=== PATIENT | female | born 1985 | race Caucasian/White ===

== ENCOUNTER 2017-01-01 03:38 | Emergency (ER) | payer BC ==
--- NOTE | 2017-01-01 04:08 | EDM.PDOC ---
ED HPI GENERAL MEDICAL PROBLEM - General Chief Complaint: Genitourinary Problem Stated Complaint: LEFT BACK AND STOMACH PAIN Time Seen by Provider: 01/01/17 04:08 - History of Present Illness INITIAL COMMENTS - FREE TEXT/NARRATIVE: 31-year-old female presents to emergency room with abdominal pain. This abdominal pain has been going on for 8 or 9 days. She doesn't have any nausea or vomiting associated with it she has some left flank discomfort at times. She has E urinary frequency but this is not new however she doesn't feel that she empties all the way and she has some discomfort when she voids. No diarrhea no constipation she's not aware of any fevers or chills. Complicating medical history includes type 2 diabetes. Left Flank Pain Score (Numeric/FACES): 9 - Related Data Allergies Allergy/AdvReac Type Severity Reaction Status Date / Time No Known Allergies Allergy Verified 02/13/16 14:40 Home Meds: Home Meds Ciprofloxacin [Ciprofloxacin HCl] 500 mg PO BID #14 tablet 01/01/17 [Rx] Hydrocodone/Acetaminophen [[place] 5-325] 1 tab PO Q4H PRN #10 tablet 01/01/17 [Rx ] Lisinopril 5 mg PO DAILY 01/01/17 [History] sitaGLIPtin Phos/Metformin HCl [Janumet Xr 50-1,000 mg Tablet] 1 tab PO DAILY [History] Past Medical History - Past Health History Medical/Surgical History: Denies Medical/Surgical History Endocrine/Metabolic History: Reports: Diabetes, Type II Social & Family History - Family History Family Medical History: Noncontributory - Tobacco Use Smoking Status *Q: Never Smoker - Recreational Drug Use Recreational Drug Use: No ED ROS GENERAL - Review of Systems Review Of Systems: See Below Constitutional: Reports: No Symptoms HEENT: Reports: No Symptoms Respiratory: Reports: No Symptoms Cardiovascular: Reports: No Symptoms GI/Abdominal: Reports: Abdominal Pain. Denies: Constipation, Diarrhea, Nausea, Vomiting : Reports: Dysuria, Flank Pain, Frequency, Irregular Menses. Denies: Hematuria Musculoskeletal: Reports: No Symptoms Skin: Reports: No Symptoms Neurological: Reports: No Symptoms ED EXAM, GI/ABD - Physical Exam Exam: See Below Exam Limited By: No Limitations General Appearance: Alert, Mild Distress (Somewhat anxious and has some discomfort) Head: Atraumatic, Normocephalic Neck: Normal Inspection, Supple, Non-Tender, Full Range of Motion. No: Lymphadenopathy (L), Lymphadenopathy (R) Respiratory/Chest: No Respiratory Distress, Lungs Clear, Normal Breath Sounds Cardiovascular: Regular Rate, Rhythm, No Edema, No Murmur GI/Abdominal: Normal Bowel Sounds, Soft, Other (She has significant lower abdominal pain most of the suprapubic but to a lesser degree in the right lower quadrant and left lower quadrant no rigidity no rebound or guarding) Back Exam: Normal Inspection, CVA Tenderness (L) (Mild). No: CVA Tenderness (R) Extremities: Normal Inspection, No Pedal Edema Neurological: Alert, Oriented Course - Vital Signs Last Recorded V/S: Last Vital Signs Temp 36.9 C 01/01/17 03:48 Pulse 114 H 01/01/17 03:48 Resp 20 01/01/17 03:48 BP 134/107 H 01/01/17 03:48 Pulse Ox 99 01/01/17 03:48 - Orders/Labs/Meds Orders: Active Orders 24 hr Category Date Time Status CULTURE URINE [RM] Stat Lab 01/01/17 05:51 Ordered Labs: Laboratory Tests 01/01/17 01/01/17 01/01/17 Range/Units 04:15 04:50 04:50 WBC 14.82 H (3.98-10.04) K/mm3 RBC 4.46 (3.98-5.22) M/mm3 Hgb 11.9 (11.2-15.7) gm/L Hct 36.6 (34.1-44.9) % MCV 82.1 (79.4-94.8) fl MCH 26.7 (25.6-32.2) pg MCHC 32.5 (32.2-35.5) g/dl RDW Std Deviation 39.8 (36.4-46.3) fL Plt Count 412 H (182-369) K/mm3 MPV 9.7 (9.4-12.3) fl Neutrophils % (Manual) 68 H (40-60) % Band Neutrophils % 0 (0-10) % Lymphocytes % (Manual) 30 (20-40) % Atypical Lymphs % 0 % Monocytes % (Manual) 0 L (2-10) % Eosinophils % (Manual) 2 (0.7-5.8) % Basophils % (Manual) 0 L (0.1-1.2) Platelet Estimate Adequate RBC Morph Comment Normal Sodium 141 (136-145) mEq/L Potassium 3.9 (3.5-5.1) mEq/L Chloride 104 (98-107) mEq/L Carbon Dioxide 27 (21-32) mEq/L Anion Gap 13.9 (5-15) BUN 7 (7-18) mg/dL Creatinine 0.7 (0.55-1.02) mg/dL Est Cr Clr Drug Dosing 92.94 mL/min Estimated GFR (MDRD) > 60 (>60) mL/min BUN/Creatinine Ratio 10.0 L (14-18) Glucose 145 H (74-106) mg/dL Calcium 9.2 (8.5-10.1) mg/dL Total Bilirubin 0.5 (0.2-1.0) mg/dL AST 50 H (15-37) U/L ALT 85 H (14-59) U/L Alkaline Phosphatase 88 (46-116) U/L Total Protein 8.1 (6.4-8.2) g/dl Albumin 3.5 (3.4-5.0) g/dl Globulin 4.6 gm/dL Albumin/Globulin Ratio 0.8 L (1-2) Urine Color Light yellow (Yellow) Urine Appearance Slt cloudy H (Clear) Urine pH 6.5 (5.0-8.0) Ur Specific Jackson 1.015 (1.005-1.030) Urine Protein Trace H (Negative) Urine Glucose (UA) Negative (Negative) Urine Ketones Negative (Negative) Urine Occult Blood 1+ H (Negative) Urine Nitrite Negative (Negative) Urine Bilirubin Negative (Negative) Urine Urobilinogen 1.0 (0.2-1.0) Ur Leukocyte Esterase 1+ H (Negative) Urine RBC 0-5 (0-5) /hpf Urine WBC 5-10 H (0-5) /hpf Ur Epithelial Cells 0-5 (0-5) /hpf Urine Bacteria Few (FEW) /hpf Urine Mucus Few (FEW) /hpf Urine HCG, Qual (NEGATIVE) 01/01/17 Range/Units 04:50 WBC (3.98-10.04) K/mm3 RBC (3.98-5.22) M/mm3 Hgb (11.2-15.7) gm/L Hct (34.1-44.9) % MCV (79.4-94.8) fl MCH (25.6-32.2) pg MCHC (32.2-35.5) g/dl RDW Std Deviation (36.4-46.3) fL Plt Count (182-369) K/mm3 MPV (9.4-12.3) fl Neutrophils % (Manual) (40-60) % Band Neutrophils % (0-10) % Lymphocytes % (Manual) (20-40) % Atypical Lymphs % % Monocytes % (Manual) (2-10) % Eosinophils % (Manual) (0.7-5.8) % Basophils % (Manual) (0.1-1.2) Platelet Estimate RBC Morph Comment Sodium (136-145) mEq/L Potassium (3.5-5.1) mEq/L Chloride (98-107) mEq/L Carbon Dioxide (21-32) mEq/L Anion Gap (5-15) BUN (7-18) mg/dL Creatinine (0.55-1.02) mg/dL Est Cr Clr Drug Dosing mL/min Estimated GFR (MDRD) (>60) mL/min BUN/Creatinine Ratio (14-18) Glucose (74-106) mg/dL Calcium (8.5-10.1) mg/dL Total Bilirubin (0.2-1.0) mg/dL AST (15-37) U/L ALT (14-59) U/L Alkaline Phosphatase (46-116) U/L Total Protein (6.4-8.2) g/dl Albumin (3.4-5.0) g/dl Globulin gm/dL Albumin/Globulin Ratio (1-2) Urine Color (Yellow) Urine Appearance (Clear) Urine pH (5.0-8.0) Ur Specific Jackson (1.005-1.030) Urine Protein (Negative) Urine Glucose (UA) (Negative) Urine Ketones (Negative) Urine Occult Blood (Negative) Urine Nitrite (Negative) Urine Bilirubin (Negative) Urine Urobilinogen (0.2-1.0) Ur Leukocyte Esterase (Negative) Urine RBC (0-5) /hpf Urine WBC (0-5) /hpf Ur Epithelial Cells (0-5) /hpf Urine Bacteria (FEW) /hpf Urine Mucus (FEW) /hpf Urine HCG, Qual Negative (NEGATIVE) Meds: Medications Discontinued Medications Generic Name Dose Route Start Last Admin Trade Name Freq PRN Reason Stop Dose Admin Hydrocodone Bitart/Acetaminophen 1 tab 01/01/17 06:04 01/01/17 06:21 [place] 325-5 Mg PO 01/01/17 06:05 1 tab ONETIME ONE Administration Ceftriaxone Sodium 1,000 mg 01/01/17 05:43 01/01/17 07:21 Rocephin IVPUSH 01/01/17 05:44 Not Given ONETIME ONE Fentanyl 50 mcg 01/01/17 04:22 01/01/17 04:48 Sublimaze IVPUSH 01/01/17 04:23 50 mcg ONETIME ONE Administration Lactated Ringer's 1,000 mls @ 150 mls/hr 01/01/17 04:30 01/01/17 04:47 Ringers, Lactated IV 150 mls/hr ASDIRECTED JAMES Administration Ceftriaxone Sodium 1 gm/ 100 mls @ 200 mls/hr 01/01/17 06:04 01/01/17 06:21 Sodium Chloride IV 01/01/17 06:33 200 mls/hr ONETIME ONE Administration - Re-Assessments/Exams Free Text/Narrative Re-Assessment/Exam: 01/01/17 05:38 Urinalysis is suggestive of an infectious process urine culture ordered. HCG negative at this point were still waiting on her CBC. With the duration of this illness and the flank tenderness one has to worry about an early pyelonephritis patient will receive a gram of Rocephin after her LR is shut off and her IVs irrigated with saline. 01/01/17 06:37 Recent CBC is back she has a mild elevation no left shift. Anticipate discharge after the Rocephin is in. Departure - Departure Time of Disposition: 07:28 Disposition: Home, Self-Care 01 Clinical Impression: Pyelonephritis - Discharge Information Prescriptions: Ciprofloxacin [Ciprofloxacin HCl] 500 mg PO BID #14 tablet Hydrocodone/Acetaminophen [[place] 5-325] 1 tab PO Q4H PRN #10 tablet PRN Reason: Pain Referrals: PCP,Unknown [Primary Care Provider] - Forms: ED Department Discharge Additional Instructions: Return to the emergency room with any questions problems or worsening symptoms. Follow up at the Hospital clinic on Tuesday or Tuesday for recheck. [phone] You've been started on Cipro, this is an antibiotic take it twice daily. Start tonight. You have also been started on [place] this is for pain take 1 every 4 hours as needed. Allow 12 hours after taking this medication before driving and returning to work - My Orders Last 24 Hours: My Active Orders 01/01/17 05:51 CULTURE URINE [RM] Stat - Assessment/Plan Last 24 Hours: My Active Orders 01/01/17 05:51 CULTURE URINE [RM] Stat
[2017-01-01] MEDS ORDERED: fentaNYL 100 MCG/2 ML SDV IVPUSH ONE (04:22)
[2017-01-01] MEDS ORDERED: Lactated Ringers 1,000 ML IV SCH (04:30)
[2017-01-01] MEDS ORDERED: cefTRIAXone 1,000 MG VIAL IVPUSH ONE (05:43)
[2017-01-01] MEDS ORDERED: cefTRIAXone 1 GM in Sodium Chloride 0.9% 100 ML IV ONE (06:04)
[2017-01-01] MEDS ORDERED: Acetaminophen/HYDROcodone 325-5 MG Tab PO ONE (06:04)
[2017-01-01 07:54] VITALS: BP 121/77
== END 2017-01-01 07:56 | disposition home or self-care (01) ==
LOC: JD.ED 03:38
DX: N12 Tubulo-interstitial nephritis, not specified as acute or chronic (principal); E11.9 Type 2 diabetes mellitus without complications; Z79.899 Other long term (current) drug therapy; Z79.84 Long term (current) use of oral hypoglycemic drugs
CPT/HCPCS: 36415; 80053; 81001; 81025; 85025; 87086; 96361; 96365; 96375; 99284; A9270; J0696; J3010; J7030; J7120

== ENCOUNTER 2017-01-02 17:13 | Inpatient (IN) | payer BC ==
[2017-01-02] MEDS ORDERED: Sodium Chloride 0.9% 1,000 ML IV ONE (17:46)
--- NOTE | 2017-01-02 17:46 | EDM.PDOC ---
[id number] Chief Complaint: Abdominal Pain Stated Complaint: RE CK ABDOMINAL PAIN Time Seen by Provider: 01/02/17 17:38 - Related Data Allergies Allergy/AdvReac Type Severity Reaction Status Date / Time No Known Allergies Allergy Verified 01/02/17 17:29 Home Meds: Home Meds Ciprofloxacin [Ciprofloxacin HCl] 500 mg PO BID #14 tablet 01/01/17 [Rx] Hydrocodone/Acetaminophen [[place] 5-325] 1 tab PO Q4H PRN #10 tablet 01/01/17 [Rx ] Lisinopril 5 mg PO DAILY 01/01/17 [History] sitaGLIPtin Phos/Metformin HCl [Janumet Xr 50-1,000 mg Tablet] 1 tab PO DAILY [History] ED EXAM, GI/ABD - Physical Exam (Female) Exam: Normal External Exam, Adnexal Tenderness, Cervical Discharge, Other (Dark yellow discharge from the cervical os cultures obtained strings from the IUD visualized and with further examination it looks like the IUD is trying to expel itself the end of the IUD is visible this was secured with ring forceps and removed) Course - Vital Signs Last Recorded V/S: Last Vital Signs Temp 36.7 C 01/03/17 03:15 Pulse 112 H 01/02/17 17:24 Resp 20 01/02/17 17:24 BP 112/84 01/02/17 17:24 Pulse Ox 97 01/02/17 17:24 - Orders/Labs/Meds Orders: Active Orders 24 hr Category Date Time Status Abdomen Pelvis w Cont [CT] Stat Exams 01/02/17 17:51 Taken Transvaginal Non OB [US] Stat Exams 01/02/17 21:39 Taken CULTURE BLOOD [BC] Stat Lab 01/02/17 18:15 Received CULTURE BLOOD [BC] Stat Lab 01/02/17 18:26 Received Sodium Chloride 0.9% [Saline Flush] Med 01/02/17 19:11 Active 10 ml FLUSH ONETIME PRN Blood Culture x2 Reflex Set [OM.PC] Stat Oth 01/02/17 17:51 Ordered Medication Orders Hydromorphone HCl (Dilaudid) 0.5 mg IVPUSH Q2H PRN PRN Reason: Pain Last Admin: 01/03/17 00:35 Dose: 0.5 mg Cefoxitin Sodium 2 gm/ Premix 50 mls @ 100 mls/hr IV Q12H [facility] Last Admin: 01/03/17 00:50 Dose: 100 mls/hr Doxycycline Hyclate 100 mg/ (Sodium Chloride) 100 mls @ 100 mls/hr IV Q12H [facility] Last Admin: 01/03/17 03:13 Dose: 100 mls/hr Levofloxacin/Dextrose 750 mg/ (Premix) 150 mls @ 100 mls/hr IV Q24H [facility] Lactated Ringer's (Ringers, Lactated) 1,000 mls @ 75 mls/hr IV ASDIRECTED [facility] Ibuprofen (Motrin) 600 mg PO Q6H PRN PRN Reason: Fever Last Admin: 01/03/17 00:34 Dose: 600 mg Insulin Aspart (Novolog) 0 unit SUBCUT QIDACANDBED [facility] PRN Reason: Protocol Ondansetron HCl (Zofran) 4 mg IVPUSH Q4H PRN PRN Reason: Nausea/Vomiting Sodium Chloride (Saline Flush) 10 ml FLUSH ONETIME PRN PRN Reason: IV FLUSH Last Admin: 01/02/17 20:09 Dose: 10 ml Labs: Laboratory Tests 01/02/17 01/02/17 01/02/17 Range/Units 18:15 18:15 18:15 WBC 15.27 H (3.98-10.04) K/mm3 RBC 4.66 (3.98-5.22) M/mm3 Hgb 12.3 (11.2-15.7) gm/L Hct 37.9 (34.1-44.9) % MCV 81.3 (79.4-94.8) fl MCH 26.4 (25.6-32.2) pg MCHC 32.5 (32.2-35.5) g/dl RDW Std Deviation 39.1 (36.4-46.3) fL Plt Count 429 H (182-369) K/mm3 MPV 9.4 (9.4-12.3) fl Neutrophils % (Manual) 83 H (40-60) % Band Neutrophils % 0 (0-10) % Lymphocytes % (Manual) 14 L (20-40) % Atypical Lymphs % 0 % Monocytes % (Manual) 2 (2-10) % Eosinophils % (Manual) 0 L (0.7-5.8) % Basophils % (Manual) 1 (0.1-1.2) Platelet Estimate Adequate Plt Morphology Comment Normal Anisocytosis 1+ slight RBC Morph Comment Not Reportable Sodium 137 (136-145) mEq/L Potassium 3.8 (3.5-5.1) mEq/L Chloride 100 (98-107) mEq/L Carbon Dioxide 26 (21-32) mEq/L Anion Gap 14.8 (5-15) BUN 6 L (7-18) mg/dL Creatinine 0.7 (0.55-1.02) mg/dL Est Cr Clr Drug Dosing TNP Estimated GFR (MDRD) > 60 (>60) mL/min BUN/Creatinine Ratio 8.6 L (14-18) Glucose 136 H (74-106) mg/dL Calcium 8.9 (8.5-10.1) mg/dL Total Bilirubin 0.9 (0.2-1.0) mg/dL AST 39 H (15-37) U/L ALT 83 H (14-59) U/L Alkaline Phosphatase 97 (46-116) U/L C-Reactive Protein 20.2 H* (<1.0) mg/dL Total Protein 8.1 (6.4-8.2) g/dl Albumin 3.3 L (3.4-5.0) g/dl Globulin 4.8 gm/dL Albumin/Globulin Ratio 0.7 L (1-2) Lipase 76 (73-393) U/L HCG, Qual Negative (NEGATIVE) Urine Color (Yellow) Urine Appearance (Clear) Urine pH (5.0-8.0) Ur Specific [place] (1.005-1.030) Urine Protein (Negative) Urine Glucose (UA) (Negative) Urine Ketones (Negative) Urine Occult Blood (Negative) Urine Nitrite (Negative) Urine Bilirubin (Negative) Urine Urobilinogen (0.2-1.0) Ur Leukocyte Esterase (Negative) Urine RBC (0-5) /hpf Urine WBC (0-5) /hpf Ur Epithelial Cells (0-5) /hpf Urine Bacteria (FEW) /hpf Urine Mucus (FEW) /hpf C trachomatis DNA (PCR) N gonorrhoeae DNA (PCR) 01/02/17 01/02/17 Range/Units 18:15 22:25 WBC (3.98-10.04) K/mm3 RBC (3.98-5.22) M/mm3 Hgb (11.2-15.7) gm/L Hct (34.1-44.9) % MCV (79.4-94.8) fl MCH (25.6-32.2) pg MCHC (32.2-35.5) g/dl RDW Std Deviation (36.4-46.3) fL Plt Count (182-369) K/mm3 MPV (9.4-12.3) fl Neutrophils % (Manual) (40-60) % Band Neutrophils % (0-10) % Lymphocytes % (Manual) (20-40) % Atypical Lymphs % % Monocytes % (Manual) (2-10) % Eosinophils % (Manual) (0.7-5.8) % Basophils % (Manual) (0.1-1.2) Platelet Estimate Plt Morphology Comment Anisocytosis RBC Morph Comment Sodium (136-145) mEq/L Potassium (3.5-5.1) mEq/L Chloride (98-107) mEq/L Carbon Dioxide (21-32) mEq/L Anion Gap (5-15) BUN (7-18) mg/dL Creatinine (0.55-1.02) mg/dL Est Cr Clr Drug Dosing Estimated GFR (MDRD) (>60) mL/min BUN/Creatinine Ratio (14-18) Glucose (74-106) mg/dL Calcium (8.5-10.1) mg/dL Total Bilirubin (0.2-1.0) mg/dL AST (15-37) U/L ALT (14-59) U/L Alkaline Phosphatase (46-116) U/L C-Reactive Protein (<1.0) mg/dL Total Protein (6.4-8.2) g/dl Albumin (3.4-5.0) g/dl Globulin gm/dL Albumin/Globulin Ratio (1-2) Lipase (73-393) U/L HCG, Qual (NEGATIVE) Urine Color Yellow (Yellow) Urine Appearance Slt cloudy H (Clear) Urine pH 6.0 (5.0-8.0) Ur Specific [place] 1.020 (1.005-1.030) Urine Protein 2+ H (Negative) Urine Glucose (UA) Negative (Negative) Urine Ketones 2+ H (Negative) Urine Occult Blood Trace-lysed H (Negative) Urine Nitrite Negative (Negative) Urine Bilirubin 1+ H (Negative) Urine Urobilinogen 0.2 (0.2-1.0) Ur Leukocyte Esterase 1+ H (Negative) Urine RBC 0-5 (0-5) /hpf Urine WBC 40-50 H (0-5) /hpf Ur Epithelial Cells 30-40 H (0-5) /hpf Urine Bacteria Few (FEW) /hpf Urine Mucus Not seen (FEW) /hpf C trachomatis DNA (PCR) Not detected N gonorrhoeae DNA (PCR) Not detected Meds: Medications Generic Name Dose Route Start Last Admin Trade Name Freq PRN Reason Stop Dose Admin Hydromorphone HCl 0.5 mg 01/02/17 23:45 01/03/17 00:35 Dilaudid IVPUSH 0.5 mg Q2H PRN Administration Pain Cefoxitin Sodium 2 gm/ Premix 50 mls @ 100 mls/hr 01/03/17 01:00 01/03/17 00: 50 IV 100 mls/hr Q12H [facility] Administration Doxycycline Hyclate 100 mg/ 100 mls @ 100 mls/hr 01/03/17 03:00 01/03/17 03: 13 Sodium Chloride IV 100 mls/hr Q12H [facility] Administration Levofloxacin/Dextrose 750 mg/ 150 mls @ 100 mls/hr 01/03/17 18:00 Premix IV Q24H [facility] Lactated Ringer's 1,000 mls @ 75 mls/hr 01/03/17 14:00 Ringers, Lactated IV ASDIRECTED [facility] Ibuprofen 600 mg 01/03/17 00:14 01/03/17 00:34 Motrin PO 600 mg Q6H PRN Administration Fever Insulin Aspart 0 unit 01/03/17 11:00 Novolog SUBCUT QIDACANDBED [facility] Protocol Ondansetron HCl 4 mg 01/02/17 23:51 Zofran IVPUSH Q4H PRN Nausea/Vomiting Sodium Chloride 10 ml 01/02/17 19:11 01/02/17 20:09 Saline Flush FLUSH 10 ml ONETIME PRN Administration IV FLUSH Discontinued Medications Generic Name Dose Route Start Last Admin Trade Name Freq PRN Reason Stop Dose Admin Diatrizoate Meglum/Diatrizoate Sod 90 ml 01/02/17 19:11 01/02/17 20:09 Gastrografin 37% PO 01/02/17 19:12 90 ml ONETIME ONE Administration Diphenhydramine HCl 25 mg 01/02/17 17:50 01/02/17 18:18 Benadryl IVPUSH 01/02/17 17:51 25 mg ONETIME ONE Administration Hydromorphone HCl 1 mg 01/02/17 17:47 01/02/17 18:18 Dilaudid IVPUSH 01/02/17 17:48 1 mg ONETIME ONE Administration Hydromorphone HCl 0.5 mg 01/02/17 18:41 01/02/17 18:55 Dilaudid IVPUSH 01/02/17 18:42 0.5 mg ONETIME ONE Administration Hydromorphone HCl 0.5 mg 01/02/17 20:27 01/02/17 20:36 Dilaudid IVPUSH 01/02/17 20:28 0.5 mg ONETIME ONE Administration Hydromorphone HCl 0.5 mg 01/02/17 21:41 01/02/17 21:48 Dilaudid IVPUSH 01/02/17 21:42 0.5 mg ONETIME ONE Administration Sodium Chloride 1,000 mls @ 999 mls/hr 01/02/17 17:46 01/02/17 18:21 Normal Saline IV 01/02/17 18:46 999 mls/hr ONETIME ONE Administration Levofloxacin/Dextrose 750 mg/ 150 mls @ 100 mls/hr 01/02/17 18:07 01/02/17 18 :23 Premix IV 01/02/17 19:36 100 mls/hr ONETIME ONE Administration Lactated Ringer's 1,000 mls @ 150 mls/hr 01/02/17 21:30 01/02/17 23:35 Ringers, Lactated IV 150 mls/hr ASDIRECTED [facility] Administration Dextrose/Sodium Chloride 1,000 mls @ 125 mls/hr 01/02/17 23:45 01/03/17 06:12 Dextrose 5%-1/2 Ns IV 125 mls/hr ASDIRECTED [facility] Administration Insulin Aspart 0 unit 01/03/17 00:15 01/03/17 06:20 Novolog SUBCUT Not Given Q6H [facility] Protocol Iopamidol 125 ml 01/02/17 19:11 01/02/17 20:09 Isovue-300 (61%) IVPUSH 01/02/17 19:12 125 ml ONETIME ONE Administration Metoclopramide HCl 10 mg 01/02/17 17:47 01/02/17 18:18 Reglan IVPUSH 01/02/17 17:48 10 mg ONETIME ONE Administration Ondansetron HCl 4 mg 01/02/17 21:41 01/02/17 21:46 Zofran IVPUSH 01/02/17 21:42 4 mg ONETIME ONE Administration - Re-Assessments/Exams Free Text/Narrative Re-Assessment/Exam: 01/02/17 21:44 Assume care changes shift I did have to give her some more pain medication CT results back which show a 6.3 x 4 cm multiloculated abscess collection in the left adnexa most consistent with a tubo-ovarian abscess. No free air seen case discussed with Dr. Porter ip technology transactions attorney BARGE ENGINEER who recommends starting her on Mefoxin and doxycycline IV after removing the IUD and obtaining cultures aerobic and anaerobic from the cervical loss GC and Chlamydia screen and culture the IUD. 01/02/17 22:52 Patient will be admitted inpatient. Blood cultures obtained earlier patient had cervical cultures for GC chlamydia aerobic and anaerobic. IUD was easily removed patient tolerated this without too much difficulty. Departure - Departure Time of Disposition: 22:52 Disposition: Admitted As Inpatient 67 Clinical Impression: Tubo-ovarian abscess - Discharge Information - My Orders Last 24 Hours: My Active Orders 01/02/17 17:51 Abdomen Pelvis w Cont [CT] Stat Blood Culture x2 Reflex Set [OM.PC] Stat 01/02/17 18:15 CULTURE BLOOD [BC] Stat 01/02/17 18:26 CULTURE BLOOD [BC] Stat - Assessment/Plan Last 24 Hours: My Active Orders 01/02/17 17:51 Abdomen Pelvis w Cont [CT] Stat Blood Culture x2 Reflex Set [OM.PC] Stat 01/02/17 18:15 CULTURE BLOOD [BC] Stat 01/02/17 18:26 CULTURE BLOOD [BC] Stat <Javier Perdomo - Last Filed: 01/03/17 08:27> ED HPI GENERAL MEDICAL PROBLEM - General Source of Information: Reports: Patient History Limitations: Reports: No Limitations - History of Present Illness INITIAL COMMENTS - FREE TEXT/NARRATIVE: 31-year-old female presents to the ED once again with increased left janee- abdominal pain radiating up to her left flank. Pain radiates down to the groin and suprapubic region. She hasn't had a bowel movement since yesterday. She did not know seen blood in the stool yesterday and no relief of the pain. She was seen through the ED yesterday morning early and identified to have an elevated white count at 14.82 with essentially normal differential 60% neutrophils and no bands. There were 5-10+ cells per per field and leukocyte esterase was 1+ positive. It was felt that with her diabetes she likely was developing a early pyelonephritis. She was given Rocephin 1 g intravenously and placed on Cipro 500 twice a day. She reports that she's no better and in fact much worse than she was yesterday. She had fever and chills last night. She a little bit of breakfast this morning she's vomited 3 times this afternoon. More from the intensity of the pain. Pain tends to be sharp and stabbing but is constant and worsened by coughing sneezing movement or even deep breathing. Riding in a vehicle was very painful with every bump in the road. This suggests underlying peritonitis. She's not sure what her blood sugars have been running at. She took a prescribed hydrocodone tablet at 3:00 and was hopeful to go to work but could not stand the pain. She presents very tearful and moving very slowly. No position is very comfortable. No previous abdominal surgery. She is type II diabetic controlled with oral medications. Blood sugar yesterday was 145 she has not checked it today. Urine and she just yesterday was negative. Onset: Gradual (She reports the pain started 7-8 days ago and is gradually increased in intensity. Worse in the last 24 hours.) Onset Date: 12/25/16 Duration: Hour(s): Location: Reports: Abdomen (Left hemiabdomen radium into her left back flank area. Also down to the pubic symphysis area.) Quality: Reports: Ache, Sharp, Stabbing Severity: Severe Improves with: Reports: None (Rates the pain currently as 9 out of 10.) Worsens with: Reports: Other (Coughing sneezing laughing deep breathing and getting in and out of the car was extremely painful.), Movement Context: Denies: Activity, Exercise, Lifting, Sick Contact, Trauma Associated Symptoms: Reports: Fever/Chills, Loss of Appetite, Malaise, Nausea/ Vomiting, Weakness. Denies: Confusion, Chest Pain, Cough, cough w sputum, Diaphoresis, Headaches, Rash, Seizure, Shortness of Breath, Syncope Treatments SUSTAINABILITY MANAGER: Reports: Other (see below) Other Treatments SUSTAINABILITY MANAGER: pain medication at 1500 lower left flank, left lower abdomen Pain Score (Numeric/FACES): 10 Past Medical History - Past Health History Medical/Surgical History: Denies Medical/Surgical History : 3 Para: 3 Endocrine/Metabolic History: Reports: Diabetes, Type II (Controlled with oral medications.) Social & Family History - Family History Family Medical History: Noncontributory - Tobacco Use Smoking Status *Q: Never Smoker - Recreational Drug Use Recreational Drug Use: No - Living Situation & Occupation Living situation: Reports: Occupation: Employed ED ROS GENERAL - Review of Systems Review Of Systems: See Below Constitutional: Reports: Fever, Chills, Malaise, Weakness, Fatigue, Decreased Appetite. Denies: Diaphoresis HEENT: Reports: No Symptoms Respiratory: Denies: Shortness of Breath, Wheezing, Pleuritic Chest Pain, Cough , Sputum Cardiovascular: Reports: No Symptoms Endocrine: Reports: Fatigue GI/Abdominal: Reports: Abdominal Pain (See history of present illness), Decreased Appetite, Nausea, Vomiting. Denies: Distension, Flatus, Hematemesis, Hematochezia, Melena, Other : Reports: No Symptoms Musculoskeletal: Reports: Back Pain (Left flank pain and low back pain.) Skin: Reports: No Symptoms Neurological: Reports: No Symptoms Psychiatric: Reports: No Symptoms, Other Immunologic: Reports: No Symptoms ED EXAM, GI/ABD - Physical Exam Exam: See Below Exam Limited By: No Limitations General Appearance: Alert, WD/WN, Anxious, Moderate Distress (Very tearful and anxious. No position is comfortable.) Eyes: Bilateral: Normal Appearance (No jaundice) Throat/Mouth: Normal Inspection, Normal Lips, Normal Oropharynx, Other Head: Atraumatic, Normocephalic (Tongue is mildly dry and coated) Neck: Normal Inspection, Supple, Non-Tender, Full Range of Motion. No: Lymphadenopathy (L) Respiratory/Chest: No Respiratory Distress, Lungs Clear, Normal Breath Sounds, No Accessory Muscle Use, Chest Non-Tender, Respiratory Distress (Mild tachypnea. ) Cardiovascular: Normal Peripheral Pulses, Regular Rate, Rhythm, No Murmur, Tachycardia (Resting tachycardia of 1 12/m.) GI/Abdominal: Hypoactive Bowel Sounds (Very hypoactive bowel sounds.), Guarding , Rebound (Left lower quadrant). No: Rigidity ( left lower quadrant), Hepatomegaly, Splenomegaly, Hernia, Mass, McBurney's Sign, Psoas Sign, Obturator Sign Back Exam: Normal Inspection, Decreased Range of Motion. No: Full Range of Motion, CVA Tenderness (L), CVA Tenderness (R) Extremities: Normal Inspection, Normal Range of Motion, Non-Tender, Normal Capillary Refill Neurological: Alert, Oriented, CN II-XII Intact, Normal Cognition, Normal Gait, Normal Reflexes Psychiatric: Normal Affect, Normal Mood Skin Exam: Warm, Dry, Intact, Normal Color, No Rash Course - Orders/Labs/Meds Orders: Active Orders 24 hr Category Date Time Status Abdomen Pelvis w Cont [CT] Stat Exams 01/02/17 17:51 Taken Transvaginal Non OB [US] Stat Exams 01/02/17 21:39 Taken CULTURE BLOOD [BC] Stat Lab 01/02/17 18:15 Received CULTURE BLOOD [BC] Stat Lab 01/02/17 18:26 Received Sodium Chloride 0.9% [Saline Flush] Med 01/02/17 19:11 Active 10 ml FLUSH ONETIME PRN Blood Culture x2 Reflex Set [OM.PC] Stat Oth 01/02/17 17:51 Ordered Medication Orders Hydromorphone HCl (Dilaudid) 0.5 mg IVPUSH Q2H PRN PRN Reason: Pain Last Admin: 01/03/17 00:35 Dose: 0.5 mg Cefoxitin Sodium 2 gm/ Premix 50 mls @ 100 mls/hr IV Q12H [facility] Last Admin: 01/03/17 00:50 Dose: 100 mls/hr Doxycycline Hyclate 100 mg/ (Sodium Chloride) 100 mls @ 100 mls/hr IV Q12H [facility] Last Admin: 01/03/17 03:13 Dose: 100 mls/hr Levofloxacin/Dextrose 750 mg/ (Premix) 150 mls @ 100 mls/hr IV Q24H [facility] Lactated Ringer's (Ringers, Lactated) 1,000 mls @ 75 mls/hr IV ASDIRECTED [facility] Ibuprofen (Motrin) 600 mg PO Q6H PRN PRN Reason: Fever Last Admin: 01/03/17 00:34 Dose: 600 mg Insulin Aspart (Novolog) 0 unit SUBCUT QIDACANDBED [facility] PRN Reason: Protocol Ondansetron HCl (Zofran) 4 mg IVPUSH Q4H PRN PRN Reason: Nausea/Vomiting Sodium Chloride (Saline Flush) 10 ml FLUSH ONETIME PRN PRN Reason: IV FLUSH Last Admin: 01/02/17 20:09 Dose: 10 ml Labs: Laboratory Tests 01/02/17 01/02/17 01/02/17 Range/Units 18:15 18:15 18:15 WBC 15.27 H (3.98-10.04) K/mm3 RBC 4.66 (3.98-5.22) M/mm3 Hgb 12.3 (11.2-15.7) gm/L Hct 37.9 (34.1-44.9) % MCV 81.3 (79.4-94.8) fl MCH 26.4 (25.6-32.2) pg MCHC 32.5 (32.2-35.5) g/dl RDW Std Deviation 39.1 (36.4-46.3) fL Plt Count 429 H (182-369) K/mm3 MPV 9.4 (9.4-12.3) fl Neutrophils % (Manual) 83 H (40-60) % Band Neutrophils % 0 (0-10) % Lymphocytes % (Manual) 14 L (20-40) % Atypical Lymphs % 0 % Monocytes % (Manual) 2 (2-10) % Eosinophils % (Manual) 0 L (0.7-5.8) % Basophils % (Manual) 1 (0.1-1.2) Platelet Estimate Adequate Plt Morphology Comment Normal Anisocytosis 1+ slight RBC Morph Comment Not Reportable Sodium 137 (136-145) mEq/L Potassium 3.8 (3.5-5.1) mEq/L Chloride 100 (98-107) mEq/L Carbon Dioxide 26 (21-32) mEq/L Anion Gap 14.8 (5-15) BUN 6 L (7-18) mg/dL Creatinine 0.7 (0.55-1.02) mg/dL Est Cr Clr Drug Dosing TNP Estimated GFR (MDRD) > 60 (>60) mL/min BUN/Creatinine Ratio 8.6 L (14-18) Glucose 136 H (74-106) mg/dL Calcium 8.9 (8.5-10.1) mg/dL Total Bilirubin 0.9 (0.2-1.0) mg/dL AST 39 H (15-37) U/L ALT 83 H (14-59) U/L Alkaline Phosphatase 97 (46-116) U/L C-Reactive Protein 20.2 H* (<1.0) mg/dL Total Protein 8.1 (6.4-8.2) g/dl Albumin 3.3 L (3.4-5.0) g/dl Globulin 4.8 gm/dL Albumin/Globulin Ratio 0.7 L (1-2) Lipase 76 (73-393) U/L HCG, Qual Negative (NEGATIVE) Urine Color (Yellow) Urine Appearance (Clear) Urine pH (5.0-8.0) Ur Specific [place] (1.005-1.030) Urine Protein (Negative) Urine Glucose (UA) (Negative) Urine Ketones (Negative) Urine Occult Blood (Negative) Urine Nitrite (Negative) Urine Bilirubin (Negative) Urine Urobilinogen (0.2-1.0) Ur Leukocyte Esterase (Negative) Urine RBC (0-5) /hpf Urine WBC (0-5) /hpf Ur Epithelial Cells (0-5) /hpf Urine Bacteria (FEW) /hpf Urine Mucus (FEW) /hpf C trachomatis DNA (PCR) N gonorrhoeae DNA (PCR) 01/02/17 01/02/17 Range/Units 18:15 22:25 WBC (3.98-10.04) K/mm3 RBC (3.98-5.22) M/mm3 Hgb (11.2-15.7) gm/L Hct (34.1-44.9) % MCV (79.4-94.8) fl MCH (25.6-32.2) pg MCHC (32.2-35.5) g/dl RDW Std Deviation (36.4-46.3) fL Plt Count (182-369) K/mm3 MPV (9.4-12.3) fl Neutrophils % (Manual) (40-60) % Band Neutrophils % (0-10) % Lymphocytes % (Manual) (20-40) % Atypical Lymphs % % Monocytes % (Manual) (2-10) % Eosinophils % (Manual) (0.7-5.8) % Basophils % (Manual) (0.1-1.2) Platelet Estimate Plt Morphology Comment Anisocytosis RBC Morph Comment Sodium (136-145) mEq/L Potassium (3.5-5.1) mEq/L Chloride (98-107) mEq/L Carbon Dioxide (21-32) mEq/L Anion Gap (5-15) BUN (7-18) mg/dL Creatinine (0.55-1.02) mg/dL Est Cr Clr Drug Dosing Estimated GFR (MDRD) (>60) mL/min BUN/Creatinine Ratio (14-18) Glucose (74-106) mg/dL Calcium (8.5-10.1) mg/dL Total Bilirubin (0.2-1.0) mg/dL AST (15-37) U/L ALT (14-59) U/L Alkaline Phosphatase (46-116) U/L C-Reactive Protein (<1.0) mg/dL Total Protein (6.4-8.2) g/dl Albumin (3.4-5.0) g/dl Globulin gm/dL Albumin/Globulin Ratio (1-2) Lipase (73-393) U/L HCG, Qual (NEGATIVE) Urine Color Yellow (Yellow) Urine Appearance Slt cloudy H (Clear) Urine pH 6.0 (5.0-8.0) Ur Specific [place] 1.020 (1.005-1.030) Urine Protein 2+ H (Negative) Urine Glucose (UA) Negative (Negative) Urine Ketones 2+ H (Negative) Urine Occult Blood Trace-lysed H (Negative) Urine Nitrite Negative (Negative) Urine Bilirubin 1+ H (Negative) Urine Urobilinogen 0.2 (0.2-1.0) Ur Leukocyte Esterase 1+ H (Negative) Urine RBC 0-5 (0-5) /hpf Urine WBC 40-50 H (0-5) /hpf Ur Epithelial Cells 30-40 H (0-5) /hpf Urine Bacteria Few (FEW) /hpf Urine Mucus Not seen (FEW) /hpf C trachomatis DNA (PCR) Not detected N gonorrhoeae DNA (PCR) Not detected Meds: Medications Generic Name Dose Route Start Last Admin Trade Name Duy PRN Reason Stop Dose Admin Hydromorphone HCl 0.5 mg 01/02/17 23:45 01/03/17 00:35 Dilaudid IVPUSH 0.5 mg Q2H PRN Administration Pain Cefoxitin Sodium 2 gm/ Premix 50 mls @ 100 mls/hr 01/03/17 01:00 01/03/17 00: 50 IV 100 mls/hr Q12H [facility] Administration Doxycycline Hyclate 100 mg/ 100 mls @ 100 mls/hr 01/03/17 03:00 01/03/17 03: 13 Sodium Chloride IV 100 mls/hr Q12H [facility] Administration Levofloxacin/Dextrose 750 mg/ 150 mls @ 100 mls/hr 01/03/17 18:00 Premix IV Q24H [facility] Lactated Ringer's 1,000 mls @ 75 mls/hr 01/03/17 14:00 Ringers, Lactated IV ASDIRECTED [facility] Ibuprofen 600 mg 01/03/17 00:14 01/03/17 00:34 Motrin PO 600 mg Q6H PRN Administration Fever Insulin Aspart 0 unit 01/03/17 11:00 Novolog SUBCUT QIDACANDBED [facility] Protocol Ondansetron HCl 4 mg 01/02/17 23:51 Zofran IVPUSH Q4H PRN Nausea/Vomiting Sodium Chloride 10 ml 01/02/17 19:11 01/02/17 20:09 Saline Flush FLUSH 10 ml ONETIME PRN Administration IV FLUSH Discontinued Medications Generic Name Dose Route Start Last Admin Trade Name Duy PRN Reason Stop Dose Admin Diatrizoate Meglum/Diatrizoate Sod 90 ml 01/02/17 19:11 01/02/17 20:09 Gastrografin 37% PO 01/02/17 19:12 90 ml ONETIME ONE Administration Diphenhydramine HCl 25 mg 01/02/17 17:50 01/02/17 18:18 Benadryl IVPUSH 01/02/17 17:51 25 mg ONETIME ONE Administration Hydromorphone HCl 1 mg 01/02/17 17:47 01/02/17 18:18 Dilaudid IVPUSH 01/02/17 17:48 1 mg ONETIME ONE Administration Hydromorphone HCl 0.5 mg 01/02/17 18:41 01/02/17 18:55 Dilaudid IVPUSH 01/02/17 18:42 0.5 mg ONETIME ONE Administration Hydromorphone HCl 0.5 mg 01/02/17 20:27 01/02/17 20:36 Dilaudid IVPUSH 01/02/17 20:28 0.5 mg ONETIME ONE Administration Hydromorphone HCl 0.5 mg 01/02/17 21:41 01/02/17 21:48 Dilaudid IVPUSH 01/02/17 21:42 0.5 mg ONETIME ONE Administration Sodium Chloride 1,000 mls @ 999 mls/hr 01/02/17 17:46 01/02/17 18:21 Normal Saline IV 01/02/17 18:46 999 mls/hr ONETIME ONE Administration Levofloxacin/Dextrose 750 mg/ 150 mls @ 100 mls/hr 01/02/17 18:07 01/02/17 18 :23 Premix IV 01/02/17 19:36 100 mls/hr ONETIME ONE Administration Lactated Ringer's 1,000 mls @ 150 mls/hr 01/02/17 21:30 01/02/17 23:35 Ringers, Lactated IV 150 mls/hr ASDIRECTED JAMES Administration Dextrose/Sodium Chloride 1,000 mls @ 125 mls/hr 01/02/17 23:45 01/03/17 06:12 Dextrose 5%-1/2 Ns IV 125 mls/hr ASDIRECTED JAMES Administration Insulin Aspart 0 unit 01/03/17 00:15 01/03/17 06:20 Novolog SUBCUT Not Given Q6H [facility] Protocol Iopamidol 125 ml 01/02/17 19:11 01/02/17 20:09 Isovue-300 (61%) IVPUSH 01/02/17 19:12 125 ml ONETIME ONE Administration Metoclopramide HCl 10 mg 01/02/17 17:47 01/02/17 18:18 Reglan IVPUSH 01/02/17 17:48 10 mg ONETIME ONE Administration Ondansetron HCl 4 mg 01/02/17 21:41 01/02/17 21:46 Zofran IVPUSH 01/02/17 21:42 4 mg ONETIME ONE Administration - Radiology Interpretation Free Text/Narrative:: 31-year-old female presents to the ED with increased left janee-abdominal pain leading up into her left flank and down into her left groin and pubic symphysis area. She reports this pain is been gradually worsening over the last 7-10 days. Associated development of fever chills last night. Should development of nausea and vomiting. Currently the pain is rated as a 9 out of 10. It is worse with coughing sneezing or laughing getting in and out of the vehicle and driving the vehicle with every bump in the remote hurting her tummy. This suggests peritonitis. She was seen in the ED early yesterday morning and worked up. She had a white count of 14.82 with essentially normal differential neutrophils were 60% with no bands reported. CRP was not done. Blood glucose was 145. Urine showed trace of leukocyte esterase and 5-10+ cells. She was therefore given fluids and Rocephin 1 g was given intravenously and she was discharged home on Cipro 500 mg twice a day for 7 days with suspect urinary tract infection involving the left ureter and possibly the kidney. She reports no improvement in effect much worse since this treatment was started. No history of diverticulitis. On examination she is acutely tender along the left hemiabdomen with worsening pain in the left lower quadrant over the sigmoid colon suspicious for diverticulitis. She has rebound tenderness and guarding. She is cool and clammy to touch but not febrile. Plan septic workup to be done with blood cultures times 2 repeat labs and urinalysis. She will require CT of the abdomen and pelvis with oral and IV contrast. IV will be normal saline at open initially. Will give Dilaudid 1 mg IV Benadryl 25 mg IV and Reglan 10 mg IV for nausea and vomiting. She will then start oral contrast once these are working. I will start her on Levaquin 750 mg IV as soon as the blood cultures 2 have been collected. - Re-Assessments/Exams Free Text/Narrative Re-Assessment/Exam: 01/02/17 18:40 rates her current abdominal pain is 5 out of 10. Give her Dilaudid 0.5 mg IV. She is drinking oral contrast this time. White count is 15.27. Differential is pending. Hemoglobin is 12.3 hematocrit is 37.9. Platelets 429,000. Urine today showing 2+ ketones 2+ protein and trace blood and 1+ leukocyte esterase. Micro is pending. 01/02/17 18:43 micro-reveals 40-50 white blood cells by Jaison in 30-40 epithelials per high power field suggesting pyelonephritis. 01/02/17 18:52 differential on the white count is 83% neutrophils no bands. Chemistry shows a sodium of 137 potassium 3.8. Toward 100 bicarbonate 26. And a gap is 14.8. Glucose today is 136. AST is 39 AST is 83 essentially unchanged from yesterday lipase is 76. CRP is pending. Care will be transferred to Dr. Norris as it is change of shift. He cared for her yesterday and is well versed in her history. 01/02/17 18:53 - My Orders Last 24 Hours: My Active Orders 01/02/17 17:51 Abdomen Pelvis w Cont [CT] Stat Blood Culture x2 Reflex Set [OM.PC] Stat 01/02/17 18:15 CULTURE BLOOD [BC] Stat 01/02/17 18:26 CULTURE BLOOD [BC] Stat - Assessment/Plan Last 24 Hours: My Active Orders 01/02/17 17:51 Abdomen Pelvis w Cont [CT] Stat Blood Culture x2 Reflex Set [OM.PC] Stat 01/02/17 18:15 CULTURE BLOOD [BC] Stat 01/02/17 18:26 CULTURE BLOOD [BC] Stat
[2017-01-02] MEDS ORDERED: HYDROmorphone 1 MG/ML Syringe IVPUSH ONE (17:47)
[2017-01-02] MEDS ORDERED: Metoclopramide 10 MG/2 ML SDV IVPUSH ONE (17:47)
[2017-01-02] MEDS ORDERED: diphenhydrAMINE 50 MG/ML SDV IVPUSH ONE (17:50)
[2017-01-02] MEDS ORDERED: Levofloxacin/Dextrose 5%-Water 750 MG in Premix Bag 1 BAG IV ONE (18:07)
[2017-01-02] MEDS ORDERED: HYDROmorphone 0.5 MG/0.5 ML Syringe IVPUSH ONE ×3 (18:41→21:41)
[2017-01-02] MEDS ORDERED: Diatrizoate Meglumine/Diatrizoate Sodium 37% 120 ML Bottle PO ONE (19:11)
[2017-01-02] MEDS ORDERED: Iopamidol 612 MG/ML 150 ML Bottle IVPUSH ONE (19:11)
[2017-01-02] MEDS ORDERED: Sodium Chloride 0.9% 10 ML Syringe FLUSH PRN (19:11)
[2017-01-02] MEDS ORDERED: Lactated Ringers 1,000 ML IV SCH (21:30)
[2017-01-02] MEDS ORDERED: Ondansetron 4 MG/2 ML SDV IVPUSH ONE (21:41)
[2017-01-02] MEDS ORDERED: Dextrose 5%-0.45% NaCl 1,000 ML IV SCH (23:45)
[2017-01-02] MEDS ORDERED: cefOXitin 2 GM in Sodium Chloride 0.9% 100 ML IV SCH (23:45)
[2017-01-03] MEDS ORDERED: Acetaminophen 325 MG Tab PO PRN (00:15)
[2017-01-03 00:24] LABS: C. TRACHOMATIS BY PCR NOT DETECTED; N. GONORRHOEAE BY PCR NOT DETECTED
[2017-01-03] MEDS: Ibuprofen 600 MG Tab PO PRN ×3 (00:34→23:22)
[2017-01-03] MEDS: HYDROmorphone 0.5 MG/0.5 ML Syringe IVPUSH PRN ×7 (00:35→23:00)
[2017-01-03] MEDS: Insulin Aspart 100 Units/ML 3 ML Pen SUBCUT SCH ×4 (00:42→17:17)
[2017-01-03] MEDS: cefOXitin 2 GM in Premix Bag 1 BAG IV SCH ×2 (00:50→12:19)
[2017-01-03] MEDS: Doxycycline 100 MG in Sodium Chloride 0.9% 100 ML IV SCH ×2 (03:13→15:59)
--- NOTE | 2017-01-03 06:33 | PCM.HP ---
H&P History of Present Illness - General Date of Service: 01/03/17 Admit Problem/Dx: Admission Diagnosis/Problem Admission Diagnosis/Problem Tubo-ovarian abscess Source of Information: Patient History Limitations: Reports: No Limitations - History of Present Illness Initial Comments - Free Text/Narative: 31 y/o LMP about 11/27/2016 had copper IUD removed By Dr Myrna BETANCOURT last night. Patient seen in ER yesterday and day before as well. Had two week history of Left sided abdominal and back pain. No H/O GC/CT infections and CT/ GC probe negative obtained last night. No H/O prior pelvic infections Negative Qual [facility]. Elevated and CRP. Daily repeats ordered. CT and Pelvic USG revealed pelvic mass 6.4x3.9x3.9 Patient started on Mefoxin 2 grams IV q6h, Doxycycline 100 mg IV q12 and Levofloxacin 750 mg daily IV Patient has H/O of Diabetes x1 year. Taking Janumet 50-1000 one time daily. Has been NPO will start diabetic diet today and switch IV ti LR after this bag. Onset of Symptoms: Reports: Gradual Symptom Onset Date: 12/20/16 Duration of Symptoms: Reports: Week(s): Location: Reports: Abdomen, Back, Pelvis Quality: Reports: Ache, Burning, Dull, Pressure, Sharp, Stabbing, Throbbing lower left flank, left lower abdomen Pain Score (Numeric/FACES): 10 - Related Data Allergies/Adverse Reactions: Allergies Allergy/AdvReac Type Severity Reaction Status Date / Time No Known Allergies Allergy Verified 01/02/17 17:29 Home Medications: Home Meds Ciprofloxacin [Ciprofloxacin HCl] 500 mg PO BID #14 tablet 01/01/17 [Rx] Hydrocodone/Acetaminophen [Amonate 5-325] 1 tab PO Q4H PRN #10 tablet 01/01/17 [Rx ] Lisinopril 5 mg PO DAILY 01/01/17 [History] sitaGLIPtin Phos/Metformin HCl [Janumet Xr 50-1,000 mg Tablet] 1 tab PO DAILY [History] Past Medical History - Past Health History Medical/Surgical History: Denies Medical/Surgical History Endocrine/Metabolic History: Reports: Diabetes, Type II (Controlled with oral medications.) Social & Family History - Family History Family Medical History: Noncontributory - Tobacco Use Smoking Status *Q: Never Smoker - Recreational Drug Use Recreational Drug Use: No - Living Situation & Occupation Living situation: Reports: Occupation: Employed H&P Review of Systems - Review of Systems: Review Of Systems: See Below General: Reports: Fever, Chills HEENT: Reports: No Symptoms Pulmonary: Reports: No Symptoms Cardiovascular: Reports: No Symptoms Gastrointestinal: Reports: Abdominal Pain Genitourinary: Reports: No Symptoms Musculoskeletal: Reports: No Symptoms Skin: Reports: No Symptoms Psychiatric: Reports: No Symptoms Neurological: Reports: No Symptoms Hematologic/Lymphatic: Reports: No Symptoms Immunologic: Reports: No Symptoms Exam - Exam Exam: See Below - Vital Signs Vital Signs: Last Vital Signs Temp 98.1 F 01/03/17 03:15 Pulse 112 H 01/02/17 17:24 Resp 20 01/02/17 17:24 BP 112/84 01/02/17 17:24 Pulse Ox 97 01/02/17 17:24 Weight: 200 lb - Exam General: Alert, Oriented, 4 HEENT: Conjunctiva Clear, Mucosa Moist & [place], PERRLA Neck: Supple, Trachea Midline, 2 Lungs: Clear to Auscultation, Normal Respiratory Effort Cardiovascular: Regular Rate, Regular Rhythm Abdomen: Normal Bowel Sounds, Soft (Female) Exam: Normal External Exam, Adnexal Mass, Adnexal Tenderness Extremities: 3, Normal Inspection, 10 Skin: Warm, Dry, Intact Neurological: Cranial Nerves Intact, Reflexes Equal Bilateral Neuro Extensive - Mental Status: Alert, Oriented x3, Normal Mood/Affect, Normal Cognition Neuro Extensive - Motor, Sensory, Reflexes: Normal Reflexes Psychiatric: Alert, Normal Affect, Normal Mood - Patient Data Lab Results Last 24 hrs: Laboratory Results - last 24 hr 01/03/17 01/03/17 Range/Units 00:40 06:19 POC Glucose 115 H 98 (70-105) mg/dL Result Diagrams: 01/02/17 18:15 01/02/17 18:15 *Q Meaningful Use (ADM) - VTE *Q VTE Criteria *Q: - Stroke *Q Stroke Criteria *Q: - AMI *Q AMI Criteria *Q: - Problem List (1) Diabetes SNOMED Code(s): 82769691 ICD Code: E11.9 - TYPE 2 DIABETES MELLITUS WITHOUT COMPLICATIONS Status: Acute Current Visit: Yes Qualifiers: Diabetes mellitus type: type 2 Diabetes mellitus complication status: without complication Diabetes mellitus adjunct faculty for medical terminology insulin use: without senior living use Qualified Code(s): E11.9 - Type 2 diabetes mellitus without complications (2) Tubo-ovarian abscess SNOMED Code(s): 98557982 ICD Code: N70.93 - SALPINGITIS AND OOPHORITIS, UNSPECIFIED Status: Acute Current Visit: Yes Problem List Initiated/Reviewed/Updated: No Orders Last 24hrs: Active Orders 24 hr Category Date Time Status Patient Status [ADT] Stat ADT 01/02/17 22:46 Active Blood Glucose Check, Bedside [RC] Q6H Care 01/03/17 00:00 Active Up With Assistance [] QSHIFT Care 01/02/17 23:56 Active Nothing Per Oral Diet [DIET] Diet 01/02/17 Breakfast Active CULTURE ANAEROBIC + SMEAR [RM] Stat Lab 01/02/17 22:25 Received CULTURE GENITAL [RM] Stat Lab 01/02/17 22:25 Received Dextrose 5%-0.45% NaCl [Dextrose 5%-1/2 NS] 1,000 ml Med 01/02/17 23:45 Active IV ASDIRECTED Doxycycline [Vibramycin] 100 mg Med 01/03/17 03:00 Active Sodium Chloride 0.9% [Normal Saline] 100 ml IV Q12H HYDROmorphone [Dilaudid] Med 01/02/17 23:45 Active 0.5 mg IVPUSH Q2H PRN Ibuprofen [Motrin] Med 01/03/17 00:14 Active 600 mg PO Q6H PRN Insulin Aspart [NovoLOG] Med 01/03/17 00:15 Active See Protocol SUBCUT Q6H Ondansetron [Zofran] Med 01/02/17 23:51 Active 4 mg IVPUSH Q4H PRN cefOXitin [Mefoxin in Dextrose,Iso-Osm 2 GM/50 ML] 2 gm Med 01/03/17 01:00 Active Premix Bag 1 bag IV Q12H Resuscitation Status Routine Resus Stat 01/02/17 23:53 Ordered Medication Orders Hydromorphone HCl (Dilaudid) 0.5 mg IVPUSH Q2H PRN PRN Reason: Pain Last Admin: 01/03/17 00:35 Dose: 0.5 mg Lactated Ringer's (Ringers, Lactated) 1,000 mls @ 150 mls/hr IV ASDIRECTED [facility] Last Admin: 01/02/17 23:35 Dose: 150 mls/hr Dextrose/Sodium Chloride (Dextrose 5%-1/2 Ns) 1,000 mls @ 125 mls/hr IV ASDIRECTED [facility] Last Admin: 01/03/17 06:12 Dose: 125 mls/hr Cefoxitin Sodium 2 gm/ Premix 50 mls @ 100 mls/hr IV Q12H [facility] Last Admin: 01/03/17 00:50 Dose: 100 mls/hr Doxycycline Hyclate 100 mg/ (Sodium Chloride) 100 mls @ 100 mls/hr IV Q12H [facility] Last Admin: 01/03/17 03:13 Dose: 100 mls/hr Ibuprofen (Motrin) 600 mg PO Q6H PRN PRN Reason: Fever Last Admin: 01/03/17 00:34 Dose: 600 mg Insulin Aspart (Novolog) 0 unit SUBCUT Q6H JAMES PRN Reason: Protocol Last Admin: 01/03/17 06:20 Dose: Not Given Admin: 01/03/17 00:42 Dose: Not Given Ondansetron HCl (Zofran) 4 mg IVPUSH Q4H PRN PRN Reason: Nausea/Vomiting Sodium Chloride (Saline Flush) 10 ml FLUSH ONETIME PRN PRN Reason: IV FLUSH Last Admin: 01/02/17 20:09 Dose: 10 ml Assessment/Plan Comment:: Antibiotics IV and daily evaluation. Discussed possible surgery if needed IUD removed.
[2017-01-03] MEDS ORDERED: Doxycycline 100 MG in Sodium Chloride 0.9% 100 ML IV SCH (09:00)
[2017-01-03] MEDS: Saccharomyces Boulardii (Probiotic) 250 MG Cap PO SCH ×2 (09:30→20:23)
[2017-01-03] MEDS: Ondansetron 4 MG/2 ML SDV IVPUSH PRN ×2 (10:59→20:33)
--- NOTE | 2017-01-03 14:38 | CT ---
CT abdomen and pelvis Technique: Multiple axial sections were obtained from above the dome of the diaphragm inferiorly through the pubic symphysis. Intravenous and oral contrast was utilized. Delayed images were not obtained. Comparison: No previous study. Findings: Minimal atelectasis is noted within both lung bases. Liver shows mild fatty infiltration. No focal abnormality is seen within the liver. Multiple partially calcified gallstones are seen within the gallbladder. Spleen appears within normal limits. Adrenal glands show no nodule. Kidneys show symmetric contrast enhancement without hydronephrosis or mass. Pancreas is within normal limits. Aorta shows no aneurysmal dilatation. No retroperitoneal adenopathy or mesenteric abnormalities are seen. Appendix is seen which is normal. Multiloculated cystic area is seen within the left side of the pelvis with surrounding inflammatory change. This measures about 6.3 x 4.0 cm in size. IUD present within the uterus. IUD is positioned somewhat low within the uterus. Bone window settings were reviewed which appear within normal limits for the patient's age. Impression: 1. 6.3 cm multiloculated low density abnormality within the left side of the pelvis with surrounding inflammatory change highly suspicious for tubo-ovarian abscess. 2. Low position of IUD within the uterus. 3. Other incidental findings as described above. Diagnostic code #5 Agree with preliminary report issued by [facility] ([facility] preliminary report dictated on 01/02/17, 9:56 PM Central Time)
--- NOTE | 2017-01-03 14:38 | US ---
Pelvic ultrasound: Multiple real-time images were obtained transvaginally. Comparison: Previous abdominal and pelvic CT exam performed earlier on the same day. Uterus is anteverted. Incidental nabothian cysts are present. Interesting to note that IUD is present on prior CT study but was not well appreciated by this ultrasound. Please correlate if IUD has been removed. Endometrial thickness is 12.3 mm. Hypoechoic mass-like lesion seen within and around the left ovary which by ultrasound measures 3.6 x 4.0 x 3.5 cm. This is felt compatible with tubo-ovarian abscess as suggested on CT exam. No free fluid is seen. Right ovary is unremarkable. Measurements: Uterus: Length 9.6 cm, AP height of 4.3 cm, transverse width 4.6 cm Right ovary: 3.5 x 2.2 x 2.7 cm Left ovary including tubo-ovarian abscess: 6.4 x 3.9 x 3.9 cm Impression: 1. Hypoechoic mass-like area within and around the left ovary compatible with tubo-ovarian abscess as suggested on CT exam. 2. Prior CT study showed an IUD which is not identified with certainty on current exam and please correlate if this has been removed. 3. Other incidental findings as noted above. Diagnostic code #5 Agree with preliminary report issued by [facility] ([facility] preliminary report dictated on 01/03/17, 12:35 AM Central Time)
[2017-01-03] MEDS: Lactated Ringers 1,000 ML IV SCH (15:59)
[2017-01-03] MEDS: Levofloxacin/Dextrose 5%-Water 750 MG in Premix Bag 1 BAG IV SCH (18:20)
[2017-01-03] MEDS ORDERED: Morphine 10 MG/ML Syringe IM ONE (23:13)
[2017-01-03] MEDS ORDERED: Promethazine 25 MG/ML SDV IM ONE (23:21)
[2017-01-04] MEDS: Insulin Aspart 100 Units/ML 3 ML Pen SUBCUT SCH ×5 (00:43→22:25)
[2017-01-04] MEDS: Doxycycline 100 MG in Sodium Chloride 0.9% 100 ML IV SCH ×2 (02:14→15:36)
[2017-01-04] MEDS: HYDROmorphone 0.5 MG/0.5 ML Syringe IVPUSH PRN ×2 (02:14→10:28)
[2017-01-04] MEDS: cefOXitin 2 GM in Premix Bag 1 BAG IV SCH ×2 (02:27→13:10)
[2017-01-04] MEDS ORDERED: Acetaminophen/oxyCODONE 325-5 MG Tab PO PRN ×2 (02:38→12:51)
[2017-01-04] MEDS: Saccharomyces Boulardii (Probiotic) 250 MG Cap PO SCH ×2 (08:14→21:13)
[2017-01-04] MEDS: Lisinopril 5 MG Tab PO SCH (08:14)
[2017-01-04] MEDS: Lactated Ringers 1,000 ML IV SCH (08:15)
[2017-01-04] MEDS: Ondansetron 4 MG/2 ML SDV IVPUSH PRN (08:15)
[2017-01-04] MEDS ORDERED: Sodium Chloride 0.9% 10 ML Syringe FLUSH ONE (08:45)
[2017-01-04] MEDS ORDERED: Iopamidol 612 MG/ML 150 ML Bottle IVPUSH ONE (08:45)
[2017-01-04] MEDS ORDERED: Diatrizoate Meglumine/Diatrizoate Sodium 37% 120 ML Bottle PO ONE (08:45)
--- NOTE | 2017-01-04 10:51 | CT ---
CT abdomen and pelvis Technique: Multiple axial sections were obtained from above the dome of the diaphragm inferiorly through the pubic symphysis. Intravenous and oral contrast was utilized. Delayed images were also obtained through the bladder. Comparison: Previous CT exam of 01/02/17 is available. Findings: Multiloculated abscess again felt to be present within the left side of the pelvis adjacent to the uterus. This remains stable in size. Surrounding inflammatory change is seen which appears fairly stable. Visualized lung bases shows mild atelectasis within both bases. Liver and spleen shows no focal abnormality. Kidneys show symmetric contrast enhancement without hydronephrosis or mass. Adrenal glands show no nodule. Pancreas is within normal limits. Multiple calcified gallstones are seen within the gallbladder. No retroperitoneal adenopathy is seen. No mesenteric abnormality is noted. Previous study showed an IUD which is no longer present. Delayed images shows contrast within the ureters and bladder. Bone window settings were reviewed which appears within normal limits for the patient's age. Impression: 1. Multiloculated abscess again seen within the left side of the pelvis. Surrounding inflammatory change is seen. This finding is without definite change from prior exam. 2. Previous study showed an IUD which appears to have been removed. 3. Mild bibasilar atelectasis is seen. Diagnostic code #5
--- NOTE | 2017-01-04 11:42 | US ---
Pelvic ultrasound: Multiple real-time images were obtained transvaginally. Comparison: Previous CT exams performed earlier in the same day as well as 01/02/17 and prior ultrasound of 01/02/17. IUD has been removed seen on original CT study. Large inhomogeneous area seen which is felt compatible with abscess noted on CT exam which measures about 7.6 x 3.2 x 4.2 cm. I believe comparison by measurements are more accurate by CT exam and ultrasound and differences between current and previous ultrasound is due to differences in measurement technique. Uterus is anteverted. Incidental nabothian cysts are present. No free fluid is seen. Right ovary appears within normal limits. Impression: 1. Findings compatible with tubo-ovarian abscess on the left side. Differences in measurement as described above felt to be technique related. 2. Other portions of the pelvic ultrasound are within normal limits. Diagnostic code #3
[2017-01-04] MEDS: Ibuprofen 600 MG Tab PO PRN (12:27)
--- NOTE | 2017-01-04 13:09 | PCM.PN ---
- General Info Date of Service: 01/04/17 Subjective Update: patient states she is not feeling any better than when admitted. Functional Status: Reports: tolerating diet Pain Score: 7 - Review of Systems General: Reports: No Symptoms HEENT: Reports: no symptoms Pulmonary: Reports: no symptoms Cardiovascular: Reports: No Symptoms Gastrointestinal: Reports: Abdominal pain (abdomen tender lower abdomen rebound and referred pain with palpation) Genitourinary: Reports: no symptoms Musculoskeletal: Reports: no symptoms Skin: Reports: no symptoms Neurological: Reports: No Symptoms Psychiatric: Reports: no symptoms - Patient Data Vitals - most recent: Last Vital Signs Temp 101 F H 01/04/17 12:27 Pulse 107 H 01/04/17 08:12 Resp 16 01/04/17 08:12 BP 125/76 01/04/17 08:14 Pulse Ox 93 L 01/04/17 08:12 Weight - most recent: 221 lb 12.8 oz I&O - last 24 hours: Intake & Output 01/03/17 01/04/17 01/04/17 22:59 06:59 14:59 Intake Total 1110 1500 0 Balance 1110 1500 0 Lab Results last 24 hrs: Laboratory Results - last 24 hr 01/03/17 01/03/17 01/04/17 Range/Units 17:11 23:51 06:43 WBC (3.98-10.04) K/mm3 RBC (3.98-5.22) M/mm3 Hgb (11.2-15.7) gm/L Hct (34.1-44.9) % MCV (79.4-94.8) fl MCH (25.6-32.2) pg MCHC (32.2-35.5) g/dl RDW Std Deviation (36.4-46.3) fL Plt Count (182-369) K/mm3 MPV (9.4-12.3) fl Neut % (Auto) (34.0-71.1) % Lymph % (Auto) (19.3-51.7) % [place] % (Auto) (4.7-12.5) % Eos % (Auto) (0.7-5.8) Baso % (Auto) (0.1-1.2) % Neut # (Auto) (1.56-6.13) K/mm3 Lymph # (Auto) (1.18-3.74) K/mm3 [place] # (Auto) (0.24-0.36) K/mm3 Eos # (Auto) (0.04-0.36) K/mm3 Baso # (Auto) (0.01-0.08) K/mm3 Manual Slide Review Sodium (136-145) mEq/L Potassium (3.5-5.1) mEq/L Chloride (98-107) mEq/L Carbon Dioxide (21-32) mEq/L Anion Gap (5-15) BUN (7-18) mg/dL Creatinine (0.55-1.02) mg/dL Est Cr Clr Drug Dosing mL/min Estimated GFR (MDRD) (>60) mL/min BUN/Creatinine Ratio (14-18) Glucose (74-106) mg/dL POC Glucose 121 H 142 H 103 (70-105) mg/dL Calcium (8.5-10.1) mg/dL Total Bilirubin (0.2-1.0) mg/dL AST (15-37) U/L ALT (14-59) U/L Alkaline Phosphatase (46-116) U/L C-Reactive Protein (<1.0) mg/dL Total Protein (6.4-8.2) g/dl Albumin (3.4-5.0) g/dl Globulin gm/dL Albumin/Globulin Ratio (1-2) 01/04/17 01/04/17 01/04/17 Range/Units 07:10 07:10 11:00 WBC 16.80 H (3.98-10.04) K/mm3 RBC 4.01 (3.98-5.22) M/mm3 Hgb 10.5 L (11.2-15.7) gm/L Hct 33.1 L (34.1-44.9) % MCV 82.5 (79.4-94.8) fl MCH 26.2 (25.6-32.2) pg MCHC 31.7 L (32.2-35.5) g/dl RDW Std Deviation 39.5 (36.4-46.3) fL Plt Count 383 H (182-369) K/mm3 MPV 9.3 L (9.4-12.3) fl Neut % (Auto) 75.6 H (34.0-71.1) % Lymph % (Auto) 12.7 L (19.3-51.7) % [place] % (Auto) 10.7 (4.7-12.5) % Eos % (Auto) 0.6 L (0.7-5.8) Baso % (Auto) 0.1 (0.1-1.2) % Neut # (Auto) 12.70 H (1.56-6.13) K/mm3 Lymph # (Auto) 2.14 (1.18-3.74) K/mm3 [place] # (Auto) 1.79 H (0.24-0.36) K/mm3 Eos # (Auto) 0.10 (0.04-0.36) K/mm3 Baso # (Auto) 0.02 (0.01-0.08) K/mm3 Manual Slide Review Normal smear Sodium 140 (136-145) mEq/L Potassium 3.7 (3.5-5.1) mEq/L Chloride 103 (98-107) mEq/L Carbon Dioxide 27 (21-32) mEq/L Anion Gap 13.7 (5-15) BUN 5 L (7-18) mg/dL Creatinine 0.7 (0.55-1.02) mg/dL Est Cr Clr Drug Dosing 92.94 mL/min Estimated GFR (MDRD) > 60 (>60) mL/min BUN/Creatinine Ratio 7.1 L (14-18) Glucose 126 H (74-106) mg/dL POC Glucose 120 H (70-105) mg/dL Calcium 8.4 L (8.5-10.1) mg/dL Total Bilirubin 0.8 (0.2-1.0) mg/dL AST 28 (15-37) U/L ALT 52 (14-59) U/L Alkaline Phosphatase 98 (46-116) U/L C-Reactive Protein 29.8 H* (<1.0) mg/dL Total Protein 6.4 (6.4-8.2) g/dl Albumin 2.3 L (3.4-5.0) g/dl Globulin 4.1 gm/dL Albumin/Globulin Ratio 0.6 L (1-2) Med Orders - Current: Current Medications Hydromorphone HCl (Dilaudid) 0.5 mg IVPUSH Q2H PRN PRN Reason: Pain Last Admin: 06/20/17 10:28 Dose: 0.5 mg Cefoxitin Sodium 2 gm/ Premix 50 mls @ 100 mls/hr IV Q12H [facility] Last Admin: 01/04/17 02:27 Dose: 100 mls/hr Doxycycline Hyclate 100 mg/ (Sodium Chloride) 100 mls @ 100 mls/hr IV Q12H [facility] Last Admin: 01/04/17 02:14 Dose: 100 mls/hr Levofloxacin/Dextrose 750 mg/ (Premix) 150 mls @ 100 mls/hr IV Q24H [facility] Last Admin: 01/03/17 18:20 Dose: 100 mls/hr Lactated Ringer's (Ringers, Lactated) 1,000 mls @ 75 mls/hr IV ASDIRECTED [facility] Last Admin: 01/04/17 08:15 Dose: 75 mls/hr Ibuprofen (Motrin) 600 mg PO Q6H PRN PRN Reason: Fever Last Admin: 01/04/17 12:27 Dose: 600 mg Insulin Aspart (Novolog) 0 unit SUBCUT QIDACANDBED [facility] PRN Reason: Protocol Last Admin: 01/04/17 11:10 Dose: Not Given Lisinopril (Prinivil) 5 mg PO DAILY [facility] Last Admin: 01/04/17 08:14 Dose: 5 mg Ondansetron HCl (Zofran) 4 mg IVPUSH Q4H PRN PRN Reason: Nausea/Vomiting Last Admin: 01/04/17 08:15 Dose: 4 mg Oxycodone/Acetaminophen (Percocet 325-5 Mg) 2 tab PO Q4H PRN PRN Reason: Pain (moderate 4-6) Saccharomyces Boulardii (Florastor) 250 mg PO BID [facility] Last Admin: 01/04/17 08:14 Dose: 250 mg Sodium Chloride (Saline Flush) 10 ml FLUSH ONETIME PRN PRN Reason: IV FLUSH Last Admin: 01/02/17 20:09 Dose: 10 ml Zolpidem Tartrate (Ambien) 5 mg PO BEDTIME PRN PRN Reason: Insomnia Discontinued Medications Diatrizoate Meglum/Diatrizoate Sod (Gastrografin 37%) 90 ml PO ONETIME ONE Stop: 01/02/17 19:12 Last Admin: 01/02/17 20:09 Dose: 90 ml Diatrizoate Meglum/Diatrizoate Sod (Gastrografin 37%) 90 ml PO ONETIME ONE Stop: 01/04/17 08:46 Last Admin: 01/04/17 09:41 Dose: 90 ml Diphenhydramine HCl (Benadryl) 25 mg IVPUSH ONETIME ONE Stop: 01/02/17 17:51 Last Admin: 01/02/17 18:18 Dose: 25 mg Hydromorphone HCl (Dilaudid) 1 mg IVPUSH ONETIME ONE Stop: 01/02/17 17:48 Last Admin: 01/02/17 18:18 Dose: 1 mg Hydromorphone HCl (Dilaudid) 0.5 mg IVPUSH ONETIME ONE Stop: 01/02/17 18:42 Last Admin: 01/02/17 18:55 Dose: 0.5 mg Hydromorphone HCl (Dilaudid) 0.5 mg IVPUSH ONETIME ONE Stop: 01/02/17 20:28 Last Admin: 01/02/17 20:36 Dose: 0.5 mg Hydromorphone HCl (Dilaudid) 0.5 mg IVPUSH ONETIME ONE Stop: 01/02/17 21:42 Last Admin: 01/02/17 21:48 Dose: 0.5 mg Sodium Chloride (Normal Saline) 1,000 mls @ 999 mls/hr IV ONETIME ONE Stop: 01/02/17 18:46 Last Admin: 01/02/17 18:21 Dose: 999 mls/hr Levofloxacin/Dextrose 750 mg/ (Premix) 150 mls @ 100 mls/hr IV ONETIME ONE Stop: 01/02/17 19:36 Last Admin: 01/02/17 18:23 Dose: 100 mls/hr Lactated Ringer's (Ringers, Lactated) 1,000 mls @ 150 mls/hr IV ASDIRECTED [facility] Last Admin: 01/02/17 23:35 Dose: 150 mls/hr Dextrose/Sodium Chloride (Dextrose 5%-1/2 Ns) 1,000 mls @ 125 mls/hr IV ASDIRECTED [facility] Last Admin: 01/03/17 06:12 Dose: 125 mls/hr Insulin Aspart (Novolog) 0 unit SUBCUT Q6H [facility] PRN Reason: Protocol Last Admin: 01/03/17 06:20 Dose: Not Given Iopamidol (Isovue-300 (61%)) 125 ml IVPUSH ONETIME ONE Stop: 01/02/17 19:12 Last Admin: 01/02/17 20:09 Dose: 125 ml Iopamidol (Isovue-300 (61%)) 125 ml IVPUSH ONETIME ONE Stop: 01/04/17 08:46 Last Admin: 01/04/17 09:41 Dose: 125 ml Metoclopramide HCl (Reglan) 10 mg IVPUSH ONETIME ONE Stop: 01/02/17 17:48 Last Admin: 01/02/17 18:18 Dose: 10 mg Morphine Sulfate (Morphine) 5 mg IM ONETIME ONE Stop: 01/03/17 23:14 Last Admin: 01/03/17 23:41 Dose: 5 mg Ondansetron HCl (Zofran) 4 mg IVPUSH ONETIME ONE Stop: 01/02/17 21:42 Last Admin: 01/02/17 21:46 Dose: 4 mg Oxycodone/Acetaminophen (Percocet 325-5 Mg) 1 tab PO Q4H PRN PRN Reason: Pain Last Admin: 01/04/17 07:02 Dose: 1 tab Oxycodone/Acetaminophen (Percocet 325-5 Mg) 2 tab PO Q4HR PRN PRN Reason: Pain (moderate 4-6) Promethazine HCl (Phenergan) 25 mg IM ONETIME ONE Stop: 01/03/17 23:22 Last Admin: 01/03/17 23:40 Dose: 25 mg Sodium Chloride (Saline Flush) 10 ml FLUSH ONETIME ONE Stop: 01/04/17 08:46 Last Admin: 01/04/17 09:41 Dose: 10 ml - Exam General: alert, oriented Neck: supple Lungs: Clear to auscultation, Normal respiratory effort Cardiovascular: Regular Rate, Regular Rhythm Abdomen: bowel sounds present, rebound, guarding, tenderness (Female) Exam: Adnexal Mass (left tuboovarina abscess still present not larger on CT and USG.) Extremities: no edema, normal pulses Skin: warm, dry, intact Psy/Mental Status: alert, normal affect, normal mood - Problem List & Annotations (1) Diabetes SNOMED Code(s): 88295148 Code(s): E11.9 - TYPE 2 DIABETES MELLITUS WITHOUT COMPLICATIONS Status: Acute Current Visit: Yes Qualifiers: Diabetes mellitus type: type 2 Diabetes mellitus complication status: without complication Diabetes mellitus assisted insulin use: without assisted use Qualified Code(s): E11.9 - Type 2 diabetes mellitus without complications (2) Tubo-ovarian abscess SNOMED Code(s): 26834060 Code(s): N70.93 - SALPINGITIS AND OOPHORITIS, UNSPECIFIED Status: Acute Current Visit: Yes - Problem List Review Problem List Initiated/Reviewed/Updated: No - My Orders Last 24 Hours: My Active Orders 01/03/17 14:00 Lactated Ringers [Ringers, Lactated] 1,000 ml IV ASDIRECTED 01/03/17 14:20 Antiembolic Devices [RC] QSHIFT [place] Hose [Antiembolic Hose] [OM.PC] Routine 01/03/17 18:00 Levofloxacin/Dextrose 5%-Water [Levaquin in D5W 750 MG/150 ML] 750 mg Premix Bag 1 bag IV Q24H 01/03/17 21:00 Zolpidem [Ambien] 5 mg PO BEDTIME PRN 01/04/17 09:00 Lisinopril [Prinivil] 5 mg PO DAILY 01/04/17 12:55 Acetaminophen/oxyCODONE [Percocet 325-5 MG] 2 tab PO Q4H PRN 01/04/17 Breakfast [employer] Diet [DIET] 01/04/17 Dinner NPO After Midnight [Nothing per Oral After Midnight Diet] [DIET] 01/05/17 05:00 C-REACTIVE PROTEIN [CHEM] Routine CBC WITH AUTO DIFF [HEME] Routine COMPREHENSIVE METABOLIC PN,CMP [CHEM] Routine HCG QUANTITATIVE,SERUM [CHEM] Routine - Assessment Assessment:: Will reevaluate again after clinic Long discussion with patient and about prognosis and possible surgery and no guarantee she will not have potential complication co-morbidity and co- mortality Repeat labs in AM. Will discuss with Dr Gambino Diabetes under treatment and meds stable at present NPO after midnight in case operation needed Morphine tonight with phenergan Toradol at 1830 Percocet 2 q4-6h. - Plan Plan:: Antibiotics IV and daily evaluation. Discussed possible surgery if needed IUD removed.
[2017-01-04] MEDS: Acetaminophen/oxyCODONE 325-5 MG Tab PO PRN (13:11)
[2017-01-04] MEDS ORDERED: Doxycycline 100 MG Vial ONE (15:27)
--- NOTE | 2017-01-04 17:15 | PCM.PN ---
- General Info Date of Service: 01/04/17 Admission Dx/Problem (Free Text): Admission Diagnosis/Problem Admission Diagnosis/Problem Tubo-ovarian abscess Subjective Update: patient states she is not feeling any better than when admitted. Functional Status: Reports: pain controlled (feels much better with Percocet 5/ 325x2 able to ambulate and took shower.) Pain Score: 6 - Review of Systems General: Reports: No Symptoms HEENT: Reports: no symptoms Pulmonary: Reports: no symptoms Cardiovascular: Reports: No Symptoms Gastrointestinal: Reports: Abdominal pain (better with Percocet than Dilaudid) Genitourinary: Reports: no symptoms Musculoskeletal: Reports: no symptoms Skin: Reports: no symptoms Neurological: Reports: No Symptoms Psychiatric: Reports: no symptoms - Patient Data Vitals - most recent: Last Vital Signs Temp 98.2 F 01/04/17 16:15 Pulse 94 01/04/17 16:15 Resp 14 01/04/17 16:15 BP 129/75 01/04/17 16:00 Pulse Ox 96 01/04/17 16:15 Weight - most recent: 221 lb 12.8 oz I&O - last 24 hours: Intake & Output 01/04/17 01/04/17 01/04/17 06:59 14:59 22:59 Intake Total 1500 0 500 Balance 1500 0 500 Lab Results last 24 hrs: Laboratory Results - last 24 hr 01/03/17 01/03/17 01/04/17 Range/Units 17:11 23:51 06:43 WBC (3.98-10.04) K/mm3 RBC (3.98-5.22) M/mm3 Hgb (11.2-15.7) gm/L Hct (34.1-44.9) % MCV (79.4-94.8) fl MCH (25.6-32.2) pg MCHC (32.2-35.5) g/dl RDW Std Deviation (36.4-46.3) fL Plt Count (182-369) K/mm3 MPV (9.4-12.3) fl Neut % (Auto) (34.0-71.1) % Lymph % (Auto) (19.3-51.7) % [place] % (Auto) (4.7-12.5) % Eos % (Auto) (0.7-5.8) Baso % (Auto) (0.1-1.2) % Neut # (Auto) (1.56-6.13) K/mm3 Lymph # (Auto) (1.18-3.74) K/mm3 [place] # (Auto) (0.24-0.36) K/mm3 Eos # (Auto) (0.04-0.36) K/mm3 Baso # (Auto) (0.01-0.08) K/mm3 Manual Slide Review Sodium (136-145) mEq/L Potassium (3.5-5.1) mEq/L Chloride (98-107) mEq/L Carbon Dioxide (21-32) mEq/L Anion Gap (5-15) BUN (7-18) mg/dL Creatinine (0.55-1.02) mg/dL Est Cr Clr Drug Dosing mL/min Estimated GFR (MDRD) (>60) mL/min BUN/Creatinine Ratio (14-18) Glucose (74-106) mg/dL POC Glucose 121 H 142 H 103 (70-105) mg/dL Calcium (8.5-10.1) mg/dL Total Bilirubin (0.2-1.0) mg/dL AST (15-37) U/L ALT (14-59) U/L Alkaline Phosphatase (46-116) U/L C-Reactive Protein (<1.0) mg/dL Total Protein (6.4-8.2) g/dl Albumin (3.4-5.0) g/dl Globulin gm/dL Albumin/Globulin Ratio (1-2) 01/04/17 01/04/17 01/04/17 Range/Units 07:10 07:10 11:00 WBC 16.80 H (3.98-10.04) K/mm3 RBC 4.01 (3.98-5.22) M/mm3 Hgb 10.5 L (11.2-15.7) gm/L Hct 33.1 L (34.1-44.9) % MCV 82.5 (79.4-94.8) fl MCH 26.2 (25.6-32.2) pg MCHC 31.7 L (32.2-35.5) g/dl RDW Std Deviation 39.5 (36.4-46.3) fL Plt Count 383 H (182-369) K/mm3 MPV 9.3 L (9.4-12.3) fl Neut % (Auto) 75.6 H (34.0-71.1) % Lymph % (Auto) 12.7 L (19.3-51.7) % [place] % (Auto) 10.7 (4.7-12.5) % Eos % (Auto) 0.6 L (0.7-5.8) Baso % (Auto) 0.1 (0.1-1.2) % Neut # (Auto) 12.70 H (1.56-6.13) K/mm3 Lymph # (Auto) 2.14 (1.18-3.74) K/mm3 [place] # (Auto) 1.79 H (0.24-0.36) K/mm3 Eos # (Auto) 0.10 (0.04-0.36) K/mm3 Baso # (Auto) 0.02 (0.01-0.08) K/mm3 Manual Slide Review Normal smear Sodium 140 (136-145) mEq/L Potassium 3.7 (3.5-5.1) mEq/L Chloride 103 (98-107) mEq/L Carbon Dioxide 27 (21-32) mEq/L Anion Gap 13.7 (5-15) BUN 5 L (7-18) mg/dL Creatinine 0.7 (0.55-1.02) mg/dL Est Cr Clr Drug Dosing 92.94 mL/min Estimated GFR (MDRD) > 60 (>60) mL/min BUN/Creatinine Ratio 7.1 L (14-18) Glucose 126 H (74-106) mg/dL POC Glucose 120 H (70-105) mg/dL Calcium 8.4 L (8.5-10.1) mg/dL Total Bilirubin 0.8 (0.2-1.0) mg/dL AST 28 (15-37) U/L ALT 52 (14-59) U/L Alkaline Phosphatase 98 (46-116) U/L C-Reactive Protein 29.8 H* (<1.0) mg/dL Total Protein 6.4 (6.4-8.2) g/dl Albumin 2.3 L (3.4-5.0) g/dl Globulin 4.1 gm/dL Albumin/Globulin Ratio 0.6 L (1-2) Med Orders - Current: Current Medications Hydromorphone HCl (Dilaudid) 0.5 mg IVPUSH Q2H PRN PRN Reason: Pain Last Admin: 01/04/17 10:28 Dose: 0.5 mg Cefoxitin Sodium 2 gm/ Premix 50 mls @ 100 mls/hr IV Q12H [facility] Last Admin: 01/04/17 13:10 Dose: 100 mls/hr Doxycycline Hyclate 100 mg/ (Sodium Chloride) 100 mls @ 100 mls/hr IV Q12H [facility] Last Admin: 01/04/17 15:36 Dose: 100 mls/hr Levofloxacin/Dextrose 750 mg/ (Premix) 150 mls @ 100 mls/hr IV Q24H [facility] Last Admin: 01/03/17 18:20 Dose: 100 mls/hr Lactated Ringer's (Ringers, Lactated) 1,000 mls @ 75 mls/hr IV ASDIRECTED [facility] Last Admin: 01/04/17 08:15 Dose: 75 mls/hr Ibuprofen (Motrin) 600 mg PO Q6H PRN PRN Reason: Fever Last Admin: 01/04/17 12:27 Dose: 600 mg Insulin Aspart (Novolog) 0 unit SUBCUT QIDACANDBED [facility] PRN Reason: Protocol Last Admin: 01/04/17 11:10 Dose: Not Given Ketorolac Tromethamine (Toradol) 60 mg IVPUSH Q6H [facility] Stop: 01/05/17 12:31 Lisinopril (Prinivil) 5 mg PO DAILY [facility] Last Admin: 01/04/17 08:14 Dose: 5 mg Morphine Sulfate (Morphine) 5 mg IM ONETIME ONE Stop: 01/04/17 21:01 Ondansetron HCl (Zofran) 4 mg IVPUSH Q4H PRN PRN Reason: Nausea/Vomiting Last Admin: 01/04/17 08:15 Dose: 4 mg Oxycodone/Acetaminophen (Percocet 325-5 Mg) 2 tab PO Q4H PRN PRN Reason: Pain (moderate 4-6) Last Admin: 01/04/17 13:11 Dose: 2 tab Promethazine HCl (Phenergan) 25 mg IM ONETIME ONE Stop: 01/04/17 21:01 Saccharomyces Boulardii (Florastor) 250 mg PO BID [facility] Last Admin: 01/04/17 08:14 Dose: 250 mg Sodium Chloride (Saline Flush) 10 ml FLUSH ONETIME PRN PRN Reason: IV FLUSH Last Admin: 01/02/17 20:09 Dose: 10 ml Zolpidem Tartrate (Ambien) 5 mg PO BEDTIME PRN PRN Reason: Insomnia Discontinued Medications Diatrizoate Meglum/Diatrizoate Sod (Gastrografin 37%) 90 ml PO ONETIME ONE Stop: 01/02/17 19:12 Last Admin: 01/02/17 20:09 Dose: 90 ml Diatrizoate Meglum/Diatrizoate Sod (Gastrografin 37%) 90 ml PO ONETIME ONE Stop: 01/04/17 08:46 Last Admin: 01/04/17 09:41 Dose: 90 ml Diphenhydramine HCl (Benadryl) 25 mg IVPUSH ONETIME ONE Stop: 01/02/17 17:51 Last Admin: 01/02/17 18:18 Dose: 25 mg Doxycycline Hyclate (Vibramycin) Confirm Administered Dose 100 mg .ROUTE .STK- MED ONE Stop: 01/04/17 15:28 Last Admin: 01/04/17 15:57 Dose: Not Given Hydromorphone HCl (Dilaudid) 1 mg IVPUSH ONETIME ONE Stop: 01/02/17 17:48 Last Admin: 01/02/17 18:18 Dose: 1 mg Hydromorphone HCl (Dilaudid) 0.5 mg IVPUSH ONETIME ONE Stop: 01/02/17 18:42 Last Admin: 01/02/17 18:55 Dose: 0.5 mg Hydromorphone HCl (Dilaudid) 0.5 mg IVPUSH ONETIME ONE Stop: 01/02/17 20:28 Last Admin: 01/02/17 20:36 Dose: 0.5 mg Hydromorphone HCl (Dilaudid) 0.5 mg IVPUSH ONETIME ONE Stop: 01/02/17 21:42 Last Admin: 01/02/17 21:48 Dose: 0.5 mg Sodium Chloride (Normal Saline) 1,000 mls @ 999 mls/hr IV ONETIME ONE Stop: 01/02/17 18:46 Last Admin: 01/02/17 18:21 Dose: 999 mls/hr Levofloxacin/Dextrose 750 mg/ (Premix) 150 mls @ 100 mls/hr IV ONETIME ONE Stop: 01/02/17 19:36 Last Admin: 01/02/17 18:23 Dose: 100 mls/hr Lactated Ringer's (Ringers, Lactated) 1,000 mls @ 150 mls/hr IV ASDIRECTED [facility] Last Admin: 01/02/17 23:35 Dose: 150 mls/hr Dextrose/Sodium Chloride (Dextrose 5%-1/2 Ns) 1,000 mls @ 125 mls/hr IV ASDIRECTED [facility] Last Admin: 01/03/17 06:12 Dose: 125 mls/hr Insulin Aspart (Novolog) 0 unit SUBCUT Q6H [facility] PRN Reason: Protocol Last Admin: 01/03/17 06:20 Dose: Not Given Iopamidol (Isovue-300 (61%)) 125 ml IVPUSH ONETIME ONE Stop: 01/02/17 19:12 Last Admin: 01/02/17 20:09 Dose: 125 ml Iopamidol (Isovue-300 (61%)) 125 ml IVPUSH ONETIME ONE Stop: 01/04/17 08:46 Last Admin: 01/04/17 09:41 Dose: 125 ml Metoclopramide HCl (Reglan) 10 mg IVPUSH ONETIME ONE Stop: 01/02/17 17:48 Last Admin: 01/02/17 18:18 Dose: 10 mg Morphine Sulfate (Morphine) 5 mg IM ONETIME ONE Stop: 01/03/17 23:14 Last Admin: 01/03/17 23:41 Dose: 5 mg Ondansetron HCl (Zofran) 4 mg IVPUSH ONETIME ONE Stop: 01/02/17 21:42 Last Admin: 01/02/17 21:46 Dose: 4 mg Oxycodone/Acetaminophen (Percocet 325-5 Mg) 1 tab PO Q4H PRN PRN Reason: Pain Last Admin: 01/04/17 07:02 Dose: 1 tab Oxycodone/Acetaminophen (Percocet 325-5 Mg) 2 tab PO Q4HR PRN PRN Reason: Pain (moderate 4-6) Promethazine HCl (Phenergan) 25 mg IM ONETIME ONE Stop: 01/03/17 23:22 Last Admin: 01/03/17 23:40 Dose: 25 mg Sodium Chloride (Saline Flush) 10 ml FLUSH ONETIME ONE Stop: 01/04/17 08:46 Last Admin: 01/04/17 09:41 Dose: 10 ml - Exam General: alert, oriented HEENT: Mucous membr. moist/pink Lungs: Clear to auscultation, Normal respiratory effort Cardiovascular: Regular Rate, Regular Rhythm Abdomen: bowel sounds present, soft, no distension, tenderness, other (some referred pain to LLQ) Back Exam: Normal Inspection, Full Range of Motion Extremities: no edema Skin: warm, dry, intact Psy/Mental Status: alert, normal affect, normal mood - Problem List & Annotations (1) Diabetes SNOMED Code(s): 06380801 Code(s): E11.9 - TYPE 2 DIABETES MELLITUS WITHOUT COMPLICATIONS Status: Acute Current Visit: Yes Qualifiers: Diabetes mellitus type: type 2 Diabetes mellitus complication status: without complication 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 Qualified Code(s): E11.9 - Type 2 diabetes mellitus without complications (2) Tubo-ovarian abscess SNOMED Code(s): 70131873 Code(s): N70.93 - SALPINGITIS AND OOPHORITIS, UNSPECIFIED Status: Acute Current Visit: Yes - Problem List Review Problem List Initiated/Reviewed/Updated: No - My Orders Last 24 Hours: My Active Orders 01/03/17 18:00 Levofloxacin/Dextrose 5%-Water [Levaquin in D5W 750 MG/150 ML] 750 mg Premix Bag 1 bag IV Q24H 01/03/17 21:00 Zolpidem [Ambien] 5 mg PO BEDTIME PRN 01/04/17 09:00 Lisinopril [Prinivil] 5 mg PO DAILY 01/04/17 12:55 Acetaminophen/oxyCODONE [Percocet 325-5 MG] 2 tab PO Q4H PRN 01/04/17 18:30 Ketorolac [Toradol] 60 mg IVPUSH Q6H 01/04/17 21:00 Morphine 5 mg IM ONETIME ONE Promethazine [Phenergan] 25 mg IM ONETIME ONE 01/04/17 Breakfast [employer] [employer] Diet [DIET] 01/04/17 Dinner NPO After Midnight [Nothing per Oral After Midnight Diet] [DIET] 01/05/17 05:00 C-REACTIVE PROTEIN [CHEM] Routine CBC WITH AUTO DIFF [HEME] Routine COMPREHENSIVE METABOLIC PN,CMP [CHEM] Routine HCG QUANTITATIVE,SERUM [CHEM] Routine 01/05/17 08:00 Abdomen Pelvis w Cont [CT] Routine Transvaginal Non OB [US] Routine See by me and Dr Gambino as well and both agree with continued antibiotics and present medications. Patient has significant improvement since exam at 1245 today. Able to ambulate and shower, spirits much better this PM - Assessment Assessment:: Will reevaluate again after clinic Long discussion with patient and about prognosis and possible surgery and no guarantee she will not have potential complication co-morbidity and co- mortality Repeat labs in AM. Will discuss with Dr Gambino Diabetes under treatment and meds stable at present NPO after midnight in case operation needed Morphine tonight with phenergan Toradol at 1830 Percocet 2 q4-6h. - Plan Plan:: Antibiotics IV and daily evaluation. Discussed possible surgery if needed IUD removed.
[2017-01-04] MEDS: Ketorolac 30 MG/ML SDV IVPUSH SCH (18:20)
[2017-01-04] MEDS: Levofloxacin/Dextrose 5%-Water 750 MG in Premix Bag 1 BAG IV SCH (18:21)
[2017-01-04] MEDS ORDERED: Promethazine 25 MG/ML SDV IM ONE (21:00)
[2017-01-04] MEDS ORDERED: Morphine 10 MG/ML Syringe IM ONE (21:00)
[2017-01-05] MEDS: Ketorolac 30 MG/ML SDV IVPUSH SCH ×5 (00:35→20:12)
[2017-01-05] MEDS: cefOXitin 2 GM in Premix Bag 1 BAG IV SCH (00:39)
[2017-01-05] MEDS: Acetaminophen/oxyCODONE 325-5 MG Tab PO PRN ×5 (00:43→21:58)
[2017-01-05] MEDS: Doxycycline 100 MG in Sodium Chloride 0.9% 100 ML IV SCH ×2 (03:33→15:21)
[2017-01-05] MEDS: Insulin Aspart 100 Units/ML 3 ML Pen SUBCUT SCH (06:47)
[2017-01-05] MEDS: Saccharomyces Boulardii (Probiotic) 250 MG Cap PO SCH ×2 (08:24→20:12)
[2017-01-05] MEDS: Lisinopril 5 MG Tab PO SCH (08:25)
--- NOTE | 2017-01-05 08:25 | PCM.PN ---
- General Info Date of Service: 01/05/17 Admission Dx/Problem (Free Text): Admission Diagnosis/Problem Admission Diagnosis/Problem Tubo-ovarian abscess Subjective Update: patient states she is not feeling any better than when admitted. Functional Status: Reports: other (c/o pain 02/24 ) - Review of Systems General: Reports: No Symptoms (afebrile) HEENT: Reports: no symptoms Pulmonary: Reports: no symptoms Cardiovascular: Reports: No Symptoms Gastrointestinal: Reports: Abdominal pain (rates 02/24) Genitourinary: Reports: no symptoms Musculoskeletal: Reports: no symptoms Skin: Reports: no symptoms Neurological: Reports: No Symptoms Psychiatric: Reports: no symptoms, mood lability, anxiety, other (flat affect) - Patient Data Vitals - most recent: Last Vital Signs Temp 98.8 F 01/05/17 07:47 Pulse 89 01/05/17 07:47 Resp 12 01/05/17 07:47 BP 133/73 01/05/17 07:47 Pulse Ox 93 L 01/05/17 07:47 Weight - most recent: 221 lb 12.8 oz I&O - last 24 hours: Intake & Output 01/04/17 01/05/17 01/05/17 22:59 06:59 14:59 Intake Total 1440 2000 Output Total 1050 Balance 1440 950 Lab Results last 24 hrs: Laboratory Results - last 24 hr 01/04/17 01/04/17 01/04/17 Range/Units 11:00 17:55 22:10 WBC (3.98-10.04) K/mm3 RBC (3.98-5.22) M/mm3 Hgb (11.2-15.7) gm/L Hct (34.1-44.9) % MCV (79.4-94.8) fl MCH (25.6-32.2) pg MCHC (32.2-35.5) g/dl RDW Std Deviation (36.4-46.3) fL Plt Count (182-369) K/mm3 MPV (9.4-12.3) fl Neut % (Auto) (34.0-71.1) % Lymph % (Auto) (19.3-51.7) % [place] % (Auto) (4.7-12.5) % Eos % (Auto) (0.7-5.8) Baso % (Auto) (0.1-1.2) % Neut # (Auto) (1.56-6.13) K/mm3 Lymph # (Auto) (1.18-3.74) K/mm3 [place] # (Auto) (0.24-0.36) K/mm3 Eos # (Auto) (0.04-0.36) K/mm3 Baso # (Auto) (0.01-0.08) K/mm3 Sodium (136-145) mEq/L Potassium (3.5-5.1) mEq/L Chloride (98-107) mEq/L Carbon Dioxide (21-32) mEq/L Anion Gap (5-15) BUN (7-18) mg/dL Creatinine (0.55-1.02) mg/dL Est Cr Clr Drug Dosing mL/min Estimated GFR (MDRD) (>60) mL/min BUN/Creatinine Ratio (14-18) Glucose (74-106) mg/dL POC Glucose 120 H 127 H 144 H (70-105) mg/dL Calcium (8.5-10.1) mg/dL Total Bilirubin (0.2-1.0) mg/dL AST (15-37) U/L ALT (14-59) U/L Alkaline Phosphatase (46-116) U/L C-Reactive Protein (<1.0) mg/dL Total Protein (6.4-8.2) g/dl Albumin (3.4-5.0) g/dl Globulin gm/dL Albumin/Globulin Ratio (1-2) HCG, Quant mIU/mL 01/05/17 01/05/17 01/05/17 Range/Units 06:20 06:20 06:20 WBC 13.79 H (3.98-10.04) K/mm3 RBC 3.62 L (3.98-5.22) M/mm3 Hgb 9.4 L (11.2-15.7) gm/L Hct 30.2 L (34.1-44.9) % MCV 83.4 (79.4-94.8) fl MCH 26.0 (25.6-32.2) pg MCHC 31.1 L (32.2-35.5) g/dl RDW Std Deviation 40.2 (36.4-46.3) fL Plt Count 411 H (182-369) K/mm3 MPV 9.7 (9.4-12.3) fl Neut % (Auto) 70.0 (34.0-71.1) % Lymph % (Auto) 19.1 L (19.3-51.7) % [place] % (Auto) 8.9 (4.7-12.5) % Eos % (Auto) 1.6 (0.7-5.8) Baso % (Auto) 0.1 (0.1-1.2) % Neut # (Auto) 9.64 H (1.56-6.13) K/mm3 Lymph # (Auto) 2.64 (1.18-3.74) K/mm3 [place] # (Auto) 1.23 H (0.24-0.36) K/mm3 Eos # (Auto) 0.22 (0.04-0.36) K/mm3 Baso # (Auto) 0.02 (0.01-0.08) K/mm3 Sodium 139 (136-145) mEq/L Potassium 3.2 L (3.5-5.1) mEq/L Chloride 104 (98-107) mEq/L Carbon Dioxide 29 (21-32) mEq/L Anion Gap 9.2 (5-15) BUN 8 (7-18) mg/dL Creatinine 0.7 (0.55-1.02) mg/dL Est Cr Clr Drug Dosing 92.94 mL/min Estimated GFR (MDRD) > 60 (>60) mL/min BUN/Creatinine Ratio 11.4 L (14-18) Glucose 149 H (74-106) mg/dL POC Glucose (70-105) mg/dL Calcium 8.4 L (8.5-10.1) mg/dL Total Bilirubin 0.4 (0.2-1.0) mg/dL AST 24 (15-37) U/L ALT 54 (14-59) U/L Alkaline Phosphatase 137 H (46-116) U/L C-Reactive Protein 27.3 H* (<1.0) mg/dL Total Protein 6.4 (6.4-8.2) g/dl Albumin 2.1 L (3.4-5.0) g/dl Globulin 4.3 gm/dL Albumin/Globulin Ratio 0.5 L (1-2) HCG, Quant < 1.0 mIU/mL 01/05/17 Range/Units 06:37 WBC (3.98-10.04) K/mm3 RBC (3.98-5.22) M/mm3 Hgb (11.2-15.7) gm/L Hct (34.1-44.9) % MCV (79.4-94.8) fl MCH (25.6-32.2) pg MCHC (32.2-35.5) g/dl RDW Std Deviation (36.4-46.3) fL Plt Count (182-369) K/mm3 MPV (9.4-12.3) fl Neut % (Auto) (34.0-71.1) % Lymph % (Auto) (19.3-51.7) % [place] % (Auto) (4.7-12.5) % Eos % (Auto) (0.7-5.8) Baso % (Auto) (0.1-1.2) % Neut # (Auto) (1.56-6.13) K/mm3 Lymph # (Auto) (1.18-3.74) K/mm3 [place] # (Auto) (0.24-0.36) K/mm3 Eos # (Auto) (0.04-0.36) K/mm3 Baso # (Auto) (0.01-0.08) K/mm3 Sodium (136-145) mEq/L Potassium (3.5-5.1) mEq/L Chloride (98-107) mEq/L Carbon Dioxide (21-32) mEq/L Anion Gap (5-15) BUN (7-18) mg/dL Creatinine (0.55-1.02) mg/dL Est Cr Clr Drug Dosing mL/min Estimated GFR (MDRD) (>60) mL/min BUN/Creatinine Ratio (14-18) Glucose (74-106) mg/dL POC Glucose 133 H (70-105) mg/dL Calcium (8.5-10.1) mg/dL Total Bilirubin (0.2-1.0) mg/dL AST (15-37) U/L ALT (14-59) U/L Alkaline Phosphatase (46-116) U/L C-Reactive Protein (<1.0) mg/dL Total Protein (6.4-8.2) g/dl Albumin (3.4-5.0) g/dl Globulin gm/dL Albumin/Globulin Ratio (1-2) HCG, Quant mIU/mL Med Orders - Current: Current Medications Hydromorphone HCl (Dilaudid) 0.5 mg IVPUSH Q2H PRN PRN Reason: Pain Last Admin: 01/04/17 10:28 Dose: 0.5 mg Cefoxitin Sodium 2 gm/ Premix 50 mls @ 100 mls/hr IV Q12H [facility] Last Admin: 01/05/17 00:39 Dose: 100 mls/hr Doxycycline Hyclate 100 mg/ (Sodium Chloride) 100 mls @ 100 mls/hr IV Q12H [facility] Last Admin: 01/05/17 03:33 Dose: 100 mls/hr Levofloxacin/Dextrose 750 mg/ (Premix) 150 mls @ 100 mls/hr IV Q24H [facility] Last Admin: 01/04/17 18:21 Dose: 100 mls/hr Lactated Ringer's (Ringers, Lactated) 1,000 mls @ 75 mls/hr IV ASDIRECTED [facility] Last Admin: 01/04/17 08:15 Dose: 75 mls/hr Ibuprofen (Motrin) 600 mg PO Q6H PRN PRN Reason: Fever Last Admin: 01/04/17 12:27 Dose: 600 mg Ketorolac Tromethamine (Toradol) 60 mg IVPUSH Q6H [facility] Stop: 01/06/17 03:01 Lisinopril (Prinivil) 5 mg PO DAILY [facility] Last Admin: 01/04/17 08:14 Dose: 5 mg Ondansetron HCl (Zofran) 4 mg IVPUSH Q4H PRN PRN Reason: Nausea/Vomiting Last Admin: 01/04/17 08:15 Dose: 4 mg Oxycodone/Acetaminophen (Percocet 325-5 Mg) 2 tab PO Q4H PRN PRN Reason: Pain (moderate 4-6) Last Admin: 01/05/17 00:43 Dose: 2 tab Saccharomyces Boulardii (Florastor) 250 mg PO BID [facility] Last Admin: 01/04/17 21:13 Dose: 250 mg Sodium Chloride (Saline Flush) 10 ml FLUSH ONETIME PRN PRN Reason: IV FLUSH Last Admin: 01/02/17 20:09 Dose: 10 ml Zolpidem Tartrate (Ambien) 5 mg PO BEDTIME PRN PRN Reason: Insomnia Discontinued Medications Diatrizoate Meglum/Diatrizoate Sod (Gastrografin 37%) 90 ml PO ONETIME ONE Stop: 01/02/17 19:12 Last Admin: 01/02/17 20:09 Dose: 90 ml Diatrizoate Meglum/Diatrizoate Sod (Gastrografin 37%) 90 ml PO ONETIME ONE Stop: 01/04/17 08:46 Last Admin: 01/04/17 09:41 Dose: 90 ml Diphenhydramine HCl (Benadryl) 25 mg IVPUSH ONETIME ONE Stop: 01/02/17 17:51 Last Admin: 01/02/17 18:18 Dose: 25 mg Doxycycline Hyclate (Vibramycin) Confirm Administered Dose 100 mg .ROUTE .STK- MED ONE Stop: 01/04/17 15:28 Last Admin: 01/04/17 15:57 Dose: Not Given Hydromorphone HCl (Dilaudid) 1 mg IVPUSH ONETIME ONE Stop: 01/02/17 17:48 Last Admin: 01/02/17 18:18 Dose: 1 mg Hydromorphone HCl (Dilaudid) 0.5 mg IVPUSH ONETIME ONE Stop: 01/02/17 18:42 Last Admin: 01/02/17 18:55 Dose: 0.5 mg Hydromorphone HCl (Dilaudid) 0.5 mg IVPUSH ONETIME ONE Stop: 01/02/17 20:28 Last Admin: 01/02/17 20:36 Dose: 0.5 mg Hydromorphone HCl (Dilaudid) 0.5 mg IVPUSH ONETIME ONE Stop: 01/02/17 21:42 Last Admin: 01/02/17 21:48 Dose: 0.5 mg Sodium Chloride (Normal Saline) 1,000 mls @ 999 mls/hr IV ONETIME ONE Stop: 01/02/17 18:46 Last Admin: 01/02/17 18:21 Dose: 999 mls/hr Levofloxacin/Dextrose 750 mg/ (Premix) 150 mls @ 100 mls/hr IV ONETIME ONE Stop: 01/02/17 19:36 Last Admin: 01/02/17 18:23 Dose: 100 mls/hr Lactated Ringer's (Ringers, Lactated) 1,000 mls @ 150 mls/hr IV ASDIRECTED [facility] Last Admin: 01/02/17 23:35 Dose: 150 mls/hr Dextrose/Sodium Chloride (Dextrose 5%-1/2 Ns) 1,000 mls @ 125 mls/hr IV ASDIRECTED [facility] Last Admin: 01/03/17 06:12 Dose: 125 mls/hr Insulin Aspart (Novolog) 0 unit SUBCUT Q6H [facility] PRN Reason: Protocol Last Admin: 01/03/17 06:20 Dose: Not Given Insulin Aspart (Novolog) 0 unit SUBCUT QIDACANDBED [facility] PRN Reason: Protocol Last Admin: 01/05/17 06:47 Dose: Not Given Iopamidol (Isovue-300 (61%)) 125 ml IVPUSH ONETIME ONE Stop: 01/02/17 19:12 Last Admin: 01/02/17 20:09 Dose: 125 ml Iopamidol (Isovue-300 (61%)) 125 ml IVPUSH ONETIME ONE Stop: 01/04/17 08:46 Last Admin: 01/04/17 09:41 Dose: 125 ml Ketorolac Tromethamine (Toradol) 60 mg IVPUSH Q6H [facility] Stop: 01/05/17 12:31 Last Admin: 01/05/17 06:32 Dose: Not Given Metoclopramide HCl (Reglan) 10 mg IVPUSH ONETIME ONE Stop: 01/02/17 17:48 Last Admin: 01/02/17 18:18 Dose: 10 mg Morphine Sulfate (Morphine) 5 mg IM ONETIME ONE Stop: 01/03/17 23:14 Last Admin: 01/03/17 23:41 Dose: 5 mg Morphine Sulfate (Morphine) 5 mg IM ONETIME ONE Stop: 01/04/17 21:01 Last Admin: 01/04/17 21:13 Dose: 5 mg Ondansetron HCl (Zofran) 4 mg IVPUSH ONETIME ONE Stop: 01/02/17 21:42 Last Admin: 01/02/17 21:46 Dose: 4 mg Oxycodone/Acetaminophen (Percocet 325-5 Mg) 1 tab PO Q4H PRN PRN Reason: Pain Last Admin: 01/04/17 07:02 Dose: 1 tab Oxycodone/Acetaminophen (Percocet 325-5 Mg) 2 tab PO Q4HR PRN PRN Reason: Pain (moderate 4-6) Promethazine HCl (Phenergan) 25 mg IM ONETIME ONE Stop: 01/03/17 23:22 Last Admin: 01/03/17 23:40 Dose: 25 mg Promethazine HCl (Phenergan) 25 mg IM ONETIME ONE Stop: 01/04/17 21:01 Last Admin: 01/04/17 21:13 Dose: 25 mg Sodium Chloride (Saline Flush) 10 ml FLUSH ONETIME ONE Stop: 01/04/17 08:46 Last Admin: 01/04/17 09:41 Dose: 10 ml - Exam General: alert, oriented HEENT: Mucous membr. moist/pink Neck: supple Lungs: Clear to auscultation, Normal respiratory effort Cardiovascular: Regular Rate, Regular Rhythm Abdomen: bowel sounds present, soft, no tenderness, no distension, rebound, tenderness Extremities: no edema Skin: warm, dry, intact Neurological: no new focal deficit Psy/Mental Status: alert, normal affect, normal mood, labile mood (flat affect) , anxious, depressed, agitated - Problem List & Annotations (1) Diabetes SNOMED Code(s): 30050230 Code(s): E11.9 - TYPE 2 DIABETES MELLITUS WITHOUT COMPLICATIONS Status: Acute Current Visit: Yes Qualifiers: Diabetes mellitus type: type 2 Diabetes mellitus complication status: without complication Diabetes mellitus fci insulin use: without exterminator helper use Qualified Code(s): E11.9 - Type 2 diabetes mellitus without complications (2) Tubo-ovarian abscess SNOMED Code(s): 93522730 Code(s): N70.93 - SALPINGITIS AND OOPHORITIS, UNSPECIFIED Status: Acute Current Visit: Yes - Problem List Review Problem List Initiated/Reviewed/Updated: No - My Orders Last 24 Hours: My Active Orders 01/04/17 09:00 Lisinopril [Prinivil] 5 mg PO DAILY 01/04/17 12:55 Acetaminophen/oxyCODONE [Percocet 325-5 MG] 2 tab PO Q4H PRN 01/05/17 08:17 Consult to Physician [CONS] Urgent 01/05/17 08:19 Notify Provider Consults [RC] ASDIRECTED 01/05/17 09:00 Ketorolac [Toradol] 60 mg IVPUSH Q6H Consulted Dr Godwin and Azalia KO Repeat labs daily and tomorrow repeat CT and US[facility] - Assessment Assessment:: Will reevaluate again after clinic Long discussion with patient and about prognosis and possible surgery and no guarantee she will not have potential complication co-morbidity and co- mortality Repeat labs in AM. Will discuss with Dr Gambino Diabetes under treatment and meds stable at present NPO after midnight in case operation needed Morphine tonight with phenergan Toradol at 1830 Percocet 2 q4-6h. - Plan Plan:: Antibiotics IV and daily evaluation. Discussed possible surgery if needed IUD removed.
[2017-01-05] MEDS ORDERED: Potassium Chloride 20 MEQ Tab.ER PO ONE (11:15)
[2017-01-05] MEDS ORDERED: Sertraline 25 MG Tab PO SCH (11:30)
--- NOTE | 2017-01-05 12:08 | US ---
Pelvic ultrasound: Multiple real-time images were obtained transvaginally. Comparison: Study compared to previous ultrasound and CT exams. Findings: Incidental nabothian cysts are present. No endometrial thickening is seen. Left ovary is enlarged containing hypoechoic areas. There is a tubular structure wrapping around the ovary which is more prominent on current study presumably due to dilated fallopian tube containing pus. Size of current finding is 4.3 x 2.8 x 5.8 cm. Right ovary is unremarkable. No free fluid is seen. Impression: 1. Left ovarian abnormality compatible with tubo-ovarian abscess. Fluid-filled tubular area wraps around the ovary felt to represent pus within a dilated fallopian tube. This fallopian tube finding is slightly more prominent than on prior exam. Other portions of the study are felt to be stable. 2. No free fluid is seen. Diagnostic code #5
--- NOTE | 2017-01-05 13:40 | PCM.CONS ---
<Azalia Austin M - Last Filed: 01/06/17 14:35> H&P History of Present Illness - General Date of Service: 01/05/17 Admit Problem/Dx: Admission Diagnosis/Problem Admission Diagnosis/Problem Tubo-ovarian abscess Patient is seen this afternoon. She has been admitted for tubo-ovarian abscess, continues to have pelvic pain. Reports that she had progressive pain to her pelvis, worse to lt side x 8 days prior to admission. She was seen in ED initially, Dx and treated for AUTI. Symptoms worsened over the following 24 hours, she presented to ED again with worsening pelvic pain. CT scan of abdomen obtained showed tubo-ovarian abscess. Dr. Porter, PRIVATE SECRETARY was consulted. IUD was removed and she was admitted and started on IV abx. Chart reviewed. Dr. Porter request consult with Hospitalist team for evaluation, possible depression, DM and further recommendations. Source of Information: Patient, Other (hospital chart reviewed) lower left flank, left lower abdomen Pain Score (Numeric/FACES): 10 - Related Data Allergies/Adverse Reactions: Allergies Allergy/AdvReac Type Severity Reaction Status Date / Time No Known Allergies Allergy Verified 01/02/17 17:29 Home Medications: Home Meds Ciprofloxacin [Ciprofloxacin HCl] 500 mg PO BID #14 tablet 01/01/17 [Rx] Hydrocodone/Acetaminophen [[place] 5-325] 1 tab PO Q4H PRN #10 tablet 01/01/17 [Rx ] Lisinopril 5 mg PO DAILY 01/01/17 [History] sitaGLIPtin Phos/Metformin HCl [Janumet Xr 50-1,000 mg Tablet] 1 tab PO DAILY [History] Past Medical History - Past Health History Medical/Surgical History: Denies Medical/Surgical History Genitourinary History: Reports: Other (See Below) Other Genitourinary History: pt is diabetic PRIVATE SECRETARY History: Reports: Other OB/BYN History: 3 vaginal births Endocrine/Metabolic History: Reports: Diabetes, Type II (Controlled with oral medications.) - Past Surgical History Female Surgical History: Reports: Other (See Below) Other Female Surgeries/Procedures: 3 vaginal births Endocrine Surgical History: Reports: None Social & Family History - Family History Family Medical History: Noncontributory - Tobacco Use Smoking Status *Q: Never Smoker Second Hand Smoke Exposure: No - Caffeine Use Caffeine Use: Reports: Coffee, Tea Other Caffeine Use: doesn't have coffee very often but does have every once in awhile. - Recreational Drug Use Recreational Drug Use: No - Living Situation & Occupation Living situation: Reports: Occupation: Employed H&P Review of Systems - Review of Systems: Review Of Systems: See Below General: Reports: Fever (no fevers since noon yesterday) HEENT: Reports: No Symptoms Pulmonary: Reports: No Symptoms Cardiovascular: Reports: No Symptoms Gastrointestinal: Reports: Abdominal Pain (pelvic pain lt side worse than rt) Genitourinary: Reports: Pain Musculoskeletal: Reports: No Symptoms Skin: Reports: No Symptoms Psychiatric: Reports: No Symptoms. Denies: Depression (denies that she is depressed and refuses to take medications for depression at this time; states she is "tired of feeling like crap". ) Neurological: Reports: No Symptoms Exam - Exam Exam: See Below - Vital Signs Vital Signs: Last Vital Signs Temp 98.8 F 01/05/17 07:47 Pulse 89 01/05/17 07:47 Resp 12 01/05/17 07:47 BP 133/73 01/05/17 07:47 Pulse Ox 93 L 01/05/17 07:47 Weight: 100.607 kg - Exam General: Alert, Oriented, Cooperative HEENT: Conjunctiva Clear, EOMI, Hearing Intact, Mucosa Moist & [place], Pupils Equal, Pupils Reactive Neck: Supple, Trachea Midline Lungs: Clear to Auscultation, Normal Respiratory Effort Cardiovascular: Regular Rate, Regular Rhythm Abdomen: Normal Bowel Sounds, Soft, Other (pain to lower abd/pelvis; umbilicus and below). No: Organomegaly, Guarding, Rigidity, Rebound (Female) Exam: Deferred Rectal (Female) Exam: Deferred Extremities: Normal Inspection Peripheral Pulses: 2+: Dorsalis Pedis (L), Dorsalis Pedis (R) Skin: Warm, Dry Neurological: Cranial Nerves Intact Neuro Extensive - Mental Status: Alert, Oriented x3, Normal Mood/Affect, Normal Cognition, Memory Intact Psychiatric: Alert, Normal Affect, Normal Mood - Patient Data Lab Results Last 24 hrs: Laboratory Results - last 24 hr 01/04/17 01/04/17 01/05/17 Range/Units 17:55 22:10 06:20 WBC 13.79 H (3.98-10.04) K/mm3 RBC 3.62 L (3.98-5.22) M/mm3 Hgb 9.4 L (11.2-15.7) gm/L Hct 30.2 L (34.1-44.9) % MCV 83.4 (79.4-94.8) fl MCH 26.0 (25.6-32.2) pg MCHC 31.1 L (32.2-35.5) g/dl RDW Std Deviation 40.2 (36.4-46.3) fL Plt Count 411 H (182-369) K/mm3 MPV 9.7 (9.4-12.3) fl Neut % (Auto) 70.0 (34.0-71.1) % Lymph % (Auto) 19.1 L (19.3-51.7) % [place] % (Auto) 8.9 (4.7-12.5) % Eos % (Auto) 1.6 (0.7-5.8) Baso % (Auto) 0.1 (0.1-1.2) % Neut # (Auto) 9.64 H (1.56-6.13) K/mm3 Lymph # (Auto) 2.64 (1.18-3.74) K/mm3 [place] # (Auto) 1.23 H (0.24-0.36) K/mm3 Eos # (Auto) 0.22 (0.04-0.36) K/mm3 Baso # (Auto) 0.02 (0.01-0.08) K/mm3 Sodium (136-145) mEq/L Potassium (3.5-5.1) mEq/L Chloride (98-107) mEq/L Carbon Dioxide (21-32) mEq/L Anion Gap (5-15) BUN (7-18) mg/dL Creatinine (0.55-1.02) mg/dL Est Cr Clr Drug Dosing mL/min Estimated GFR (MDRD) (>60) mL/min BUN/Creatinine Ratio (14-18) Glucose (74-106) mg/dL POC Glucose 127 H 144 H (70-105) mg/dL Calcium (8.5-10.1) mg/dL Total Bilirubin (0.2-1.0) mg/dL AST (15-37) U/L ALT (14-59) U/L Alkaline Phosphatase (46-116) U/L C-Reactive Protein (<1.0) mg/dL Total Protein (6.4-8.2) g/dl Albumin (3.4-5.0) g/dl Globulin gm/dL Albumin/Globulin Ratio (1-2) HCG, Quant mIU/mL 01/05/17 01/05/17 01/05/17 Range/Units 06:20 06:20 06:37 WBC (3.98-10.04) K/mm3 RBC (3.98-5.22) M/mm3 Hgb (11.2-15.7) gm/L Hct (34.1-44.9) % MCV (79.4-94.8) fl MCH (25.6-32.2) pg MCHC (32.2-35.5) g/dl RDW Std Deviation (36.4-46.3) fL Plt Count (182-369) K/mm3 MPV (9.4-12.3) fl Neut % (Auto) (34.0-71.1) % Lymph % (Auto) (19.3-51.7) % [place] % (Auto) (4.7-12.5) % Eos % (Auto) (0.7-5.8) Baso % (Auto) (0.1-1.2) % Neut # (Auto) (1.56-6.13) K/mm3 Lymph # (Auto) (1.18-3.74) K/mm3 [place] # (Auto) (0.24-0.36) K/mm3 Eos # (Auto) (0.04-0.36) K/mm3 Baso # (Auto) (0.01-0.08) K/mm3 Sodium 139 (136-145) mEq/L Potassium 3.2 L (3.5-5.1) mEq/L Chloride 104 (98-107) mEq/L Carbon Dioxide 29 (21-32) mEq/L Anion Gap 9.2 (5-15) BUN 8 (7-18) mg/dL Creatinine 0.7 (0.55-1.02) mg/dL Est Cr Clr Drug Dosing 92.94 mL/min Estimated GFR (MDRD) > 60 (>60) mL/min BUN/Creatinine Ratio 11.4 L (14-18) Glucose 149 H (74-106) mg/dL POC Glucose 133 H (70-105) mg/dL Calcium 8.4 L (8.5-10.1) mg/dL Total Bilirubin 0.4 (0.2-1.0) mg/dL AST 24 (15-37) U/L ALT 54 (14-59) U/L Alkaline Phosphatase 137 H (46-116) U/L C-Reactive Protein 27.3 H* (<1.0) mg/dL Total Protein 6.4 (6.4-8.2) g/dl Albumin 2.1 L (3.4-5.0) g/dl Globulin 4.3 gm/dL Albumin/Globulin Ratio 0.5 L (1-2) HCG, Quant < 1.0 mIU/mL Result Diagrams: 01/06/17 06:00 01/06/17 06:00 Consult PN Assessment/Plan Procedures: Procedures ASSAY OF IRON (02/23/16) ASSAY OF TRANSFERRIN (02/23/16) ASSAY THYROID STIM HORMONE (12/20/16) CHORIONIC GONADOTROPIN ASSAY (02/28/14) COMPLETE CBC AUTOMATED (02/17/16) COMPLETE CBC W/AUTO DIFF WBC (01/01/17) COMPREHEN METABOLIC PANEL (01/01/17) CULTR BACTERIA EXCEPT BLOOD (02/28/14) DRAINAGE OF PILONIDAL CYST (02/28/14) EMERGENCY DEPT VISIT (01/01/17) GLYCOSYLATED HEMOGLOBIN TEST (12/20/16) HEP B CORE ANTIBODY IGM (02/17/16) HEPATITIS A IGM ANTIBODY (02/17/16) HEPATITIS B SURFACE AG IA (02/17/16) HEPATITIS C AB TEST (02/17/16) HYDRATE IV INFUSION ADD-ON (01/01/17) LIPID PANEL (02/23/16) ROUTINE VENIPUNCTURE (01/01/17) SMEAR GRAM STAIN (02/28/14) THER/PROPH/DIAG INJ SC/IM (02/13/16) THER/PROPH/DIAG IV INF INIT (01/01/17) TX/PRO/DX INJ NEW DRUG ADDON (01/01/17) URINALYSIS AUTO W/SCOPE (01/01/17) URINE CULTURE/COLONY COUNT (01/01/17) URINE TEST (01/01/17) (1) Pelvic pain SNOMED Code(s): 07808339 Code(s): R10.2 - PELVIC AND PERINEAL PAIN Priority: High Current Visit: Yes (2) Tubo-ovarian abscess SNOMED Code(s): 04370208 Code(s): N70.93 - SALPINGITIS AND OOPHORITIS, UNSPECIFIED Priority: High Current Visit: Yes (3) Obesity SNOMED Code(s): 015286714 Code(s): E66.9 - OBESITY, UNSPECIFIED Priority: Medium Current Visit: Yes Qualifiers: Obesity type: unspecified obesity type (4) Diabetes SNOMED Code(s): 99588384 Code(s): E11.9 - TYPE 2 DIABETES MELLITUS WITHOUT COMPLICATIONS Priority: Medium Current Visit: Yes Qualifiers: Diabetes mellitus type: type 2 Diabetes mellitus complication status: without complication Diabetes mellitus senior living insulin use: without dedicated intermodal truck driver use Qualified Code(s): E11.9 - Type 2 diabetes mellitus without complications Problem List Initiated/Reviewed/Updated: Yes My Orders last 24 hours: My Active Orders 01/05/17 11:17 Consult to Diabetic Nurse Specialist [CONS] Routine 01/05/17 11:18 Consult to Fiberglass Machine Operator [CONS] Routine 01/05/17 21:00 Potassium Chloride [Klor-Con M20] 20 meq PO BEDTIME 01/06/17 05:00 C-REACTIVE PROTEIN [CHEM] DAILY COMPREHENSIVE METABOLIC PN,CMP [CHEM] DAILY MAGNESIUM [CHEM] DAILY 01/06/17 08:00 Abdomen Pelvis w Cont [CT] Routine 01/06/17 08:30 CBC WITH AUTO DIFF [HEME] DAILY 01/07/17 05:00 C-REACTIVE PROTEIN [CHEM] DAILY COMPREHENSIVE METABOLIC PN,CMP [CHEM] DAILY MAGNESIUM [CHEM] DAILY 01/07/17 08:30 CBC WITH AUTO DIFF [HEME] DAILY 01/08/17 05:00 C-REACTIVE PROTEIN [CHEM] DAILY COMPREHENSIVE METABOLIC PN,CMP [CHEM] DAILY MAGNESIUM [CHEM] DAILY 01/08/17 08:30 CBC WITH AUTO DIFF [HEME] DAILY 01/09/17 05:00 C-REACTIVE PROTEIN [CHEM] DAILY COMPREHENSIVE METABOLIC PN,CMP [CHEM] DAILY MAGNESIUM [CHEM] DAILY 01/09/17 08:30 CBC WITH AUTO DIFF [HEME] DAILY 01/10/17 05:00 C-REACTIVE PROTEIN [CHEM] DAILY COMPREHENSIVE METABOLIC PN,CMP [CHEM] DAILY MAGNESIUM [CHEM] DAILY 01/10/17 08:30 CBC WITH AUTO DIFF [HEME] DAILY Plan: I/P: Tubo-ovarian abscess -Confirmed with CT and US findings. Dr. Porter following and dosing antibiotics --considering hysterectomy if not clinically improved over the next 24-48 hours. -Pain management per Dr. Porter -Labs trended and following -Pain is improved this afternoon -She is up ambulatory this afternoon with pain improved -Discussed possibility of depression with patient and starting medication, sertraline. She is adamant that she is not depressed, just situational at this time. DM -Stable -Will obtain A1C -CDE consult Obesity -Fiberglass Machine Operator consult -Recommend exercise; she is working with personal protection specialist prior to getting ill. Other: DVT and GI prophylax CM/SW for assist with DC planning. Patient is full code status <Niesha Godwinnifer M - Last Filed: 01/07/17 13:31> H&P History of Present Illness - General Admit Problem/Dx: Admission Diagnosis/Problem Admission Diagnosis/Problem Tubo-ovarian abscess lower left flank, left lower abdomen Pain Score (Numeric/FACES): 10 Abdomen Pain Score (Numeric/FACES): 7 Exam - Vital Signs Vital Signs: Last Vital Signs Temp 37.2 C 01/07/17 13:03 Pulse 100 01/07/17 13:03 Resp 16 01/07/17 13:03 BP 143/88 H 01/07/17 13:03 Pulse Ox 94 L 01/07/17 13:03 - Patient Data Lab Results Last 24 hrs: Laboratory Results - last 24 hr 01/07/17 01/07/17 01/07/17 Range/Units 04:51 04:51 08:50 WBC 15.43 H (3.98-10.04) K/mm3 RBC 3.65 L (3.98-5.22) M/mm3 Hgb 9.5 L (11.2-15.7) gm/L Hct 29.6 L (34.1-44.9) % MCV 81.1 (79.4-94.8) fl MCH 26.0 (25.6-32.2) pg MCHC 32.1 L (32.2-35.5) g/dl RDW Std Deviation 39.6 (36.4-46.3) fL Plt Count 460 H (182-369) K/mm3 MPV 8.8 L (9.4-12.3) fl Neut % (Auto) 69.8 (34.0-71.1) % Lymph % (Auto) 20.0 (19.3-51.7) % [place] % (Auto) 8.3 (4.7-12.5) % Eos % (Auto) 1.2 (0.7-5.8) Baso % (Auto) 0.2 (0.1-1.2) % Neut # (Auto) 10.77 H (1.56-6.13) K/mm3 Lymph # (Auto) 3.09 (1.18-3.74) K/mm3 [place] # (Auto) 1.28 H (0.24-0.36) K/mm3 Eos # (Auto) 0.19 (0.04-0.36) K/mm3 Baso # (Auto) 0.03 (0.01-0.08) K/mm3 Sodium 137 (136-145) mEq/L Potassium 3.9 (3.5-5.1) mEq/L Chloride 102 (98-107) mEq/L Carbon Dioxide 29 (21-32) mEq/L Anion Gap 9.9 (5-15) BUN 5 L (7-18) mg/dL Creatinine 0.8 (0.55-1.02) mg/dL Est Cr Clr Drug Dosing 81.33 mL/min Estimated GFR (MDRD) > 60 (>60) mL/min BUN/Creatinine Ratio 6.3 L (14-18) Glucose 103 (74-106) mg/dL POC Glucose (70-105) mg/dL Calcium 8.6 (8.5-10.1) mg/dL Magnesium 1.7 L (1.8-2.4) mg/dl Total Bilirubin 0.4 (0.2-1.0) mg/dL AST 24 (15-37) U/L ALT 49 (14-59) U/L Alkaline Phosphatase 116 (46-116) U/L C-Reactive Protein 33.4 H* (<1.0) mg/dL Total Protein 6.4 (6.4-8.2) g/dl Albumin 2.1 L (3.4-5.0) g/dl Globulin 4.3 gm/dL Albumin/Globulin Ratio 0.5 L (1-2) Blood Type A POSITIVE Gel Antibody Screen Negative 01/07/17 01/07/17 Range/Units 10:18 13:10 WBC (3.98-10.04) K/mm3 RBC (3.98-5.22) M/mm3 Hgb 9.5 L (11.2-15.7) gm/L Hct 29.5 L (34.1-44.9) % MCV (79.4-94.8) fl MCH (25.6-32.2) pg MCHC (32.2-35.5) g/dl RDW Std Deviation (36.4-46.3) fL Plt Count (182-369) K/mm3 MPV (9.4-12.3) fl Neut % (Auto) (34.0-71.1) % Lymph % (Auto) (19.3-51.7) % [place] % (Auto) (4.7-12.5) % Eos % (Auto) (0.7-5.8) Baso % (Auto) (0.1-1.2) % Neut # (Auto) (1.56-6.13) K/mm3 Lymph # (Auto) (1.18-3.74) K/mm3 [place] # (Auto) (0.24-0.36) K/mm3 Eos # (Auto) (0.04-0.36) K/mm3 Baso # (Auto) (0.01-0.08) K/mm3 Sodium (136-145) mEq/L Potassium (3.5-5.1) mEq/L Chloride (98-107) mEq/L Carbon Dioxide (21-32) mEq/L Anion Gap (5-15) BUN (7-18) mg/dL Creatinine (0.55-1.02) mg/dL Est Cr Clr Drug Dosing mL/min Estimated GFR (MDRD) (>60) mL/min BUN/Creatinine Ratio (14-18) Glucose (74-106) mg/dL POC Glucose 92 (70-105) mg/dL Calcium (8.5-10.1) mg/dL Magnesium (1.8-2.4) mg/dl Total Bilirubin (0.2-1.0) mg/dL AST (15-37) U/L ALT (14-59) U/L Alkaline Phosphatase (46-116) U/L C-Reactive Protein (<1.0) mg/dL Total Protein (6.4-8.2) g/dl Albumin (3.4-5.0) g/dl Globulin gm/dL Albumin/Globulin Ratio (1-2) Blood Type Gel Antibody Screen Result Diagrams: 01/07/17 13:10 01/07/17 04:51 Consult PN Assessment/Plan Procedures: Procedures ASSAY OF IRON (02/23/16) ASSAY OF TRANSFERRIN (02/23/16) ASSAY THYROID STIM HORMONE (12/20/16) CHORIONIC GONADOTROPIN ASSAY (02/28/14) COMPLETE CBC AUTOMATED (02/17/16) COMPLETE CBC W/AUTO DIFF WBC (01/01/17) COMPREHEN METABOLIC PANEL (01/01/17) CULTR BACTERIA EXCEPT BLOOD (02/28/14) DRAINAGE OF PILONIDAL CYST (02/28/14) EMERGENCY DEPT VISIT (01/01/17) GLYCOSYLATED HEMOGLOBIN TEST (12/20/16) HEP B CORE ANTIBODY IGM (02/17/16) HEPATITIS A IGM ANTIBODY (02/17/16) HEPATITIS B SURFACE AG IA (02/17/16) HEPATITIS C AB TEST (02/17/16) HYDRATE IV INFUSION ADD-ON (01/01/17) LIPID PANEL (02/23/16) ROUTINE VENIPUNCTURE (01/01/17) SMEAR GRAM STAIN (02/28/14) THER/PROPH/DIAG INJ SC/IM (02/13/16) THER/PROPH/DIAG IV INF INIT (01/01/17) TX/PRO/DX INJ NEW DRUG ADDON (01/01/17) URINALYSIS AUTO W/SCOPE (01/01/17) URINE CULTURE/COLONY COUNT (01/01/17) URINE TEST (01/01/17) Plan: Antibiotic therapy; initiate antidepressant med
[2017-01-05] MEDS: Lactated Ringers 1,000 ML IV SCH (13:55)
[2017-01-05] MEDS: Levofloxacin/Dextrose 5%-Water 750 MG in Premix Bag 1 BAG IV SCH (17:45)
[2017-01-05] MEDS: Potassium Chloride 20 MEQ Tab.ER PO SCH (20:13)
[2017-01-05] MEDS: Zolpidem 5 MG Tab PO PRN (22:00)
[2017-01-06] MEDS: Doxycycline 100 MG in Sodium Chloride 0.9% 100 ML IV SCH ×2 (02:31→14:38)
[2017-01-06] MEDS: Ketorolac 30 MG/ML SDV IVPUSH SCH (02:32)
[2017-01-06] MEDS: Acetaminophen/oxyCODONE 325-5 MG Tab PO PRN ×5 (03:58→20:21)
[2017-01-06] MEDS: Saccharomyces Boulardii (Probiotic) 250 MG Cap PO SCH ×2 (08:22→20:20)
[2017-01-06] MEDS: metroNIDAZOLE/Normal Saline 500 MG in Premix Bag 1 BAG IV SCH ×2 (08:46→16:13)
[2017-01-06] MEDS ORDERED: Sodium Chloride 0.9% 500 ML IV ONE (10:00)
[2017-01-06] MEDS: LORazepam 0.5 MG Tab PO PRN (11:42)
[2017-01-06] MEDS ORDERED: Sodium Chloride 0.9% 10 ML Syringe FLUSH PRN (12:12)
[2017-01-06] MEDS ORDERED: Iopamidol 612 MG/ML 150 ML Bottle IVPUSH ONE (12:12)
[2017-01-06] MEDS ORDERED: Diatrizoate Meglumine/Diatrizoate Sodium 37% 120 ML Bottle PO ONE (12:12)
--- NOTE | 2017-01-06 12:13 | PCM.SN ---
- Free Text/Narrative Note: US guided IV start 04-08-17 Start: 1110 End: 1120 Called from med surg dept regarding a patient with difficult IV accessibility. Multiple attempts were made to bilateral arms with no success per med surg staff. Left forearm cleansed with chloraprep. US used to locate a vein approx 3 inches distal of antecubital region. Skin localized at insertion site. 20 ga 1.88" IV catheter guided into vein with US x1 attempt. +blood return. Flushed well. Patient tolerated procedure well. Price Johnson, HEAD WELL PULLER
--- NOTE | 2017-01-06 12:14 | PCM.PN ---
- General Info Date of Service: 01/06/17 Admission Dx/Problem (Free Text): Admission Diagnosis/Problem Admission Diagnosis/Problem Tubo-ovarian abscess Patient is seen this afternoon. She has been admitted for tubo-ovarian abscess, continues to have pelvic pain. Chart reviewed. Dr. Porter request consult with Hospitalist team for evaluation, possible depression, DM and further recommendations. Subjective Update: patient states she is not feeling any better than when admitted. Functional Status: Reports: pain controlled - Review of Systems General: Reports: No Symptoms HEENT: Reports: no symptoms Pulmonary: Reports: no symptoms Cardiovascular: Reports: No Symptoms Gastrointestinal: Reports: Abdominal pain Genitourinary: Reports: no symptoms Musculoskeletal: Reports: no symptoms Skin: Reports: no symptoms Neurological: Reports: No Symptoms Psychiatric: Reports: no symptoms - Patient Data Vitals - most recent: Last Vital Signs Temp 98.1 F 01/06/17 07:57 Pulse 87 01/06/17 07:57 Resp 12 01/06/17 07:57 BP 132/93 H 01/06/17 07:57 Pulse Ox 95 01/06/17 07:57 Weight - most recent: 229 lb 9.6 oz I&O - last 24 hours: Intake & Output 01/05/17 01/06/17 01/06/17 22:59 06:59 14:59 Intake Total 1425 1940 Output Total 400 Balance 1025 1940 Lab Results last 24 hrs: Laboratory Results - last 24 hr 01/06/17 01/06/17 01/06/17 Range/Units 06:00 06:00 06:00 WBC 14.05 H (3.98-10.04) K/mm3 RBC 3.72 L (3.98-5.22) M/mm3 Hgb 9.7 L (11.2-15.7) gm/L Hct 30.7 L (34.1-44.9) % MCV 82.5 (79.4-94.8) fl MCH 26.1 (25.6-32.2) pg MCHC 31.6 L (32.2-35.5) g/dl RDW Std Deviation 39.7 (36.4-46.3) fL Plt Count 455 H (182-369) K/mm3 MPV 9.4 (9.4-12.3) fl Neut % (Auto) 70.0 (34.0-71.1) % Lymph % (Auto) 19.0 L (19.3-51.7) % [place] % (Auto) 8.9 (4.7-12.5) % Eos % (Auto) 1.6 (0.7-5.8) Baso % (Auto) 0.1 (0.1-1.2) % Neut # (Auto) 9.82 H (1.56-6.13) K/mm3 Lymph # (Auto) 2.67 (1.18-3.74) K/mm3 [place] # (Auto) 1.25 H (0.24-0.36) K/mm3 Eos # (Auto) 0.23 (0.04-0.36) K/mm3 Baso # (Auto) 0.02 (0.01-0.08) K/mm3 Sodium 141 (136-145) mEq/L Potassium 3.9 (3.5-5.1) mEq/L Chloride 105 (98-107) mEq/L Carbon Dioxide 27 (21-32) mEq/L Anion Gap 12.9 (5-15) BUN 6 L (7-18) mg/dL Creatinine 0.6 (0.55-1.02) mg/dL Est Cr Clr Drug Dosing 108.43 mL/min Estimated GFR (MDRD) > 60 (>60) mL/min BUN/Creatinine Ratio 10.0 L (14-18) Glucose 112 H (74-106) mg/dL Hemoglobin A1c 7.60 H (4.50-6.20) % Calcium 8.6 (8.5-10.1) mg/dL Magnesium 1.8 (1.8-2.4) mg/dl Total Bilirubin 0.3 (0.2-1.0) mg/dL AST 35 (15-37) U/L ALT 58 (14-59) U/L Alkaline Phosphatase 113 (46-116) U/L C-Reactive Protein 28.6 H* (<1.0) mg/dL Total Protein 6.3 L (6.4-8.2) g/dl Albumin 2.1 L (3.4-5.0) g/dl Globulin 4.2 gm/dL Albumin/Globulin Ratio 0.5 L (1-2) Med Orders - Current: Current Medications Cephalexin (Keflex) 500 mg PO Q6HR [facility] Doxycycline Hyclate (Vibramycin) 100 mg PO BID [facility] Hydromorphone HCl (Dilaudid) 0.5 mg IVPUSH Q2H PRN PRN Reason: Pain Last Admin: 01/04/17 10:28 Dose: 0.5 mg Doxycycline Hyclate 100 mg/ (Sodium Chloride) 100 mls @ 100 mls/hr IV Q12H [facility] Stop: 01/07/17 09:00 Last Admin: 01/06/17 02:31 Dose: 100 mls/hr Levofloxacin/Dextrose 750 mg/ (Premix) 150 mls @ 100 mls/hr IV Q24H [facility] Stop: 01/07/17 09:00 Last Admin: 01/05/17 17:45 Dose: 100 mls/hr Metronidazole 500 mg/ Premix 100 mls @ 100 mls/hr IV Q8H [facility] Stop: 01/07/17 09:00 Last Admin: 01/06/17 08:46 Dose: 100 mls/hr Ibuprofen (Motrin) 600 mg PO Q6H PRN PRN Reason: Fever Last Admin: 01/04/17 12:27 Dose: 600 mg Lorazepam (Ativan) 0.5 mg PO Q4H PRN PRN Reason: Anxiety Last Admin: 01/06/17 11:42 Dose: 0.5 mg Metronidazole (Flagyl) 500 mg PO TID [facility] Ondansetron HCl (Zofran) 4 mg IVPUSH Q4H PRN PRN Reason: Nausea/Vomiting Last Admin: 01/04/17 08:15 Dose: 4 mg Oxycodone/Acetaminophen (Percocet 325-5 Mg) 2 tab PO Q4H PRN PRN Reason: Pain (moderate 4-6) Last Admin: 01/06/17 11:49 Dose: 2 tab Potassium Chloride (Klor-Con M20) 20 meq PO BEDTIME [facility] Last Admin: 01/05/17 20:13 Dose: 20 meq Saccharomyces Boulardii (Florastor) 250 mg PO BID [facility] Last Admin: 01/06/17 08:22 Dose: 250 mg Sodium Chloride (Saline Flush) 10 ml FLUSH ONETIME PRN PRN Reason: IV FLUSH Last Admin: 01/02/17 20:09 Dose: 10 ml Zolpidem Tartrate (Ambien) 5 mg PO BEDTIME PRN PRN Reason: Insomnia Last Admin: 01/05/17 22:00 Dose: 5 mg Discontinued Medications Diatrizoate Meglum/Diatrizoate Sod (Gastrografin 37%) 90 ml PO ONETIME ONE Stop: 01/02/17 19:12 Last Admin: 01/02/17 20:09 Dose: 90 ml Diatrizoate Meglum/Diatrizoate Sod (Gastrografin 37%) 90 ml PO ONETIME ONE Stop: 01/04/17 08:46 Last Admin: 01/04/17 09:41 Dose: 90 ml Diphenhydramine HCl (Benadryl) 25 mg IVPUSH ONETIME ONE Stop: 01/02/17 17:51 Last Admin: 01/02/17 18:18 Dose: 25 mg Doxycycline Hyclate (Vibramycin) Confirm Administered Dose 100 mg .ROUTE .STK- MED ONE Stop: 01/04/17 15:28 Last Admin: 01/04/17 15:57 Dose: Not Given Hydromorphone HCl (Dilaudid) 1 mg IVPUSH ONETIME ONE Stop: 01/02/17 17:48 Last Admin: 01/02/17 18:18 Dose: 1 mg Hydromorphone HCl (Dilaudid) 0.5 mg IVPUSH ONETIME ONE Stop: 01/02/17 18:42 Last Admin: 01/02/17 18:55 Dose: 0.5 mg Hydromorphone HCl (Dilaudid) 0.5 mg IVPUSH ONETIME ONE Stop: 01/02/17 20:28 Last Admin: 01/02/17 20:36 Dose: 0.5 mg Hydromorphone HCl (Dilaudid) 0.5 mg IVPUSH ONETIME ONE Stop: 01/02/17 21:42 Last Admin: 01/02/17 21:48 Dose: 0.5 mg Sodium Chloride (Normal Saline) 1,000 mls @ 999 mls/hr IV ONETIME ONE Stop: 01/02/17 18:46 Last Admin: 01/02/17 18:21 Dose: 999 mls/hr Levofloxacin/Dextrose 750 mg/ (Premix) 150 mls @ 100 mls/hr IV ONETIME ONE Stop: 01/02/17 19:36 Last Admin: 01/02/17 18:23 Dose: 100 mls/hr Lactated Ringer's (Ringers, Lactated) 1,000 mls @ 150 mls/hr IV ASDIRECTED [facility] Last Admin: 01/02/17 23:35 Dose: 150 mls/hr Dextrose/Sodium Chloride (Dextrose 5%-1/2 Ns) 1,000 mls @ 125 mls/hr IV ASDIRECTED [facility] Last Admin: 01/03/17 06:12 Dose: 125 mls/hr Cefoxitin Sodium 2 gm/ Premix 50 mls @ 100 mls/hr IV Q12H [facility] Last Admin: 01/05/17 00:39 Dose: 100 mls/hr Lactated Ringer's (Ringers, Lactated) 1,000 mls @ 75 mls/hr IV ASDIRECTED [facility] Last Admin: 01/05/17 13:55 Dose: 75 mls/hr Sodium Chloride (Normal Saline) 500 mls @ 999 mls/hr IV .BOLUS ONE Stop: 01/06/17 10:30 Insulin Aspart (Novolog) 0 unit SUBCUT Q6H [facility] PRN Reason: Protocol Last Admin: 01/03/17 06:20 Dose: Not Given Insulin Aspart (Novolog) 0 unit SUBCUT QIDACANDBED [facility] PRN Reason: Protocol Last Admin: 01/05/17 06:47 Dose: Not Given Iopamidol (Isovue-300 (61%)) 125 ml IVPUSH ONETIME ONE Stop: 01/02/17 19:12 Last Admin: 01/02/17 20:09 Dose: 125 ml Iopamidol (Isovue-300 (61%)) 125 ml IVPUSH ONETIME ONE Stop: 01/04/17 08:46 Last Admin: 01/04/17 09:41 Dose: 125 ml Ketorolac Tromethamine (Toradol) 60 mg IVPUSH Q6H [facility] Stop: 01/05/17 12:31 Last Admin: 01/05/17 06:32 Dose: Not Given Ketorolac Tromethamine (Toradol) 60 mg IVPUSH Q6H [facility] Stop: 01/06/17 03:01 Last Admin: 01/06/17 02:32 Dose: 60 mg Lisinopril (Prinivil) 5 mg PO DAILY [facility] Last Admin: 01/05/17 08:25 Dose: Not Given Metoclopramide HCl (Reglan) 10 mg IVPUSH ONETIME ONE Stop: 01/02/17 17:48 Last Admin: 01/02/17 18:18 Dose: 10 mg Metronidazole (Flagyl) 500 mg PO TID [facility] Morphine Sulfate (Morphine) 5 mg IM ONETIME ONE Stop: 01/03/17 23:14 Last Admin: 01/03/17 23:41 Dose: 5 mg Morphine Sulfate (Morphine) 5 mg IM ONETIME ONE Stop: 01/04/17 21:01 Last Admin: 01/04/17 21:13 Dose: 5 mg Ondansetron HCl (Zofran) 4 mg IVPUSH ONETIME ONE Stop: 01/02/17 21:42 Last Admin: 01/02/17 21:46 Dose: 4 mg Oxycodone/Acetaminophen (Percocet 325-5 Mg) 1 tab PO Q4H PRN PRN Reason: Pain Last Admin: 01/04/17 07:02 Dose: 1 tab Oxycodone/Acetaminophen (Percocet 325-5 Mg) 2 tab PO Q4HR PRN PRN Reason: Pain (moderate 4-6) Potassium Chloride (Klor-Con M20) 40 meq PO ONETIME ONE Stop: 01/05/17 11:16 Last Admin: 01/05/17 11:35 Dose: 40 meq Promethazine HCl (Phenergan) 25 mg IM ONETIME ONE Stop: 01/03/17 23:22 Last Admin: 01/03/17 23:40 Dose: 25 mg Promethazine HCl (Phenergan) 25 mg IM ONETIME ONE Stop: 01/04/17 21:01 Last Admin: 01/04/17 21:13 Dose: 25 mg Sertraline HCl (Zoloft) 25 mg PO DAILY [facility] Last Admin: 01/05/17 11:40 Dose: Not Given Sodium Chloride (Saline Flush) 10 ml FLUSH ONETIME ONE Stop: 01/04/17 08:46 Last Admin: 01/04/17 09:41 Dose: 10 ml - Exam General: alert, oriented HEENT: Mucous membr. moist/pink Neck: supple Lungs: Clear to auscultation, Normal respiratory effort Cardiovascular: Regular Rate, Regular Rhythm Abdomen: bowel sounds present, soft, no distension, tenderness (LLQ improving) Extremities: edema (1+) Skin: warm, dry, intact Psy/Mental Status: alert, normal affect, normal mood - Problem List & Annotations (1) Diabetes SNOMED Code(s): 63491761 Code(s): E11.9 - TYPE 2 DIABETES MELLITUS WITHOUT COMPLICATIONS Status: Acute Priority: Medium Current Visit: Yes Qualifiers: Diabetes mellitus type: type 2 Diabetes mellitus complication status: without complication Diabetes mellitus extermination inspector insulin use: without extermination inspector use Qualified Code(s): E11.9 - Type 2 diabetes mellitus without complications (2) Tubo-ovarian abscess SNOMED Code(s): 87234369 Code(s): N70.93 - SALPINGITIS AND OOPHORITIS, UNSPECIFIED Status: Acute Priority: High Current Visit: Yes - Problem List Review Problem List Initiated/Reviewed/Updated: No - My Orders Last 24 Hours: My Active Orders 01/06/17 Breakfast NPO Now [Nothing per Oral Now Diet] [DIET] 01/07/17 09:00 Cephalexin [Keflex] 500 mg PO Q6HR Doxycycline [Vibramycin] 100 mg PO BID 01/07/17 15:00 metroNIDAZOLE [Flagyl] 500 mg PO TID Discontinued IV and IV meds 0900 in AM 01/07/2017 Discontinued Mefoxin 2 grams IV q6h Continue Levaquin 750 mg daily IV Continue Doxicycline 100 mg bid IV Added Flagy 500 mg IV q8h Plan dismissal tomorrow if no worsening of condition Diabetic and chronic disease epidemiologist consults Refused Psychiatric consult - Assessment Assessment:: Will reevaluate again after clinic Long discussion with patient and about prognosis and possible surgery and no guarantee she will not have potential complication co-morbidity and co- mortality Repeat labs in AM. Will discuss with Dr Gambino Diabetes under treatment and meds stable at present NPO after midnight in case operation needed Morphine tonight with phenergan Toradol at 1830 Percocet 2 q4-6h. - Plan Plan:: Antibiotics IV and daily evaluation. Discussed possible surgery if needed IUD removed.
--- NOTE | 2017-01-06 14:26 | CT ---
CT pelvis Technique: Multiple axial sections through the pelvis were obtained. Intravenous and oral contrast was utilized. Comparison: Previous CT and ultrasounds are available. Findings: Multiloculated low density areas are seen within the left adnexa adjacent to the left ovary. Current finding measures approximately 7.7 cm x 4.8 cm in size. Most recent CT study has a measurement of 7.1 cm x 4.4 cm. Finding has therefore slightly increased in size. Bowel wall thickening is seen within the sigmoid colon likely on an inflammatory basis from the adjacent abscess. Mild surrounding inflammatory change is seen which remains stable. Impression: 1. Tubo-ovarian abscess. Findings have slightly increased in size as noted above. 2. Mild bowel wall thickening within the sigmoid colon compatible with inflammatory change from the tubo-ovarian abscess. 3. Inflammatory change is seen surrounding the tubo-ovarian abscess which appears to be stable from prior exam. Diagnostic code #3 MTDD
--- NOTE | 2017-01-06 14:45 | PCM.CONSN ---
<Azalia Austin - Last Filed: 01/06/17 14:42> - General Info Date of Service: 01/06/17 Admission Dx/Problem (Free Text): Admission Diagnosis/Problem Admission Diagnosis/Problem Tubo-ovarian abscess Feeling better overall today; pain under better control. Slept well last night. Functional Status: Reports: pain controlled, tolerating diet, ambulating, urinating. Denies: new symptoms - Review of Systems General: Reports: No Symptoms HEENT: Reports: no symptoms Pulmonary: Reports: no symptoms Cardiovascular: Reports: No Symptoms Gastrointestinal: Reports: Abdominal pain (pelvic pain), Other (BM yesterday). Denies: Diarrhea, Nausea, Vomiting Genitourinary: Reports: no symptoms Musculoskeletal: Reports: no symptoms Skin: Reports: no symptoms Neurological: Reports: No Symptoms Psychiatric: Reports: no symptoms - Patient Data Vitals - most recent: Last Vital Signs Temp 98.1 F 01/06/17 07:57 Pulse 87 01/06/17 07:57 Resp 12 01/06/17 07:57 BP 132/93 H 01/06/17 07:57 Pulse Ox 95 01/06/17 07:57 Weight - most recent: 100.607 kg I&O - last 24 hours: Intake & Output 01/05/17 01/06/17 01/06/17 22:59 06:59 14:59 Intake Total 1425 1940 Output Total 400 Balance 1025 1940 Lab Results last 24 hrs: Laboratory Results - last 24 hr 01/06/17 01/06/17 01/06/17 Range/Units 06:00 06:00 06:00 WBC 14.05 H (3.98-10.04) K/mm3 RBC 3.72 L (3.98-5.22) M/mm3 Hgb 9.7 L (11.2-15.7) gm/L Hct 30.7 L (34.1-44.9) % MCV 82.5 (79.4-94.8) fl MCH 26.1 (25.6-32.2) pg MCHC 31.6 L (32.2-35.5) g/dl RDW Std Deviation 39.7 (36.4-46.3) fL Plt Count 455 H (182-369) K/mm3 MPV 9.4 (9.4-12.3) fl Neut % (Auto) 70.0 (34.0-71.1) % Lymph % (Auto) 19.0 L (19.3-51.7) % [place] % (Auto) 8.9 (4.7-12.5) % Eos % (Auto) 1.6 (0.7-5.8) Baso % (Auto) 0.1 (0.1-1.2) % Neut # (Auto) 9.82 H (1.56-6.13) K/mm3 Lymph # (Auto) 2.67 (1.18-3.74) K/mm3 [place] # (Auto) 1.25 H (0.24-0.36) K/mm3 Eos # (Auto) 0.23 (0.04-0.36) K/mm3 Baso # (Auto) 0.02 (0.01-0.08) K/mm3 Sodium 141 (136-145) mEq/L Potassium 3.9 (3.5-5.1) mEq/L Chloride 105 (98-107) mEq/L Carbon Dioxide 27 (21-32) mEq/L Anion Gap 12.9 (5-15) BUN 6 L (7-18) mg/dL Creatinine 0.6 (0.55-1.02) mg/dL Est Cr Clr Drug Dosing 108.43 mL/min Estimated GFR (MDRD) > 60 (>60) mL/min BUN/Creatinine Ratio 10.0 L (14-18) Glucose 112 H (74-106) mg/dL Hemoglobin A1c 7.60 H (4.50-6.20) % Calcium 8.6 (8.5-10.1) mg/dL Magnesium 1.8 (1.8-2.4) mg/dl Total Bilirubin 0.3 (0.2-1.0) mg/dL AST 35 (15-37) U/L ALT 58 (14-59) U/L Alkaline Phosphatase 113 (46-116) U/L C-Reactive Protein 28.6 H* (<1.0) mg/dL Total Protein 6.3 L (6.4-8.2) g/dl Albumin 2.1 L (3.4-5.0) g/dl Globulin 4.2 gm/dL Albumin/Globulin Ratio 0.5 L (1-2) Med Orders - Current: Current Medications Cephalexin (Keflex) 500 mg PO Q6H [facility] Doxycycline Hyclate (Vibramycin) 100 mg PO BID [facility] Hydromorphone HCl (Dilaudid) 0.5 mg IVPUSH Q2H PRN PRN Reason: Pain Last Admin: 01/04/17 10:28 Dose: 0.5 mg Doxycycline Hyclate 100 mg/ (Sodium Chloride) 100 mls @ 100 mls/hr IV Q12H [facility] Stop: 01/07/17 09:00 Last Admin: 01/06/17 14:38 Dose: 100 mls/hr Levofloxacin/Dextrose 750 mg/ (Premix) 150 mls @ 100 mls/hr IV Q24H [facility] Stop: 01/07/17 09:00 Last Admin: 01/05/17 17:45 Dose: 100 mls/hr Metronidazole 500 mg/ Premix 100 mls @ 100 mls/hr IV Q8H [facility] Stop: 01/07/17 09:00 Last Admin: 01/06/17 08:46 Dose: 100 mls/hr Ibuprofen (Motrin) 600 mg PO Q6H PRN PRN Reason: Fever Last Admin: 01/04/17 12:27 Dose: 600 mg Lorazepam (Ativan) 0.5 mg PO Q4H PRN PRN Reason: Anxiety Last Admin: 01/06/17 11:42 Dose: 0.5 mg Metronidazole (Flagyl) 500 mg PO TID [facility] Ondansetron HCl (Zofran) 4 mg IVPUSH Q4H PRN PRN Reason: Nausea/Vomiting Last Admin: 01/04/17 08:15 Dose: 4 mg Oxycodone/Acetaminophen (Percocet 325-5 Mg) 2 tab PO Q4H PRN PRN Reason: Pain (moderate 4-6) Last Admin: 01/06/17 11:49 Dose: 2 tab Potassium Chloride (Klor-Con M20) 20 meq PO BEDTIME [facility] Last Admin: 01/05/17 20:13 Dose: 20 meq Saccharomyces Boulardii (Florastor) 250 mg PO BID [facility] Last Admin: 01/06/17 08:22 Dose: 250 mg Sodium Chloride (Saline Flush) 10 ml FLUSH ONETIME PRN PRN Reason: IV FLUSH Last Admin: 06/22/17 12:23 Dose: 10 ml Zolpidem Tartrate (Ambien) 5 mg PO BEDTIME PRN PRN Reason: Insomnia Last Admin: 01/05/17 22:00 Dose: 5 mg Discontinued Medications Diatrizoate Meglum/Diatrizoate Sod (Gastrografin 37%) 90 ml PO ONETIME ONE Stop: 01/02/17 19:12 Last Admin: 01/02/17 20:09 Dose: 90 ml Diatrizoate Meglum/Diatrizoate Sod (Gastrografin 37%) 90 ml PO ONETIME ONE Stop: 01/04/17 08:46 Last Admin: 01/04/17 09:41 Dose: 90 ml Diatrizoate Meglum/Diatrizoate Sod (Gastrografin 37%) 90 ml PO ONETIME ONE Stop: 01/06/17 12:13 Last Admin: 01/06/17 12:23 Dose: 90 ml Diphenhydramine HCl (Benadryl) 25 mg IVPUSH ONETIME ONE Stop: 01/02/17 17:51 Last Admin: 01/02/17 18:18 Dose: 25 mg Doxycycline Hyclate (Vibramycin) Confirm Administered Dose 100 mg .ROUTE .STK- MED ONE Stop: 01/04/17 15:28 Last Admin: 01/04/17 15:57 Dose: Not Given Hydromorphone HCl (Dilaudid) 1 mg IVPUSH ONETIME ONE Stop: 01/02/17 17:48 Last Admin: 01/02/17 18:18 Dose: 1 mg Hydromorphone HCl (Dilaudid) 0.5 mg IVPUSH ONETIME ONE Stop: 01/02/17 18:42 Last Admin: 01/02/17 18:55 Dose: 0.5 mg Hydromorphone HCl (Dilaudid) 0.5 mg IVPUSH ONETIME ONE Stop: 01/02/17 20:28 Last Admin: 01/02/17 20:36 Dose: 0.5 mg Hydromorphone HCl (Dilaudid) 0.5 mg IVPUSH ONETIME ONE Stop: 01/02/17 21:42 Last Admin: 01/02/17 21:48 Dose: 0.5 mg Sodium Chloride (Normal Saline) 1,000 mls @ 999 mls/hr IV ONETIME ONE Stop: 01/02/17 18:46 Last Admin: 01/02/17 18:21 Dose: 999 mls/hr Levofloxacin/Dextrose 750 mg/ (Premix) 150 mls @ 100 mls/hr IV ONETIME ONE Stop: 01/02/17 19:36 Last Admin: 01/02/17 18:23 Dose: 100 mls/hr Lactated Ringer's (Ringers, Lactated) 1,000 mls @ 150 mls/hr IV ASDIRECTED [facility] Last Admin: 01/02/17 23:35 Dose: 150 mls/hr Dextrose/Sodium Chloride (Dextrose 5%-1/2 Ns) 1,000 mls @ 125 mls/hr IV ASDIRECTED [facility] Last Admin: 01/03/17 06:12 Dose: 125 mls/hr Cefoxitin Sodium 2 gm/ Premix 50 mls @ 100 mls/hr IV Q12H [facility] Last Admin: 01/05/17 00:39 Dose: 100 mls/hr Lactated Ringer's (Ringers, Lactated) 1,000 mls @ 75 mls/hr IV ASDIRECTED [facility] Last Admin: 01/05/17 13:55 Dose: 75 mls/hr Sodium Chloride (Normal Saline) 500 mls @ 999 mls/hr IV .BOLUS ONE Stop: 01/06/17 10:30 Last Admin: 01/06/17 13:22 Dose: 999 mls/hr Insulin Aspart (Novolog) 0 unit SUBCUT Q6H [facility] PRN Reason: Protocol Last Admin: 01/03/17 06:20 Dose: Not Given Insulin Aspart (Novolog) 0 unit SUBCUT QIDACANDBED [facility] PRN Reason: Protocol Last Admin: 01/05/17 06:47 Dose: Not Given Iopamidol (Isovue-300 (61%)) 125 ml IVPUSH ONETIME ONE Stop: 01/02/17 19:12 Last Admin: 01/02/17 20:09 Dose: 125 ml Iopamidol (Isovue-300 (61%)) 125 ml IVPUSH ONETIME ONE Stop: 01/04/17 08:46 Last Admin: 01/04/17 09:41 Dose: 125 ml Iopamidol (Isovue-300 (61%)) 125 ml IVPUSH ONETIME ONE Stop: 01/06/17 12:13 Last Admin: 01/06/17 12:23 Dose: 125 ml Ketorolac Tromethamine (Toradol) 60 mg IVPUSH Q6H [facility] Stop: 01/05/17 12:31 Last Admin: 01/05/17 06:32 Dose: Not Given Ketorolac Tromethamine (Toradol) 60 mg IVPUSH Q6H [facility] Stop: 01/06/17 03:01 Last Admin: 01/06/17 02:32 Dose: 60 mg Lisinopril (Prinivil) 5 mg PO DAILY [facility] Last Admin: 01/05/17 08:25 Dose: Not Given Metoclopramide HCl (Reglan) 10 mg IVPUSH ONETIME ONE Stop: 01/02/17 17:48 Last Admin: 01/02/17 18:18 Dose: 10 mg Metronidazole (Flagyl) 500 mg PO TID [facility] Morphine Sulfate (Morphine) 5 mg IM ONETIME ONE Stop: 01/03/17 23:14 Last Admin: 01/03/17 23:41 Dose: 5 mg Morphine Sulfate (Morphine) 5 mg IM ONETIME ONE Stop: 01/04/17 21:01 Last Admin: 01/04/17 21:13 Dose: 5 mg Ondansetron HCl (Zofran) 4 mg IVPUSH ONETIME ONE Stop: 01/02/17 21:42 Last Admin: 01/02/17 21:46 Dose: 4 mg Oxycodone/Acetaminophen (Percocet 325-5 Mg) 1 tab PO Q4H PRN PRN Reason: Pain Last Admin: 01/04/17 07:02 Dose: 1 tab Oxycodone/Acetaminophen (Percocet 325-5 Mg) 2 tab PO Q4HR PRN PRN Reason: Pain (moderate 4-6) Potassium Chloride (Klor-Con M20) 40 meq PO ONETIME ONE Stop: 01/05/17 11:16 Last Admin: 01/05/17 11:35 Dose: 40 meq Promethazine HCl (Phenergan) 25 mg IM ONETIME ONE Stop: 01/03/17 23:22 Last Admin: 01/03/17 23:40 Dose: 25 mg Promethazine HCl (Phenergan) 25 mg IM ONETIME ONE Stop: 01/04/17 21:01 Last Admin: 01/04/17 21:13 Dose: 25 mg Sertraline HCl (Zoloft) 25 mg PO DAILY [facility] Last Admin: 01/05/17 11:40 Dose: Not Given Sodium Chloride (Saline Flush) 10 ml FLUSH ONETIME PRN PRN Reason: IV FLUSH Last Admin: 01/02/17 20:09 Dose: 10 ml Sodium Chloride (Saline Flush) 10 ml FLUSH ONETIME ONE Stop: 01/04/17 08:46 Last Admin: 01/04/17 09:41 Dose: 10 ml - Exam Quality Assessment: DVT prophylaxis General: alert, oriented, cooperative, no acute distress HEENT: Pupils equal, Pupils reactive, EOMI, Mucous membr. moist/pink Neck: supple Lungs: Clear to auscultation, Normal respiratory effort Cardiovascular: Regular Rate, Regular Rhythm Abdomen: bowel sounds present, soft, tenderness (pelvic, lt >rt). No: rigidity , rebound, guarding (Female) Exam: Deferred Extremities: no edema Neurological: no new focal deficit Psy/Mental Status: alert, normal affect, normal mood Consult PN Assessment/Plan Procedures: Procedures ASSAY OF IRON (02/23/16) ASSAY OF TRANSFERRIN (02/23/16) ASSAY THYROID STIM HORMONE (12/20/16) CHORIONIC GONADOTROPIN ASSAY (02/28/14) COMPLETE CBC AUTOMATED (02/17/16) COMPLETE CBC W/AUTO DIFF WBC (01/01/17) COMPREHEN METABOLIC PANEL (01/01/17) CULTR BACTERIA EXCEPT BLOOD (02/28/14) DRAINAGE OF PILONIDAL CYST (02/28/14) EMERGENCY DEPT VISIT (01/01/17) GLYCOSYLATED HEMOGLOBIN TEST (12/20/16) HEP B CORE ANTIBODY IGM (02/17/16) HEPATITIS A IGM ANTIBODY (02/17/16) HEPATITIS B SURFACE AG IA (02/17/16) HEPATITIS C AB TEST (02/17/16) HYDRATE IV INFUSION ADD-ON (01/01/17) LIPID PANEL (02/23/16) ROUTINE VENIPUNCTURE (01/01/17) SMEAR GRAM STAIN (02/28/14) THER/PROPH/DIAG INJ SC/IM (02/13/16) THER/PROPH/DIAG IV INF INIT (01/01/17) TX/PRO/DX INJ NEW DRUG ADDON (01/01/17) URINALYSIS AUTO W/SCOPE (01/01/17) URINE CULTURE/COLONY COUNT (01/01/17) URINE TEST (01/01/17) (1) Pelvic pain SNOMED Code(s): 34781426 Code(s): R10.2 - PELVIC AND PERINEAL PAIN Priority: High Current Visit: Yes (2) Tubo-ovarian abscess SNOMED Code(s): 18979088 Code(s): N70.93 - SALPINGITIS AND OOPHORITIS, UNSPECIFIED Priority: High Current Visit: Yes (3) Obesity SNOMED Code(s): 222029330 Code(s): E66.9 - OBESITY, UNSPECIFIED Priority: Medium Current Visit: Yes Qualifiers: Obesity type: unspecified obesity type (4) Diabetes SNOMED Code(s): 56334240 Code(s): E11.9 - TYPE 2 DIABETES MELLITUS WITHOUT COMPLICATIONS Priority: Medium Current Visit: Yes Qualifiers: Diabetes mellitus type: type 2 Diabetes mellitus complication status: without complication Diabetes mellitus assisted insulin use: without assisted use Qualified Code(s): E11.9 - Type 2 diabetes mellitus without complications Problem List Initiated/Reviewed/Updated: Yes My Orders last 24 hours: My Active Orders 01/05/17 21:00 Potassium Chloride [Klor-Con M20] 20 meq PO BEDTIME 01/06/17 09:00 metroNIDAZOLE/Normal Saline [Flagyl 500 MG in NS 100 ML] 500 mg Premix Bag 1 bag IV Q8H 01/06/17 11:34 LORazepam [Ativan] 0.5 mg PO Q4H PRN 01/07/17 05:00 C-REACTIVE PROTEIN [CHEM] DAILY COMPREHENSIVE METABOLIC PN,CMP [CHEM] DAILY MAGNESIUM [CHEM] DAILY 01/07/17 08:30 CBC WITH AUTO DIFF [HEME] DAILY 01/08/17 05:00 C-REACTIVE PROTEIN [CHEM] DAILY COMPREHENSIVE METABOLIC PN,CMP [CHEM] DAILY MAGNESIUM [CHEM] DAILY 01/08/17 08:30 CBC WITH AUTO DIFF [HEME] DAILY 01/09/17 05:00 C-REACTIVE PROTEIN [CHEM] DAILY COMPREHENSIVE METABOLIC PN,CMP [CHEM] DAILY MAGNESIUM [CHEM] DAILY 01/09/17 08:30 CBC WITH AUTO DIFF [HEME] DAILY 01/10/17 05:00 C-REACTIVE PROTEIN [CHEM] DAILY COMPREHENSIVE METABOLIC PN,CMP [CHEM] DAILY MAGNESIUM [CHEM] DAILY 01/10/17 08:30 CBC WITH AUTO DIFF [HEME] DAILY Plan: I/P: Tubo-ovarian abscess -Confirmed with CT and US findings. Dr. Porter following and dosing antibiotics --considering hysterectomy if not clinically improved over the next 24-48 hours. -CT pending- to be done at noon -Pain management per Dr. Porter -Labs trended and following -Pain is improving -She is up ambulatory -Discussed possibility of depression with patient and starting medication, sertraline. She is adamant that she is not depressed, just situational at this time. DM -Stable -Will obtain A1C--7.6; following with CDE -CDE consult- wishes to cont as outpatient. Obesity -Cake [employer] consult -Recommend exercise; she is working with personal caregiver prior to getting ill. Other: DVT and GI prophylax CM/SW for assist with DC planning. Patient is full code status <TatoMargi M - Last Filed: 01/06/17 16:13> - Patient Data Vitals - most recent: Last Vital Signs Temp 37.2 C 01/06/17 15:14 Pulse 93 01/06/17 15:14 Resp 12 01/06/17 15:14 BP 121/78 01/06/17 15:14 Pulse Ox 92 L 01/06/17 15:14 I&O - last 24 hours: Intake & Output 01/06/17 01/06/17 01/06/17 06:59 14:59 22:59 Intake Total 1940 200 Balance 1940 200 Lab Results last 24 hrs: Laboratory Results - last 24 hr 01/06/17 01/06/17 01/06/17 Range/Units 06:00 06:00 06:00 WBC 14.05 H (3.98-10.04) K/mm3 RBC 3.72 L (3.98-5.22) M/mm3 Hgb 9.7 L (11.2-15.7) gm/L Hct 30.7 L (34.1-44.9) % MCV 82.5 (79.4-94.8) fl MCH 26.1 (25.6-32.2) pg MCHC 31.6 L (32.2-35.5) g/dl RDW Std Deviation 39.7 (36.4-46.3) fL Plt Count 455 H (182-369) K/mm3 MPV 9.4 (9.4-12.3) fl Neut % (Auto) 70.0 (34.0-71.1) % Lymph % (Auto) 19.0 L (19.3-51.7) % [place] % (Auto) 8.9 (4.7-12.5) % Eos % (Auto) 1.6 (0.7-5.8) Baso % (Auto) 0.1 (0.1-1.2) % Neut # (Auto) 9.82 H (1.56-6.13) K/mm3 Lymph # (Auto) 2.67 (1.18-3.74) K/mm3 [place] # (Auto) 1.25 H (0.24-0.36) K/mm3 Eos # (Auto) 0.23 (0.04-0.36) K/mm3 Baso # (Auto) 0.02 (0.01-0.08) K/mm3 Sodium 141 (136-145) mEq/L Potassium 3.9 (3.5-5.1) mEq/L Chloride 105 (98-107) mEq/L Carbon Dioxide 27 (21-32) mEq/L Anion Gap 12.9 (5-15) BUN 6 L (7-18) mg/dL Creatinine 0.6 (0.55-1.02) mg/dL Est Cr Clr Drug Dosing 108.43 mL/min Estimated GFR (MDRD) > 60 (>60) mL/min BUN/Creatinine Ratio 10.0 L (14-18) Glucose 112 H (74-106) mg/dL Hemoglobin A1c 7.60 H (4.50-6.20) % Calcium 8.6 (8.5-10.1) mg/dL Magnesium 1.8 (1.8-2.4) mg/dl Total Bilirubin 0.3 (0.2-1.0) mg/dL AST 35 (15-37) U/L ALT 58 (14-59) U/L Alkaline Phosphatase 113 (46-116) U/L C-Reactive Protein 28.6 H* (<1.0) mg/dL Total Protein 6.3 L (6.4-8.2) g/dl Albumin 2.1 L (3.4-5.0) g/dl Globulin 4.2 gm/dL Albumin/Globulin Ratio 0.5 L (1-2) Med Orders - Current: Current Medications Cephalexin (Keflex) 500 mg PO Q6H [facility] Doxycycline Hyclate (Vibramycin) 100 mg PO BID [facility] Hydromorphone HCl (Dilaudid) 0.5 mg IVPUSH Q2H PRN PRN Reason: Pain Last Admin: 01/04/17 10:28 Dose: 0.5 mg Doxycycline Hyclate 100 mg/ (Sodium Chloride) 100 mls @ 100 mls/hr IV Q12H [facility] Stop: 01/07/17 09:00 Last Admin: 01/06/17 14:38 Dose: 100 mls/hr Levofloxacin/Dextrose 750 mg/ (Premix) 150 mls @ 100 mls/hr IV Q24H [facility] Stop: 01/07/17 09:00 Last Admin: 01/05/17 17:45 Dose: 100 mls/hr Metronidazole 500 mg/ Premix 100 mls @ 100 mls/hr IV Q8H [facility] Stop: 01/07/17 09:00 Last Admin: 01/06/17 08:46 Dose: 100 mls/hr Ibuprofen (Motrin) 600 mg PO Q6H PRN PRN Reason: Fever Last Admin: 01/04/17 12:27 Dose: 600 mg Lorazepam (Ativan) 0.5 mg PO Q4H PRN PRN Reason: Anxiety Last Admin: 01/06/17 11:42 Dose: 0.5 mg Metronidazole (Flagyl) 500 mg PO TID [facility] Ondansetron HCl (Zofran) 4 mg IVPUSH Q4H PRN PRN Reason: Nausea/Vomiting Last Admin: 01/04/17 08:15 Dose: 4 mg Oxycodone/Acetaminophen (Percocet 325-5 Mg) 2 tab PO Q4H PRN PRN Reason: Pain (moderate 4-6) Last Admin: 01/06/17 11:49 Dose: 2 tab Potassium Chloride (Klor-Con M20) 20 meq PO BEDTIME [facility] Last Admin: 01/05/17 20:13 Dose: 20 meq Saccharomyces Boulardii (Florastor) 250 mg PO BID [facility] Last Admin: 01/06/17 08:22 Dose: 250 mg Sodium Chloride (Saline Flush) 10 ml FLUSH ONETIME PRN PRN Reason: IV FLUSH Last Admin: 01/06/17 12:23 Dose: 10 ml Zolpidem Tartrate (Ambien) 5 mg PO BEDTIME PRN PRN Reason: Insomnia Last Admin: 01/05/17 22:00 Dose: 5 mg Discontinued Medications Diatrizoate Meglum/Diatrizoate Sod (Gastrografin 37%) 90 ml PO ONETIME ONE Stop: 01/02/17 19:12 Last Admin: 01/02/17 20:09 Dose: 90 ml Diatrizoate Meglum/Diatrizoate Sod (Gastrografin 37%) 90 ml PO ONETIME ONE Stop: 01/04/17 08:46 Last Admin: 01/04/17 09:41 Dose: 90 ml Diatrizoate Meglum/Diatrizoate Sod (Gastrografin 37%) 90 ml PO ONETIME ONE Stop: 01/06/17 12:13 Last Admin: 01/06/17 12:23 Dose: 90 ml Diphenhydramine HCl (Benadryl) 25 mg IVPUSH ONETIME ONE Stop: 01/02/17 17:51 Last Admin: 01/02/17 18:18 Dose: 25 mg Doxycycline Hyclate (Vibramycin) Confirm Administered Dose 100 mg .ROUTE .STK- MED ONE Stop: 01/04/17 15:28 Last Admin: 01/04/17 15:57 Dose: Not Given Hydromorphone HCl (Dilaudid) 1 mg IVPUSH ONETIME ONE Stop: 01/02/17 17:48 Last Admin: 01/02/17 18:18 Dose: 1 mg Hydromorphone HCl (Dilaudid) 0.5 mg IVPUSH ONETIME ONE Stop: 01/02/17 18:42 Last Admin: 01/02/17 18:55 Dose: 0.5 mg Hydromorphone HCl (Dilaudid) 0.5 mg IVPUSH ONETIME ONE Stop: 01/02/17 20:28 Last Admin: 01/02/17 20:36 Dose: 0.5 mg Hydromorphone HCl (Dilaudid) 0.5 mg IVPUSH ONETIME ONE Stop: 01/02/17 21:42 Last Admin: 01/02/17 21:48 Dose: 0.5 mg Sodium Chloride (Normal Saline) 1,000 mls @ 999 mls/hr IV ONETIME ONE Stop: 01/02/17 18:46 Last Admin: 01/02/17 18:21 Dose: 999 mls/hr Levofloxacin/Dextrose 750 mg/ (Premix) 150 mls @ 100 mls/hr IV ONETIME ONE Stop: 01/02/17 19:36 Last Admin: 01/02/17 18:23 Dose: 100 mls/hr Lactated Ringer's (Ringers, Lactated) 1,000 mls @ 150 mls/hr IV ASDIRECTED [facility] Last Admin: 01/02/17 23:35 Dose: 150 mls/hr Dextrose/Sodium Chloride (Dextrose 5%-1/2 Ns) 1,000 mls @ 125 mls/hr IV ASDIRECTED [facility] Last Admin: 01/03/17 06:12 Dose: 125 mls/hr Cefoxitin Sodium 2 gm/ Premix 50 mls @ 100 mls/hr IV Q12H [facility] Last Admin: 01/05/17 00:39 Dose: 100 mls/hr Lactated Ringer's (Ringers, Lactated) 1,000 mls @ 75 mls/hr IV ASDIRECTED [facility] Last Admin: 01/05/17 13:55 Dose: 75 mls/hr Sodium Chloride (Normal Saline) 500 mls @ 999 mls/hr IV .BOLUS ONE Stop: 01/06/17 10:30 Last Admin: 01/06/17 13:22 Dose: 999 mls/hr Insulin Aspart (Novolog) 0 unit SUBCUT Q6H [facility] PRN Reason: Protocol Last Admin: 01/03/17 06:20 Dose: Not Given Insulin Aspart (Novolog) 0 unit SUBCUT QIDACANDBED [facility] PRN Reason: Protocol Last Admin: 01/05/17 06:47 Dose: Not Given Iopamidol (Isovue-300 (61%)) 125 ml IVPUSH ONETIME ONE Stop: 01/02/17 19:12 Last Admin: 01/02/17 20:09 Dose: 125 ml Iopamidol (Isovue-300 (61%)) 125 ml IVPUSH ONETIME ONE Stop: 01/04/17 08:46 Last Admin: 01/04/17 09:41 Dose: 125 ml Iopamidol (Isovue-300 (61%)) 125 ml IVPUSH ONETIME ONE Stop: 01/06/17 12:13 Last Admin: 01/06/17 12:23 Dose: 125 ml Ketorolac Tromethamine (Toradol) 60 mg IVPUSH Q6H [facility] Stop: 01/05/17 12:31 Last Admin: 01/05/17 06:32 Dose: Not Given Ketorolac Tromethamine (Toradol) 60 mg IVPUSH Q6H [facility] Stop: 01/06/17 03:01 Last Admin: 01/06/17 02:32 Dose: 60 mg Lisinopril (Prinivil) 5 mg PO DAILY [facility] Last Admin: 01/05/17 08:25 Dose: Not Given Metoclopramide HCl (Reglan) 10 mg IVPUSH ONETIME ONE Stop: 01/02/17 17:48 Last Admin: 01/02/17 18:18 Dose: 10 mg Metronidazole (Flagyl) 500 mg PO TID [facility] Morphine Sulfate (Morphine) 5 mg IM ONETIME ONE Stop: 01/03/17 23:14 Last Admin: 01/03/17 23:41 Dose: 5 mg Morphine Sulfate (Morphine) 5 mg IM ONETIME ONE Stop: 01/04/17 21:01 Last Admin: 01/04/17 21:13 Dose: 5 mg Ondansetron HCl (Zofran) 4 mg IVPUSH ONETIME ONE Stop: 01/02/17 21:42 Last Admin: 01/02/17 21:46 Dose: 4 mg Oxycodone/Acetaminophen (Percocet 325-5 Mg) 1 tab PO Q4H PRN PRN Reason: Pain Last Admin: 01/04/17 07:02 Dose: 1 tab Oxycodone/Acetaminophen (Percocet 325-5 Mg) 2 tab PO Q4HR PRN PRN Reason: Pain (moderate 4-6) Potassium Chloride (Klor-Con M20) 40 meq PO ONETIME ONE Stop: 01/05/17 11:16 Last Admin: 01/05/17 11:35 Dose: 40 meq Promethazine HCl (Phenergan) 25 mg IM ONETIME ONE Stop: 01/03/17 23:22 Last Admin: 01/03/17 23:40 Dose: 25 mg Promethazine HCl (Phenergan) 25 mg IM ONETIME ONE Stop: 01/04/17 21:01 Last Admin: 01/04/17 21:13 Dose: 25 mg Sertraline HCl (Zoloft) 25 mg PO DAILY JAMES Last Admin: 01/05/17 11:40 Dose: Not Given Sodium Chloride (Saline Flush) 10 ml FLUSH ONETIME PRN PRN Reason: IV FLUSH Last Admin: 01/02/17 20:09 Dose: 10 ml Sodium Chloride (Saline Flush) 10 ml FLUSH ONETIME ONE Stop: 01/04/17 08:46 Last Admin: 01/04/17 09:41 Dose: 10 ml Consult PN Assessment/Plan Procedures: Procedures ASSAY OF IRON (02/23/16) ASSAY OF TRANSFERRIN (02/23/16) ASSAY THYROID STIM HORMONE (12/20/16) CHORIONIC GONADOTROPIN ASSAY (02/28/14) COMPLETE CBC AUTOMATED (02/17/16) COMPLETE CBC W/AUTO DIFF WBC (01/01/17) COMPREHEN METABOLIC PANEL (01/01/17) CULTR BACTERIA EXCEPT BLOOD (02/28/14) DRAINAGE OF PILONIDAL CYST (02/28/14) EMERGENCY DEPT VISIT (01/01/17) GLYCOSYLATED HEMOGLOBIN TEST (12/20/16) HEP B CORE ANTIBODY IGM (02/17/16) HEPATITIS A IGM ANTIBODY (02/17/16) HEPATITIS B SURFACE AG IA (02/17/16) HEPATITIS C AB TEST (02/17/16) HYDRATE IV INFUSION ADD-ON (01/01/17) LIPID PANEL (02/23/16) ROUTINE VENIPUNCTURE (01/01/17) SMEAR GRAM STAIN (02/28/14) THER/PROPH/DIAG INJ SC/IM (02/13/16) THER/PROPH/DIAG IV INF INIT (01/01/17) TX/PRO/DX INJ NEW DRUG ADDON (01/01/17) URINALYSIS AUTO W/SCOPE (01/01/17) URINE CULTURE/COLONY COUNT (01/01/17) URINE TEST (01/01/17) Plan: Assessment and treatment plan as discussed.
[2017-01-06] MEDS: Levofloxacin/Dextrose 5%-Water 750 MG in Premix Bag 1 BAG IV SCH (17:13)
[2017-01-06] MEDS ORDERED: Pneumococcal Polyvalent-23 Vaccine 0.5 ML SDV IM ONE (18:46)
[2017-01-06] MEDS: Zolpidem 5 MG Tab PO PRN (20:20)
[2017-01-06] MEDS: Potassium Chloride 20 MEQ Tab.ER PO SCH (20:20)
[2017-01-07] MEDS: metroNIDAZOLE/Normal Saline 500 MG in Premix Bag 1 BAG IV SCH ×3 (00:55→21:50)
[2017-01-07] MEDS: Acetaminophen/oxyCODONE 325-5 MG Tab PO PRN ×4 (00:56→23:07)
[2017-01-07] MEDS: Doxycycline 100 MG in Sodium Chloride 0.9% 100 ML IV SCH ×2 (02:31→20:56)
[2017-01-07] MEDS: LORazepam 0.5 MG Tab PO PRN (04:52)
[2017-01-07] MEDS ORDERED: cefOXitin 2 GM in Premix Bag 1 BAG IV ONE (08:41)
[2017-01-07] MEDS ORDERED: Cephalexin 500 MG Cap PO SCH (09:00)
[2017-01-07] MEDS ORDERED: metroNIDAZOLE 500 MG Tab PO SCH ×2 (09:00→15:00)
[2017-01-07] MEDS ORDERED: Doxycycline 100 MG Cap PO SCH (09:00)
--- NOTE | 2017-01-07 09:01 | PCM.SN ---
- Free Text/Narrative Note: Patient's condition deteriorated during the night, temp went up to 100.4 after having been afebrile, WBC and CRP increased. Patient not feeling as well this morning as yesterday and abdominal pain has increased as well. Repeat USG this AM no significant decrease in adnexal mass and possible increase in size slightly. I have had one hour discussion with patient and concerning alternatives of therapy including oral antibiotic treatment at home to see if improvement (due to pain and chance of worsening of condition not a viable option), continued IV antibiotics, but risk of bowel damage seems increased by CT results of yesterday and concerned about antibiotic resistance after one week of attempted control of infection with antibiotics, and proceeding with surgery, which at this poitn seems to be indicated by her change in condition, continued and worsening pain, return of fever last PM and increasing white count and CRP. Patient and aware of risk and benefits and understand that additional surgery may be required, that we will try to leave the right ovary, that will attempt laparoscopy and vaginal hysterectomy with removal of both tubes and left ovary and possibly right ovary, or if needed abdominal hysterectomy and removal of both tubes and left ovary, anf possibly right ovary. All concerns and questions answered to patient and 's voiced satisfaction. .
--- NOTE | 2017-01-07 09:06 | US ---
Pelvic ultrasound: Multiple real-time images were obtained transvaginally. Comparison: Previous studies are available including CT and pelvic ultrasounds. Left adnexal mass is seen showing multiple hyperechoic areas and involving the left ovary. There is likely a dilated fallopian tube around this abnormality. Findings by ultrasound exam measured 5.3 x 3.0 x 3.8 cm. As mentioned on previous ultrasound report, direct measurements regarding size differences is difficult on ultrasound due to different measurement planes but findings are felt to have slightly increased in size despite differences in measurement technique. Right ovary is unremarkable. Incidental nabothian cysts are seen. Uterus is unremarkable. Endometrial thickness is 1.4 cm. No free fluid is seen. Impression: 1. Abnormal left adnexal mass (presumably representing tubo-ovarian abscess) involving the left ovary. Direct comparison by measurements is difficult from prior ultrasound but overall, findings felt to be increased in size from prior exam. 2. No free fluid is seen. Incidental nabothian cysts. Diagnostic code #5 Obgyn Nurse called Lydia Duong at 0828 on 01/07/2017
[2017-01-07] MEDS ORDERED: Lidocaine 1% with EPINEPHrine 1:100,000 20 ML MDV ONE (09:09)
[2017-01-07] MEDS ORDERED: Bupivacaine 0.5% 30 ML SDV ONE (09:10)
[2017-01-07] MEDS ORDERED: Sodium Chloride 0.9% 50 ML SDV ONE (09:10)
[2017-01-07] MEDS: Saccharomyces Boulardii (Probiotic) 250 MG Cap PO SCH (09:55)
[2017-01-07] MEDS ORDERED: Midazolam 1 MG/ML 2 ML SDV ONE (10:04)
[2017-01-07] MEDS ORDERED: ceFAZolin 1 GM Vial ONE (10:04)
[2017-01-07] MEDS ORDERED: Dexamethasone 4 MG/ML SDV ONE (10:04)
[2017-01-07] MEDS ORDERED: HYDROmorphone 1 MG/ML Syringe ONE ×2 (10:04→11:10)
[2017-01-07] MEDS ORDERED: Ondansetron 4 MG/2 ML SDV ONE (10:04)
[2017-01-07] MEDS ORDERED: Propofol 200 MG/20 ML SDV ONE (10:04)
[2017-01-07] MEDS ORDERED: Rocuronium 50 MG/5 ML Vial ONE (10:04)
[2017-01-07] MEDS ORDERED: fentaNYL 250 MCG/5 ML SDV ONE (10:05)
--- NOTE | 2017-01-07 10:06 | PCM.PREANE ---
Preanesthetic Assessment - Procedure Proposed Procedure: LAVH, left salpingoophorectomy, right salpingectomy - Anesthesia/Transfusion/Family Hx Anesthesia History: Prior Anesthesia Without Reaction Transfusion History: No Prior Transfusion(s) - Review of Systems General: Fever, Chills, Appetite (decreased) Pulmonary: No Symptoms Cardiovascular: No Symptoms Gastrointestinal: Nausea, Vomiting Neurological: No Symptoms Other: Reports: Diabetes - Physical Assessment NPO Status Date: 01/07/17 NPO Status Time: 04:30 Pulse: 111 O2 Sat by Pulse Oximetry: 94 Respiratory Rate: 16 Blood Pressure: 130/82 Temperature: 38.0 C Vital Signs: Last Vital Signs Temp 38.0 C 01/07/17 02:16 Pulse 111 H 01/07/17 02:16 Resp 16 01/07/17 02:16 BP 130/82 01/07/17 02:16 Pulse Ox 94 L 01/07/17 02:16 Height: 1.57 m Weight: 103.827 kg ASA Class: 2E Mental Status: Alert & Oriented x3 Airway Class: Mallampati = 2 Dentition: Reports: Broken Tooth/Teeth, Caries Thyro-Mental Finger Breadths: 3 Mouth Opening Finger Breadths: 3 ROM/Head Extension: Full Lungs: Clear to auscultation, Normal respiratory effort Cardiovascular: Regular Rate, Regular Rhythm, No Murmurs - Lab Values: Laboratory Last Values WBC 15.43 K/mm3 (3.98-10.04) H 01/07/17 04:51 RBC 3.65 M/mm3 (3.98-5.22) L 01/07/17 04:51 Hgb 9.5 gm/L (11.2-15.7) L 01/07/17 04:51 Hct 29.6 % (34.1-44.9) L 01/07/17 04:51 MCV 81.1 fl (79.4-94.8) 01/07/17 04:51 MCH 26.0 pg (25.6-32.2) 01/07/17 04:51 MCHC 32.1 g/dl (32.2-35.5) L 01/07/17 04:51 RDW Std Deviation 39.6 fL (36.4-46.3) 01/07/17 04:51 Plt Count 460 K/mm3 (182-369) H 01/07/17 04:51 MPV 8.8 fl (9.4-12.3) L 01/07/17 04:51 Neut % (Auto) 69.8 % (34.0-71.1) 01/07/17 04:51 Lymph % (Auto) 20.0 % (19.3-51.7) 01/07/17 04:51 Garza % (Auto) 8.3 % (4.7-12.5) 01/07/17 04:51 Eos % (Auto) 1.2 (0.7-5.8) 01/07/17 04:51 Baso % (Auto) 0.2 % (0.1-1.2) 01/07/17 04:51 Neut # (Auto) 10.77 K/mm3 (1.56-6.13) H 01/07/17 04:51 Lymph # (Auto) 3.09 K/mm3 (1.18-3.74) 01/07/17 04:51 Garza # (Auto) 1.28 K/mm3 (0.24-0.36) H 01/07/17 04:51 Eos # (Auto) 0.19 K/mm3 (0.04-0.36) 01/07/17 04:51 Baso # (Auto) 0.03 K/mm3 (0.01-0.08) 01/07/17 04:51 Neutrophils % (Manual) 83 % (40-60) H 01/02/17 18:15 Band Neutrophils % 0 % (0-10) 01/02/17 18:15 Lymphocytes % (Manual) 14 % (20-40) L 01/02/17 18:15 Atypical Lymphs % 0 % 01/02/17 18:15 Monocytes % (Manual) 2 % (2-10) 01/02/17 18:15 Eosinophils % (Manual) 0 % (0.7-5.8) L 01/02/17 18:15 Basophils % (Manual) 1 (0.1-1.2) 01/02/17 18:15 Manual Slide Review Normal smear 01/04/17 07:10 Platelet Estimate Adequate 01/02/17 18:15 Plt Morphology Comment Normal 01/02/17 18:15 Anisocytosis 1+ slight 01/02/17 18:15 RBC Morph Comment Not Reportable 01/02/17 18:15 Sodium 137 mEq/L (136-145) 01/07/17 04:51 Potassium 3.9 mEq/L (3.5-5.1) 01/07/17 04:51 Chloride 102 mEq/L (98-107) 01/07/17 04:51 Carbon Dioxide 29 mEq/L (21-32) 01/07/17 04:51 Anion Gap 9.9 (5-15) 01/07/17 04:51 BUN 5 mg/dL (7-18) L 01/07/17 04:51 Creatinine 0.8 mg/dL (0.55-1.02) 01/07/17 04:51 Est Cr Clr Drug Dosing 81.33 mL/min 01/07/17 04:51 Estimated GFR (MDRD) > 60 mL/min (>60) 01/07/17 04:51 BUN/Creatinine Ratio 6.3 (14-18) L 01/07/17 04:51 Glucose 103 mg/dL (74-106) 01/07/17 04:51 POC Glucose 133 mg/dL (70-105) H 01/05/17 06:37 Hemoglobin A1c 7.60 % (4.50-6.20) H 01/06/17 06:00 Calcium 8.6 mg/dL (8.5-10.1) 01/07/17 04:51 Magnesium 1.7 mg/dl (1.8-2.4) L 01/07/17 04:51 Total Bilirubin 0.4 mg/dL (0.2-1.0) 01/07/17 04:51 AST 24 U/L (15-37) 01/07/17 04:51 ALT 49 U/L (14-59) 01/07/17 04:51 Alkaline Phosphatase 116 U/L (46-116) 01/07/17 04:51 C-Reactive Protein 33.4 mg/dL (<1.0) H* 01/07/17 04:51 Total Protein 6.4 g/dl (6.4-8.2) 01/07/17 04:51 Albumin 2.1 g/dl (3.4-5.0) L 01/07/17 04:51 Globulin 4.3 gm/dL 01/07/17 04:51 Albumin/Globulin Ratio 0.5 (1-2) L 01/07/17 04:51 Lipase 76 U/L (73-393) 01/02/17 18:15 HCG, Qual Negative (NEGATIVE) 01/02/17 18:15 HCG, Quant < 1.0 mIU/mL 01/05/17 06:20 Urine Color Yellow (Yellow) 01/02/17 18:15 Urine Appearance Slt cloudy (Clear) H 01/02/17 18:15 Urine pH 6.0 (5.0-8.0) 01/02/17 18:15 Ur Specific [place] 1.020 (1.005-1.030) 01/02/17 18:15 Urine Protein 2+ (Negative) H 01/02/17 18:15 Urine Glucose (UA) Negative (Negative) 01/02/17 18:15 Urine Ketones 2+ (Negative) H 01/02/17 18:15 Urine Occult Blood Trace-lysed (Negative) H 01/02/17 18:15 Urine Nitrite Negative (Negative) 01/02/17 18:15 Urine Bilirubin 1+ (Negative) H 01/02/17 18:15 Urine Urobilinogen 0.2 (0.2-1.0) 01/02/17 18:15 Ur Leukocyte Esterase 1+ (Negative) H 01/02/17 18:15 Urine RBC 0-5 /hpf (0-5) 01/02/17 18:15 Urine WBC 40-50 /hpf (0-5) H 01/02/17 18:15 Ur Epithelial Cells 30-40 /hpf (0-5) H 01/02/17 18:15 Urine Bacteria Few /hpf (FEW) 01/02/17 18:15 Urine Mucus Not seen /hpf (FEW) 01/02/17 18:15 C trachomatis DNA (PCR) Not detected 01/02/17 22:25 N gonorrhoeae DNA (PCR) Not detected 01/02/17 22:25 Blood Type A POSITIVE 01/07/17 08:50 Gel Antibody Screen Negative 01/07/17 08:50 - Allergies Allergies/Adverse Reactions: Allergies Allergy/AdvReac Type Severity Reaction Status Date / Time No Known Allergies Allergy Verified 01/02/17 17:29 - Blood Blood Available: No - Acknowledgements Anesthesia Type Planned: General Anesthesia Pt an Appropriate Candidate for the Planned Anesthesia: Yes Alternatives and Risks of Anesthesia Discussed w Pt/Guardian: Yes Pt/Guardian Understands and Agrees with Anesthesia Plan: Yes PreAnesthesia Questionnaire - Past Health History Medical/Surgical History: Denies Medical/Surgical History Genitourinary History: Reports: Other (See Below) Other Genitourinary History: pt is diabetic [employer] History: Reports: Other OB/BYN History: 3 vaginal births Endocrine/Metabolic History: Reports: Diabetes, Type II (Controlled with oral medications.), Obesity/BMI 30+ - Past Surgical History HEENT Surgical History: Reports: Oral Surgery Female Surgical History: Reports: Other (See Below) Other Female Surgeries/Procedures: 3 vaginal births Endocrine Surgical History: Reports: None - SUBSTANCE USE Smoking Status *Q: Never Smoker Tobacco Use Within Last Twelve Months: No Second Hand Smoke Exposure: No Days Per Week of Alcohol Use: 0 (rare alcohol consumption) Recreational Drug Use History: No - HOME MEDS Home Medications: Home Meds Ciprofloxacin [Ciprofloxacin HCl] 500 mg PO BID #14 tablet 01/01/17 [Rx] Hydrocodone/Acetaminophen [[place] 5-325] 1 tab PO Q4H PRN #10 tablet 01/01/17 [Rx ] Lisinopril 5 mg PO DAILY 01/01/17 [History] sitaGLIPtin Phos/Metformin HCl [Janumet Xr 50-1,000 mg Tablet] 1 tab PO DAILY [History] - CURRENT (IN HOUSE) MEDS Current Meds: Current Medications Cephalexin (Keflex) 500 mg PO Q6H [facility] Last Admin: 01/07/17 09:55 Dose: Not Given Doxycycline Hyclate (Vibramycin) 100 mg PO BID [facility] Last Admin: 01/07/17 09:55 Dose: Not Given Hydromorphone HCl (Dilaudid) 0.5 mg IVPUSH Q2H PRN PRN Reason: Pain Last Admin: 01/04/17 10:28 Dose: 0.5 mg Ibuprofen (Motrin) 600 mg PO Q6H PRN PRN Reason: Fever Last Admin: 01/04/17 12:27 Dose: 600 mg Lorazepam (Ativan) 0.5 mg PO Q4H PRN PRN Reason: Anxiety Last Admin: 01/07/17 04:52 Dose: 0.5 mg Metronidazole (Flagyl) 500 mg PO TID [facility] Ondansetron HCl (Zofran) 4 mg IVPUSH Q4H PRN PRN Reason: Nausea/Vomiting Last Admin: 01/04/17 08:15 Dose: 4 mg Oxycodone/Acetaminophen (Percocet 325-5 Mg) 2 tab PO Q4H PRN PRN Reason: Pain (moderate 4-6) Last Admin: 01/07/17 04:48 Dose: 2 tab Potassium Chloride (Klor-Con M20) 20 meq PO BEDTIME JAMES Last Admin: 01/06/17 20:20 Dose: 20 meq Saccharomyces Boulardii (Florastor) 250 mg PO BID [facility] Last Admin: 01/07/17 09:55 Dose: Not Given Sodium Chloride (Saline Flush) 10 ml FLUSH ONETIME PRN PRN Reason: IV FLUSH Last Admin: 01/06/17 12:23 Dose: 10 ml Zolpidem Tartrate (Ambien) 5 mg PO BEDTIME PRN PRN Reason: Insomnia Last Admin: 01/06/17 20:20 Dose: 5 mg Discontinued Medications Bupivacaine HCl (Marcaine 0.5%) Confirm Administered Dose 30 ml .ROUTE .STK-MED ONE Stop: 01/07/17 09:11 Diatrizoate Meglum/Diatrizoate Sod (Gastrografin 37%) 90 ml PO ONETIME ONE Stop: 01/02/17 19:12 Last Admin: 01/02/17 20:09 Dose: 90 ml Diatrizoate Meglum/Diatrizoate Sod (Gastrografin 37%) 90 ml PO ONETIME ONE Stop: 01/04/17 08:46 Last Admin: 01/04/17 09:41 Dose: 90 ml Diatrizoate Meglum/Diatrizoate Sod (Gastrografin 37%) 90 ml PO ONETIME ONE Stop: 01/06/17 12:13 Last Admin: 01/06/17 12:23 Dose: 90 ml Diphenhydramine HCl (Benadryl) 25 mg IVPUSH ONETIME ONE Stop: 01/02/17 17:51 Last Admin: 01/02/17 18:18 Dose: 25 mg Doxycycline Hyclate (Vibramycin) Confirm Administered Dose 100 mg .ROUTE .STK- MED ONE Stop: 01/04/17 15:28 Last Admin: 01/04/17 15:57 Dose: Not Given Hydromorphone HCl (Dilaudid) 1 mg IVPUSH ONETIME ONE Stop: 01/02/17 17:48 Last Admin: 01/02/17 18:18 Dose: 1 mg Hydromorphone HCl (Dilaudid) 0.5 mg IVPUSH ONETIME ONE Stop: 01/02/17 18:42 Last Admin: 01/02/17 18:55 Dose: 0.5 mg Hydromorphone HCl (Dilaudid) 0.5 mg IVPUSH ONETIME ONE Stop: 01/02/17 20:28 Last Admin: 01/02/17 20:36 Dose: 0.5 mg Hydromorphone HCl (Dilaudid) 0.5 mg IVPUSH ONETIME ONE Stop: 01/02/17 21:42 Last Admin: 01/02/17 21:48 Dose: 0.5 mg Sodium Chloride (Normal Saline) 1,000 mls @ 999 mls/hr IV ONETIME ONE Stop: 01/02/17 18:46 Last Admin: 01/02/17 18:21 Dose: 999 mls/hr Levofloxacin/Dextrose 750 mg/ (Premix) 150 mls @ 100 mls/hr IV ONETIME ONE Stop: 01/02/17 19:36 Last Admin: 01/02/17 18:23 Dose: 100 mls/hr Lactated Ringer's (Ringers, Lactated) 1,000 mls @ 150 mls/hr IV ASDIRECTED [facility] Last Admin: 01/02/17 23:35 Dose: 150 mls/hr Dextrose/Sodium Chloride (Dextrose 5%-1/2 Ns) 1,000 mls @ 125 mls/hr IV ASDIRECTED [facility] Last Admin: 01/03/17 06:12 Dose: 125 mls/hr Cefoxitin Sodium 2 gm/ Premix 50 mls @ 100 mls/hr IV Q12H [facility] Last Admin: 01/05/17 00:39 Dose: 100 mls/hr Doxycycline Hyclate 100 mg/ (Sodium Chloride) 100 mls @ 100 mls/hr IV Q12H [facility] Stop: 01/07/17 09:00 Last Admin: 01/07/17 02:31 Dose: 100 mls/hr Levofloxacin/Dextrose 750 mg/ (Premix) 150 mls @ 100 mls/hr IV Q24H [facility] Stop: 01/07/17 09:00 Last Admin: 01/06/17 17:13 Dose: 100 mls/hr Lactated Ringer's (Ringers, Lactated) 1,000 mls @ 75 mls/hr IV ASDIRECTED [facility] Last Admin: 01/05/17 13:55 Dose: 75 mls/hr Metronidazole 500 mg/ Premix 100 mls @ 100 mls/hr IV Q8H JAMES Stop: 01/07/17 09:00 Last Admin: 01/07/17 00:55 Dose: 100 mls/hr Sodium Chloride (Normal Saline) 500 mls @ 999 mls/hr IV .BOLUS ONE Stop: 01/06/17 10:30 Last Admin: 01/06/17 13:22 Dose: 999 mls/hr Cefoxitin Sodium 2 gm/ Premix 50 mls @ 100 mls/hr IV ONETIME ONE Stop: 01/07/17 09:10 Last Admin: 01/07/17 09:47 Dose: 100 mls/hr Insulin Aspart (Novolog) 0 unit SUBCUT Q6H [facility] PRN Reason: Protocol Last Admin: 01/03/17 06:20 Dose: Not Given Insulin Aspart (Novolog) 0 unit SUBCUT QIDACANDBED [facility] PRN Reason: Protocol Last Admin: 01/05/17 06:47 Dose: Not Given Iopamidol (Isovue-300 (61%)) 125 ml IVPUSH ONETIME ONE Stop: 01/02/17 19:12 Last Admin: 01/02/17 20:09 Dose: 125 ml Iopamidol (Isovue-300 (61%)) 125 ml IVPUSH ONETIME ONE Stop: 01/04/17 08:46 Last Admin: 01/04/17 09:41 Dose: 125 ml Iopamidol (Isovue-300 (61%)) 125 ml IVPUSH ONETIME ONE Stop: 01/06/17 12:13 Last Admin: 01/06/17 12:23 Dose: 125 ml Ketorolac Tromethamine (Toradol) 60 mg IVPUSH Q6H [facility] Stop: 01/05/17 12:31 Last Admin: 01/05/17 06:32 Dose: Not Given Ketorolac Tromethamine (Toradol) 60 mg IVPUSH Q6H [facility] Stop: 01/06/17 03:01 Last Admin: 01/06/17 02:32 Dose: 60 mg Lidocaine/Epinephrine (Xylocaine 1% With Epinephrine 1:100,000) Confirm Administered Dose 20 ml .ROUTE .STK-MED ONE Stop: 01/07/17 09:10 Lisinopril (Prinivil) 5 mg PO DAILY [facility] Last Admin: 01/05/17 08:25 Dose: Not Given Metoclopramide HCl (Reglan) 10 mg IVPUSH ONETIME ONE Stop: 01/02/17 17:48 Last Admin: 01/02/17 18:18 Dose: 10 mg Metronidazole (Flagyl) 500 mg PO TID [facility] Morphine Sulfate (Morphine) 5 mg IM ONETIME ONE Stop: 01/03/17 23:14 Last Admin: 01/03/17 23:41 Dose: 5 mg Morphine Sulfate (Morphine) 5 mg IM ONETIME ONE Stop: 01/04/17 21:01 Last Admin: 01/04/17 21:13 Dose: 5 mg Ondansetron HCl (Zofran) 4 mg IVPUSH ONETIME ONE Stop: 01/02/17 21:42 Last Admin: 01/02/17 21:46 Dose: 4 mg Oxycodone/Acetaminophen (Percocet 325-5 Mg) 1 tab PO Q4H PRN PRN Reason: Pain Last Admin: 01/04/17 07:02 Dose: 1 tab Oxycodone/Acetaminophen (Percocet 325-5 Mg) 2 tab PO Q4HR PRN PRN Reason: Pain (moderate 4-6) Pneumococcal Polyvalent Vaccine (Pneumovax 23) 0.5 ml IM .ONCE ONE Stop: 01/06/17 18:47 Potassium Chloride (Klor-Con M20) 40 meq PO ONETIME ONE Stop: 01/05/17 11:16 Last Admin: 01/05/17 11:35 Dose: 40 meq Promethazine HCl (Phenergan) 25 mg IM ONETIME ONE Stop: 01/03/17 23:22 Last Admin: 01/03/17 23:40 Dose: 25 mg Promethazine HCl (Phenergan) 25 mg IM ONETIME ONE Stop: 01/04/17 21:01 Last Admin: 01/04/17 21:13 Dose: 25 mg Sertraline HCl (Zoloft) 25 mg PO DAILY [facility] Last Admin: 01/05/17 11:40 Dose: Not Given Sodium Chloride (Saline Flush) 10 ml FLUSH ONETIME PRN PRN Reason: IV FLUSH Last Admin: 01/02/17 20:09 Dose: 10 ml Sodium Chloride (Saline Flush) 10 ml FLUSH ONETIME ONE Stop: 01/04/17 08:46 Last Admin: 01/04/17 09:41 Dose: 10 ml Sodium Chloride (Normal Saline) Confirm Administered Dose 50 ml .ROUTE .STK-MED ONE Stop: 01/07/17 09:11
[2017-01-07] MEDS ORDERED: Lidocaine 1% 6 ML ONE (10:37)
[2017-01-07] MEDS ORDERED: Neostigmine Methylsulfate 1 MG/ML 5 ML Syringe ONE (11:20)
--- NOTE | 2017-01-07 11:43 | PCM.CONSN ---
<Shamika Chavez - Last Filed: 01/07/17 11:48> - General Info Date of Service: 01/07/17 Admission Dx/Problem (Free Text): Admission Diagnosis/Problem Admission Diagnosis/Problem Tubo-ovarian abscess Patient reports feeling "more ill/tired" today , without increase in pain level. She states she has less pain and more energy than when first admitted, but felt better yesterday than today. Functional Status: Reports: pain controlled, tolerating diet, ambulating, urinating - Review of Systems General: Reports: Fever, Fatigue HEENT: Reports: no symptoms Pulmonary: Reports: no symptoms Cardiovascular: Reports: No Symptoms Gastrointestinal: Reports: Abdominal pain. Denies: Diarrhea, Nausea, Vomiting Genitourinary: Reports: no symptoms Musculoskeletal: Reports: no symptoms Neurological: Reports: No Symptoms - Patient Data Vitals - most recent: Last Vital Signs Temp 100.4 F 01/07/17 10:20 Pulse 111 H 01/07/17 10:20 Resp 16 01/07/17 10:20 BP 130/82 01/07/17 10:20 Pulse Ox 94 L 01/07/17 10:20 Weight - most recent: 103.827 kg I&O - last 24 hours: Intake & Output 01/06/17 01/07/17 01/07/17 22:59 06:59 14:59 Intake Total 1050 1400 Balance 1050 1400 Lab Results last 24 hrs: Laboratory Results - last 24 hr 01/07/17 01/07/17 01/07/17 Range/Units 04:51 04:51 08:50 WBC 15.43 H (3.98-10.04) K/mm3 RBC 3.65 L (3.98-5.22) M/mm3 Hgb 9.5 L (11.2-15.7) gm/L Hct 29.6 L (34.1-44.9) % MCV 81.1 (79.4-94.8) fl MCH 26.0 (25.6-32.2) pg MCHC 32.1 L (32.2-35.5) g/dl RDW Std Deviation 39.6 (36.4-46.3) fL Plt Count 460 H (182-369) K/mm3 MPV 8.8 L (9.4-12.3) fl Neut % (Auto) 69.8 (34.0-71.1) % Lymph % (Auto) 20.0 (19.3-51.7) % Travis % (Auto) 8.3 (4.7-12.5) % Eos % (Auto) 1.2 (0.7-5.8) Baso % (Auto) 0.2 (0.1-1.2) % Neut # (Auto) 10.77 H (1.56-6.13) K/mm3 Lymph # (Auto) 3.09 (1.18-3.74) K/mm3 Travis # (Auto) 1.28 H (0.24-0.36) K/mm3 Eos # (Auto) 0.19 (0.04-0.36) K/mm3 Baso # (Auto) 0.03 (0.01-0.08) K/mm3 Sodium 137 (136-145) mEq/L Potassium 3.9 (3.5-5.1) mEq/L Chloride 102 (98-107) mEq/L Carbon Dioxide 29 (21-32) mEq/L Anion Gap 9.9 (5-15) BUN 5 L (7-18) mg/dL Creatinine 0.8 (0.55-1.02) mg/dL Est Cr Clr Drug Dosing 81.33 mL/min Estimated GFR (MDRD) > 60 (>60) mL/min BUN/Creatinine Ratio 6.3 L (14-18) Glucose 103 (74-106) mg/dL POC Glucose (70-105) mg/dL Calcium 8.6 (8.5-10.1) mg/dL Magnesium 1.7 L (1.8-2.4) mg/dl Total Bilirubin 0.4 (0.2-1.0) mg/dL AST 24 (15-37) U/L ALT 49 (14-59) U/L Alkaline Phosphatase 116 (46-116) U/L C-Reactive Protein 33.4 H* (<1.0) mg/dL Total Protein 6.4 (6.4-8.2) g/dl Albumin 2.1 L (3.4-5.0) g/dl Globulin 4.3 gm/dL Albumin/Globulin Ratio 0.5 L (1-2) Blood Type A POSITIVE Gel Antibody Screen Negative 06/23/17 Range/Units 10:18 WBC (3.98-10.04) K/mm3 RBC (3.98-5.22) M/mm3 Hgb (11.2-15.7) gm/L Hct (34.1-44.9) % MCV (79.4-94.8) fl MCH (25.6-32.2) pg MCHC (32.2-35.5) g/dl RDW Std Deviation (36.4-46.3) fL Plt Count (182-369) K/mm3 MPV (9.4-12.3) fl Neut % (Auto) (34.0-71.1) % Lymph % (Auto) (19.3-51.7) % Travis % (Auto) (4.7-12.5) % Eos % (Auto) (0.7-5.8) Baso % (Auto) (0.1-1.2) % Neut # (Auto) (1.56-6.13) K/mm3 Lymph # (Auto) (1.18-3.74) K/mm3 Travis # (Auto) (0.24-0.36) K/mm3 Eos # (Auto) (0.04-0.36) K/mm3 Baso # (Auto) (0.01-0.08) K/mm3 Sodium (136-145) mEq/L Potassium (3.5-5.1) mEq/L Chloride (98-107) mEq/L Carbon Dioxide (21-32) mEq/L Anion Gap (5-15) BUN (7-18) mg/dL Creatinine (0.55-1.02) mg/dL Est Cr Clr Drug Dosing mL/min Estimated GFR (MDRD) (>60) mL/min BUN/Creatinine Ratio (14-18) Glucose (74-106) mg/dL POC Glucose 92 (70-105) mg/dL Calcium (8.5-10.1) mg/dL Magnesium (1.8-2.4) mg/dl Total Bilirubin (0.2-1.0) mg/dL AST (15-37) U/L ALT (14-59) U/L Alkaline Phosphatase (46-116) U/L C-Reactive Protein (<1.0) mg/dL Total Protein (6.4-8.2) g/dl Albumin (3.4-5.0) g/dl Globulin gm/dL Albumin/Globulin Ratio (1-2) Blood Type Gel Antibody Screen Med Orders - Current: Current Medications Cephalexin (Keflex) 500 mg PO Q6H [facility] Last Admin: 01/07/17 09:55 Dose: Not Given Doxycycline Hyclate (Vibramycin) 100 mg PO BID [facility] Last Admin: 01/07/17 09:55 Dose: Not Given Hydromorphone HCl (Dilaudid) 0.5 mg IVPUSH Q2H PRN PRN Reason: Pain Last Admin: 01/04/17 10:28 Dose: 0.5 mg Ibuprofen (Motrin) 600 mg PO Q6H PRN PRN Reason: Fever Last Admin: 01/04/17 12:27 Dose: 600 mg Lorazepam (Ativan) 0.5 mg PO Q4H PRN PRN Reason: Anxiety Last Admin: 01/07/17 04:52 Dose: 0.5 mg Metronidazole (Flagyl) 500 mg PO TID [facility] Ondansetron HCl (Zofran) 4 mg IVPUSH Q4H PRN PRN Reason: Nausea/Vomiting Last Admin: 01/04/17 08:15 Dose: 4 mg Oxycodone/Acetaminophen (Percocet 325-5 Mg) 2 tab PO Q4H PRN PRN Reason: Pain (moderate 4-6) Last Admin: 01/07/17 04:48 Dose: 2 tab Potassium Chloride (Klor-Con M20) 20 meq PO BEDTIME [facility] Last Admin: 01/06/17 20:20 Dose: 20 meq Saccharomyces Boulardii (Florastor) 250 mg PO BID [facility] Last Admin: 01/07/17 09:55 Dose: Not Given Sodium Chloride (Saline Flush) 10 ml FLUSH ONETIME PRN PRN Reason: IV FLUSH Last Admin: 01/06/17 12:23 Dose: 10 ml Zolpidem Tartrate (Ambien) 5 mg PO BEDTIME PRN PRN Reason: Insomnia Last Admin: 01/06/17 20:20 Dose: 5 mg Discontinued Medications Bupivacaine HCl (Marcaine 0.5%) Confirm Administered Dose 30 ml .ROUTE .STK-MED ONE Stop: 01/07/17 09:11 Cefazolin Sodium (Ancef) Confirm Administered Dose 2 gm .ROUTE .STK-MED ONE Stop: 01/07/17 10:05 Dexamethasone (Dexamethasone) Confirm Administered Dose 4 mg .ROUTE .STK-MED ONE Stop: 01/07/17 10:05 Diatrizoate Meglum/Diatrizoate Sod (Gastrografin 37%) 90 ml PO ONETIME ONE Stop: 01/02/17 19:12 Last Admin: 01/02/17 20:09 Dose: 90 ml Diatrizoate Meglum/Diatrizoate Sod (Gastrografin 37%) 90 ml PO ONETIME ONE Stop: 01/04/17 08:46 Last Admin: 01/04/17 09:41 Dose: 90 ml Diatrizoate Meglum/Diatrizoate Sod (Gastrografin 37%) 90 ml PO ONETIME ONE Stop: 01/06/17 12:13 Last Admin: 01/06/17 12:23 Dose: 90 ml Diphenhydramine HCl (Benadryl) 25 mg IVPUSH ONETIME ONE Stop: 01/02/17 17:51 Last Admin: 01/02/17 18:18 Dose: 25 mg Doxycycline Hyclate (Vibramycin) Confirm Administered Dose 100 mg .ROUTE .STK- MED ONE Stop: 01/04/17 15:28 Last Admin: 01/04/17 15:57 Dose: Not Given Fentanyl (Sublimaze) Confirm Administered Dose 250 mcg .ROUTE .STK-MED ONE Stop: 01/07/17 10:06 Glycopyrrolate () Confirm Administered Dose 1 mg .ROUTE .STK-MED ONE Stop: 01/07/17 11:21 Hydromorphone HCl (Dilaudid) 1 mg IVPUSH ONETIME ONE Stop: 01/02/17 17:48 Last Admin: 01/02/17 18:18 Dose: 1 mg Hydromorphone HCl (Dilaudid) 0.5 mg IVPUSH ONETIME ONE Stop: 01/02/17 18:42 Last Admin: 01/02/17 18:55 Dose: 0.5 mg Hydromorphone HCl (Dilaudid) 0.5 mg IVPUSH ONETIME ONE Stop: 01/02/17 20:28 Last Admin: 01/02/17 20:36 Dose: 0.5 mg Hydromorphone HCl (Dilaudid) 0.5 mg IVPUSH ONETIME ONE Stop: 01/02/17 21:42 Last Admin: 01/02/17 21:48 Dose: 0.5 mg Hydromorphone HCl (Dilaudid) Confirm Administered Dose 1 mg .ROUTE .STK-MED ONE Stop: 01/07/17 10:05 Hydromorphone HCl (Dilaudid) Confirm Administered Dose 1 mg .ROUTE .STK-MED ONE Stop: 01/07/17 11:11 Sodium Chloride (Normal Saline) 1,000 mls @ 999 mls/hr IV ONETIME ONE Stop: 01/02/17 18:46 Last Admin: 01/02/17 18:21 Dose: 999 mls/hr Levofloxacin/Dextrose 750 mg/ (Premix) 150 mls @ 100 mls/hr IV ONETIME ONE Stop: 01/02/17 19:36 Last Admin: 01/02/17 18:23 Dose: 100 mls/hr Lactated Ringer's (Ringers, Lactated) 1,000 mls [facility] [place] Last Admin: 01/02/17 23:35 Dose: 150 mls/hr Dextrose/Sodium Chloride (Dextrose 5%-1/2 Ns) 1,000 mls @ 125 mls/hr IV ASDIRECTED [facility] Last Admin: 01/03/17 06:12 Dose: 125 mls/hr Cefoxitin Sodium 2 gm/ Premix 50 mls @ 100 mls/hr IV Q12H [facility] Last Admin: 01/05/17 00:39 Dose: 100 mls/hr Doxycycline Hyclate 100 mg/ (Sodium Chloride) 100 mls @ 100 mls/hr IV Q12H [facility] Stop: 01/07/17 09:00 Last Admin: 01/07/17 02:31 Dose: 100 mls/hr Levofloxacin/Dextrose 750 mg/ (Premix) 150 mls @ 100 mls/hr IV Q24H [facility] Stop: 01/07/17 09:00 Last Admin: 01/06/17 17:13 Dose: 100 mls/hr Lactated Ringer's (Ringers, Lactated) 1,000 mls @ 75 mls[facility] [place] Last Admin: 01/05/17 13:55 Dose: 75 mls/hr Metronidazole 500 mg/ Premix 100 mls @ 100 mls/hr IV Q8H [facility] Stop: 01/07/17 09:00 Last Admin: 01/07/17 00:55 Dose: 100 mls/hr Sodium Chloride (Normal Saline) 500 mls @ 999 mls/hr IV .BOLUS ONE Stop: 01/06/17 10:30 Last Admin: 01/06/17 13:22 Dose: 999 mls/hr Cefoxitin Sodium 2 gm/ Premix 50 mls @ 100 mls/hr IV ONETIME ONE Stop: 01/07/17 09:10 Last Admin: 01/07/17 09:47 Dose: 100 mls/hr Lidocaine HCl (Xylocaine-Mpf 1%) Confirm Administered Dose 6 mls @ as directed .ROUTE .STK-MED ONE Stop: 01/07/17 10:38 Insulin Aspart (Novolog) 0 unit SUBCUT Q6H [facility] PRN Reason: Protocol Last Admin: 01/03/17 06:20 Dose: Not Given Insulin Aspart (Novolog) 0 unit SUBCUT QIDACANDBED [facility] PRN Reason: Protocol Last Admin: 01/05/17 06:47 Dose: Not Given Iopamidol (Isovue-300 (61%)) 125 ml IVPUSH ONETIME ONE Stop: 01/02/17 19:12 Last Admin: 01/02/17 20:09 Dose: 125 ml Iopamidol (Isovue-300 (61%)) 125 ml IVPUSH ONETIME ONE Stop: 01/04/17 08:46 Last Admin: 01/04/17 09:41 Dose: 125 ml Iopamidol (Isovue-300 (61%)) 125 ml IVPUSH ONETIME ONE Stop: 01/06/17 12:13 Last Admin: 01/06/17 12:23 Dose: 125 ml Ketorolac Tromethamine (Toradol) 60 mg IVPUSH Q6H [facility] Stop: 01/05/17 12:31 Last Admin: 01/05/17 06:32 Dose: Not Given Ketorolac Tromethamine (Toradol) 60 mg IVPUSH Q6H [facility] Stop: 01/06/17 03:01 Last Admin: 01/06/17 02:32 Dose: 60 mg Lidocaine/Epinephrine (Xylocaine 1% With Epinephrine 1:100,000) Confirm Administered Dose 20 ml .ROUTE .STK-MED ONE Stop: 01/07/17 09:10 Lisinopril (Prinivil) 5 mg PO DAILY [facility] Last Admin: 01/05/17 08:25 Dose: Not Given Metoclopramide HCl (Reglan) 10 mg IVPUSH ONETIME ONE Stop: 01/02/17 17:48 Last Admin: 01/02/17 18:18 Dose: 10 mg Metronidazole (Flagyl) 500 mg PO TID [facility] Midazolam HCl (Versed 1 Mg/Ml) Confirm Administered Dose 2 mg .ROUTE .STK-MED ONE Stop: 01/07/17 10:05 Morphine Sulfate (Morphine) 5 mg IM ONETIME ONE Stop: 01/03/17 23:14 Last Admin: 01/03/17 23:41 Dose: 5 mg Morphine Sulfate (Morphine) 5 mg IM ONETIME ONE Stop: 01/04/17 21:01 Last Admin: 01/04/17 21:13 Dose: 5 mg Neostigmine Methylsulfate (Neostigmine) Confirm Administered Dose 5 mg .ROUTE .STK-MED ONE Stop: 01/07/17 11:21 Ondansetron HCl (Zofran) 4 mg IVPUSH ONETIME ONE Stop: 01/02/17 21:42 Last Admin: 01/02/17 21:46 Dose: 4 mg Ondansetron HCl (Zofran) Confirm Administered Dose 4 mg .ROUTE .STK-MED ONE Stop: 01/07/17 10:05 Oxycodone/Acetaminophen (Percocet 325-5 Mg) 1 tab PO Q4H PRN PRN Reason: Pain Last Admin: 01/04/17 07:02 Dose: 1 tab Oxycodone/Acetaminophen (Percocet 325-5 Mg) 2 tab PO Q4HR PRN PRN Reason: Pain (moderate 4-6) Pneumococcal Polyvalent Vaccine (Pneumovax 23) 0.5 ml IM .ONCE ONE Stop: 01/06/17 18:47 Potassium Chloride (Klor-Con M20) 40 meq PO ONETIME ONE Stop: 01/05/17 11:16 Last Admin: 01/05/17 11:35 Dose: 40 meq Promethazine HCl (Phenergan) 25 mg IM ONETIME ONE Stop: 01/03/17 23:22 Last Admin: 01/03/17 23:40 Dose: 25 mg Promethazine HCl (Phenergan) 25 mg IM ONETIME ONE Stop: 01/04/17 21:01 Last Admin: 01/04/17 21:13 Dose: 25 mg Propofol (Diprivan 20 Ml) Confirm Administered Dose 200 mg .ROUTE .STK-MED ONE Stop: 01/07/17 10:05 Rocuronium [place] (Zemuron) Confirm Administered Dose 50 mg .ROUTE .STK-MED ONE Stop: 01/07/17 10:05 Sertraline HCl (Zoloft) 25 mg PO DAILY [facility] Last Admin: 01/05/17 11:40 Dose: Not Given Sodium Chloride (Saline Flush) 10 ml FLUSH ONETIME PRN PRN Reason: IV FLUSH Last Admin: 01/02/17 20:09 Dose: 10 ml Sodium Chloride (Saline Flush) 10 ml FLUSH ONETIME ONE Stop: 01/04/17 08:46 Last Admin: 01/04/17 09:41 Dose: 10 ml Sodium Chloride (Normal Saline) Confirm Administered Dose 50 ml .ROUTE .STK-MED ONE Stop: 01/07/17 09:11 - Exam Quality Assessment: DVT prophylaxis General: alert, oriented, cooperative, no acute distress HEENT: Pupils equal, Pupils reactive, Mucous membr. moist/pink Neck: supple Lungs: Clear to auscultation, Normal respiratory effort Cardiovascular: Regular Rate, Regular Rhythm Abdomen: bowel sounds present, soft, tenderness (most tenderness noted to left upper/lower quads) (Female) Exam: Deferred Extremities: no edema Neurological: no new focal deficit Psy/Mental Status: alert, anxious Consult PN Assessment/Plan Procedures: Procedures ASSAY OF IRON (02/23/16) ASSAY OF TRANSFERRIN (02/23/16) ASSAY THYROID STIM HORMONE (12/20/16) CHORIONIC GONADOTROPIN ASSAY (02/28/14) COMPLETE CBC AUTOMATED (02/17/16) COMPLETE CBC W/AUTO DIFF WBC (01/01/17) COMPREHEN METABOLIC PANEL (01/01/17) CULTR BACTERIA EXCEPT BLOOD (02/28/14) DRAINAGE OF PILONIDAL CYST (02/28/14) EMERGENCY DEPT VISIT (01/01/17) GLYCOSYLATED HEMOGLOBIN TEST (12/20/16) HEP B CORE ANTIBODY IGM (02/17/16) HEPATITIS A IGM ANTIBODY (02/17/16) HEPATITIS B SURFACE AG IA (02/17/16) HEPATITIS C AB TEST (02/17/16) HYDRATE IV INFUSION ADD-ON (01/01/17) LIPID PANEL (02/23/16) ROUTINE VENIPUNCTURE (01/01/17) SMEAR GRAM STAIN (02/28/14) THER/PROPH/DIAG INJ SC/IM (02/13/16) THER/PROPH/DIAG IV INF INIT (01/01/17) TX/PRO/DX INJ NEW DRUG ADDON (01/01/17) URINALYSIS AUTO W/SCOPE (01/01/17) URINE CULTURE/COLONY COUNT (01/01/17) URINE TEST (01/01/17) Problem List Initiated/Reviewed/Updated: Yes Plan: Tubo-ovarian abscess -Confirmed with CT and US findings. Dr. Porter following and dosing antibiotics --WBC up to 15.43; CRP to 33.4 -Dr. Porter present at time of exam, obtaining surgical consent for hysterectomy and possible bilat oophorectomy -Pain management per Dr. Porter -Labs trended and following -Pain is improving -She is up ambulatory -Discussed possibility of depression with patient and starting medication, sertraline. She is adamant that she is not depressed, just situational at this time. DM -Stable -A1C--7.6; following with CDE -CDE consult- wishes to cont as outpatient. Obesity -Food Service Attendant consult -Recommend exercise; she is working with personal lines underwriter prior to getting ill. Other: DVT and GI prophylax CM/SW for assist with DC planning. Patient is full code status <Margi Godwin - Last Filed: 01/07/17 17:25> - Patient Data Vitals - most recent: Last Vital Signs Temp 37.2 C 01/07/17 13:03 Pulse 100 01/07/17 13:03 Resp 16 01/07/17 13:03 BP 143/88 H 01/07/17 13:03 Pulse Ox 94 L 01/07/17 13:03 I&O - last 24 hours: Intake & Output 01/07/17 01/07/17 01/07/17 06:59 14:59 22:59 Intake Total 1400 2500 Output Total 2200 Balance 1400 300 Lab Results last 24 hrs: Laboratory Results - last 24 hr 01/07/17 01/07/17 01/07/17 Range/Units 04:51 04:51 08:50 WBC 15.43 H (3.98-10.04) K/mm3 RBC 3.65 L (3.98-5.22) M/mm3 Hgb 9.5 L (11.2-15.7) gm/L Hct 29.6 L (34.1-44.9) % MCV 81.1 (79.4-94.8) fl MCH 26.0 (25.6-32.2) pg MCHC 32.1 L (32.2-35.5) g/dl RDW Std Deviation 39.6 (36.4-46.3) fL Plt Count 460 H (182-369) K/mm3 MPV 8.8 L (9.4-12.3) fl Neut % (Auto) 69.8 (34.0-71.1) % Lymph % (Auto) 20.0 (19.3-51.7) % Travis % (Auto) 8.3 (4.7-12.5) % Eos % (Auto) 1.2 (0.7-5.8) Baso % (Auto) 0.2 (0.1-1.2) % Neut # (Auto) 10.77 H (1.56-6.13) K/mm3 Lymph # (Auto) 3.09 (1.18-3.74) K/mm3 Travis # (Auto) 1.28 H (0.24-0.36) K/mm3 Eos # (Auto) 0.19 (0.04-0.36) K/mm3 Baso # (Auto) 0.03 (0.01-0.08) K/mm3 Sodium 137 (136-145) mEq/L Potassium 3.9 (3.5-5.1) mEq/L Chloride 102 (98-107) mEq/L Carbon Dioxide 29 (21-32) mEq/L Anion Gap 9.9 (5-15) BUN 5 L (7-18) mg/dL Creatinine 0.8 (0.55-1.02) mg/dL Est Cr Clr Drug Dosing 81.33 mL/min Estimated GFR (MDRD) > 60 (>60) mL/min BUN/Creatinine Ratio 6.3 L (14-18) Glucose 103 (74-106) mg/dL POC Glucose (70-105) mg/dL Calcium 8.6 (8.5-10.1) mg/dL Magnesium 1.7 L (1.8-2.4) mg/dl Total Bilirubin 0.4 (0.2-1.0) mg/dL AST 24 (15-37) U/L ALT 49 (14-59) U/L Alkaline Phosphatase 116 (46-116) U/L C-Reactive Protein 33.4 H* (<1.0) mg/dL Total Protein 6.4 (6.4-8.2) g/dl Albumin 2.1 L (3.4-5.0) g/dl Globulin 4.3 gm/dL Albumin/Globulin Ratio 0.5 L (1-2) Blood Type A POSITIVE Gel Antibody Screen Negative 01/07/17 01/07/17 01/07/17 Range/Units 10:18 13:10 13:10 WBC 16.49 H (3.98-10.04) K/mm3 RBC 3.63 L (3.98-5.22) M/mm3 Hgb 9.5 L 9.4 L (11.2-15.7) gm/L Hct 29.5 L 29.6 L (34.1-44.9) % MCV 81.5 (79.4-94.8) fl MCH 25.9 (25.6-32.2) pg MCHC 31.8 L (32.2-35.5) g/dl RDW Std Deviation 39.7 (36.4-46.3) fL Plt Count 488 H (182-369) K/mm3 MPV 9.0 L (9.4-12.3) fl Neut % (Auto) (34.0-71.1) % Lymph % (Auto) (19.3-51.7) % Travis % (Auto) (4.7-12.5) % Eos % (Auto) (0.7-5.8) Baso % (Auto) (0.1-1.2) % Neut # (Auto) (1.56-6.13) K/mm3 Lymph # (Auto) (1.18-3.74) K/mm3 Travis # (Auto) (0.24-0.36) K/mm3 Eos # (Auto) (0.04-0.36) K/mm3 Baso # (Auto) (0.01-0.08) K/mm3 Sodium (136-145) mEq/L Potassium (3.5-5.1) mEq/L Chloride (98-107) mEq/L Carbon Dioxide (21-32) mEq/L Anion Gap (5-15) BUN (7-18) mg/dL Creatinine (0.55-1.02) mg/dL Est Cr Clr Drug Dosing mL/min Estimated GFR (MDRD) (>60) mL/min BUN/Creatinine Ratio (14-18) Glucose (74-106) mg/dL POC Glucose 92 (70-105) mg/dL Calcium (8.5-10.1) mg/dL Magnesium (1.8-2.4) mg/dl Total Bilirubin (0.2-1.0) mg/dL AST (15-37) U/L ALT (14-59) U/L Alkaline Phosphatase (46-116) U/L C-Reactive Protein (<1.0) mg/dL Total Protein (6.4-8.2) g/dl Albumin (3.4-5.0) g/dl Globulin gm/dL Albumin/Globulin Ratio (1-2) Blood Type Gel Antibody Screen 01/07/17 01/07/17 Range/Units 13:10 14:45 WBC (3.98-10.04) K/mm3 RBC (3.98-5.22) M/mm3 Hgb (11.2-15.7) gm/L Hct (34.1-44.9) % MCV (79.4-94.8) fl MCH (25.6-32.2) pg MCHC (32.2-35.5) g/dl RDW Std Deviation (36.4-46.3) fL Plt Count (182-369) K/mm3 MPV (9.4-12.3) fl Neut % (Auto) (34.0-71.1) % Lymph % (Auto) (19.3-51.7) % Travis % (Auto) (4.7-12.5) % Eos % (Auto) (0.7-5.8) Baso % (Auto) (0.1-1.2) % Neut # (Auto) (1.56-6.13) K/mm3 Lymph # (Auto) (1.18-3.74) K/mm3 Travis # (Auto) (0.24-0.36) K/mm3 Eos # (Auto) (0.04-0.36) K/mm3 Baso # (Auto) (0.01-0.08) K/mm3 Sodium 137 (136-145) mEq/L Potassium 4.0 (3.5-5.1) mEq/L Chloride 103 (98-107) mEq/L Carbon Dioxide 27 (21-32) mEq/L Anion Gap 11.0 (5-15) BUN 4 L (7-18) mg/dL Creatinine 0.7 (0.55-1.02) mg/dL Est Cr Clr Drug Dosing 92.94 mL/min Estimated GFR (MDRD) > 60 (>60) mL/min BUN/Creatinine Ratio 5.7 L (14-18) Glucose 153 H (74-106) mg/dL POC Glucose 144 H (70-105) mg/dL Calcium 7.9 L (8.5-10.1) mg/dL Magnesium (1.8-2.4) mg/dl Total Bilirubin 0.5 (0.2-1.0) mg/dL AST 21 (15-37) U/L ALT 37 (14-59) U/L Alkaline Phosphatase 104 (46-116) U/L C-Reactive Protein (<1.0) mg/dL Total Protein 5.7 L (6.4-8.2) g/dl Albumin 1.8 L (3.4-5.0) g/dl Globulin 3.9 gm/dL Albumin/Globulin Ratio 0.5 L (1-2) Blood Type Gel Antibody Screen Sukh Results last 24 hrs: Microbiology 01/07/17 11:18 Gram Stain - Final Abdomen - Abscess Med Orders - Current: Current Medications Acetaminophen (Tylenol) 650 mg PO Q4H PRN PRN Reason: Pain (mild 1-3) Docusate Sodium (Colace) 100 mg PO BID J[facility] Ampicillin Sodium/Sulbactam (Sodium 3 gm/ Sodium Chloride) 100 mls @ 200 mls/ hr IV Q6H [facility] Doxycycline Hyclate 100 mg/ (Sodium Chloride) 100 mls @ 100 mls/hr IV Q12HR [facility] Lactated Ringer's (Ringers, Lactated) 1,000 mls @ 125 mls/hr IV ASDIRECTED [facility] Metronidazole 500 mg/ Premix 100 mls @ 100 mls/hr IV Q8H [facility] Stop: 01/11/17 06:59 Ibuprofen (Motrin) 600 mg PO Q6H PRN PRN Reason: Pain (mild 1-3) Ketorolac Tromethamine (Toradol) 30 mg IVPUSH Q6H PRN PRN Reason: Pain (moderate 4-6) Stop: 01/08/17 06:01 Morphine Sulfate (Morphine) 5 mg IM BEDTIME [facility] Stop: 01/09/17 21:01 Ondansetron HCl (Zofran) 4 mg IVPUSH Q4H PRN PRN Reason: Nausea/Vomiting Oxycodone/Acetaminophen (Percocet 325-5 Mg) 2 tab PO Q4H PRN PRN Reason: Pain (moderate 4-6) Promethazine HCl (Phenergan) 25 mg IM BEDTIME [facility] Stop: 01/09/17 21:01 Sodium Chloride (Saline Flush) 10 ml FLUSH ASDIRECTED PRN PRN Reason: Keep Vein Open Discontinued Medications Bupivacaine HCl (Marcaine 0.5%) Confirm Administered Dose 30 ml .ROUTE .STK-MED ONE Stop: 01/07/17 09:11 Last Admin: 01/07/17 10:57 Dose: 20 ml Cefazolin Sodium (Ancef) Confirm Administered Dose 2 gm .ROUTE .STK-MED ONE Stop: 01/07/17 10:05 Cephalexin (Keflex) 500 mg PO Q6H [facility] Last Admin: 01/07/17 09:55 Dose: Not Given Dexamethasone (Dexamethasone) Confirm Administered Dose 4 mg .ROUTE .STK-MED ONE Stop: 01/07/17 10:05 Diatrizoate Meglum/Diatrizoate Sod (Gastrografin 37%) 90 ml PO ONETIME ONE Stop: 01/02/17 19:12 Last Admin: 01/02/17 20:09 Dose: 90 ml Diatrizoate Meglum/Diatrizoate Sod (Gastrografin 37%) 90 ml PO ONETIME ONE Stop: 01/04/17 08:46 Last Admin: 01/04/17 09:41 Dose: 90 ml Diatrizoate Meglum/Diatrizoate Sod (Gastrografin 37%) 90 ml PO ONETIME ONE Stop: 01/06/17 12:13 Last Admin: 01/06/17 12:23 Dose: 90 ml Diphenhydramine HCl (Benadryl) 25 mg IVPUSH ONETIME ONE Stop: 01/02/17 17:51 Last Admin: 01/02/17 18:18 Dose: 25 mg Doxycycline Hyclate (Vibramycin) Confirm Administered Dose 100 mg .ROUTE .STK- MED ONE Stop: 01/04/17 15:28 Last Admin: 01/04/17 15:57 Dose: Not Given Doxycycline Hyclate (Vibramycin) 100 mg PO BID JAMES Last Admin: 01/07/17 09:55 Dose: Not Given Fentanyl (Sublimaze) Confirm Administered Dose 250 mcg .ROUTE .STK-MED ONE Stop: 01/07/17 10:06 Fentanyl (Sublimaze) 50 mcg IVPUSH Q5M PRN PRN Reason: pain Stop: 01/07/17 15:00 Fentanyl (Sublimaze) Confirm Administered Dose 100 mcg .ROUTE .STK-MED ONE Stop: 01/07/17 12:57 Fentanyl (Sublimaze) Confirm Administered Dose 100 mcg .ROUTE .STK-MED ONE Stop: 01/07/17 14:10 Fentanyl (Sublimaze) Confirm Administered Dose 100 mcg .ROUTE .STK-MED ONE Stop: 01/07/17 14:11 Fentanyl (Sublimaze) Confirm Administered Dose 100 mcg .ROUTE .STK-MED ONE Stop: 01/07/17 14:21 Glycopyrrolate () Confirm Administered Dose 1 mg .ROUTE .STK-MED ONE Stop: 01/07/17 11:21 Hydromorphone HCl (Dilaudid) 1 mg IVPUSH ONETIME ONE Stop: 01/02/17 17:48 Last Admin: 01/02/17 18:18 Dose: 1 mg Hydromorphone HCl (Dilaudid) 0.5 mg IVPUSH ONETIME ONE Stop: 01/02/17 18:42 Last Admin: 01/02/17 18:55 Dose: 0.5 mg Hydromorphone HCl (Dilaudid) 0.5 mg IVPUSH ONETIME ONE Stop: 01/02/17 20:28 Last Admin: 01/02/17 20:36 Dose: 0.5 mg Hydromorphone HCl (Dilaudid) 0.5 mg IVPUSH ONETIME ONE Stop: 01/02/17 21:42 Last Admin: 01/02/17 21:48 Dose: 0.5 mg Hydromorphone HCl (Dilaudid) 0.5 mg IVPUSH Q2H PRN PRN Reason: Pain Last Admin: 01/04/17 10:28 Dose: 0.5 mg Hydromorphone HCl (Dilaudid) Confirm Administered Dose 1 mg .ROUTE .STK-MED ONE Stop: 01/07/17 10:05 Hydromorphone HCl (Dilaudid) Confirm Administered Dose 1 mg .ROUTE .STK-MED ONE Stop: 01/07/17 11:11 Hydromorphone HCl (Dilaudid) 0.5 mg IVPUSH Q15M PRN PRN Reason: Pain (severe 7-10) Stop: 01/07/17 12:46 Last Admin: 01/07/17 13:19 Dose: 0.5 mg Sodium Chloride (Normal Saline) 1,000 mls @ 999 mls/hr IV ONETIME ONE Stop: 01/02/17 18:46 Last Admin: 01/02/17 18:21 Dose: 999 mls/hr Levofloxacin/Dextrose 750 mg/ (Premix) 150 mls @ 100 mls/hr IV ONETIME ONE Stop: 01/02/17 19:36 Last Admin: 01/02/17 18:23 Dose: 100 mls/hr Lactated Ringer's (Ringers, Lactated) 1,000 mls @ 150 [facility] [place] Last Admin: 01/02/17 23:35 Dose: 150 mls/hr Dextrose/Sodium Chloride (Dextrose 5%-1/2 Ns) 1,000 mls @ 125 mls/hr IV ASDIRECTED [facility] Last Admin: 01/03/17 06:12 Dose: 125 mls/hr Cefoxitin Sodium 2 gm/ Premix 50 mls @ 100 mls/hr IV Q12H [facility] Last Admin: 01/05/17 00:39 Dose: 100 mls/hr Doxycycline Hyclate 100 mg/ (Sodium Chloride) 100 mls @ 100 mls/hr IV Q12H [facility] Stop: 01/07/17 09:00 Last Admin: 01/07/17 02:31 Dose: 100 mls/hr Levofloxacin/Dextrose 750 mg/ (Premix) 150 mls @ 100 mls/hr IV Q24H [facility] Stop: 01/07/17 09:00 Last Admin: 01/06/17 17:13 Dose: 100 mls/hr Lactated Ringer's (Ringers, Lactated) 1,000 mls @ 75 mls/hr IV ASDIRECTED [facility] Last Admin: 01/05/17 13:55 Dose: 75 mls/hr Metronidazole 500 mg/ Premix 100 mls @ 100 mls/hr IV Q8H [facility] Stop: 01/07/17 09:00 Last Admin: 01/07/17 00:55 Dose: 100 mls/hr Sodium Chloride (Normal Saline) 500 mls @ 999 mls/hr IV .BOLUS ONE Stop: 01/06/17 10:30 Last Admin: 01/06/17 13:22 Dose: 999 mls/hr Cefoxitin Sodium 2 gm/ Premix 50 mls @ 100 mls/hr IV ONETIME ONE Stop: 01/07/17 09:10 Last Admin: 01/07/17 09:47 Dose: 100 mls/hr Lidocaine HCl (Xylocaine-Mpf 1%) Confirm Administered Dose 6 mls @ as directed .ROUTE .STK-MED ONE Stop: 01/07/17 10:38 Hetastarch/Sodium Chloride (Hetastarch 6% In Normal Saline) Confirm Administered Dose 500 mls @ as directed .ROUTE .STK-MED ONE Stop: 01/07/17 12:23 Lactated Ringer's (Ringers, Lactated) Confirm Administered Dose 1,000 mls @ as directed .ROUTE .STK-MED ONE Stop: 01/07/17 12:23 Ibuprofen (Motrin) 600 mg PO Q6H PRN PRN Reason: Fever Last Admin: 01/04/17 12:27 Dose: 600 mg Insulin Aspart (Novolog) 0 unit SUBCUT Q6H [facility] PRN Reason: Protocol Last Admin: 01/03/17 06:20 Dose: Not Given Insulin Aspart (Novolog) 0 unit SUBCUT QIDACANDBED [facility] PRN Reason: Protocol Last Admin: 01/05/17 06:47 Dose: Not Given Iopamidol (Isovue-300 (61%)) 125 ml IVPUSH ONETIME ONE Stop: 01/02/17 19:12 Last Admin: 01/02/17 20:09 Dose: 125 ml Iopamidol (Isovue-300 (61%)) 125 ml IVPUSH ONETIME ONE Stop: 01/04/17 08:46 Last Admin: 01/04/17 09:41 Dose: 125 ml Iopamidol (Isovue-300 (61%)) 125 ml IVPUSH ONETIME ONE Stop: 01/06/17 12:13 Last Admin: 01/06/17 12:23 Dose: 125 ml Iopamidol (Isovue-300 (61%)) 120 ml IVPUSH ONETIME ONE Stop: 01/07/17 14:47 Last Admin: 01/07/17 14:53 Dose: 120 ml Ketorolac Tromethamine (Toradol) 60 mg IVPUSH Q6H [facility] Stop: 01/05/17 12:31 Last Admin: 01/05/17 06:32 Dose: Not Given Ketorolac Tromethamine (Toradol) 60 mg IVPUSH Q6H [facility] Stop: 01/06/17 03:01 Last Admin: 01/06/17 02:32 Dose: 60 mg Lidocaine/Epinephrine (Xylocaine 1% With Epinephrine 1:100,000) Confirm Administered Dose 20 ml .ROUTE .STK-MED ONE Stop: 01/07/17 09:10 Lisinopril (Prinivil) 5 mg PO DAILY [facility] Last Admin: 01/05/17 08:25 Dose: Not Given Lorazepam (Ativan) 0.5 mg PO Q4H PRN PRN Reason: Anxiety Last Admin: 01/07/17 04:52 Dose: 0.5 mg Methylene Blue (Methylene Blue 1%) Confirm Administered Dose 1 ml .ROUTE .STK- MED ONE Stop: 01/07/17 11:55 Metoclopramide HCl (Reglan) 10 mg IVPUSH ONETIME ONE Stop: 01/02/17 17:48 Last Admin: 01/02/17 18:18 Dose: 10 mg Metronidazole (Flagyl) 500 mg PO TID [facility] Metronidazole (Flagyl) 500 mg PO TID [facility] Midazolam HCl (Versed 1 Mg/Ml) Confirm Administered Dose 2 mg .ROUTE .STK-MED ONE Stop: 01/07/17 10:05 Morphine Sulfate (Morphine) 5 mg IM ONETIME ONE Stop: 01/03/17 23:14 Last Admin: 01/03/17 23:41 Dose: 5 mg Morphine Sulfate (Morphine) 5 mg IM ONETIME ONE Stop: 01/04/17 21:01 Last Admin: 01/04/17 21:13 Dose: 5 mg Neostigmine Methylsulfate (Neostigmine) Confirm Administered Dose 5 mg .ROUTE .STK-MED ONE Stop: 01/07/17 11:21 Ondansetron HCl (Zofran) 4 mg IVPUSH ONETIME ONE Stop: 01/02/17 21:42 Last Admin: 01/02/17 21:46 Dose: 4 mg Ondansetron HCl (Zofran) 4 mg IVPUSH Q4H PRN PRN Reason: Nausea/Vomiting Last Admin: 01/04/17 08:15 Dose: 4 mg Ondansetron HCl (Zofran) Confirm Administered Dose 4 mg .ROUTE .STK-MED ONE Stop: 01/07/17 10:05 Ondansetron HCl (Zofran) 4 mg IVPUSH ONETIME PRN PRN Reason: Nausea/Vomiting Stop: 01/07/17 15:00 Last Admin: 01/07/17 13:13 Dose: 4 mg Oxycodone/Acetaminophen (Percocet 325-5 Mg) 1 tab PO Q4H PRN PRN Reason: Pain Last Admin: 01/04/17 07:02 Dose: 1 tab Oxycodone/Acetaminophen (Percocet 325-5 Mg) 2 tab PO Q4HR PRN PRN Reason: Pain (moderate 4-6) Oxycodone/Acetaminophen (Percocet 325-5 Mg) 2 tab PO Q4H PRN PRN Reason: Pain (moderate 4-6) Last Admin: 01/07/17 04:48 Dose: 2 tab Pneumococcal Polyvalent Vaccine (Pneumovax 23) 0.5 ml IM .ONCE ONE Stop: 01/06/17 18:47 Potassium Chloride (Klor-Con M20) 40 meq PO ONETIME ONE Stop: 01/05/17 11:16 Last Admin: 01/05/17 11:35 Dose: 40 meq Potassium Chloride (Klor-Con M20) 20 meq PO BEDTIME [facility] Last Admin: 01/06/17 20:20 Dose: 20 meq Promethazine HCl (Phenergan) 25 mg IM ONETIME ONE Stop: 01/03/17 23:22 Last Admin: 01/03/17 23:40 Dose: 25 mg Promethazine HCl (Phenergan) 25 mg IM ONETIME ONE Stop: 01/04/17 21:01 Last Admin: 01/04/17 21:13 Dose: 25 mg Propofol (Diprivan 20 Ml) Confirm Administered Dose 200 mg .ROUTE .STK-MED ONE Stop: 01/07/17 10:05 Rocuronium [place] (Zemuron) Confirm Administered Dose 50 mg .ROUTE .STK-MED ONE Stop: 01/07/17 10:05 Saccharomyces Boulardii (Florastor) 250 mg PO BID [facility] Last Admin: 01/07/17 09:55 Dose: Not Given Sertraline HCl (Zoloft) 25 mg PO DAILY [facility] Last Admin: 01/05/17 11:40 Dose: Not Given Sodium Chloride (Saline Flush) 10 ml FLUSH ONETIME PRN PRN Reason: IV FLUSH Last Admin: 01/02/17 20:09 Dose: 10 ml Sodium Chloride (Saline Flush) 10 ml FLUSH ONETIME ONE Stop: 01/04/17 08:46 Last Admin: 01/04/17 09:41 Dose: 10 ml Sodium Chloride (Saline Flush) 10 ml FLUSH ONETIME PRN PRN Reason: IV FLUSH Last Admin: 01/06/17 12:23 Dose: 10 ml Sodium Chloride (Normal Saline) Confirm Administered Dose 50 ml .ROUTE .STK-MED ONE Stop: 01/07/17 09:11 Sodium Chloride (Saline Flush) 20 ml FLUSH ONETIME ONE Stop: 01/07/17 14:47 Last Admin: 01/07/17 14:55 Dose: 20 ml Zolpidem Tartrate (Ambien) 5 mg PO BEDTIME PRN PRN Reason: Insomnia Last Admin: 01/06/17 20:20 Dose: 5 mg Consult PN Assessment/Plan Procedures: Procedures ASSAY OF IRON (02/23/16) ASSAY OF TRANSFERRIN (02/23/16) ASSAY THYROID STIM HORMONE (12/20/16) CHORIONIC GONADOTROPIN ASSAY (02/28/14) COMPLETE CBC AUTOMATED (02/17/16) COMPLETE CBC W/AUTO DIFF WBC (01/01/17) COMPREHEN METABOLIC PANEL (01/01/17) CULTR BACTERIA EXCEPT BLOOD (02/28/14) DRAINAGE OF PILONIDAL CYST (02/28/14) EMERGENCY DEPT VISIT (01/01/17) GLYCOSYLATED HEMOGLOBIN TEST (12/20/16) HEP B CORE ANTIBODY IGM (02/17/16) HEPATITIS A IGM ANTIBODY (02/17/16) HEPATITIS B SURFACE AG IA (02/17/16) HEPATITIS C AB TEST (02/17/16) HYDRATE IV INFUSION ADD-ON (01/01/17) LIPID PANEL (02/23/16) ROUTINE VENIPUNCTURE (01/01/17) SMEAR GRAM STAIN (02/28/14) THER/PROPH/DIAG INJ SC/IM (02/13/16) THER/PROPH/DIAG IV INF INIT (01/01/17) TX/PRO/DX INJ NEW DRUG ADDON (01/01/17) URINALYSIS AUTO W/SCOPE (01/01/17) URINE CULTURE/COLONY COUNT (01/01/17) URINE TEST (01/01/17) Plan: Surgery today, will hold Metformin and start Insulin.
--- NOTE | 2017-01-07 11:45 | PCM.PN ---
- General Info Date of Service: 01/07/17 Admission Dx/Problem (Free Text): Admission Diagnosis/Problem Admission Diagnosis/Problem Tubo-ovarian abscess Patient seen this morning with Dr. Porter; pain worsening to lower abdomen, left side. She was febrile overnight and this morning. Labs with increased WBC and CRP this morning. - Review of Systems General: Reports: Fever, Fatigue HEENT: Reports: no symptoms Pulmonary: Reports: no symptoms. Denies: shortness of breath, cough Cardiovascular: Reports: No Symptoms. Denies: Chest Pain, Palpitations Gastrointestinal: Reports: Abdominal pain, Decreased appetite, Nausea (this morning) Genitourinary: Denies: burning, pain, urgency Neurological: Reports: No Symptoms Psychiatric: Reports: no symptoms - Patient Data Vitals - most recent: Last Vital Signs Temp 100.4 F 01/07/17 10:20 Pulse 111 H 01/07/17 10:20 Resp 16 01/07/17 10:20 BP 130/82 01/07/17 10:20 Pulse Ox 94 L 01/07/17 10:20 Weight - most recent: 228 lb 14.4 oz I&O - last 24 hours: Intake & Output 01/06/17 01/07/17 01/07/17 22:59 06:59 14:59 Intake Total 1050 1400 Balance 1050 1400 Lab Results last 24 hrs: Laboratory Results - last 24 hr 01/07/17 01/07/17 01/07/17 Range/Units 04:51 04:51 08:50 WBC 15.43 H (3.98-10.04) K/mm3 RBC 3.65 L (3.98-5.22) M/mm3 Hgb 9.5 L (11.2-15.7) gm/L Hct 29.6 L (34.1-44.9) % MCV 81.1 (79.4-94.8) fl MCH 26.0 (25.6-32.2) pg MCHC 32.1 L (32.2-35.5) g/dl RDW Std Deviation 39.6 (36.4-46.3) fL Plt Count 460 H (182-369) K/mm3 MPV 8.8 L (9.4-12.3) fl Neut % (Auto) 69.8 (34.0-71.1) % Lymph % (Auto) 20.0 (19.3-51.7) % [place] % (Auto) 8.3 (4.7-12.5) % Eos % (Auto) 1.2 (0.7-5.8) Baso % (Auto) 0.2 (0.1-1.2) % Neut # (Auto) 10.77 H (1.56-6.13) K/mm3 Lymph # (Auto) 3.09 (1.18-3.74) K/mm3 [place] # (Auto) 1.28 H (0.24-0.36) K/mm3 Eos # (Auto) 0.19 (0.04-0.36) K/mm3 Baso # (Auto) 0.03 (0.01-0.08) K/mm3 Sodium 137 (136-145) mEq/L Potassium 3.9 (3.5-5.1) mEq/L Chloride 102 (98-107) mEq/L Carbon Dioxide 29 (21-32) mEq/L Anion Gap 9.9 (5-15) BUN 5 L (7-18) mg/dL Creatinine 0.8 (0.55-1.02) mg/dL Est Cr Clr Drug Dosing 81.33 mL/min Estimated GFR (MDRD) > 60 (>60) mL/min BUN/Creatinine Ratio 6.3 L (14-18) Glucose 103 (74-106) mg/dL POC Glucose (70-105) mg/dL Calcium 8.6 (8.5-10.1) mg/dL Magnesium 1.7 L (1.8-2.4) mg/dl Total Bilirubin 0.4 (0.2-1.0) mg/dL AST 24 (15-37) U/L ALT 49 (14-59) U/L Alkaline Phosphatase 116 (46-116) U/L C-Reactive Protein 33.4 H* (<1.0) mg/dL Total Protein 6.4 (6.4-8.2) g/dl Albumin 2.1 L (3.4-5.0) g/dl Globulin 4.3 gm/dL Albumin/Globulin Ratio 0.5 L (1-2) Blood Type A POSITIVE Gel Antibody Screen Negative 01/07/17 Range/Units 10:18 WBC (3.98-10.04) K/mm3 RBC (3.98-5.22) M/mm3 Hgb (11.2-15.7) gm/L Hct (34.1-44.9) % MCV (79.4-94.8) fl MCH (25.6-32.2) pg MCHC (32.2-35.5) g/dl RDW Std Deviation (36.4-46.3) fL Plt Count (182-369) K/mm3 MPV (9.4-12.3) fl Neut % (Auto) (34.0-71.1) % Lymph % (Auto) (19.3-51.7) % [place] % (Auto) (4.7-12.5) % Eos % (Auto) (0.7-5.8) Baso % (Auto) (0.1-1.2) % Neut # (Auto) (1.56-6.13) K/mm3 Lymph # (Auto) (1.18-3.74) K/mm3 [place] # (Auto) (0.24-0.36) K/mm3 Eos # (Auto) (0.04-0.36) K/mm3 Baso # (Auto) (0.01-0.08) K/mm3 Sodium (136-145) mEq/L Potassium (3.5-5.1) mEq/L Chloride (98-107) mEq/L Carbon Dioxide (21-32) mEq/L Anion Gap (5-15) BUN (7-18) mg/dL Creatinine (0.55-1.02) mg/dL Est Cr Clr Drug Dosing mL/min Estimated GFR (MDRD) (>60) mL/min BUN/Creatinine Ratio (14-18) Glucose (74-106) mg/dL POC Glucose 92 (70-105) mg/dL Calcium (8.5-10.1) mg/dL Magnesium (1.8-2.4) mg/dl Total Bilirubin (0.2-1.0) mg/dL AST (15-37) U/L ALT (14-59) U/L Alkaline Phosphatase (46-116) U/L C-Reactive Protein (<1.0) mg/dL Total Protein (6.4-8.2) g/dl Albumin (3.4-5.0) g/dl Globulin gm/dL Albumin/Globulin Ratio (1-2) Blood Type Gel Antibody Screen Med Orders - Current: Current Medications Cephalexin (Keflex) 500 mg PO Q6H [facility] Last Admin: 01/07/17 09:55 Dose: Not Given Doxycycline Hyclate (Vibramycin) 100 mg PO BID [facility] Last Admin: 01/07/17 09:55 Dose: Not Given Hydromorphone HCl (Dilaudid) 0.5 mg IVPUSH Q2H PRN PRN Reason: Pain Last Admin: 01/04/17 10:28 Dose: 0.5 mg Ibuprofen (Motrin) 600 mg PO Q6H PRN PRN Reason: Fever Last Admin: 01/04/17 12:27 Dose: 600 mg Lorazepam (Ativan) 0.5 mg PO Q4H PRN PRN Reason: Anxiety Last Admin: 01/07/17 04:52 Dose: 0.5 mg Metronidazole (Flagyl) 500 mg PO TID [facility] Ondansetron HCl (Zofran) 4 mg IVPUSH Q4H PRN PRN Reason: Nausea/Vomiting Last Admin: 01/04/17 08:15 Dose: 4 mg Oxycodone/Acetaminophen (Percocet 325-5 Mg) 2 tab PO Q4H PRN PRN Reason: Pain (moderate 4-6) Last Admin: 01/07/17 04:48 Dose: 2 tab Potassium Chloride (Klor-Con M20) 20 meq PO BEDTIME [facility] Last Admin: 01/06/17 20:20 Dose: 20 meq Saccharomyces Boulardii (Florastor) 250 mg PO BID [facility] Last Admin: 01/07/17 09:55 Dose: Not Given Sodium Chloride (Saline Flush) 10 ml FLUSH ONETIME PRN PRN Reason: IV FLUSH Last Admin: 01/06/17 12:23 Dose: 10 ml Zolpidem Tartrate (Ambien) 5 mg PO BEDTIME PRN PRN Reason: Insomnia Last Admin: 01/06/17 20:20 Dose: 5 mg Discontinued Medications Bupivacaine HCl (Marcaine 0.5%) Confirm Administered Dose 30 ml .ROUTE .STK-MED ONE Stop: 01/07/17 09:11 Cefazolin Sodium (Ancef) Confirm Administered Dose 2 gm .ROUTE .STK-MED ONE Stop: 01/07/17 10:05 Dexamethasone (Dexamethasone) Confirm Administered Dose 4 mg .ROUTE .STK-MED ONE Stop: 01/07/17 10:05 Diatrizoate Meglum/Diatrizoate Sod (Gastrografin 37%) 90 ml PO ONETIME ONE Stop: 01/02/17 19:12 Last Admin: 01/02/17 20:09 Dose: 90 ml Diatrizoate Meglum/Diatrizoate Sod (Gastrografin 37%) 90 ml PO ONETIME ONE Stop: 01/04/17 08:46 Last Admin: 01/04/17 09:41 Dose: 90 ml Diatrizoate Meglum/Diatrizoate Sod (Gastrografin 37%) 90 ml PO ONETIME ONE Stop: 01/06/17 12:13 Last Admin: 01/06/17 12:23 Dose: 90 ml Diphenhydramine HCl (Benadryl) 25 mg IVPUSH ONETIME ONE Stop: 01/02/17 17:51 Last Admin: 01/02/17 18:18 Dose: 25 mg Doxycycline Hyclate (Vibramycin) Confirm Administered Dose 100 mg .ROUTE .STK- MED ONE Stop: 01/04/17 15:28 Last Admin: 01/04/17 15:57 Dose: Not Given Fentanyl (Sublimaze) Confirm Administered Dose 250 mcg .ROUTE .STK-MED ONE Stop: 01/07/17 10:06 Glycopyrrolate () Confirm Administered Dose 1 mg .ROUTE .STK-MED ONE Stop: 01/07/17 11:21 Hydromorphone HCl (Dilaudid) 1 mg IVPUSH ONETIME ONE Stop: 01/02/17 17:48 Last Admin: 01/02/17 18:18 Dose: 1 mg Hydromorphone HCl (Dilaudid) 0.5 mg IVPUSH ONETIME ONE Stop: 01/02/17 18:42 Last Admin: 01/02/17 18:55 Dose: 0.5 mg Hydromorphone HCl (Dilaudid) 0.5 mg IVPUSH ONETIME ONE Stop: 01/02/17 20:28 Last Admin: 01/02/17 20:36 Dose: 0.5 mg Hydromorphone HCl (Dilaudid) 0.5 mg IVPUSH ONETIME ONE Stop: 01/02/17 21:42 Last Admin: 01/02/17 21:48 Dose: 0.5 mg Hydromorphone HCl (Dilaudid) Confirm Administered Dose 1 mg .ROUTE .STK-MED ONE Stop: 01/07/17 10:05 Hydromorphone HCl (Dilaudid) Confirm Administered Dose 1 mg .ROUTE .STK-MED ONE Stop: 01/07/17 11:11 Sodium Chloride (Normal Saline) 1,000 mls @ 999 mls/hr IV ONETIME ONE Stop: 01/02/17 18:46 Last Admin: 01/02/17 18:21 Dose: 999 mls/hr Levofloxacin/Dextrose 750 mg/ (Premix) 150 mls @ 100 mls/hr IV ONETIME ONE Stop: 01/02/17 19:36 Last Admin: 01/02/17 18:23 Dose: 100 mls/hr Lactated Ringer's (Ringers, Lactated) 1,000 mls @ 150 mls/hr IV ASDIRECTED [facility] Last Admin: 01/02/17 23:35 Dose: 150 mls/hr Dextrose/Sodium Chloride (Dextrose 5%-1/2 Ns) 1,000 mls @ 125 mls/hr IV ASDIRECTED [facility] Last Admin: 01/03/17 06:12 Dose: 125 mls/hr Cefoxitin Sodium 2 gm/ Premix 50 mls @ 100 mls/hr IV Q12H [facility] Last Admin: 01/05/17 00:39 Dose: 100 mls/hr Doxycycline Hyclate 100 mg/ (Sodium Chloride) 100 mls @ 100 mls/hr IV Q12H [facility] Stop: 01/07/17 09:00 Last Admin: 01/07/17 02:31 Dose: 100 mls/hr Levofloxacin/Dextrose 750 mg/ (Premix) 150 mls @ 100 mls/hr IV Q24H [facility] Stop: 01/07/17 09:00 Last Admin: 01/06/17 17:13 Dose: 100 mls/hr Lactated Ringer's (Ringers, Lactated) 1,000 mls @ 75 mls/hr IV ASDIRECTED [facility] Last Admin: 01/05/17 13:55 Dose: 75 mls/hr Metronidazole 500 mg/ Premix 100 mls @ 100 mls/hr IV Q8H [facility] Stop: 01/07/17 09:00 Last Admin: 01/07/17 00:55 Dose: 100 mls/hr Sodium Chloride (Normal Saline) 500 mls @ 999 mls/hr IV .BOLUS ONE Stop: 01/06/17 10:30 Last Admin: 01/06/17 13:22 Dose: 999 mls/hr Cefoxitin Sodium 2 gm/ Premix 50 mls @ 100 mls/hr IV ONETIME ONE Stop: 01/07/17 09:10 Last Admin: 01/07/17 09:47 Dose: 100 mls/hr Lidocaine HCl (Xylocaine-Mpf 1%) Confirm Administered Dose 6 mls @ as directed .ROUTE .STK-MED ONE Stop: 01/07/17 10:38 Insulin Aspart (Novolog) 0 unit SUBCUT Q6H [facility] PRN Reason: Protocol Last Admin: 01/03/17 06:20 Dose: Not Given Insulin Aspart (Novolog) 0 unit SUBCUT QIDACANDBED [facility] PRN Reason: Protocol Last Admin: 01/05/17 06:47 Dose: Not Given Iopamidol (Isovue-300 (61%)) 125 ml IVPUSH ONETIME ONE Stop: 01/02/17 19:12 Last Admin: 01/02/17 20:09 Dose: 125 ml Iopamidol (Isovue-300 (61%)) 125 ml IVPUSH ONETIME ONE Stop: 01/04/17 08:46 Last Admin: 01/04/17 09:41 Dose: 125 ml Iopamidol (Isovue-300 (61%)) 125 ml IVPUSH ONETIME ONE Stop: 01/06/17 12:13 Last Admin: 01/06/17 12:23 Dose: 125 ml Ketorolac Tromethamine (Toradol) 60 mg IVPUSH Q6H [facility] Stop: 01/05/17 12:31 Last Admin: 01/05/17 06:32 Dose: Not Given Ketorolac Tromethamine (Toradol) 60 mg IVPUSH Q6H [facility] Stop: 01/06/17 03:01 Last Admin: 01/06/17 02:32 Dose: 60 mg Lidocaine/Epinephrine (Xylocaine 1% With Epinephrine 1:100,000) Confirm Administered Dose 20 ml .ROUTE .STK-MED ONE Stop: 01/07/17 09:10 Lisinopril (Prinivil) 5 mg PO DAILY [facility] Last Admin: 01/05/17 08:25 Dose: Not Given Metoclopramide HCl (Reglan) 10 mg IVPUSH ONETIME ONE Stop: 01/02/17 17:48 Last Admin: 01/02/17 18:18 Dose: 10 mg Metronidazole (Flagyl) 500 mg PO TID [facility] Midazolam HCl (Versed 1 Mg/Ml) Confirm Administered Dose 2 mg .ROUTE .STK-MED ONE Stop: 01/07/17 10:05 Morphine Sulfate (Morphine) 5 mg IM ONETIME ONE Stop: 01/03/17 23:14 Last Admin: 01/03/17 23:41 Dose: 5 mg Morphine Sulfate (Morphine) 5 mg IM ONETIME ONE Stop: 01/04/17 21:01 Last Admin: 01/04/17 21:13 Dose: 5 mg Neostigmine Methylsulfate (Neostigmine) Confirm Administered Dose 5 mg .ROUTE .STK-MED ONE Stop: 01/07/17 11:21 Ondansetron HCl (Zofran) 4 mg IVPUSH ONETIME ONE Stop: 01/02/17 21:42 Last Admin: 01/02/17 21:46 Dose: 4 mg Ondansetron HCl (Zofran) Confirm Administered Dose 4 mg .ROUTE .STK-MED ONE Stop: 01/07/17 10:05 Oxycodone/Acetaminophen (Percocet 325-5 Mg) 1 tab PO Q4H PRN PRN Reason: Pain Last Admin: 01/04/17 07:02 Dose: 1 tab Oxycodone/Acetaminophen (Percocet 325-5 Mg) 2 tab PO Q4HR PRN PRN Reason: Pain (moderate 4-6) Pneumococcal Polyvalent Vaccine (Pneumovax 23) 0.5 ml IM .ONCE ONE Stop: 01/06/17 18:47 Potassium Chloride (Klor-Con M20) 40 meq PO ONETIME ONE Stop: 01/05/17 11:16 Last Admin: 01/05/17 11:35 Dose: 40 meq Promethazine HCl (Phenergan) 25 mg IM ONETIME ONE Stop: 01/03/17 23:22 Last Admin: 01/03/17 23:40 Dose: 25 mg Promethazine HCl (Phenergan) 25 mg IM ONETIME ONE Stop: 01/04/17 21:01 Last Admin: 01/04/17 21:13 Dose: 25 mg Propofol (Diprivan 20 Ml) Confirm Administered Dose 200 mg .ROUTE .STK-MED ONE Stop: 01/07/17 10:05 Rocuronium [place] (Zemuron) Confirm Administered Dose 50 mg .ROUTE .STK-MED ONE Stop: 01/07/17 10:05 Sertraline HCl (Zoloft) 25 mg PO DAILY [facility] Last Admin: 01/05/17 11:40 Dose: Not Given Sodium Chloride (Saline Flush) 10 ml FLUSH ONETIME PRN PRN Reason: IV FLUSH Last Admin: 01/02/17 20:09 Dose: 10 ml Sodium Chloride (Saline Flush) 10 ml FLUSH ONETIME ONE Stop: 01/04/17 08:46 Last Admin: 01/04/17 09:41 Dose: 10 ml Sodium Chloride (Normal Saline) Confirm Administered Dose 50 ml .ROUTE .STK-MED ONE Stop: 01/07/17 09:11 - Exam Quality Assessment: DVT prophylaxis General: alert, oriented, cooperative, mild distress HEENT: Pupils equal, Pupils reactive, EOMI, Mucous membr. moist/pink Neck: supple Lungs: Clear to auscultation, Normal respiratory effort, Decreased breath sounds (bases) Cardiovascular: Regular Rate, Regular Rhythm Abdomen: bowel sounds present, tenderness (diffuse today; worse to LLQ). No: rigidity, rebound, guarding (Female) Exam: Deferred Extremities: no edema Neurological: no new focal deficit Psy/Mental Status: alert, normal affect, normal mood - Problem List & Annotations (1) Pelvic pain SNOMED Code(s): 23076021 Code(s): R10.2 - PELVIC AND PERINEAL PAIN Status: Acute Priority: High Current Visit: Yes (2) Tubo-ovarian abscess SNOMED Code(s): 98363569 Code(s): N70.93 - SALPINGITIS AND OOPHORITIS, UNSPECIFIED Status: Acute Priority: High Current Visit: Yes (3) Obesity SNOMED Code(s): 195533746 Code(s): E66.9 - OBESITY, UNSPECIFIED Status: Acute Priority: Medium Current Visit: Yes Qualifiers: Obesity type: unspecified obesity type (4) Diabetes SNOMED Code(s): 76763578 Code(s): E11.9 - TYPE 2 DIABETES MELLITUS WITHOUT COMPLICATIONS Status: Acute Priority: Medium Current Visit: Yes Qualifiers: Diabetes mellitus type: type 2 Diabetes mellitus complication status: without complication Diabetes mellitus senior living insulin use: without parts counterman use Qualified Code(s): E11.9 - Type 2 diabetes mellitus without complications - Problem List Review Problem List Initiated/Reviewed/Updated: Yes - My Orders Last 24 Hours: My Active Orders 01/06/17 11:34 LORazepam [Ativan] 0.5 mg PO Q4H PRN 01/07/17 Lunch Nothing per Oral Now Diet [DIET] 01/08/17 05:00 C-REACTIVE PROTEIN [CHEM] DAILY COMPREHENSIVE METABOLIC PN,CMP [CHEM] DAILY MAGNESIUM [CHEM] DAILY 01/08/17 08:30 CBC WITH AUTO DIFF [HEME] DAILY 01/09/17 05:00 C-REACTIVE PROTEIN [CHEM] DAILY COMPREHENSIVE METABOLIC PN,CMP [CHEM] DAILY MAGNESIUM [CHEM] DAILY 01/09/17 08:30 CBC WITH AUTO DIFF [HEME] DAILY 01/10/17 05:00 C-REACTIVE PROTEIN [CHEM] DAILY COMPREHENSIVE METABOLIC PN,CMP [CHEM] DAILY MAGNESIUM [CHEM] DAILY 01/10/17 08:30 CBC WITH AUTO DIFF [HEME] DAILY - Plan Plan:: I/P: Tubo-ovarian abscess--pain worsening; reviewed labs with Dr. Porter early this morning -WBC/CRP worsening today -Plans for surgery this morning -NPO -Discussed possibility of depression with patient and starting medication, sertraline. She is adamant that she is not depressed, just situational at this time. DM -Stable -Will obtain A1C--7.6; following with CDE -CDE consult- wishes to cont as outpatient. 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 Other: DVT and GI prophylax CM/SW for assist with DC planning. Patient is full code status
[2017-01-07] MEDS ORDERED: Ondansetron 4 MG/2 ML SDV IVPUSH PRN ×2 (11:46→13:57)
[2017-01-07] MEDS ORDERED: fentaNYL 100 MCG/2 ML SDV IVPUSH PRN (11:46)
[2017-01-07] MEDS ORDERED: Hetastarch in NS 500 ML ONE (12:22)
[2017-01-07] MEDS ORDERED: Lactated Ringers 1,000 ML ONE (12:22)
[2017-01-07] MEDS: HYDROmorphone 0.5 MG/0.5 ML Syringe IVPUSH PRN ×2 (12:53→13:19)
[2017-01-07] MEDS ORDERED: fentaNYL 100 MCG/2 ML SDV ONE ×3 (12:56→14:20)
--- NOTE | 2017-01-07 13:03 | PCM.POSTAN ---
POST ANESTHESIA ASSESSMENT - MENTAL STATUS Mental Status: alert, oriented - VITAL SIGNS Pulse Rate: 100 SaO2: 94 Resp Rate: 16 Blood Pressure: 143/88 Temperature: 37.2 C - RESPIRATORY Respiratory Status: respiratory rate WNL, airway patent, O2 saturation stable, supplemental oxygen - CARDIOVASCULAR CV Status: pulse rate WNL, blood pressure stable - GASTROINTESTINAL GI Status: no symptoms - PAIN Pain Score: 6 (meds given) - POST OP HYDRATION Hydration Status: adequate & stable
--- NOTE | 2017-01-07 13:26 | PCM.OPNOTE ---
- General Post-Op/Procedure Note Date of Surgery/Procedure: 01/07/17 Operative Procedure(s): Diagnostic laparoscopy with lysis of adhesions 92739. Supracervical hysterectomy bilateral salpingectomy and left oophorectomy 16388 Pre Op Diagnosis: Tubo-ovarian abscess left Post-Op Diagnosis: Same Anesthesia Technique: General ET tube Primary Surgeon: Sacha Porter Secondary Surgeon: Farhad Gambino Anesthesia Provider: Joy Mendiola Deputy Sheriff [id number] Handler: Suzanne Santos Fluid Replacement, Intraop: 2,500 Output, Urine Amount: 1,100 EBL in mLs: 450 Surgical Drain/Tube Type: Eugenio Lei Flat Drain (Through separate incision below the incision on the right side draining the subcutaneous tissue), Eugenio Lei Round Drain (Through separate left lower quadrant inferior incision draining the peritoneal cavity) Complications: A large abscess of the left side involving the ovary and tube as well as the large intestines (colon) Condition: Good Free Text/Narrative:: Intake & Output 01/06/17 01/07/17 01/07/17 22:59 06:59 14:59 Intake Total 1050 1400 Balance 1050 1400 Patient was transported to the operating room and placed under general anesthesia in low dorsal lithotomy position and prepared and draped in a sterile fashion SCDs in place and functioning prior surgery patient had antibiotics infusing prior surgery. Timeout performed patient had uterine manipulator placed Carson catheter placed and laparoscopy was performed making an injection of 2 mL of 0.5% Marcaine at the umbilicus and midline and a small incision vertical made in pneumoperitoneum needle introduced and pneumoperitoneum was obtained 5 mm trocar introduced laparoscopy revealed intra- abdominal contents a small horizontal transverse incision made at the suprapubic area and additional 5 mm port introduced and lysis of adhesions and evaluation of the pelvic organs revealed dense adhesions of the tubo-ovarian abscess to the colon and uterus. It was determined that it was not safe to continue with attempted laparoscopic lysis of adhesions and laparotomy was indicated. Injecting 10 mL of 0.5% Marcaine area of intended transverse lower abdominal incision incision was made. Sharp section to into the anterior fascia peritoneal cavity was entered and was pus encountered and culture taken for aerobic and anaerobic bacteria the abscess cavity on the left side was approximately 8 x 8 x 8 cm the major portion of the abscess cavity was able to be removed however a portion of the "rind" was so adjacent to the large intestines that it was concerned that we might develop a fenestration into the colon this portion was left to resolve. Grasping the uterus elevating and cross clamping and removing the right fallopian tube utilizing LigaSure the right ovary appeared normal the left ovary and tube were involved in tubo-ovarian complex cross clamping and proceeding cephalad suture ligating with 0 Monocryl the right side was developed the left side crossclamping the area of the abscess cavity and removing the uterus leaving the cervix (supracervical hysterectomy) which was felt to be indicated because of the clinical situation. Irrigation was carried out and additional wall of the abscess was removed for possible because of the location of the abscess and inability to definitely identify the left ureter and because the possibility of damage of same IVP will be obtained after recovery. We did inject methylene blue solution intravenously to attempt to obtain blue urine indicating at least good flow from both ureters patient has significant urinary output but no methylene blue solution appeared in the urine irrigation was carried out 1 L of saline and 100 mL of distilled water hemostasis was obtained with hemoclips and electrocautery sponge needle pack asthma sharp count correct 2 a round [place] drain was placed in the posterior cul-de-sac and sent through a separate stab incision below the main incision on the left side and suture ligated to the skin with silk suture same procedure carried out in the right side for subcutaneous drain the anterior fascia was closed running locking suture of #1 PDS irrigation was obtained tissue followed by placement of the subcutaneous drain via the separate stab incision on the right side and suture ligated to the skin and the flat Eugenio- Lei drain is in the subcutaneous tissues around 1 in the intra-abdominal cavity Dermabond was applied after closure of the skin with 3-0 Monocryl on Francisoc needle and Tegaderm applied to the areas of these separate stab incisions for the drain passage. Patient was transferred postanesthesia care unit in satisfactory condition no blood transfusions and required patient was placed in intensive care unit for close observation and management of her diabetes. One set of pictures taken picture 001 shows the uterine fundus with the colon in the foreground left lower quadrant abscess behind the colon images 002 shows the fundus of the uterus on the left side running across the left 1-1/2 cm of the picture of the abscess cavity which is closely adjacent to the fundus of the uterus image 003 as area of the appendix the appendix appeared grossly normal no evidence of abscess around the appendix image 004 shows the area of the gallbladder and liver with no suprahepatic adhesions images 005 shows the liver and diaphragm were no adhesions image 006 shows right ovary and tube and right tube was subsequently removed Patient will be placed on antibiotic therapy indicated by telephone conversation with the lab at 4 is being plated out at the present time appears to be an anaerobic cocci will place patient on Unasyn 3 g IV every 6 hours vaginal 500 mg 3 times a day IV and doxycycline 100 mg IV twice a day Surgery time 109 minutes PICC line placed for IV therapy and antibiotic therapy
[2017-01-07] MEDS: fentaNYL 100 MCG/2 ML SDV ONE ×2 (13:39→14:28)
--- NOTE | 2017-01-07 13:51 | PCM.SN ---
- Free Text/Narrative Note: Discussed plan and orders with Dr Godwin
[2017-01-07] MEDS ORDERED: Sodium Chloride 0.9% 10 ML Syringe FLUSH PRN (13:57)
[2017-01-07] MEDS ORDERED: Acetaminophen 325 MG Tab PO PRN (13:57)
--- NOTE | 2017-01-07 14:23 | CR ---
Chest: Portable view of the chest was obtained. Comparison: No previous study. Right-sided PICC line is seen with tip lying in the right atrial and superior vena cava junction in satisfactory position. Heart is enlarged but felt to be accentuated from inspiratory effort and portable technique. Lungs are grossly clear. Impression: 1. Right-sided PICC line in satisfactory position. Diagnostic code #2
[2017-01-07] MEDS ORDERED: Sodium Chloride 0.9% 10 ML Syringe FLUSH ONE (14:46)
[2017-01-07] MEDS ORDERED: Iopamidol 612 MG/ML 150 ML Bottle IVPUSH ONE (14:46)
--- NOTE | 2017-01-07 15:41 | CR ---
Intravenous urogram Technique: Preliminary view of the abdomen was obtained which shows contrast within colon from CT exam performed one day earlier. Carson catheter identified within the bladder. Drain identified within the pelvis. Prompt bilateral excretion of contrast noted from both sides. Left ureter is mildly prominent in size down to the pelvic inlet. No findings of obstruction are seen and findings most likely due to a mild ileus within the left ureter secondary to previous left tubo-ovarian abscess. Catheter was unclamped which shows draining of the bladder with only small amount of contrast remaining within the bladder. There is no extravasation of contrast from the ureters to indicate ureteral leak. Impression: 1. Slightly prominent size of the left ureter most likely representing a mild ureteral ileus from prior tubo-ovarian abscess on the left side. Recommend renal ultrasound in 24 hours as baseline exam to make sure this prominence does not worsen to indicate other etiology. 2. No findings of ureteral extravasation. Diagnostic code #3
--- NOTE | 2017-01-07 15:46 | PCM.SN ---
- Free Text/Narrative Note: IVP note I accompanied patient throughout the IVP process, prompt drainage on right and no evidence of contrast in abdominal cavity. Ureteral ileus on left felt to be most likely from edema from area of abscess. The left ureter is seen with contrast in it.
[2017-01-07] MEDS ORDERED: fentaNYL 100 MCG/2 ML SDV IVPUSH ONE (15:58)
[2017-01-07] MEDS ORDERED: Ketorolac 30 MG/ML SDV ONE (15:59)
--- NOTE | 2017-01-07 17:20 | PCM.SN ---
- Free Text/Narrative Note: 1326 consent for picc line placement, order received sterile prep and drape full gown, glove, mask 20 ga. IV then dilated and picc line 4F single lumen 50 cm at the skin flush well good blood return stabilized with stat lock sterile dressing applied with bio gel chest Xray pending done at 1407 dated and timed education provided to patient [id number]
[2017-01-07] MEDS ORDERED: Ketorolac 30 MG/ML SDV IVPUSH PRN (18:00)
[2017-01-07] MEDS: Lactated Ringers 1,000 ML IV SCH (18:04)
[2017-01-07] MEDS: Ampicillin/Sulbactam Na 3 GM in Sodium Chloride 0.9% 100 ML IV SCH (19:33)
[2017-01-07] MEDS: Docusate Sodium 100 MG Cap PO SCH (20:57)
[2017-01-07] MEDS ORDERED: Morphine 10 MG/ML Syringe IM SCH (21:00)
[2017-01-07] MEDS ORDERED: Promethazine 25 MG/ML SDV IM SCH (21:00)
--- NOTE | 2017-01-07 21:33 | PCM.SN ---
- Free Text/Narrative Note: 1814 - Assumed care of patient earlier this evening S: Patient reports feeling relatively well after surgery earlier today. Having abdominal pain at her incision site, but this is manageable. Her abdominal pain from her TOA feels better. O: GEN: A&Ox3 AB: Soft, appropriately tender, non distended, no rebound/guarding. Two VIC drains in place with serosanguinous fluid A/P: 31-year-old woman who is currently HD#6/POD#0 after admission for tubo-ovarian abscess with eventual need for exploratory laparotomy, LSO, hysterectomy. * Patient has been on various antibiotics since admission. Currently on a regimen of Unasyn, doxycycline, and Flagyl. We'll plan to continue antibiotics for at least 48 hours after her last fever. She was febrile earlier today prior to surgery. After completion of IV antibiotic regimen will need to transition to oral outpatient therapy. We'll repeat CBC and CRP in the morning. * In regards to postoperative cares will potentially advance diet in the morning. If output from drains decreases they could be removed tomorrow versus Tuesday. Also potentially remove the Carson catheter tomorrow. * Diabetes care currently being managed by internal medicine team. Patient on home medication with sliding scale insulin to be started later on in postoperative course. Suzanne Santos MD
[2017-01-07] MEDS: Insulin Aspart 100 Units/ML 3 ML Pen SUBCUT SCH (22:02)
[2017-01-08] MEDS: Ampicillin/Sulbactam Na 3 GM in Sodium Chloride 0.9% 100 ML IV SCH ×5 (00:57→23:56)
[2017-01-08] MEDS: Lactated Ringers 1,000 ML IV SCH ×3 (01:50→18:23)
[2017-01-08] MEDS: Acetaminophen/oxyCODONE 325-5 MG Tab PO PRN ×5 (05:16→22:45)
[2017-01-08] MEDS: metroNIDAZOLE/Normal Saline 500 MG in Premix Bag 1 BAG IV SCH ×3 (05:21→21:36)
[2017-01-08] MEDS: Insulin Aspart 100 Units/ML 3 ML Pen SUBCUT SCH ×4 (07:36→22:04)
[2017-01-08] MEDS ORDERED: Simethicone 80 MG Tab.Chew PO PRN (08:01)
--- NOTE | 2017-01-08 08:08 | PCM.SURGPN ---
- General Info Date of Service: 01/08/17 Date of Surgery/Procedure: 01/07/17 POD#: 1 Post-Op Diagnosis: tubo-ovarian abscess Functional Status: Reports: pain controlled - Review of Systems General: Reports: Fatigue Pulmonary: Reports: no symptoms Cardiovascular: Reports: No Symptoms Gastrointestinal: Reports: Abdominal pain (managed with medications currently ) , Nausea (mild and intermittent). Denies: Flatus Genitourinary: Reports: no symptoms Systems Review Comment:: Patient overall doing well this morning. States her pain is present, but manageable. Notes feeling less hungry and a little nauseated at times. Was able to get up and stand at the bedside. - Patient Data Vitals - most recent: Last Vital Signs Temp 37.3 C 01/08/17 07:50 Pulse 93 01/08/17 07:50 Resp 16 01/08/17 07:50 BP 121/78 01/08/17 07:50 Pulse Ox 95 01/08/17 07:50 Weight - most recent: 103.827 kg I&O - last 24 hours: Intake & Output 01/07/17 01/08/17 01/08/17 22:59 06:59 14:59 Intake Total 460 2311 Output Total 1650 485 Balance -1190 1826 Lab Results last 24 hrs: Laboratory Results - last 24 hr 01/07/17 01/07/17 01/07/17 Range/Units 08:50 10:18 13:10 WBC (3.98-10.04) K/mm3 RBC (3.98-5.22) M/mm3 Hgb 9.5 L (11.2-15.7) gm/L Hct 29.5 L (34.1-44.9) % MCV (79.4-94.8) fl MCH (25.6-32.2) pg MCHC (32.2-35.5) g/dl RDW Std Deviation (36.4-46.3) fL Plt Count (182-369) K/mm3 MPV (9.4-12.3) fl Sodium (136-145) mEq/L Potassium (3.5-5.1) mEq/L Chloride (98-107) mEq/L Carbon Dioxide (21-32) mEq/L Anion Gap (5-15) BUN (7-18) mg/dL Creatinine (0.55-1.02) mg/dL Est Cr Clr Drug Dosing mL/min Estimated GFR (MDRD) (>60) mL/min BUN/Creatinine Ratio (14-18) Glucose (74-106) mg/dL POC Glucose 92 (70-105) mg/dL Calcium (8.5-10.1) mg/dL Total Bilirubin (0.2-1.0) mg/dL AST (15-37) U/L ALT (14-59) U/L Alkaline Phosphatase (46-116) U/L C-Reactive Protein (<1.0) mg/dL Total Protein (6.4-8.2) g/dl Albumin (3.4-5.0) g/dl Globulin gm/dL Albumin/Globulin Ratio (1-2) Blood Type A POSITIVE Gel Antibody Screen Negative 01/07/17 01/07/17 01/07/17 Range/Units 13:10 13:10 14:45 WBC 16.49 H (3.98-10.04) K/mm3 RBC 3.63 L (3.98-5.22) M/mm3 Hgb 9.4 L (11.2-15.7) gm/L Hct 29.6 L (34.1-44.9) % MCV 81.5 (79.4-94.8) fl MCH 25.9 (25.6-32.2) pg MCHC 31.8 L (32.2-35.5) g/dl RDW Std Deviation 39.7 (36.4-46.3) fL Plt Count 488 H (182-369) K/mm3 MPV 9.0 L (9.4-12.3) fl Sodium 137 (136-145) mEq/L Potassium 4.0 (3.5-5.1) mEq/L Chloride 103 (98-107) mEq/L Carbon Dioxide 27 (21-32) mEq/L Anion Gap 11.0 (5-15) BUN 4 L (7-18) mg/dL Creatinine 0.7 (0.55-1.02) mg/dL Est Cr Clr Drug Dosing 92.94 mL/min Estimated GFR (MDRD) > 60 (>60) mL/min BUN/Creatinine Ratio 5.7 L (14-18) Glucose 153 H (74-106) mg/dL POC Glucose 144 H (70-105) mg/dL Calcium 7.9 L (8.5-10.1) mg/dL Total Bilirubin 0.5 (0.2-1.0) mg/dL AST 21 (15-37) U/L ALT 37 (14-59) U/L Alkaline Phosphatase 104 (46-116) U/L C-Reactive Protein (<1.0) mg/dL Total Protein 5.7 L (6.4-8.2) g/dl Albumin 1.8 L (3.4-5.0) g/dl Globulin 3.9 gm/dL Albumin/Globulin Ratio 0.5 L (1-2) Blood Type Gel Antibody Screen 01/07/17 01/07/17 01/08/17 Range/Units 17:47 21:48 06:28 WBC 13.90 H (3.98-10.04) K/mm3 RBC 3.52 L (3.98-5.22) M/mm3 Hgb 9.2 L (11.2-15.7) gm/L Hct 29.1 L (34.1-44.9) % MCV 82.7 (79.4-94.8) fl MCH 26.1 (25.6-32.2) pg MCHC 31.6 L (32.2-35.5) g/dl RDW Std Deviation 40.5 (36.4-46.3) fL Plt Count 470 H (182-369) K/mm3 MPV 8.8 L (9.4-12.3) fl Sodium (136-145) mEq/L Potassium (3.5-5.1) mEq/L Chloride (98-107) mEq/L Carbon Dioxide (21-32) mEq/L Anion Gap (5-15) BUN (7-18) mg/dL Creatinine (0.55-1.02) mg/dL Est Cr Clr Drug Dosing mL/min Estimated GFR (MDRD) (>60) mL/min BUN/Creatinine Ratio (14-18) Glucose (74-106) mg/dL POC Glucose 105 115 H (70-105) mg/dL Calcium (8.5-10.1) mg/dL Total Bilirubin (0.2-1.0) mg/dL AST (15-37) U/L ALT (14-59) U/L Alkaline Phosphatase (46-116) U/L C-Reactive Protein (<1.0) mg/dL Total Protein (6.4-8.2) g/dl Albumin (3.4-5.0) g/dl Globulin gm/dL Albumin/Globulin Ratio (1-2) Blood Type Gel Antibody Screen 01/08/17 01/08/17 Range/Units 06:28 06:28 WBC (3.98-10.04) K/mm3 RBC (3.98-5.22) M/mm3 Hgb (11.2-15.7) gm/L Hct (34.1-44.9) % MCV (79.4-94.8) fl MCH (25.6-32.2) pg MCHC (32.2-35.5) g/dl RDW Std Deviation (36.4-46.3) fL Plt Count (182-369) K/mm3 MPV (9.4-12.3) fl Sodium 140 (136-145) mEq/L Potassium 3.7 (3.5-5.1) mEq/L Chloride 104 (98-107) mEq/L Carbon Dioxide 28 (21-32) mEq/L Anion Gap 11.7 (5-15) BUN 5 L (7-18) mg/dL Creatinine 0.6 (0.55-1.02) mg/dL Est Cr Clr Drug Dosing 108.43 mL/min Estimated GFR (MDRD) > 60 (>60) mL/min BUN/Creatinine Ratio 8.3 L (14-18) Glucose 139 H (74-106) mg/dL POC Glucose (70-105) mg/dL Calcium 8.3 L (8.5-10.1) mg/dL Total Bilirubin 0.5 (0.2-1.0) mg/dL AST 16 (15-37) U/L ALT 24 (14-59) U/L Alkaline Phosphatase 83 (46-116) U/L C-Reactive Protein 32.7 H* (<1.0) mg/dL Total Protein 5.5 L (6.4-8.2) g/dl Albumin 1.7 L (3.4-5.0) g/dl Globulin 3.8 gm/dL Albumin/Globulin Ratio 0.5 L (1-2) Blood Type Gel Antibody Screen Sukh Results last 24 hrs: Microbiology 01/07/17 11:18 Gram Stain - Final Abdomen - Abscess Med Orders - Current: Current Medications Docusate Sodium (Colace) 100 mg PO BID [facility] Last Admin: 01/07/17 20:57 Dose: 100 mg Ampicillin Sodium/Sulbactam (Sodium 3 gm/ Sodium Chloride) 100 mls @ 200 mls/ hr IV Q6H [facility] Last Admin: 01/08/17 05:26 Dose: 200 mls/hr Doxycycline Hyclate 100 mg/ (Sodium Chloride) 100 mls @ 100 mls/hr IV Q12HR [facility] Last Admin: 01/07/17 20:56 Dose: 100 mls/hr Lactated Ringer's (Ringers, Lactated) 1,000 mls @ 125 mls/hr IV ASDIRECTED [facility] Last Admin: 01/08/17 01:50 Dose: 125 mls/hr Metronidazole 500 mg/ Premix 100 mls @ 100 mls/hr IV Q8H [facility] Stop: 01/11/17 06:59 Last Admin: 01/08/17 05:21 Dose: 100 mls/hr Ibuprofen (Motrin) 600 mg PO Q6H PRN PRN Reason: Pain (mild 1-3) Insulin Aspart (Novolog) 0 unit SUBCUT QIDACANDBED [facility] PRN Reason: Protocol Last Admin: 01/08/17 07:36 Dose: Not Given Morphine Sulfate (Morphine) 5 mg IM BEDTIME [facility] Stop: 01/09/17 21:01 Last Admin: 01/07/17 21:49 Dose: 5 mg Ondansetron HCl (Zofran) 4 mg IVPUSH Q4H PRN PRN Reason: Nausea/Vomiting Last Admin: 01/07/17 16:05 Dose: 4 mg Oxycodone/Acetaminophen (Percocet 325-5 Mg) 2 tab PO Q4H PRN PRN Reason: Pain (moderate 4-6) Last Admin: 01/08/17 05:16 Dose: 2 tab Promethazine HCl (Phenergan) 25 mg IM BEDTIME [facility] Stop: 01/09/17 21:01 Last Admin: 01/07/17 21:50 Dose: 25 mg Simethicone (Simethicone) 80 mg PO Q4H PRN PRN Reason: Abdominal Pain Sodium Chloride (Saline Flush) 10 ml FLUSH ASDIRECTED PRN PRN Reason: Keep Vein Open Discontinued Medications Acetaminophen (Tylenol) 650 mg PO Q4H PRN PRN Reason: Pain (mild 1-3) Last Admin: 01/07/17 19:34 Dose: 650 mg Bupivacaine HCl (Marcaine 0.5%) Confirm Administered Dose 30 ml .ROUTE .STK-MED ONE Stop: 01/07/17 09:11 Last Admin: 01/07/17 10:57 Dose: 20 ml Cefazolin Sodium (Ancef) Confirm Administered Dose 2 gm .ROUTE .STK-MED ONE Stop: 01/07/17 10:05 Cephalexin (Keflex) 500 mg PO Q6H [facility] Last Admin: 01/07/17 09:55 Dose: Not Given Dexamethasone (Dexamethasone) Confirm Administered Dose 4 mg .ROUTE .STK-MED ONE Stop: 01/07/17 10:05 Diatrizoate Meglum/Diatrizoate Sod (Gastrografin 37%) 90 ml PO ONETIME ONE Stop: 01/02/17 19:12 Last Admin: 01/02/17 20:09 Dose: 90 ml Diatrizoate Meglum/Diatrizoate Sod (Gastrografin 37%) 90 ml PO ONETIME ONE Stop: 01/04/17 08:46 Last Admin: 01/04/17 09:41 Dose: 90 ml Diatrizoate Meglum/Diatrizoate Sod (Gastrografin 37%) 90 ml PO ONETIME ONE Stop: 01/06/17 12:13 Last Admin: 01/06/17 12:23 Dose: 90 ml Diphenhydramine HCl (Benadryl) 25 mg IVPUSH ONETIME ONE Stop: 01/02/17 17:51 Last Admin: 01/02/17 18:18 Dose: 25 mg Doxycycline Hyclate (Vibramycin) Confirm Administered Dose 100 mg .ROUTE .STK- MED ONE Stop: 01/04/17 15:28 Last Admin: 01/04/17 15:57 Dose: Not Given Doxycycline Hyclate (Vibramycin) 100 mg PO BID [facility] Last Admin: 01/07/17 09:55 Dose: Not Given Fentanyl (Sublimaze) Confirm Administered Dose 250 mcg .ROUTE .STK-MED ONE Stop: 01/07/17 10:06 Fentanyl (Sublimaze) 50 mcg IVPUSH Q5M PRN PRN Reason: pain Stop: 01/07/17 15:00 Last Admin: 01/07/17 14:35 Dose: 50 mcg Fentanyl (Sublimaze) Confirm Administered Dose 100 mcg .ROUTE .STK-MED ONE Stop: 01/07/17 12:57 Fentanyl (Sublimaze) Confirm Administered Dose 100 mcg .ROUTE .STK-MED ONE Stop: 01/07/17 14:10 Last Admin: 01/07/17 14:28 Dose: 50 mcg Fentanyl (Sublimaze) Confirm Administered Dose 100 mcg .ROUTE .STK-MED ONE Stop: 01/07/17 14:11 Last Admin: 01/07/17 14:14 Dose: 100 mcg Fentanyl (Sublimaze) Confirm Administered Dose 100 mcg .ROUTE .STK-MED ONE Stop: 01/07/17 14:21 Last Admin: 01/07/17 14:17 Dose: 50 mcg Fentanyl (Sublimaze) 100 mcg IVPUSH ONETIME ONE Stop: 01/07/17 15:59 Last Admin: 01/07/17 14:18 Dose: 50 mcg Glycopyrrolate () Confirm Administered Dose 1 mg .ROUTE .STK-MED ONE Stop: 01/07/17 11:21 Hydromorphone HCl (Dilaudid) 1 mg IVPUSH ONETIME ONE Stop: 01/02/17 17:48 Last Admin: 01/02/17 18:18 Dose: 1 mg Hydromorphone HCl (Dilaudid) 0.5 mg IVPUSH ONETIME ONE Stop: 01/02/17 18:42 Last Admin: 01/02/17 18:55 Dose: 0.5 mg Hydromorphone HCl (Dilaudid) 0.5 mg IVPUSH ONETIME ONE Stop: 01/02/17 20:28 Last Admin: 01/02/17 20:36 Dose: 0.5 mg Hydromorphone HCl (Dilaudid) 0.5 mg IVPUSH ONETIME ONE Stop: 01/02/17 21:42 Last Admin: 01/02/17 21:48 Dose: 0.5 mg Hydromorphone HCl (Dilaudid) 0.5 mg IVPUSH Q2H PRN PRN Reason: Pain Last Admin: 01/04/17 10:28 Dose: 0.5 mg Hydromorphone HCl (Dilaudid) Confirm Administered Dose 1 mg .ROUTE .STK-MED ONE Stop: 01/07/17 10:05 Hydromorphone HCl (Dilaudid) Confirm Administered Dose 1 mg .ROUTE .STK-MED ONE Stop: 01/07/17 11:11 Hydromorphone HCl (Dilaudid) 0.5 mg IVPUSH Q15M PRN PRN Reason: Pain (severe 7-10) Stop: 01/07/17 12:46 Last Admin: 01/07/17 13:19 Dose: 0.5 mg Sodium Chloride (Normal Saline) 1,000 mls @ 999 mls/hr IV ONETIME ONE Stop: 01/02/17 18:46 Last Admin: 01/02/17 18:21 Dose: 999 mls/hr Levofloxacin/Dextrose 750 mg/ (Premix) 150 mls @ 100 mls/hr IV ONETIME ONE Stop: 01/02/17 19:36 Last Admin: 01/02/17 18:23 Dose: 100 mls/hr Lactated Ringer's (Ringers, Lactated) 1,000 mls [facility] Admin: 01/02/17 23:35 Dose: 150 mls/hr Dextrose/Sodium Chloride (Dextrose 5%-1/2 Ns) 1,000 mls @ 125 mls/hr IV ASDIRECTED [facility] Last Admin: 01/03/17 06:12 Dose: 125 mls/hr Cefoxitin Sodium 2 gm/ Premix 50 mls @ 100 mls/hr IV Q12H [facility] Last Admin: 01/05/17 00:39 Dose: 100 mls/hr Doxycycline Hyclate 100 mg/ (Sodium Chloride) 100 mls @ 100 mls/hr IV Q12H [facility] Stop: 01/07/17 09:00 Last Admin: 01/07/17 02:31 Dose: 100 mls/hr Levofloxacin/Dextrose 750 mg/ (Premix) 150 mls @ 100 mls/hr IV Q24H [facility] Stop: 01/07/17 09:00 Last Admin: 01/06/17 17:13 Dose: 100 mls/hr Lactated Ringer's (Ringers, Lactated) 1,000 mls @ 75 mls/hr IV ASDIRECTED [facility] Last Admin: 01/05/17 13:55 Dose: 75 mls/hr Metronidazole 500 mg/ Premix 100 mls @ 100 mls/hr IV Q8H [facility] Stop: 01/07/17 09:00 Last Admin: 01/07/17 00:55 Dose: 100 mls/hr Sodium Chloride (Normal Saline) 500 mls @ 999 mls/hr IV .BOLUS ONE Stop: 01/06/17 10:30 Last Admin: 01/06/17 13:22 Dose: 999 mls/hr Cefoxitin Sodium 2 gm/ Premix 50 mls @ 100 mls/hr IV ONETIME ONE Stop: 01/07/17 09:10 Last Admin: 01/07/17 09:47 Dose: 100 mls/hr Lidocaine HCl (Xylocaine-Mpf 1%) Confirm Administered Dose 6 mls @ as directed .ROUTE .STK-MED ONE Stop: 01/07/17 10:38 Hetastarch/Sodium Chloride (Hetastarch 6% In Normal Saline) Confirm Administered Dose 500 mls @ as directed .ROUTE .STK-MED ONE Stop: 01/07/17 12:23 Lactated Ringer's (Ringers, Lactated) Confirm Administered Dose 1,000 mls @ as directed .ROUTE .STK-MED ONE Stop: 01/07/17 12:23 Ibuprofen (Motrin) 600 mg PO Q6H PRN PRN Reason: Fever Last Admin: 01/04/17 12:27 Dose: 600 mg Insulin Aspart (Novolog) 0 unit SUBCUT Q6H [facility] PRN Reason: Protocol Last Admin: 01/03/17 06:20 Dose: Not Given Insulin Aspart (Novolog) 0 unit SUBCUT QIDACANDBED [facility] PRN Reason: Protocol Last Admin: 01/05/17 06:47 Dose: Not Given Iopamidol (Isovue-300 (61%)) 125 ml IVPUSH ONETIME ONE Stop: 01/02/17 19:12 Last Admin: 01/02/17 20:09 Dose: 125 ml Iopamidol (Isovue-300 (61%)) 125 ml IVPUSH ONETIME ONE Stop: 01/04/17 08:46 Last Admin: 01/04/17 09:41 Dose: 125 ml Iopamidol (Isovue-300 (61%)) 125 ml IVPUSH ONETIME ONE Stop: 01/06/17 12:13 Last Admin: 01/06/17 12:23 Dose: 125 ml Iopamidol (Isovue-300 (61%)) 120 ml IVPUSH ONETIME ONE Stop: 01/07/17 14:47 Last Admin: 01/07/17 14:53 Dose: 120 ml Ketorolac Tromethamine (Toradol) 60 mg IVPUSH Q6H [facility] Stop: 01/05/17 12:31 Last Admin: 01/05/17 06:32 Dose: Not Given Ketorolac Tromethamine (Toradol) 60 mg IVPUSH Q6H [facility] Stop: 01/06/17 03:01 Last Admin: 01/06/17 02:32 Dose: 60 mg Ketorolac Tromethamine (Toradol) 30 mg IVPUSH Q6H PRN PRN Reason: Pain (moderate 4-6) Stop: 01/08/17 06:01 Last Admin: 01/07/17 16:06 Dose: 30 mg Ketorolac Tromethamine (Toradol) Confirm Administered Dose 30 mg .ROUTE .STK- MED ONE Stop: 01/07/17 16:00 Last Admin: 01/07/17 16:27 Dose: Not Given Lidocaine/Epinephrine (Xylocaine 1% With Epinephrine 1:100,000) Confirm Administered Dose 20 ml .ROUTE .STK-MED ONE Stop: 01/07/17 09:10 Lisinopril (Prinivil) 5 mg PO DAILY [facility] Last Admin: 01/05/17 08:25 Dose: Not Given Lorazepam (Ativan) 0.5 mg PO Q4H PRN PRN Reason: Anxiety Last Admin: 01/07/17 04:52 Dose: 0.5 mg Methylene Blue (Methylene Blue 1%) Confirm Administered Dose 1 ml .ROUTE .STK- MED ONE Stop: 01/07/17 11:55 Metoclopramide HCl (Reglan) 10 mg IVPUSH ONETIME ONE Stop: 01/02/17 17:48 Last Admin: 01/02/17 18:18 Dose: 10 mg Metronidazole (Flagyl) 500 mg PO TID [facility] Metronidazole (Flagyl) 500 mg PO TID [facility] Midazolam HCl (Versed 1 Mg/Ml) Confirm Administered Dose 2 mg .ROUTE .STK-MED ONE Stop: 01/07/17 10:05 Morphine Sulfate (Morphine) 5 mg IM ONETIME ONE Stop: 01/03/17 23:14 Last Admin: 01/03/17 23:41 Dose: 5 mg Morphine Sulfate (Morphine) 5 mg IM ONETIME ONE Stop: 01/04/17 21:01 Last Admin: 01/04/17 21:13 Dose: 5 mg Neostigmine Methylsulfate (Neostigmine) Confirm Administered Dose 5 mg .ROUTE .STK-MED ONE Stop: 01/07/17 11:21 Ondansetron HCl (Zofran) 4 mg IVPUSH ONETIME ONE Stop: 01/02/17 21:42 Last Admin: 01/02/17 21:46 Dose: 4 mg Ondansetron HCl (Zofran) 4 mg IVPUSH Q4H PRN PRN Reason: Nausea/Vomiting Last Admin: 01/04/17 08:15 Dose: 4 mg Ondansetron HCl (Zofran) Confirm Administered Dose 4 mg .ROUTE .STK-MED ONE Stop: 01/07/17 10:05 Ondansetron HCl (Zofran) 4 mg IVPUSH ONETIME PRN PRN Reason: Nausea/Vomiting Stop: 01/07/17 15:00 Last Admin: 01/07/17 13:13 Dose: 4 mg Oxycodone/Acetaminophen (Percocet 325-5 Mg) 1 tab PO Q4H PRN PRN Reason: Pain Last Admin: 01/04/17 07:02 Dose: 1 tab Oxycodone/Acetaminophen (Percocet 325-5 Mg) 2 tab PO Q4HR PRN PRN Reason: Pain (moderate 4-6) Oxycodone/Acetaminophen (Percocet 325-5 Mg) 2 tab PO Q4H PRN PRN Reason: Pain (moderate 4-6) Last Admin: 01/07/17 04:48 Dose: 2 tab Pneumococcal Polyvalent Vaccine (Pneumovax 23) 0.5 ml IM .ONCE ONE Stop: 01/06/17 18:47 Potassium Chloride (Klor-Con M20) 40 meq PO ONETIME ONE Stop: 01/05/17 11:16 Last Admin: 01/05/17 11:35 Dose: 40 meq Potassium Chloride (Klor-Con M20) 20 meq PO BEDTIME [facility] Last Admin: 01/06/17 20:20 Dose: 20 meq Promethazine HCl (Phenergan) 25 mg IM ONETIME ONE Stop: 01/03/17 23:22 Last Admin: 01/03/17 23:40 Dose: 25 mg Promethazine HCl (Phenergan) 25 mg IM ONETIME ONE Stop: 01/04/17 21:01 Last Admin: 01/04/17 21:13 Dose: 25 mg Propofol (Diprivan 20 Ml) Confirm Administered Dose 200 mg .ROUTE .STK-MED ONE Stop: 01/07/17 10:05 Rocuronium Carlton (Zemuron) Confirm Administered Dose 50 mg .ROUTE .STK-MED ONE Stop: 01/07/17 10:05 Saccharomyces Boulardii (Florastor) 250 mg PO BID [facility] Last Admin: 01/07/17 09:55 Dose: Not Given Sertraline HCl (Zoloft) 25 mg PO DAILY [facility] Last Admin: 01/05/17 11:40 Dose: Not Given Sodium Chloride (Saline Flush) 10 ml FLUSH ONETIME PRN PRN Reason: IV FLUSH Last Admin: 01/02/17 20:09 Dose: 10 ml Sodium Chloride (Saline Flush) 10 ml FLUSH ONETIME ONE Stop: 01/04/17 08:46 Last Admin: 01/04/17 09:41 Dose: 10 ml Sodium Chloride (Saline Flush) 10 ml FLUSH ONETIME PRN PRN Reason: IV FLUSH Last Admin: 01/06/17 12:23 Dose: 10 ml Sodium Chloride (Normal Saline) Confirm Administered Dose 50 ml .ROUTE .STK-MED ONE Stop: 01/07/17 09:11 Sodium Chloride (Saline Flush) 20 ml FLUSH ONETIME ONE Stop: 01/07/17 14:47 Last Admin: 01/07/17 14:55 Dose: 20 ml Zolpidem Tartrate (Ambien) 5 mg PO BEDTIME PRN PRN Reason: Insomnia Last Admin: 01/06/17 20:20 Dose: 5 mg - Exam Wound/Incisions: healing well, no drainage, other (drains in place (one subcutaneous and one intraabdominal) draining small to moderate amounts of serosanguinous fluid ) General: alert, oriented, cooperative Lungs: Clear to auscultation, Decreased breath sounds (bilaterally) Cardiovascular: Regular Rate, Regular Rhythm Abdomen: bowel sounds present (diminished ), soft, tenderness (appropriate post op), distension (moderate) Extremities: no calf tenderness, edema Skin: warm, dry, intact Physical Findings Comment:: Carson catheter in place draining clear, dark colored urine - Problem List & Annotations (1) Tubo-ovarian abscess SNOMED Code(s): 20832602 Code(s): N70.93 - SALPINGITIS AND OOPHORITIS, UNSPECIFIED Status: Acute Priority: High Current Visit: Yes (2) S/P exploratory laparotomy SNOMED Code(s): 944375318, 59917378, 911057951 Code(s): Z98.890 - OTHER SPECIFIED POSTPROCEDURAL STATES Status: Acute Current Visit: Yes (3) S/P abdominal hysterectomy and left salpingo-oophorectomy SNOMED Code(s): 827630361 Code(s): Z90.710 - ACQUIRED ABSENCE OF BOTH CERVIX AND UTERUS; Z90.721 - ACQUIRED ABSENCE OF OVARIES, UNILATERAL; Z90.79 - ACQUIRED ABSENCE OF OTHER GENITAL ORGAN(S) Status: Acute Current Visit: Yes Annotation/Comment:: Supracervical hysterectomy - Problem List Review Problem List Initiated/Reviewed/Updated: Yes - My Orders Last 24 Hours: Active Orders 24 hr Category Date Time Status Antiembolic Devices [RC] 10,22 Care 01/07/17 13:57 Active Blood Glucose Check, Bedside [RC] ONETIME Care 01/07/17 13:02 Inactive Blood Glucose Check, Bedside [RC] QIDACANDBED Care 01/07/17 17:29 Active Communication Order [RC] ASDIRECTED Care 01/07/17 13:57 Active Communication Order [RC] ASDIRECTED Care 01/07/17 17:33 Active Communication Order [RC] ROUTINE Care 01/07/17 11:46 Inactive Cooling Warming Measures [RC] ASDIRECTED Care 01/07/17 11:46 Inactive Intake and Output [RC] Q2HR Care 01/07/17 13:57 Active Notify Provider Consults [RC] ASDIRECTED Care 01/07/17 13:57 Active Notify Provider [RC] ASDIRECTED Care 01/07/17 11:46 Inactive Oxygen Therapy [RC] ASDIRECTED Care 01/07/17 11:46 Inactive Peripheral IV Care [RC] Q2HR Care 01/07/17 13:57 Active Pulse Oximetry [RC] ASDIRECTED Care 01/07/17 11:46 Inactive RT Incentive Spirometry [RC] Q1HWA Care 01/07/17 13:57 Active Remove Carson Catheter [Urinary Catheter Removal] [RC] Care 01/08/17 08:02 Ordered Per Unit Routine Up With Assistance [RC] PER UNIT ROUTINE Care 01/07/17 13:57 Active Urinary Catheter Assessment [RC] Q4HR Care 01/07/17 13:57 Active Vital Signs [RC] Q4HR Care 01/07/17 13:57 Active Consult to Physician [CONS] Urgent Cons 01/07/17 13:57 Active Clear Liquid Diet [DIET] Diet 01/07/17 Dinner Active CBC W/O DIFF,HEMOGRAM [HEME] DAILY Lab 01/09/17 13:57 Ordered CBC W/O DIFF,HEMOGRAM [HEME] DAILY Lab 01/10/17 13:57 Ordered CBC W/O DIFF,HEMOGRAM [HEME] DAILY Lab 01/11/17 13:57 Ordered CBC W/O DIFF,HEMOGRAM [HEME] DAILY Lab 01/12/17 13:57 Ordered COMPREHENSIVE METABOLIC PN,CMP [CHEM] DAILY Lab 01/09/17 13:57 Ordered COMPREHENSIVE METABOLIC PN,CMP [CHEM] DAILY Lab 01/10/17 13:57 Ordered COMPREHENSIVE METABOLIC PN,CMP [CHEM] DAILY Lab 01/11/17 13:57 Ordered COMPREHENSIVE METABOLIC PN,CMP [CHEM] DAILY Lab 01/12/17 13:57 Ordered CULTURE ANAEROBIC + SMEAR [RM] Routine Lab 01/07/17 11:18 Results Acetaminophen/oxyCODONE [Percocet 325-5 MG] Med 01/07/17 13:57 Active 2 tab PO Q4H PRN Ampicillin/Sulbactam Na [Unasyn] 3 gm Med 01/07/17 18:00 Active Sodium Chloride 0.9% [Normal Saline] 100 ml IV Q6H Docusate Sodium [Colace] Med 01/07/17 21:00 Active 100 mg PO BID Doxycycline [Vibramycin] 100 mg Med 01/07/17 21:00 Active Sodium Chloride 0.9% [Normal Saline] 100 ml IV Q12HR Ibuprofen [Motrin] Med 01/08/17 12:00 Active 600 mg PO Q6H PRN Insulin Aspart [NovoLOG] Med 01/07/17 22:00 Active See Protocol SUBCUT QIDACANDBED Lactated Ringers [Ringers, Lactated] 1,000 ml Med 01/07/17 13:57 Active IV ASDIRECTED Morphine Med 01/07/17 21:00 Active 5 mg IM BEDTIME Ondansetron [Zofran] Med 01/07/17 13:57 Active 4 mg IVPUSH Q4H PRN Promethazine [Phenergan] Med 01/07/17 21:00 Active 25 mg IM BEDTIME Simethicone Med 01/08/17 08:01 Ordered 80 mg PO Q4H PRN Sodium Chloride 0.9% [Saline Flush] Med 01/07/17 13:57 Active 10 ml FLUSH ASDIRECTED PRN metroNIDAZOLE/Normal Saline [Flagyl 500 MG in NS 100 ML Med 01/07/17 14:00 Active ] 500 mg Premix Bag 1 bag IV Q8H Peripheral IV Insertion Adult [OM.PC] Routine Oth 01/07/17 13:57 Ordered Sequential Compression Device [OM.PC] Per Unit Routine Oth 01/07/17 13:57 Ordered Medication Orders Docusate Sodium (Colace) 100 mg PO BID [facility] Last Admin: 01/07/17 20:57 Dose: 100 mg Ampicillin Sodium/Sulbactam (Sodium 3 gm/ Sodium Chloride) 100 mls @ 200 mls/ hr IV Q6H [facility] Last Admin: 01/08/17 05:26 Dose: 200 mls/hr Infusion: 01/08/17 01:27 Dose: 200 mls/hr Admin: 01/08/17 00:57 Dose: 200 mls/hr Infusion: 01/07/17 20:03 Dose: 200 mls/hr Admin: 01/07/17 19:33 Dose: 200 mls/hr Doxycycline Hyclate 100 mg/ (Sodium Chloride) 100 mls @ 100 mls/hr IV Q12HR [facility] Last Admin: 01/07/17 20:56 Dose: 100 mls/hr Lactated Ringer's (Ringers, Lactated) 1,000 mls @ 125 mls/hr IV ASDIRECTED JAMES Last Admin: 01/08/17 01:50 Dose: 125 mls/hr Infusion: 01/08/17 01:50 Dose: 125 mls/hr Admin: 01/07/17 18:04 Dose: 125 mls/hr Metronidazole 500 mg/ Premix 100 mls @ 100 mls/hr IV Q8H [facility] Stop: 01/11/17 06:59 Last Admin: 01/08/17 05:21 Dose: 100 mls/hr Infusion: 01/07/17 22:50 Dose: 100 mls/hr Admin: 01/07/17 21:50 Dose: 100 mls/hr Infusion: 01/07/17 17:07 Dose: 100 mls/hr Admin: 01/07/17 16:07 Dose: 100 mls/hr Ibuprofen (Motrin) 600 mg PO Q6H PRN PRN Reason: Pain (mild 1-3) Insulin Aspart (Novolog) 0 unit SUBCUT QIDACANDBED JAMES PRN Reason: Protocol Last Admin: 01/08/17 07:36 Dose: Not Given Admin: 01/07/17 22:02 Dose: Morphine Sulfate (Morphine) 5 mg IM BEDTIME JAMES Stop: 01/09/17 21:01 Last Admin: 01/07/17 21:49 Dose: 5 mg Ondansetron HCl (Zofran) 4 mg IVPUSH Q4H PRN PRN Reason: Nausea/Vomiting Last Admin: 01/07/17 16:05 Dose: 4 mg Oxycodone/Acetaminophen (Percocet 325-5 Mg) 2 tab PO Q4H PRN PRN Reason: Pain (moderate 4-6) Last Admin: 01/08/17 05:16 Dose: 2 tab Admin: 01/07/17 23:07 Dose: 2 tab Admin: 01/07/17 17:41 Dose: 2 tab Promethazine HCl (Phenergan) 25 mg IM BEDTIME JAMES Stop: 01/09/17 21:01 Last Admin: 01/07/17 21:50 Dose: 25 mg Simethicone (Simethicone) 80 mg PO Q4H PRN PRN Reason: Abdominal Pain Sodium Chloride (Saline Flush) 10 ml FLUSH ASDIRECTED PRN PRN Reason: Keep Vein Open - Assessment Assessment (Free Text/Narrative):: 31-year-old woman who is currently HD#7/POD#1 after admission for tubo- ovarian abscess with eventual need for exploratory laparotomy, LSO, and supracervical hysterectomy. - Plan Plan (Free Text/Narrative):: TOA s/p surgery exploration * Currently on a regimen of Unasyn, doxycycline, and Flagyl. Plan to continue IV antibiotics for at least 48 hours post op/after last fever. Has been afebrile since surgery and with decreasing WBC today to 13 from 16 yesterday. After completion of IV antibiotic regimen will need to transition to oral outpatient therapy. CRP still elevated, but also likely due to recent surgical exploration. * Repeat CBC and BMP tomorrow * Carson catheter to be removed later today as output appropriate * Potentially will remove subcutaneous drain later today as low output. Will likely leave intra-abdominal drain in place until tomorrow or Tuesday * Continue clear diet, but encouraged patient to limit intake given findings of distension on exam. Simethicone ordered * Continue percocet, ibuprofen for pain * Incentive spirometry encouraged along with ambulation * Patient hypertensive to the 160's last night, but now normal range. Continue to monitor closely. Not currently on anti-hypertensive medication * Diabetes care currently being managed by internal medicine team. Patient with sliding scale insulin currently. Holding home medications
[2017-01-08] MEDS: Doxycycline 100 MG in Sodium Chloride 0.9% 100 ML IV SCH ×2 (08:23→20:31)
[2017-01-08] MEDS: Docusate Sodium 100 MG Cap PO SCH ×2 (08:23→20:31)
--- NOTE | 2017-01-08 09:01 | PCM.CONSN ---
- General Info Date of Service: 01/08/17 - Patient Data Vitals - most recent: Last Vital Signs Temp 37.3 C 01/08/17 07:50 Pulse 93 01/08/17 07:50 Resp 16 01/08/17 07:50 BP 121/78 01/08/17 07:50 Pulse Ox 95 01/08/17 07:50 Weight - most recent: 103.827 kg I&O - last 24 hours: Intake & Output 01/07/17 01/08/17 01/08/17 22:59 06:59 14:59 Intake Total 460 2311 Output Total 1650 485 75 Balance -1190 1826 -75 Lab Results last 24 hrs: Laboratory Results - last 24 hr 01/07/17 01/07/17 01/07/17 Range/Units 08:50 10:18 13:10 WBC (3.98-10.04) K/mm3 RBC (3.98-5.22) M/mm3 Hgb 9.5 L (11.2-15.7) gm/L Hct 29.5 L (34.1-44.9) % MCV (79.4-94.8) fl MCH (25.6-32.2) pg MCHC (32.2-35.5) g/dl RDW Std Deviation (36.4-46.3) fL Plt Count (182-369) K/mm3 MPV (9.4-12.3) fl Sodium (136-145) mEq/L Potassium (3.5-5.1) mEq/L Chloride (98-107) mEq/L Carbon Dioxide (21-32) mEq/L Anion Gap (5-15) BUN (7-18) mg/dL Creatinine (0.55-1.02) mg/dL Est Cr Clr Drug Dosing mL/min Estimated GFR (MDRD) (>60) mL/min BUN/Creatinine Ratio (14-18) Glucose (74-106) mg/dL POC Glucose 92 (70-105) mg/dL Calcium (8.5-10.1) mg/dL Total Bilirubin (0.2-1.0) mg/dL AST (15-37) U/L ALT (14-59) U/L Alkaline Phosphatase (46-116) U/L C-Reactive Protein (<1.0) mg/dL Total Protein (6.4-8.2) g/dl Albumin (3.4-5.0) g/dl Globulin gm/dL Albumin/Globulin Ratio (1-2) Blood Type A POSITIVE Gel Antibody Screen Negative 01/07/17 01/07/17 01/07/17 Range/Units 13:10 13:10 14:45 WBC 16.49 H (3.98-10.04) K/mm3 RBC 3.63 L (3.98-5.22) M/mm3 Hgb 9.4 L (11.2-15.7) gm/L Hct 29.6 L (34.1-44.9) % MCV 81.5 (79.4-94.8) fl MCH 25.9 (25.6-32.2) pg MCHC 31.8 L (32.2-35.5) g/dl RDW Std Deviation 39.7 (36.4-46.3) fL Plt Count 488 H (182-369) K/mm3 MPV 9.0 L (9.4-12.3) fl Sodium 137 (136-145) mEq/L Potassium 4.0 (3.5-5.1) mEq/L Chloride 103 (98-107) mEq/L Carbon Dioxide 27 (21-32) mEq/L Anion Gap 11.0 (5-15) BUN 4 L (7-18) mg/dL Creatinine 0.7 (0.55-1.02) mg/dL Est Cr Clr Drug Dosing 92.94 mL/min Estimated GFR (MDRD) > 60 (>60) mL/min BUN/Creatinine Ratio 5.7 L (14-18) Glucose 153 H (74-106) mg/dL POC Glucose 144 H (70-105) mg/dL Calcium 7.9 L (8.5-10.1) mg/dL Total Bilirubin 0.5 (0.2-1.0) mg/dL AST 21 (15-37) U/L ALT 37 (14-59) U/L Alkaline Phosphatase 104 (46-116) U/L C-Reactive Protein (<1.0) mg/dL Total Protein 5.7 L (6.4-8.2) g/dl Albumin 1.8 L (3.4-5.0) g/dl Globulin 3.9 gm/dL Albumin/Globulin Ratio 0.5 L (1-2) Blood Type Gel Antibody Screen 01/07/17 01/07/17 01/08/17 Range/Units 17:47 21:48 06:28 WBC 13.90 H (3.98-10.04) K/mm3 RBC 3.52 L (3.98-5.22) M/mm3 Hgb 9.2 L (11.2-15.7) gm/L Hct 29.1 L (34.1-44.9) % MCV 82.7 (79.4-94.8) fl MCH 26.1 (25.6-32.2) pg MCHC 31.6 L (32.2-35.5) g/dl RDW Std Deviation 40.5 (36.4-46.3) fL Plt Count 470 H (182-369) K/mm3 MPV 8.8 L (9.4-12.3) fl Sodium (136-145) mEq/L Potassium (3.5-5.1) mEq/L Chloride (98-107) mEq/L Carbon Dioxide (21-32) mEq/L Anion Gap (5-15) BUN (7-18) mg/dL Creatinine (0.55-1.02) mg/dL Est Cr Clr Drug Dosing mL/min Estimated GFR (MDRD) (>60) mL/min BUN/Creatinine Ratio (14-18) Glucose (74-106) mg/dL POC Glucose 105 115 H (70-105) mg/dL Calcium (8.5-10.1) mg/dL Total Bilirubin (0.2-1.0) mg/dL AST (15-37) U/L ALT (14-59) U/L Alkaline Phosphatase (46-116) U/L C-Reactive Protein (<1.0) mg/dL Total Protein (6.4-8.2) g/dl Albumin (3.4-5.0) g/dl Globulin gm/dL Albumin/Globulin Ratio (1-2) Blood Type Gel Antibody Screen 01/08/17 01/08/17 Range/Units 06:28 06:28 WBC (3.98-10.04) K/mm3 RBC (3.98-5.22) M/mm3 Hgb (11.2-15.7) gm/L Hct (34.1-44.9) % MCV (79.4-94.8) fl MCH (25.6-32.2) pg MCHC (32.2-35.5) g/dl RDW Std Deviation (36.4-46.3) fL Plt Count (182-369) K/mm3 MPV (9.4-12.3) fl Sodium 140 (136-145) mEq/L Potassium 3.7 (3.5-5.1) mEq/L Chloride 104 (98-107) mEq/L Carbon Dioxide 28 (21-32) mEq/L Anion Gap 11.7 (5-15) BUN 5 L (7-18) mg/dL Creatinine 0.6 (0.55-1.02) mg/dL Est Cr Clr Drug Dosing 108.43 mL/min Estimated GFR (MDRD) > 60 (>60) mL/min BUN/Creatinine Ratio 8.3 L (14-18) Glucose 139 H (74-106) mg/dL POC Glucose (70-105) mg/dL Calcium 8.3 L (8.5-10.1) mg/dL Total Bilirubin 0.5 (0.2-1.0) mg/dL AST 16 (15-37) U/L ALT 24 (14-59) U/L Alkaline Phosphatase 83 (46-116) U/L C-Reactive Protein 32.7 H* (<1.0) mg/dL Total Protein 5.5 L (6.4-8.2) g/dl Albumin 1.7 L (3.4-5.0) g/dl Globulin 3.8 gm/dL Albumin/Globulin Ratio 0.5 L (1-2) Blood Type Gel Antibody Screen Sukh Results last 24 hrs: Microbiology 01/07/17 11:18 Gram Stain - Final Abdomen - Abscess Med Orders - Current: Current Medications Docusate Sodium (Colace) 100 mg PO BID [facility] Last Admin: 01/08/17 08:23 Dose: 100 mg Ampicillin Sodium/Sulbactam (Sodium 3 gm/ Sodium Chloride) 100 mls @ 200 mls/ hr IV Q6H [facility] Last Admin: 01/08/17 05:26 Dose: 200 mls/hr Doxycycline Hyclate 100 mg/ (Sodium Chloride) 100 mls @ 100 mls/hr IV Q12HR [facility] Last Admin: 01/08/17 08:23 Dose: 100 mls/hr Lactated Ringer's (Ringers, Lactated) 1,000 mls @ 125 mls/hr IV ASDIRECTED [facility] Last Admin: 01/08/17 01:50 Dose: 125 mls/hr Metronidazole 500 mg/ Premix 100 mls @ 100 mls/hr IV Q8H [facility] Stop: 01/11/17 06:59 Last Admin: 01/08/17 05:21 Dose: 100 mls/hr Ibuprofen (Motrin) 600 mg PO Q6H PRN PRN Reason: Pain (mild 1-3) Insulin Aspart (Novolog) 0 unit SUBCUT QIDACANDBED [facility] PRN Reason: Protocol Last Admin: 01/08/17 07:36 Dose: Not Given Morphine Sulfate (Morphine) 5 mg IM BEDTIME [facility] Stop: 01/09/17 21:01 Last Admin: 01/07/17 21:49 Dose: 5 mg Ondansetron HCl (Zofran) 4 mg IVPUSH Q4H PRN PRN Reason: Nausea/Vomiting Last Admin: 01/07/17 16:05 Dose: 4 mg Oxycodone/Acetaminophen (Percocet 325-5 Mg) 2 tab PO Q4H PRN PRN Reason: Pain (moderate 4-6) Last Admin: 01/08/17 05:16 Dose: 2 tab Promethazine HCl (Phenergan) 25 mg IM BEDTIME [facility] Stop: 01/09/17 21:01 Last Admin: 01/07/17 21:50 Dose: 25 mg Simethicone (Simethicone) 80 mg PO Q4H PRN PRN Reason: Abdominal Pain Sodium Chloride (Saline Flush) 10 ml FLUSH ASDIRECTED PRN PRN Reason: Keep Vein Open Discontinued Medications Acetaminophen (Tylenol) 650 mg PO Q4H PRN PRN Reason: Pain (mild 1-3) Last Admin: 01/07/17 19:34 Dose: 650 mg Bupivacaine HCl (Marcaine 0.5%) Confirm Administered Dose 30 ml .ROUTE .STK-MED ONE Stop: 01/07/17 09:11 Last Admin: 01/07/17 10:57 Dose: 20 ml Cefazolin Sodium (Ancef) Confirm Administered Dose 2 gm .ROUTE .STK-MED ONE Stop: 01/07/17 10:05 Cephalexin (Keflex) 500 mg PO Q6H [facility] Last Admin: 01/07/17 09:55 Dose: Not Given Dexamethasone (Dexamethasone) Confirm Administered Dose 4 mg .ROUTE .STK-MED ONE Stop: 01/07/17 10:05 Diatrizoate Meglum/Diatrizoate Sod (Gastrografin 37%) 90 ml PO ONETIME ONE Stop: 01/02/17 19:12 Last Admin: 01/02/17 20:09 Dose: 90 ml Diatrizoate Meglum/Diatrizoate Sod (Gastrografin 37%) 90 ml PO ONETIME ONE Stop: 01/04/17 08:46 Last Admin: 01/04/17 09:41 Dose: 90 ml Diatrizoate Meglum/Diatrizoate Sod (Gastrografin 37%) 90 ml PO ONETIME ONE Stop: 01/06/17 12:13 Last Admin: 01/06/17 12:23 Dose: 90 ml Diphenhydramine HCl (Benadryl) 25 mg IVPUSH ONETIME ONE Stop: 01/02/17 17:51 Last Admin: 01/02/17 18:18 Dose: 25 mg Doxycycline Hyclate (Vibramycin) Confirm Administered Dose 100 mg .ROUTE .STK- MED ONE Stop: 01/04/17 15:28 Last Admin: 01/04/17 15:57 Dose: Not Given Doxycycline Hyclate (Vibramycin) 100 mg PO BID [facility] Last Admin: 01/07/17 09:55 Dose: Not Given Fentanyl (Sublimaze) Confirm Administered Dose 250 mcg .ROUTE .STK-MED ONE Stop: 01/07/17 10:06 Fentanyl (Sublimaze) 50 mcg IVPUSH Q5M PRN PRN Reason: pain Stop: 01/07/17 15:00 Last Admin: 01/07/17 14:35 Dose: 50 mcg Fentanyl (Sublimaze) Confirm Administered Dose 100 mcg .ROUTE .STK-MED ONE Stop: 01/07/17 12:57 Fentanyl (Sublimaze) Confirm Administered Dose 100 mcg .ROUTE .STK-MED ONE Stop: 01/07/17 14:10 Last Admin: 01/07/17 14:28 Dose: 50 mcg Fentanyl (Sublimaze) Confirm Administered Dose 100 mcg .ROUTE .STK-MED ONE Stop: 01/07/17 14:11 Last Admin: 01/07/17 14:14 Dose: 100 mcg Fentanyl (Sublimaze) Confirm Administered Dose 100 mcg .ROUTE .STK-MED ONE Stop: 01/07/17 14:21 Last Admin: 01/07/17 14:17 Dose: 50 mcg Fentanyl (Sublimaze) 100 mcg IVPUSH ONETIME ONE Stop: 01/07/17 15:59 Last Admin: 01/07/17 14:18 Dose: 50 mcg Glycopyrrolate () Confirm Administered Dose 1 mg .ROUTE .STK-MED ONE Stop: 01/07/17 11:21 Hydromorphone HCl (Dilaudid) 1 mg IVPUSH ONETIME ONE Stop: 01/02/17 17:48 Last Admin: 01/02/17 18:18 Dose: 1 mg Hydromorphone HCl (Dilaudid) 0.5 mg IVPUSH ONETIME ONE Stop: 01/02/17 18:42 Last Admin: 01/02/17 18:55 Dose: 0.5 mg Hydromorphone HCl (Dilaudid) 0.5 mg IVPUSH ONETIME ONE Stop: 01/02/17 20:28 Last Admin: 01/02/17 20:36 Dose: 0.5 mg Hydromorphone HCl (Dilaudid) 0.5 mg IVPUSH ONETIME ONE Stop: 01/02/17 21:42 Last Admin: 01/02/17 21:48 Dose: 0.5 mg Hydromorphone HCl (Dilaudid) 0.5 mg IVPUSH Q2H PRN PRN Reason: Pain Last Admin: 01/04/17 10:28 Dose: 0.5 mg Hydromorphone HCl (Dilaudid) Confirm Administered Dose 1 mg .ROUTE .STK-MED ONE Stop: 01/07/17 10:05 Hydromorphone HCl (Dilaudid) Confirm Administered Dose 1 mg .ROUTE .STK-MED ONE Stop: 01/07/17 11:11 Hydromorphone HCl (Dilaudid) 0.5 mg IVPUSH Q15M PRN PRN Reason: Pain (severe 7-10) Stop: 01/07/17 12:46 Last Admin: 01/07/17 13:19 Dose: 0.5 mg Sodium Chloride (Normal Saline) 1,000 mls @ 999 mls/hr IV ONETIME ONE Stop: 01/02/17 18:46 Last Admin: 01/02/17 18:21 Dose: 999 mls/hr Levofloxacin/Dextrose 750 mg/ (Premix) 150 mls @ 100 mls/hr IV ONETIME ONE Stop: 01/02/17 19:36 Last Admin: 01/02/17 18:23 Dose: 100 mls/hr Lactated Ringer's (Ringers, Lactated) 1,000 mls @ 150 mls/hr IV ASDIRECTED [facility] Last Admin: 01/02/17 23:35 Dose: 150 mls/hr Dextrose/Sodium Chloride (Dextrose 5%-1/2 Ns) 1,000 mls @ 125 mls/hr IV ASDIRECTED [facility] Last Admin: 01/03/17 06:12 Dose: 125 mls/hr Cefoxitin Sodium 2 gm/ Premix 50 mls @ 100 mls/hr IV Q12H [facility] Last Admin: 01/05/17 00:39 Dose: 100 mls/hr Doxycycline Hyclate 100 mg/ (Sodium Chloride) 100 mls @ 100 mls/hr IV Q12H [facility] Stop: 01/07/17 09:00 Last Admin: 01/07/17 02:31 Dose: 100 mls/hr Levofloxacin/Dextrose 750 mg/ (Premix) 150 mls @ 100 mls/hr IV Q24H [facility] Stop: 01/07/17 09:00 Last Admin: 01/06/17 17:13 Dose: 100 mls/hr Lactated Ringer's (Ringers, Lactated) 1,000 mls @ 75 mls/hr IV ASDIRECTED [facility] Last Admin: 01/05/17 13:55 Dose: 75 mls/hr Metronidazole 500 mg/ Premix 100 mls @ 100 mls/hr IV Q8H [facility] Stop: 01/07/17 09:00 Last Admin: 01/07/17 00:55 Dose: 100 mls/hr Sodium Chloride (Normal Saline) 500 mls @ 999 mls/hr IV .BOLUS ONE Stop: 01/06/17 10:30 Last Admin: 01/06/17 13:22 Dose: 999 mls/hr Cefoxitin Sodium 2 gm/ Premix 50 mls @ 100 mls/hr IV ONETIME ONE Stop: 01/07/17 09:10 Last Admin: 01/07/17 09:47 Dose: 100 mls/hr Lidocaine HCl (Xylocaine-Mpf 1%) Confirm Administered Dose 6 mls @ as directed .ROUTE .STK-MED ONE Stop: 01/07/17 10:38 Hetastarch/Sodium Chloride (Hetastarch 6% In Normal Saline) Confirm Administered Dose 500 mls @ as directed .ROUTE .STK-MED ONE Stop: 01/07/17 12:23 Lactated Ringer's (Ringers, Lactated) Confirm Administered Dose 1,000 mls @ as directed .ROUTE .STK-MED ONE Stop: 01/07/17 12:23 Ibuprofen (Motrin) 600 mg PO Q6H PRN PRN Reason: Fever Last Admin: 01/04/17 12:27 Dose: 600 mg Insulin Aspart (Novolog) 0 unit SUBCUT Q6H [facility] PRN Reason: Protocol Last Admin: 01/03/17 06:20 Dose: Not Given Insulin Aspart (Novolog) 0 unit SUBCUT QIDACANDBED [facility] PRN Reason: Protocol Last Admin: 01/05/17 06:47 Dose: Not Given Iopamidol (Isovue-300 (61%)) 125 ml IVPUSH ONETIME ONE Stop: 01/02/17 19:12 Last Admin: 01/02/17 20:09 Dose: 125 ml Iopamidol (Isovue-300 (61%)) 125 ml IVPUSH ONETIME ONE Stop: 01/04/17 08:46 Last Admin: 01/04/17 09:41 Dose: 125 ml Iopamidol (Isovue-300 (61%)) 125 ml IVPUSH ONETIME ONE Stop: 01/06/17 12:13 Last Admin: 01/06/17 12:23 Dose: 125 ml Iopamidol (Isovue-300 (61%)) 120 ml IVPUSH ONETIME ONE Stop: 01/07/17 14:47 Last Admin: 01/07/17 14:53 Dose: 120 ml Ketorolac Tromethamine (Toradol) 60 mg IVPUSH Q6H [facility] Stop: 01/05/17 12:31 Last Admin: 01/05/17 06:32 Dose: Not Given Ketorolac Tromethamine (Toradol) 60 mg IVPUSH Q6H [facility] Stop: 01/06/17 03:01 Last Admin: 01/06/17 02:32 Dose: 60 mg Ketorolac Tromethamine (Toradol) 30 mg IVPUSH Q6H PRN PRN Reason: Pain (moderate 4-6) Stop: 01/08/17 06:01 Last Admin: 01/07/17 16:06 Dose: 30 mg Ketorolac Tromethamine (Toradol) Confirm Administered Dose 30 mg .ROUTE .STK- MED ONE Stop: 01/07/17 16:00 Last Admin: 01/07/17 16:27 Dose: Not Given Lidocaine/Epinephrine (Xylocaine 1% With Epinephrine 1:100,000) Confirm Administered Dose 20 ml .ROUTE .STK-MED ONE Stop: 01/07/17 09:10 Lisinopril (Prinivil) 5 mg PO DAILY [facility] Last Admin: 01/05/17 08:25 Dose: Not Given Lorazepam (Ativan) 0.5 mg PO Q4H PRN PRN Reason: Anxiety Last Admin: 01/07/17 04:52 Dose: 0.5 mg Methylene Blue (Methylene Blue 1%) Confirm Administered Dose 1 ml .ROUTE .STK- MED ONE Stop: 01/07/17 11:55 Metoclopramide HCl (Reglan) 10 mg IVPUSH ONETIME ONE Stop: 01/02/17 17:48 Last Admin: 01/02/17 18:18 Dose: 10 mg Metronidazole (Flagyl) 500 mg PO TID [facility] Metronidazole (Flagyl) 500 mg PO TID [facility] Midazolam HCl (Versed 1 Mg/Ml) Confirm Administered Dose 2 mg .ROUTE .STK-MED ONE Stop: 01/07/17 10:05 Morphine Sulfate (Morphine) 5 mg IM ONETIME ONE Stop: 01/03/17 23:14 Last Admin: 01/03/17 23:41 Dose: 5 mg Morphine Sulfate (Morphine) 5 mg IM ONETIME ONE Stop: 01/04/17 21:01 Last Admin: 01/04/17 21:13 Dose: 5 mg Neostigmine Methylsulfate (Neostigmine) Confirm Administered Dose 5 mg .ROUTE .STK-MED ONE Stop: 01/07/17 11:21 Ondansetron HCl (Zofran) 4 mg IVPUSH ONETIME ONE Stop: 01/02/17 21:42 Last Admin: 01/02/17 21:46 Dose: 4 mg Ondansetron HCl (Zofran) 4 mg IVPUSH Q4H PRN PRN Reason: Nausea/Vomiting Last Admin: 01/04/17 08:15 Dose: 4 mg Ondansetron HCl (Zofran) Confirm Administered Dose 4 mg .ROUTE .STK-MED ONE Stop: 01/07/17 10:05 Ondansetron HCl (Zofran) 4 mg IVPUSH ONETIME PRN PRN Reason: Nausea/Vomiting Stop: 01/07/17 15:00 Last Admin: 01/07/17 13:13 Dose: 4 mg Oxycodone/Acetaminophen (Percocet 325-5 Mg) 1 tab PO Q4H PRN PRN Reason: Pain Last Admin: 01/04/17 07:02 Dose: 1 tab Oxycodone/Acetaminophen (Percocet 325-5 Mg) 2 tab PO Q4HR PRN PRN Reason: Pain (moderate 4-6) Oxycodone/Acetaminophen (Percocet 325-5 Mg) 2 tab PO Q4H PRN PRN Reason: Pain (moderate 4-6) Last Admin: 01/07/17 04:48 Dose: 2 tab Pneumococcal Polyvalent Vaccine (Pneumovax 23) 0.5 ml IM .ONCE ONE Stop: 01/06/17 18:47 Potassium Chloride (Klor-Con M20) 40 meq PO ONETIME ONE Stop: 01/05/17 11:16 Last Admin: 01/05/17 11:35 Dose: 40 meq Potassium Chloride (Klor-Con M20) 20 meq PO BEDTIME [facility] Last Admin: 01/06/17 20:20 Dose: 20 meq Promethazine HCl (Phenergan) 25 mg IM ONETIME ONE Stop: 01/03/17 23:22 Last Admin: 01/03/17 23:40 Dose: 25 mg Promethazine HCl (Phenergan) 25 mg IM ONETIME ONE Stop: 01/04/17 21:01 Last Admin: 01/04/17 21:13 Dose: 25 mg Propofol (Diprivan 20 Ml) Confirm Administered Dose 200 mg .ROUTE .STK-MED ONE Stop: 01/07/17 10:05 Rocuronium [place] (Zemuron) Confirm Administered Dose 50 mg .ROUTE .STK-MED ONE Stop: 01/07/17 10:05 Saccharomyces Boulardii (Florastor) 250 mg PO BID [facility] Last Admin: 01/07/17 09:55 Dose: Not Given Sertraline HCl (Zoloft) 25 mg PO DAILY [facility] Last Admin: 01/05/17 11:40 Dose: Not Given Sodium Chloride (Saline Flush) 10 ml FLUSH ONETIME PRN PRN Reason: IV FLUSH Last Admin: 01/02/17 20:09 Dose: 10 ml Sodium Chloride (Saline Flush) 10 ml FLUSH ONETIME ONE Stop: 01/04/17 08:46 Last Admin: 01/04/17 09:41 Dose: 10 ml Sodium Chloride (Saline Flush) 10 ml FLUSH ONETIME PRN PRN Reason: IV FLUSH Last Admin: 01/06/17 12:23 Dose: 10 ml Sodium Chloride (Normal Saline) Confirm Administered Dose 50 ml .ROUTE .STK-MED ONE Stop: 01/07/17 09:11 Sodium Chloride (Saline Flush) 20 ml FLUSH ONETIME ONE Stop: 01/07/17 14:47 Last Admin: 01/07/17 14:55 Dose: 20 ml Zolpidem Tartrate (Ambien) 5 mg PO BEDTIME PRN PRN Reason: Insomnia Last Admin: 01/06/17 20:20 Dose: 5 mg Consult PN Assessment/Plan Procedures: Procedures ASSAY OF IRON (02/23/16) ASSAY OF TRANSFERRIN (02/23/16) ASSAY THYROID STIM HORMONE (12/20/16) CHORIONIC GONADOTROPIN ASSAY (02/28/14) COMPLETE CBC AUTOMATED (02/17/16) COMPLETE CBC W/AUTO DIFF WBC (01/01/17) COMPREHEN METABOLIC PANEL (01/01/17) CULTR BACTERIA EXCEPT BLOOD (02/28/14) DRAINAGE OF PILONIDAL CYST (02/28/14) EMERGENCY DEPT VISIT (01/01/17) GLYCOSYLATED HEMOGLOBIN TEST (12/20/16) HEP B CORE ANTIBODY IGM (02/17/16) HEPATITIS A IGM ANTIBODY (02/17/16) HEPATITIS B SURFACE AG IA (02/17/16) HEPATITIS C AB TEST (02/17/16) HYDRATE IV INFUSION ADD-ON (01/01/17) LIPID PANEL (02/23/16) ROUTINE VENIPUNCTURE (01/01/17) SMEAR GRAM STAIN (02/28/14) THER/PROPH/DIAG INJ SC/IM (02/13/16) THER/PROPH/DIAG IV INF INIT (01/01/17) TX/PRO/DX INJ NEW DRUG ADDON (01/01/17) URINALYSIS AUTO W/SCOPE (01/01/17) URINE CULTURE/COLONY COUNT (01/01/17) URINE TEST (01/01/17) My Orders last 24 hours: My Active Orders 01/07/17 17:29 Blood Glucose Check, Bedside [RC] QIDACANDBED 01/07/17 22:00 Insulin Aspart [NovoLOG] See Protocol SUBCUT QIDACANDBED
--- NOTE | 2017-01-08 13:31 | PCM.CONSN ---
- General Info Date of Service: 01/08/17 Functional Status: Reports: pain controlled, tolerating diet (clear), ambulating (reluctant), incentive spirometry (infrequent) - Review of Systems General: Reports: Weakness HEENT: Reports: no symptoms Pulmonary: Reports: shortness of breath Gastrointestinal: Reports: Abdominal pain Genitourinary: Reports: no symptoms Musculoskeletal: Reports: no symptoms Skin: Reports: no symptoms Neurological: Reports: No Symptoms Psychiatric: Reports: no symptoms - Patient Data Vitals - most recent: Last Vital Signs Temp 36.9 C 01/08/17 12:25 Pulse 94 01/08/17 12:25 Resp 15 01/08/17 12:25 BP 126/71 01/08/17 12:25 Pulse Ox 93 L 01/08/17 12:25 Weight - most recent: 103.827 kg I&O - last 24 hours: Intake & Output 01/07/17 01/08/17 01/08/17 22:59 06:59 14:59 Intake Total 460 2311 350 Output Total 1650 485 195 Balance -1190 1826 155 Lab Results last 24 hrs: Laboratory Results - last 24 hr 01/07/17 01/07/17 01/07/17 Range/Units 13:10 13:10 14:45 WBC 16.49 H (3.98-10.04) K/mm3 RBC 3.63 L (3.98-5.22) M/mm3 Hgb 9.4 L (11.2-15.7) gm/L Hct 29.6 L (34.1-44.9) % MCV 81.5 (79.4-94.8) fl MCH 25.9 (25.6-32.2) pg MCHC 31.8 L (32.2-35.5) g/dl RDW Std Deviation 39.7 (36.4-46.3) fL Plt Count 488 H (182-369) K/mm3 MPV 9.0 L (9.4-12.3) fl Sodium 137 (136-145) mEq/L Potassium 4.0 (3.5-5.1) mEq/L Chloride 103 (98-107) mEq/L Carbon Dioxide 27 (21-32) mEq/L Anion Gap 11.0 (5-15) BUN 4 L (7-18) mg/dL Creatinine 0.7 (0.55-1.02) mg/dL Est Cr Clr Drug Dosing 92.94 mL/min Estimated GFR (MDRD) > 60 (>60) mL/min BUN/Creatinine Ratio 5.7 L (14-18) Glucose 153 H (74-106) mg/dL POC Glucose 144 H (70-105) mg/dL Calcium 7.9 L (8.5-10.1) mg/dL Total Bilirubin 0.5 (0.2-1.0) mg/dL AST 21 (15-37) U/L ALT 37 (14-59) U/L Alkaline Phosphatase 104 (46-116) U/L C-Reactive Protein (<1.0) mg/dL Total Protein 5.7 L (6.4-8.2) g/dl Albumin 1.8 L (3.4-5.0) g/dl Globulin 3.9 gm/dL Albumin/Globulin Ratio 0.5 L (1-2) 01/07/17 01/07/17 01/08/17 Range/Units 17:47 21:48 06:28 WBC 13.90 H (3.98-10.04) K/mm3 RBC 3.52 L (3.98-5.22) M/mm3 Hgb 9.2 L (11.2-15.7) gm/L Hct 29.1 L (34.1-44.9) % MCV 82.7 (79.4-94.8) fl MCH 26.1 (25.6-32.2) pg MCHC 31.6 L (32.2-35.5) g/dl RDW Std Deviation 40.5 (36.4-46.3) fL Plt Count 470 H (182-369) K/mm3 MPV 8.8 L (9.4-12.3) fl Sodium (136-145) mEq/L Potassium (3.5-5.1) mEq/L Chloride (98-107) mEq/L Carbon Dioxide (21-32) mEq/L Anion Gap (5-15) BUN (7-18) mg/dL Creatinine (0.55-1.02) mg/dL Est Cr Clr Drug Dosing mL/min Estimated GFR (MDRD) (>60) mL/min BUN/Creatinine Ratio (14-18) Glucose (74-106) mg/dL POC Glucose 105 115 H (70-105) mg/dL Calcium (8.5-10.1) mg/dL Total Bilirubin (0.2-1.0) mg/dL AST (15-37) U/L ALT (14-59) U/L Alkaline Phosphatase (46-116) U/L C-Reactive Protein (<1.0) mg/dL Total Protein (6.4-8.2) g/dl Albumin (3.4-5.0) g/dl Globulin gm/dL Albumin/Globulin Ratio (1-2) 01/08/17 01/08/17 01/08/17 Range/Units 06:28 06:28 12:22 WBC (3.98-10.04) K/mm3 RBC (3.98-5.22) M/mm3 Hgb (11.2-15.7) gm/L Hct (34.1-44.9) % MCV (79.4-94.8) fl MCH (25.6-32.2) pg MCHC (32.2-35.5) g/dl RDW Std Deviation (36.4-46.3) fL Plt Count (182-369) K/mm3 MPV (9.4-12.3) fl Sodium 140 (136-145) mEq/L Potassium 3.7 (3.5-5.1) mEq/L Chloride 104 (98-107) mEq/L Carbon Dioxide 28 (21-32) mEq/L Anion Gap 11.7 (5-15) BUN 5 L (7-18) mg/dL Creatinine 0.6 (0.55-1.02) mg/dL Est Cr Clr Drug Dosing 108.43 mL/min Estimated GFR (MDRD) > 60 (>60) mL/min BUN/Creatinine Ratio 8.3 L (14-18) Glucose 139 H (74-106) mg/dL POC Glucose 106 H (70-105) mg/dL Calcium 8.3 L (8.5-10.1) mg/dL Total Bilirubin 0.5 (0.2-1.0) mg/dL AST 16 (15-37) U/L ALT 24 (14-59) U/L Alkaline Phosphatase 83 (46-116) U/L C-Reactive Protein 32.7 H* (<1.0) mg/dL Total Protein 5.5 L (6.4-8.2) g/dl Albumin 1.7 L (3.4-5.0) g/dl Globulin 3.8 gm/dL Albumin/Globulin Ratio 0.5 L (1-2) Sukh Results last 24 hrs: Microbiology 01/07/17 11:18 Gram Stain - Final Abdomen - Abscess Anaerobic Culture - Preliminary NO GROWTH AFTER 1 DAY Med Orders - Current: Current Medications Docusate Sodium (Colace) 100 mg PO BID [facility] Last Admin: 01/08/17 08:23 Dose: 100 mg Ampicillin Sodium/Sulbactam (Sodium 3 gm/ Sodium Chloride) 100 mls @ 200 mls/ hr IV Q6H [facility] Last Admin: 01/08/17 05:26 Dose: 200 mls/hr Doxycycline Hyclate 100 mg/ (Sodium Chloride) 100 mls @ 100 mls/hr IV Q12HR [facility] Last Admin: 01/08/17 08:23 Dose: 100 mls/hr Lactated Ringer's (Ringers, Lactated) 1,000 mls @ 125 mls/hr IV ASDIRECTED [facility] Last Admin: 01/08/17 09:51 Dose: 125 mls/hr Metronidazole 500 mg/ Premix 100 mls @ 100 mls/hr IV Q8H [facility] Stop: 01/11/17 06:59 Last Admin: 01/08/17 05:21 Dose: 100 mls/hr Ibuprofen (Motrin) 600 mg PO Q6H PRN PRN Reason: Pain (mild 1-3) Insulin Aspart (Novolog) 0 unit SUBCUT QIDACANDBED [facility] PRN Reason: Protocol Last Admin: 01/08/17 12:37 Dose: Not Given Morphine Sulfate (Morphine) 5 mg IM BEDTIME [facility] Stop: 01/09/17 21:01 Last Admin: 01/07/17 21:49 Dose: 5 mg Ondansetron HCl (Zofran) 4 mg IVPUSH Q4H PRN PRN Reason: Nausea/Vomiting Last Admin: 01/07/17 16:05 Dose: 4 mg Oxycodone/Acetaminophen (Percocet 325-5 Mg) 2 tab PO Q4H PRN PRN Reason: Pain (moderate 4-6) Last Admin: 01/08/17 09:46 Dose: 2 tab Promethazine HCl (Phenergan) 25 mg IM BEDTIME [facility] Stop: 01/09/17 21:01 Last Admin: 01/07/17 21:50 Dose: 25 mg Simethicone (Simethicone) 80 mg PO Q4H PRN PRN Reason: Abdominal Pain Last Admin: 01/08/17 09:49 Dose: 80 mg Sodium Chloride (Saline Flush) 10 ml FLUSH ASDIRECTED PRN PRN Reason: Keep Vein Open Discontinued Medications Acetaminophen (Tylenol) 650 mg PO Q4H PRN PRN Reason: Pain (mild 1-3) Last Admin: 01/07/17 19:34 Dose: 650 mg Bupivacaine HCl (Marcaine 0.5%) Confirm Administered Dose 30 ml .ROUTE .STK-MED ONE Stop: 01/07/17 09:11 Last Admin: 01/07/17 10:57 Dose: 20 ml Cefazolin Sodium (Ancef) Confirm Administered Dose 2 gm .ROUTE .STK-MED ONE Stop: 01/07/17 10:05 Cephalexin (Keflex) 500 mg PO Q6H JAMES Last Admin: 01/07/17 09:55 Dose: Not Given Dexamethasone (Dexamethasone) Confirm Administered Dose 4 mg .ROUTE .STK-MED ONE Stop: 01/07/17 10:05 Diatrizoate Meglum/Diatrizoate Sod (Gastrografin 37%) 90 ml PO ONETIME ONE Stop: 01/02/17 19:12 Last Admin: 01/02/17 20:09 Dose: 90 ml Diatrizoate Meglum/Diatrizoate Sod (Gastrografin 37%) 90 ml PO ONETIME ONE Stop: 01/04/17 08:46 Last Admin: 01/04/17 09:41 Dose: 90 ml Diatrizoate Meglum/Diatrizoate Sod (Gastrografin 37%) 90 ml PO ONETIME ONE Stop: 01/06/17 12:13 Last Admin: 01/06/17 12:23 Dose: 90 ml Diphenhydramine HCl (Benadryl) 25 mg IVPUSH ONETIME ONE Stop: 01/02/17 17:51 Last Admin: 01/02/17 18:18 Dose: 25 mg Doxycycline Hyclate (Vibramycin) Confirm Administered Dose 100 mg .ROUTE .STK- MED ONE Stop: 01/04/17 15:28 Last Admin: 01/04/17 15:57 Dose: Not Given Doxycycline Hyclate (Vibramycin) 100 mg PO BID JAMES Last Admin: 01/07/17 09:55 Dose: Not Given Fentanyl (Sublimaze) Confirm Administered Dose 250 mcg .ROUTE .STK-MED ONE Stop: 01/07/17 10:06 Fentanyl (Sublimaze) 50 mcg IVPUSH Q5M PRN PRN Reason: pain Stop: 01/07/17 15:00 Last Admin: 01/07/17 14:35 Dose: 50 mcg Fentanyl (Sublimaze) Confirm Administered Dose 100 mcg .ROUTE .STK-MED ONE Stop: 01/07/17 12:57 Fentanyl (Sublimaze) Confirm Administered Dose 100 mcg .ROUTE .STK-MED ONE Stop: 01/07/17 14:10 Last Admin: 01/07/17 14:28 Dose: 50 mcg Fentanyl (Sublimaze) Confirm Administered Dose 100 mcg .ROUTE .STK-MED ONE Stop: 01/07/17 14:11 Last Admin: 01/07/17 14:14 Dose: 100 mcg Fentanyl (Sublimaze) Confirm Administered Dose 100 mcg .ROUTE .STK-MED ONE Stop: 01/07/17 14:21 Last Admin: 01/07/17 14:17 Dose: 50 mcg Fentanyl (Sublimaze) 100 mcg IVPUSH ONETIME ONE Stop: 01/07/17 15:59 Last Admin: 01/07/17 14:18 Dose: 50 mcg Glycopyrrolate () Confirm Administered Dose 1 mg .ROUTE .STK-MED ONE Stop: 01/07/17 11:21 Hydromorphone HCl (Dilaudid) 1 mg IVPUSH ONETIME ONE Stop: 01/02/17 17:48 Last Admin: 01/02/17 18:18 Dose: 1 mg Hydromorphone HCl (Dilaudid) 0.5 mg IVPUSH ONETIME ONE Stop: 01/02/17 18:42 Last Admin: 01/02/17 18:55 Dose: 0.5 mg Hydromorphone HCl (Dilaudid) 0.5 mg IVPUSH ONETIME ONE Stop: 01/02/17 20:28 Last Admin: 01/02/17 20:36 Dose: 0.5 mg Hydromorphone HCl (Dilaudid) 0.5 mg IVPUSH ONETIME ONE Stop: 01/02/17 21:42 Last Admin: 01/02/17 21:48 Dose: 0.5 mg Hydromorphone HCl (Dilaudid) 0.5 mg IVPUSH Q2H PRN PRN Reason: Pain Last Admin: 01/04/17 10:28 Dose: 0.5 mg Hydromorphone HCl (Dilaudid) Confirm Administered Dose 1 mg .ROUTE .STK-MED ONE Stop: 01/07/17 10:05 Hydromorphone HCl (Dilaudid) Confirm Administered Dose 1 mg .ROUTE .STK-MED ONE Stop: 01/07/17 11:11 Hydromorphone HCl (Dilaudid) 0.5 mg IVPUSH Q15M PRN PRN Reason: Pain (severe 7-10) Stop: 01/07/17 12:46 Last Admin: 01/07/17 13:19 Dose: 0.5 mg Sodium Chloride (Normal Saline) 1,000 mls @ 999 mls/hr IV ONETIME ONE Stop: 01/02/17 18:46 Last Admin: 01/02/17 18:21 Dose: 999 mls/hr Levofloxacin/Dextrose 750 mg/ (Premix) 150 mls @ 100 mls/hr IV ONETIME ONE Stop: 01/02/17 19:36 Last Admin: 01/02/17 18:23 Dose: 100 mls/hr Lactated Ringer's (Ringers, Lactated) 1,000 mls @ 150 mls/hr IV ASDIRECTED [facility] Last Admin: 01/02/17 23:35 Dose: 150 mls/hr Dextrose/Sodium Chloride (Dextrose 5%-1/2 Ns) 1,000 mls @ 125 mls/hr IV ASDIRECTED [facility] Last Admin: 01/03/17 06:12 Dose: 125 mls/hr Cefoxitin Sodium 2 gm/ Premix 50 mls @ 100 mls/hr IV Q12H [facility] Last Admin: 01/05/17 00:39 Dose: 100 mls/hr Doxycycline Hyclate 100 mg/ (Sodium Chloride) 100 mls @ 100 mls/hr IV Q12H [facility] Stop: 01/07/17 09:00 Last Admin: 01/07/17 02:31 Dose: 100 mls/hr Levofloxacin/Dextrose 750 mg/ (Premix) 150 mls @ 100 mls/hr IV Q24H [facility] Stop: 01/07/17 09:00 Last Admin: 01/06/17 17:13 Dose: 100 mls/hr Lactated Ringer's (Ringers, Lactated) 1,000 mls @ 75 mls/hr IV ASDIRECTED [facility] Last Admin: 01/05/17 13:55 Dose: 75 mls/hr Metronidazole 500 mg/ Premix 100 mls @ 100 mls/hr IV Q8H [facility] Stop: 01/07/17 09:00 Last Admin: 01/07/17 00:55 Dose: 100 mls/hr Sodium Chloride (Normal Saline) 500 mls @ 999 mls/hr IV .BOLUS ONE Stop: 01/06/17 10:30 Last Admin: 01/06/17 13:22 Dose: 999 mls/hr Cefoxitin Sodium 2 gm/ Premix 50 mls @ 100 mls/hr IV ONETIME ONE Stop: 01/07/17 09:10 Last Admin: 01/07/17 09:47 Dose: 100 mls/hr Lidocaine HCl (Xylocaine-Mpf 1%) Confirm Administered Dose 6 mls @ as directed .ROUTE .STK-MED ONE Stop: 01/07/17 10:38 Hetastarch/Sodium Chloride (Hetastarch 6% In Normal Saline) Confirm Administered Dose 500 mls @ as directed .ROUTE .STK-MED ONE Stop: 01/07/17 12:23 Lactated Ringer's (Ringers, Lactated) Confirm Administered Dose 1,000 mls @ as directed .ROUTE .STK-MED ONE Stop: 01/07/17 12:23 Ibuprofen (Motrin) 600 mg PO Q6H PRN PRN Reason: Fever Last Admin: 01/04/17 12:27 Dose: 600 mg Insulin Aspart (Novolog) 0 unit SUBCUT Q6H [facility] PRN Reason: Protocol Last Admin: 01/03/17 06:20 Dose: Not Given Insulin Aspart (Novolog) 0 unit SUBCUT QIDACANDBED [facility] PRN Reason: Protocol Last Admin: 01/05/17 06:47 Dose: Not Given Iopamidol (Isovue-300 (61%)) 125 ml IVPUSH ONETIME ONE Stop: 01/02/17 19:12 Last Admin: 01/02/17 20:09 Dose: 125 ml Iopamidol (Isovue-300 (61%)) 125 ml IVPUSH ONETIME ONE Stop: 01/04/17 08:46 Last Admin: 01/04/17 09:41 Dose: 125 ml Iopamidol (Isovue-300 (61%)) 125 ml IVPUSH ONETIME ONE Stop: 01/06/17 12:13 Last Admin: 01/06/17 12:23 Dose: 125 ml Iopamidol (Isovue-300 (61%)) 120 ml IVPUSH ONETIME ONE Stop: 01/07/17 14:47 Last Admin: 01/07/17 14:53 Dose: 120 ml Ketorolac Tromethamine (Toradol) 60 mg IVPUSH Q6H [facility] Stop: 01/05/17 12:31 Last Admin: 01/05/17 06:32 Dose: Not Given Ketorolac Tromethamine (Toradol) 60 mg IVPUSH Q6H [facility] Stop: 01/06/17 03:01 Last Admin: 01/06/17 02:32 Dose: 60 mg Ketorolac Tromethamine (Toradol) 30 mg IVPUSH Q6H PRN PRN Reason: Pain (moderate 4-6) Stop: 01/08/17 06:01 Last Admin: 01/07/17 16:06 Dose: 30 mg Ketorolac Tromethamine (Toradol) Confirm Administered Dose 30 mg .ROUTE .STK- MED ONE Stop: 01/07/17 16:00 Last Admin: 01/07/17 16:27 Dose: Not Given Lidocaine/Epinephrine (Xylocaine 1% With Epinephrine 1:100,000) Confirm Administered Dose 20 ml .ROUTE .STK-MED ONE Stop: 01/07/17 09:10 Lisinopril (Prinivil) 5 mg PO DAILY [facility] Last Admin: 01/05/17 08:25 Dose: Not Given Lorazepam (Ativan) 0.5 mg PO Q4H PRN PRN Reason: Anxiety Last Admin: 01/07/17 04:52 Dose: 0.5 mg Methylene Blue (Methylene Blue 1%) Confirm Administered Dose 1 ml .ROUTE .STK- MED ONE Stop: 01/07/17 11:55 Metoclopramide HCl (Reglan) 10 mg IVPUSH ONETIME ONE Stop: 01/02/17 17:48 Last Admin: 01/02/17 18:18 Dose: 10 mg Metronidazole (Flagyl) 500 mg PO TID JAMES Metronidazole (Flagyl) 500 mg PO TID JAMES Midazolam HCl (Versed 1 Mg/Ml) Confirm Administered Dose 2 mg .ROUTE .STK-MED ONE Stop: 01/07/17 10:05 Morphine Sulfate (Morphine) 5 mg IM ONETIME ONE Stop: 01/03/17 23:14 Last Admin: 01/03/17 23:41 Dose: 5 mg Morphine Sulfate (Morphine) 5 mg IM ONETIME ONE Stop: 01/04/17 21:01 Last Admin: 01/04/17 21:13 Dose: 5 mg Neostigmine Methylsulfate (Neostigmine) Confirm Administered Dose 5 mg .ROUTE .STK-MED ONE Stop: 01/07/17 11:21 Ondansetron HCl (Zofran) 4 mg IVPUSH ONETIME ONE Stop: 01/02/17 21:42 Last Admin: 01/02/17 21:46 Dose: 4 mg Ondansetron HCl (Zofran) 4 mg IVPUSH Q4H PRN PRN Reason: Nausea/Vomiting Last Admin: 01/04/17 08:15 Dose: 4 mg Ondansetron HCl (Zofran) Confirm Administered Dose 4 mg .ROUTE .STK-MED ONE Stop: 01/07/17 10:05 Ondansetron HCl (Zofran) 4 mg IVPUSH ONETIME PRN PRN Reason: Nausea/Vomiting Stop: 01/07/17 15:00 Last Admin: 01/07/17 13:13 Dose: 4 mg Oxycodone/Acetaminophen (Percocet 325-5 Mg) 1 tab PO Q4H PRN PRN Reason: Pain Last Admin: 01/04/17 07:02 Dose: 1 tab Oxycodone/Acetaminophen (Percocet 325-5 Mg) 2 tab PO Q4HR PRN PRN Reason: Pain (moderate 4-6) Oxycodone/Acetaminophen (Percocet 325-5 Mg) 2 tab PO Q4H PRN PRN Reason: Pain (moderate 4-6) Last Admin: 01/07/17 04:48 Dose: 2 tab Pneumococcal Polyvalent Vaccine (Pneumovax 23) 0.5 ml IM .ONCE ONE Stop: 01/06/17 18:47 Potassium Chloride (Klor-Con M20) 40 meq PO ONETIME ONE Stop: 01/05/17 11:16 Last Admin: 01/05/17 11:35 Dose: 40 meq Potassium Chloride (Klor-Con M20) 20 meq PO BEDTIME [facility] Last Admin: 01/06/17 20:20 Dose: 20 meq Promethazine HCl (Phenergan) 25 mg IM ONETIME ONE Stop: 01/03/17 23:22 Last Admin: 01/03/17 23:40 Dose: 25 mg Promethazine HCl (Phenergan) 25 mg IM ONETIME ONE Stop: 01/04/17 21:01 Last Admin: 01/04/17 21:13 Dose: 25 mg Propofol (Diprivan 20 Ml) Confirm Administered Dose 200 mg .ROUTE .STK-MED ONE Stop: 01/07/17 10:05 Rocuronium [place] (Zemuron) Confirm Administered Dose 50 mg .ROUTE .STK-MED ONE Stop: 01/07/17 10:05 Saccharomyces Boulardii (Florastor) 250 mg PO BID [facility] Last Admin: 01/07/17 09:55 Dose: Not Given Sertraline HCl (Zoloft) 25 mg PO DAILY [facility] Last Admin: 01/05/17 11:40 Dose: Not Given Sodium Chloride (Saline Flush) 10 ml FLUSH ONETIME PRN PRN Reason: IV FLUSH Last Admin: 01/02/17 20:09 Dose: 10 ml Sodium Chloride (Saline Flush) 10 ml FLUSH ONETIME ONE Stop: 01/04/17 08:46 Last Admin: 01/04/17 09:41 Dose: 10 ml Sodium Chloride (Saline Flush) 10 ml FLUSH ONETIME PRN PRN Reason: IV FLUSH Last Admin: 01/06/17 12:23 Dose: 10 ml Sodium Chloride (Normal Saline) Confirm Administered Dose 50 ml .ROUTE .STK-MED ONE Stop: 01/07/17 09:11 Sodium Chloride (Saline Flush) 20 ml FLUSH ONETIME ONE Stop: 01/07/17 14:47 Last Admin: 01/07/17 14:55 Dose: 20 ml Zolpidem Tartrate (Ambien) 5 mg PO BEDTIME PRN PRN Reason: Insomnia Last Admin: 01/06/17 20:20 Dose: 5 mg - Exam Quality Assessment: supplemental oxygen, urine catheter (DCd), DVT prophylaxis General: alert, oriented, cooperative, mild distress HEENT: Pupils equal, Pupils reactive, EOMI Neck: supple, trachea midline, no JVD Lungs: Normal respiratory effort, Decreased breath sounds Cardiovascular: Regular Rate Abdomen: soft, tenderness, other (drains x2) (Female) Exam: Deferred Extremities: normal pulses Skin: warm Wound/Incisions: drainage (serosanguinous) Neurological: no new focal deficit Psy/Mental Status: alert, anxious Consult PN Assessment/Plan POD#: 1 Procedures: Procedures ASSAY OF IRON (02/23/16) ASSAY OF TRANSFERRIN (02/23/16) ASSAY THYROID STIM HORMONE (12/20/16) CHORIONIC GONADOTROPIN ASSAY (02/28/14) COMPLETE CBC AUTOMATED (02/17/16) COMPLETE CBC W/AUTO DIFF WBC (01/01/17) COMPREHEN METABOLIC PANEL (01/01/17) CULTR BACTERIA EXCEPT BLOOD (02/28/14) DRAINAGE OF PILONIDAL CYST (02/28/14) EMERGENCY DEPT VISIT (01/01/17) GLYCOSYLATED HEMOGLOBIN TEST (12/20/16) HEP B CORE ANTIBODY IGM (02/17/16) HEPATITIS A IGM ANTIBODY (02/17/16) HEPATITIS B SURFACE AG IA (02/17/16) HEPATITIS C AB TEST (02/17/16) HYDRATE IV INFUSION ADD-ON (01/01/17) LIPID PANEL (02/23/16) ROUTINE VENIPUNCTURE (01/01/17) SMEAR GRAM STAIN (02/28/14) THER/PROPH/DIAG INJ SC/IM (02/13/16) THER/PROPH/DIAG IV INF INIT (01/01/17) TX/PRO/DX INJ NEW DRUG ADDON (01/01/17) URINALYSIS AUTO W/SCOPE (01/01/17) URINE CULTURE/COLONY COUNT (01/01/17) URINE TEST (01/01/17) Problem List Initiated/Reviewed/Updated: Yes My Orders last 24 hours: My Active Orders 01/07/17 17:29 Blood Glucose Check, Bedside [RC] QIDACANDBED 01/07/17 22:00 Insulin Aspart [NovoLOG] See Protocol SUBCUT QIDACANDBED Plan: Impression: POD 1 Exp Lap/LSO and supra-cervical hysterectomy Tubo-ovarian abscess on triple ATBs per BEHAVIORAL CONSULTANT Clear liquid diet with low dose SS insulin coverage Home med is metformin, hold for 48 hours before resumption BP controlled Pain as order per primary service Resp status stable, needs frequent reminders to use IS. Plan: Pulmonary Toilet Wound Care/Pain mgt per primary service BP control Continue IV ATBs, day 2 with current combination [place] order for removal. Encourage ambulation
[2017-01-09] MEDS: Lactated Ringers 1,000 ML IV SCH (03:03)
[2017-01-09] MEDS: Acetaminophen/oxyCODONE 325-5 MG Tab PO PRN ×4 (03:03→21:24)
[2017-01-09] MEDS ORDERED: Sodium Chloride 0.9% 250 ML ONE (03:30)
[2017-01-09] MEDS: Ampicillin/Sulbactam Na 3 GM in Sodium Chloride 0.9% 100 ML IV SCH ×3 (06:22→18:40)
[2017-01-09] MEDS: metroNIDAZOLE/Normal Saline 500 MG in Premix Bag 1 BAG IV SCH ×3 (06:23→23:19)
--- NOTE | 2017-01-09 06:24 | PCM.SURGPN ---
- General Info Date of Service: 01/09/17 Date of Surgery/Procedure: 01/07/17 POD#: 2 Functional Status: Reports: pain controlled, tolerating diet (clears), ambulating (small amounts), incentive spirometry - Review of Systems General: Reports: Weakness Pulmonary: Reports: no symptoms Cardiovascular: Reports: No Symptoms Gastrointestinal: Reports: Abdominal pain (manageable with medications) Genitourinary: Reports: no symptoms Systems Review Comment:: Patient with a few issues yesterday PM and overnight. Had bray catheter removed and after about 8 hours post removal had still not voided. This was replaced around 1730 with 500 cc of urine drained. Also overnight had a fever just after midnight. This was 101.5 temporal, but oral temperature at same time was normal, 98.6. Rectal temperature was also done and normal at 100.8. Patient reported feeling well at that time and denied any complaints. - Patient Data Vitals - most recent: Last Vital Signs Temp 37.2 C 01/09/17 04:30 Pulse 93 01/09/17 04:30 Resp 16 01/09/17 04:30 BP 112/75 01/09/17 04:30 Pulse Ox 94 L 01/09/17 04:30 Weight - most recent: 103.827 kg I&O - last 24 hours: Intake & Output 01/08/17 01/08/17 01/09/17 14:59 22:59 06:59 Intake Total 350 380 0 Output Total 195 Balance 155 380 0 Lab Results last 24 hrs: Laboratory Results - last 24 hr 01/07/17 01/08/17 01/08/17 Range/Units 08:50 06:28 06:28 WBC 13.90 H (3.98-10.04) K/mm3 RBC 3.52 L (3.98-5.22) M/mm3 Hgb 9.2 L (11.2-15.7) gm/L Hct 29.1 L (34.1-44.9) % MCV 82.7 (79.4-94.8) fl MCH 26.1 (25.6-32.2) pg MCHC 31.6 L (32.2-35.5) g/dl RDW Std Deviation 40.5 (36.4-46.3) fL Plt Count 470 H (182-369) K/mm3 MPV 8.8 L (9.4-12.3) fl Sodium 140 (136-145) mEq/L Potassium 3.7 (3.5-5.1) mEq/L Chloride 104 (98-107) mEq/L Carbon Dioxide 28 (21-32) mEq/L Anion Gap 11.7 (5-15) BUN 5 L (7-18) mg/dL Creatinine 0.6 (0.55-1.02) mg/dL Est Cr Clr Drug Dosing 108.43 mL/min Estimated GFR (MDRD) > 60 (>60) mL/min BUN/Creatinine Ratio 8.3 L (14-18) Glucose 139 H (74-106) mg/dL POC Glucose (70-105) mg/dL Calcium 8.3 L (8.5-10.1) mg/dL Total Bilirubin 0.5 (0.2-1.0) mg/dL AST 16 (15-37) U/L ALT 24 (14-59) U/L Alkaline Phosphatase 83 (46-116) U/L C-Reactive Protein (<1.0) mg/dL Total Protein 5.5 L (6.4-8.2) g/dl Albumin 1.7 L (3.4-5.0) g/dl Globulin 3.8 gm/dL Albumin/Globulin Ratio 0.5 L (1-2) Blood Type A POSITIVE Gel Antibody Screen Negative Crossmatch 01/08/17 01/08/17 01/08/17 Range/Units 06:28 12:22 18:00 WBC (3.98-10.04) K/mm3 RBC (3.98-5.22) M/mm3 Hgb (11.2-15.7) gm/L Hct (34.1-44.9) % MCV (79.4-94.8) fl MCH (25.6-32.2) pg MCHC (32.2-35.5) g/dl RDW Std Deviation (36.4-46.3) fL Plt Count (182-369) K/mm3 MPV (9.4-12.3) fl Sodium (136-145) mEq/L Potassium (3.5-5.1) mEq/L Chloride (98-107) mEq/L Carbon Dioxide (21-32) mEq/L Anion Gap (5-15) BUN (7-18) mg/dL Creatinine (0.55-1.02) mg/dL Est Cr Clr Drug Dosing mL/min Estimated GFR (MDRD) (>60) mL/min BUN/Creatinine Ratio (14-18) Glucose (74-106) mg/dL POC Glucose 106 H 79 (70-105) mg/dL Calcium (8.5-10.1) mg/dL Total Bilirubin (0.2-1.0) mg/dL AST (15-37) U/L ALT (14-59) U/L Alkaline Phosphatase (46-116) U/L C-Reactive Protein 32.7 H* (<1.0) mg/dL Total Protein (6.4-8.2) g/dl Albumin (3.4-5.0) g/dl Globulin gm/dL Albumin/Globulin Ratio (1-2) Blood Type Gel Antibody Screen Crossmatch 01/08/17 01/09/17 01/09/17 Range/Units 21:46 02:33 02:33 WBC 16.26 H (3.98-10.04) K/mm3 RBC 2.45 L (3.98-5.22) M/mm3 Hgb 6.5 L* (11.2-15.7) gm/L Hct 20.5 L (34.1-44.9) % MCV 83.7 (79.4-94.8) fl MCH 26.5 (25.6-32.2) pg MCHC 31.7 L (32.2-35.5) g/dl RDW Std Deviation 39.7 (36.4-46.3) fL Plt Count 527 H (182-369) K/mm3 MPV 8.8 L (9.4-12.3) fl Sodium 140 (136-145) mEq/L Potassium 3.5 (3.5-5.1) mEq/L Chloride 103 (98-107) mEq/L Carbon Dioxide 29 (21-32) mEq/L Anion Gap 11.5 (5-15) BUN 5 L (7-18) mg/dL Creatinine 0.6 (0.55-1.02) mg/dL Est Cr Clr Drug Dosing 108.43 mL/min Estimated GFR (MDRD) > 60 (>60) mL/min BUN/Creatinine Ratio 8.3 L (14-18) Glucose 88 (74-106) mg/dL POC Glucose 67 L (70-105) mg/dL Calcium 8.0 L (8.5-10.1) mg/dL Total Bilirubin (0.2-1.0) mg/dL AST (15-37) U/L ALT (14-59) U/L Alkaline Phosphatase (46-116) U/L C-Reactive Protein (<1.0) mg/dL Total Protein (6.4-8.2) g/dl Albumin (3.4-5.0) g/dl Globulin gm/dL Albumin/Globulin Ratio (1-2) Blood Type Gel Antibody Screen Crossmatch 01/09/17 Range/Units 02:33 WBC (3.98-10.04) K/mm3 RBC (3.98-5.22) M/mm3 Hgb (11.2-15.7) gm/L Hct (34.1-44.9) % MCV (79.4-94.8) fl MCH (25.6-32.2) pg MCHC (32.2-35.5) g/dl RDW Std Deviation (36.4-46.3) fL Plt Count (182-369) K/mm3 MPV (9.4-12.3) fl Sodium (136-145) mEq/L Potassium (3.5-5.1) mEq/L Chloride (98-107) mEq/L Carbon Dioxide (21-32) mEq/L Anion Gap (5-15) BUN (7-18) mg/dL Creatinine (0.55-1.02) mg/dL Est Cr Clr Drug Dosing mL/min Estimated GFR (MDRD) (>60) mL/min BUN/Creatinine Ratio (14-18) Glucose (74-106) mg/dL POC Glucose (70-105) mg/dL Calcium (8.5-10.1) mg/dL Total Bilirubin (0.2-1.0) mg/dL AST (15-37) U/L ALT (14-59) U/L Alkaline Phosphatase (46-116) U/L C-Reactive Protein (<1.0) mg/dL Total Protein (6.4-8.2) g/dl Albumin (3.4-5.0) g/dl Globulin gm/dL Albumin/Globulin Ratio (1-2) Blood Type A POSITIVE Gel Antibody Screen Negative Crossmatch See Detail Sukh Results last 24 hrs: Microbiology 01/07/17 11:18 Gram Stain - Final Abdomen - Abscess Anaerobic Culture - Preliminary NO GROWTH AFTER 1 DAY Med Orders - Current: Current Medications Docusate Sodium (Colace) 100 mg PO BID [facility] Last Admin: 01/08/17 20:31 Dose: 100 mg Ampicillin Sodium/Sulbactam (Sodium 3 gm/ Sodium Chloride) 100 mls @ 200 mls/ hr IV Q6H [facility] Last Admin: 01/08/17 23:56 Dose: 200 mls/hr Doxycycline Hyclate 100 mg/ (Sodium Chloride) 100 mls @ 100 mls/hr IV Q12HR [facility] Last Admin: 01/08/17 20:31 Dose: 100 mls/hr Lactated Ringer's (Ringers, Lactated) 1,000 mls @ 125 mls/hr IV ASDIRECTED [facility] Last Admin: 01/09/17 03:03 Dose: 125 mls/hr Metronidazole 500 mg/ Premix 100 mls @ 100 mls/hr IV Q8H [facility] Stop: 01/11/17 06:59 Last Admin: 01/08/17 21:36 Dose: 100 mls/hr Ibuprofen (Motrin) 600 mg PO Q6H PRN PRN Reason: Pain (mild 1-3) Insulin Aspart (Novolog) 0 unit SUBCUT QIDACANDBED [facility] PRN Reason: Protocol Last Admin: 01/08/17 22:04 Dose: Not Given Ondansetron HCl (Zofran) 4 mg IVPUSH Q4H PRN PRN Reason: Nausea/Vomiting Last Admin: 01/07/17 16:05 Dose: 4 mg Oxycodone/Acetaminophen (Percocet 325-5 Mg) 2 tab PO Q4H PRN PRN Reason: Pain (moderate 4-6) Last Admin: 01/09/17 03:03 Dose: 1 tab Simethicone (Simethicone) 80 mg PO Q4H PRN PRN Reason: Abdominal Pain Last Admin: 01/08/17 09:49 Dose: 80 mg Sodium Chloride (Saline Flush) 10 ml FLUSH ASDIRECTED PRN PRN Reason: Keep Vein Open Discontinued Medications Acetaminophen (Tylenol) 650 mg PO Q4H PRN PRN Reason: Pain (mild 1-3) Last Admin: 01/07/17 19:34 Dose: 650 mg Bupivacaine HCl (Marcaine 0.5%) Confirm Administered Dose 30 ml .ROUTE .STK-MED ONE Stop: 01/07/17 09:11 Last Admin: 01/07/17 10:57 Dose: 20 ml Cefazolin Sodium (Ancef) Confirm Administered Dose 2 gm .ROUTE .STK-MED ONE Stop: 01/07/17 10:05 Cephalexin (Keflex) 500 mg PO Q6H [facility] Last Admin: 01/07/17 09:55 Dose: Not Given Dexamethasone (Dexamethasone) Confirm Administered Dose 4 mg .ROUTE .STK-MED ONE Stop: 01/07/17 10:05 Diatrizoate Meglum/Diatrizoate Sod (Gastrografin 37%) 90 ml PO ONETIME ONE Stop: 01/02/17 19:12 Last Admin: 01/02/17 20:09 Dose: 90 ml Diatrizoate Meglum/Diatrizoate Sod (Gastrografin 37%) 90 ml PO ONETIME ONE Stop: 01/04/17 08:46 Last Admin: 01/04/17 09:41 Dose: 90 ml Diatrizoate Meglum/Diatrizoate Sod (Gastrografin 37%) 90 ml PO ONETIME ONE Stop: 01/06/17 12:13 Last Admin: 01/06/17 12:23 Dose: 90 ml Diphenhydramine HCl (Benadryl) 25 mg IVPUSH ONETIME ONE Stop: 01/02/17 17:51 Last Admin: 01/02/17 18:18 Dose: 25 mg Doxycycline Hyclate (Vibramycin) Confirm Administered Dose 100 mg .ROUTE .STK- MED ONE Stop: 01/04/17 15:28 Last Admin: 01/04/17 15:57 Dose: Not Given Doxycycline Hyclate (Vibramycin) 100 mg PO BID [facility] Last Admin: 01/07/17 09:55 Dose: Not Given Fentanyl (Sublimaze) Confirm Administered Dose 250 mcg .ROUTE .STK-MED ONE Stop: 01/07/17 10:06 Fentanyl (Sublimaze) 50 mcg IVPUSH Q5M PRN PRN Reason: pain Stop: 01/07/17 15:00 Last Admin: 01/07/17 14:35 Dose: 50 mcg Fentanyl (Sublimaze) Confirm Administered Dose 100 mcg .ROUTE .STK-MED ONE Stop: 01/07/17 12:57 Fentanyl (Sublimaze) Confirm Administered Dose 100 mcg .ROUTE .STK-MED ONE Stop: 01/07/17 14:10 Last Admin: 01/07/17 14:28 Dose: 50 mcg Fentanyl (Sublimaze) Confirm Administered Dose 100 mcg .ROUTE .STK-MED ONE Stop: 01/07/17 14:11 Last Admin: 01/07/17 14:14 Dose: 100 mcg Fentanyl (Sublimaze) Confirm Administered Dose 100 mcg .ROUTE .STK-MED ONE Stop: 01/07/17 14:21 Last Admin: 01/07/17 14:17 Dose: 50 mcg Fentanyl (Sublimaze) 100 mcg IVPUSH ONETIME ONE Stop: 01/07/17 15:59 Last Admin: 01/07/17 14:18 Dose: 50 mcg Glycopyrrolate () Confirm Administered Dose 1 mg .ROUTE .STK-MED ONE Stop: 01/07/17 11:21 Hydromorphone HCl (Dilaudid) 1 mg IVPUSH ONETIME ONE Stop: 01/02/17 17:48 Last Admin: 01/02/17 18:18 Dose: 1 mg Hydromorphone HCl (Dilaudid) 0.5 mg IVPUSH ONETIME ONE Stop: 01/02/17 18:42 Last Admin: 01/02/17 18:55 Dose: 0.5 mg Hydromorphone HCl (Dilaudid) 0.5 mg IVPUSH ONETIME ONE Stop: 01/02/17 20:28 Last Admin: 01/02/17 20:36 Dose: 0.5 mg Hydromorphone HCl (Dilaudid) 0.5 mg IVPUSH ONETIME ONE Stop: 01/02/17 21:42 Last Admin: 01/02/17 21:48 Dose: 0.5 mg Hydromorphone HCl (Dilaudid) 0.5 mg IVPUSH Q2H PRN PRN Reason: Pain Last Admin: 01/04/17 10:28 Dose: 0.5 mg Hydromorphone HCl (Dilaudid) Confirm Administered Dose 1 mg .ROUTE .STK-MED ONE Stop: 01/07/17 10:05 Hydromorphone HCl (Dilaudid) Confirm Administered Dose 1 mg .ROUTE .STK-MED ONE Stop: 01/07/17 11:11 Hydromorphone HCl (Dilaudid) 0.5 mg IVPUSH Q15M PRN PRN Reason: Pain (severe 7-10) Stop: 01/07/17 12:46 Last Admin: 01/07/17 13:19 Dose: 0.5 mg Sodium Chloride (Normal Saline) 1,000 mls @ 999 mls/hr IV ONETIME ONE Stop: 01/02/17 18:46 Last Admin: 01/02/17 18:21 Dose: 999 mls/hr Levofloxacin/Dextrose 750 mg/ (Premix) 150 mls @ 100 mls/hr IV ONETIME ONE Stop: 01/02/17 19:36 Last Admin: 01/02/17 18:23 Dose: 100 mls/hr Lactated Ringer's (Ringers, Lactated) 1,000 mls @ [facility] Admin: 01/02/17 23:35 Dose: 150 mls/hr Dextrose/Sodium Chloride (Dextrose 5%-1/2 Ns) 1,000 mls @ 125 mls/hr IV ASDIRECTED [facility] Last Admin: 01/03/17 06:12 Dose: 125 mls/hr Cefoxitin Sodium 2 gm/ Premix 50 mls @ 100 mls/hr IV Q12H [facility] Last Admin: 01/05/17 00:39 Dose: 100 mls/hr Doxycycline Hyclate 100 mg/ (Sodium Chloride) 100 mls @ 100 mls/hr IV Q12H [facility] Stop: 01/07/17 09:00 Last Admin: 01/07/17 02:31 Dose: 100 mls/hr Levofloxacin/Dextrose 750 mg/ (Premix) 150 mls @ 100 mls/hr IV Q24H [facility] Stop: 01/07/17 09:00 Last Admin: 01/06/17 17:13 Dose: 100 mls/hr Lactated Ringer's (Ringers, Lactated) 1,000 mls @ 75 mls/hr IV ASDIRECTED [facility] Last Admin: 01/05/17 13:55 Dose: 75 mls/hr Metronidazole 500 mg/ Premix 100 mls @ 100 mls/hr IV Q8H [facility] Stop: 01/07/17 09:00 Last Admin: 01/07/17 00:55 Dose: 100 mls/hr Sodium Chloride (Normal Saline) 500 mls @ 999 mls/hr IV .BOLUS ONE Stop: 01/06/17 10:30 Last Admin: 01/06/17 13:22 Dose: 999 mls/hr Cefoxitin Sodium 2 gm/ Premix 50 mls @ 100 mls/hr IV ONETIME ONE Stop: 01/07/17 09:10 Last Admin: 01/07/17 09:47 Dose: 100 mls/hr Lidocaine HCl (Xylocaine-Mpf 1%) Confirm Administered Dose 6 mls @ as directed .ROUTE .STK-MED ONE Stop: 01/07/17 10:38 Hetastarch/Sodium Chloride (Hetastarch 6% In Normal Saline) Confirm Administered Dose 500 mls @ as directed .ROUTE .STK-MED ONE Stop: 01/07/17 12:23 Lactated Ringer's (Ringers, Lactated) Confirm Administered Dose 1,000 mls @ as directed .ROUTE .STK-MED ONE Stop: 01/07/17 12:23 Sodium Chloride (Normal Saline) Confirm Administered Dose 250 mls @ as directed .ROUTE .STK-MED ONE Stop: 01/09/17 03:31 Ibuprofen (Motrin) 600 mg PO Q6H PRN PRN Reason: Fever Last Admin: 01/04/17 12:27 Dose: 600 mg Insulin Aspart (Novolog) 0 unit SUBCUT Q6H [facility] PRN Reason: Protocol Last Admin: 01/03/17 06:20 Dose: Not Given Insulin Aspart (Novolog) 0 unit SUBCUT QIDACANDBED [facility] PRN Reason: Protocol Last Admin: 01/05/17 06:47 Dose: Not Given Iopamidol (Isovue-300 (61%)) 125 ml IVPUSH ONETIME ONE Stop: 01/02/17 19:12 Last Admin: 01/02/17 20:09 Dose: 125 ml Iopamidol (Isovue-300 (61%)) 125 ml IVPUSH ONETIME ONE Stop: 01/04/17 08:46 Last Admin: 01/04/17 09:41 Dose: 125 ml Iopamidol (Isovue-300 (61%)) 125 ml IVPUSH ONETIME ONE Stop: 01/06/17 12:13 Last Admin: 01/06/17 12:23 Dose: 125 ml Iopamidol (Isovue-300 (61%)) 120 ml IVPUSH ONETIME ONE Stop: 01/07/17 14:47 Last Admin: 01/07/17 14:53 Dose: 120 ml Ketorolac Tromethamine (Toradol) 60 mg IVPUSH Q6H [facility] Stop: 01/05/17 12:31 Last Admin: 01/05/17 06:32 Dose: Not Given Ketorolac Tromethamine (Toradol) 60 mg IVPUSH Q6H [facility] Stop: 01/06/17 03:01 Last Admin: 01/06/17 02:32 Dose: 60 mg Ketorolac Tromethamine (Toradol) 30 mg IVPUSH Q6H PRN PRN Reason: Pain (moderate 4-6) Stop: 01/08/17 06:01 Last Admin: 01/07/17 16:06 Dose: 30 mg Ketorolac Tromethamine (Toradol) Confirm Administered Dose 30 mg .ROUTE .STK- MED ONE Stop: 01/07/17 16:00 Last Admin: 01/07/17 16:27 Dose: Not Given Lidocaine/Epinephrine (Xylocaine 1% With Epinephrine 1:100,000) Confirm Administered Dose 20 ml .ROUTE .STK-MED ONE Stop: 01/07/17 09:10 Lisinopril (Prinivil) 5 mg PO DAILY [facility] Last Admin: 01/05/17 08:25 Dose: Not Given Lorazepam (Ativan) 0.5 mg PO Q4H PRN PRN Reason: Anxiety Last Admin: 01/07/17 04:52 Dose: 0.5 mg Methylene Blue (Methylene Blue 1%) Confirm Administered Dose 1 ml .ROUTE .STK- MED ONE Stop: 01/07/17 11:55 Metoclopramide HCl (Reglan) 10 mg IVPUSH ONETIME ONE Stop: 01/02/17 17:48 Last Admin: 01/02/17 18:18 Dose: 10 mg Metronidazole (Flagyl) 500 mg PO TID [facility] Metronidazole (Flagyl) 500 mg PO TID [facility] Midazolam HCl (Versed 1 Mg/Ml) Confirm Administered Dose 2 mg .ROUTE .STK-MED ONE Stop: 01/07/17 10:05 Morphine Sulfate (Morphine) 5 mg IM ONETIME ONE Stop: 01/03/17 23:14 Last Admin: 01/03/17 23:41 Dose: 5 mg Morphine Sulfate (Morphine) 5 mg IM ONETIME ONE Stop: 01/04/17 21:01 Last Admin: 01/04/17 21:13 Dose: 5 mg Morphine Sulfate (Morphine) 5 mg IM BEDTIME [facility] Stop: 01/09/17 21:01 Last Admin: 01/07/17 21:49 Dose: 5 mg Neostigmine Methylsulfate (Neostigmine) Confirm Administered Dose 5 mg .ROUTE .STK-MED ONE Stop: 01/07/17 11:21 Ondansetron HCl (Zofran) 4 mg IVPUSH ONETIME ONE Stop: 01/02/17 21:42 Last Admin: 01/02/17 21:46 Dose: 4 mg Ondansetron HCl (Zofran) 4 mg IVPUSH Q4H PRN PRN Reason: Nausea/Vomiting Last Admin: 01/04/17 08:15 Dose: 4 mg Ondansetron HCl (Zofran) Confirm Administered Dose 4 mg .ROUTE .STK-MED ONE Stop: 01/07/17 10:05 Ondansetron HCl (Zofran) 4 mg IVPUSH ONETIME PRN PRN Reason: Nausea/Vomiting Stop: 01/07/17 15:00 Last Admin: 01/07/17 13:13 Dose: 4 mg Oxycodone/Acetaminophen (Percocet 325-5 Mg) 1 tab PO Q4H PRN PRN Reason: Pain Last Admin: 01/04/17 07:02 Dose: 1 tab Oxycodone/Acetaminophen (Percocet 325-5 Mg) 2 tab PO Q4HR PRN PRN Reason: Pain (moderate 4-6) Oxycodone/Acetaminophen (Percocet 325-5 Mg) 2 tab PO Q4H PRN PRN Reason: Pain (moderate 4-6) Last Admin: 01/07/17 04:48 Dose: 2 tab Pneumococcal Polyvalent Vaccine (Pneumovax 23) 0.5 ml IM .ONCE ONE Stop: 01/06/17 18:47 Potassium Chloride (Klor-Con M20) 40 meq PO ONETIME ONE Stop: 01/05/17 11:16 Last Admin: 01/05/17 11:35 Dose: 40 meq Potassium Chloride (Klor-Con M20) 20 meq PO BEDTIME [facility] Last Admin: 01/06/17 20:20 Dose: 20 meq Promethazine HCl (Phenergan) 25 mg IM ONETIME ONE Stop: 01/03/17 23:22 Last Admin: 01/03/17 23:40 Dose: 25 mg Promethazine HCl (Phenergan) 25 mg IM ONETIME ONE Stop: 01/04/17 21:01 Last Admin: 01/04/17 21:13 Dose: 25 mg Promethazine HCl (Phenergan) 25 mg IM BEDTIME [facility] Stop: 01/09/17 21:01 Last Admin: 01/07/17 21:50 Dose: 25 mg Propofol (Diprivan 20 Ml) Confirm Administered Dose 200 mg .ROUTE .STK-MED ONE Stop: 01/07/17 10:05 Rocuronium [place] (Zemuron) Confirm Administered Dose 50 mg .ROUTE .STK-MED ONE Stop: 01/07/17 10:05 Saccharomyces Boulardii (Florastor) 250 mg PO BID [facility] Last Admin: 01/07/17 09:55 Dose: Not Given Sertraline HCl (Zoloft) 25 mg PO DAILY [facility] Last Admin: 01/05/17 11:40 Dose: Not Given Sodium Chloride (Saline Flush) 10 ml FLUSH ONETIME PRN PRN Reason: IV FLUSH Last Admin: 01/02/17 20:09 Dose: 10 ml Sodium Chloride (Saline Flush) 10 ml FLUSH ONETIME ONE Stop: 01/04/17 08:46 Last Admin: 01/04/17 09:41 Dose: 10 ml Sodium Chloride (Saline Flush) 10 ml FLUSH ONETIME PRN PRN Reason: IV FLUSH Last Admin: 01/06/17 12:23 Dose: 10 ml Sodium Chloride (Normal Saline) Confirm Administered Dose 50 ml .ROUTE .STK-MED ONE Stop: 01/07/17 09:11 Sodium Chloride (Saline Flush) 20 ml FLUSH ONETIME ONE Stop: 01/07/17 14:47 Last Admin: 01/07/17 14:55 Dose: 20 ml Zolpidem Tartrate (Ambien) 5 mg PO BEDTIME PRN PRN Reason: Insomnia Last Admin: 01/06/17 20:20 Dose: 5 mg - Exam Wound/Incisions: healing well, no drainage Quality Assessment: central line/PICC, urine catheter, DVT prophylaxis General: alert, oriented, cooperative Lungs: Clear to auscultation, Decreased breath sounds Cardiovascular: Regular Rate, Regular Rhythm Abdomen: bowel sounds present, soft, tenderness (appropriate post op), distension (improved from yesterday), other (passing flatus). No: rebound, guarding Extremities: edema Skin: warm, dry, intact - Problem List & Annotations (1) Tubo-ovarian abscess SNOMED Code(s): 73887010 Code(s): N70.93 - SALPINGITIS AND OOPHORITIS, UNSPECIFIED Status: Acute Priority: High Current Visit: Yes (2) S/P exploratory laparotomy SNOMED Code(s): 525384950, 98329693, 792517839 Code(s): Z98.890 - OTHER SPECIFIED POSTPROCEDURAL STATES Status: Acute Current Visit: Yes (3) S/P abdominal hysterectomy and left salpingo-oophorectomy SNOMED Code(s): 631983716 Code(s): Z90.710 - ACQUIRED ABSENCE OF BOTH CERVIX AND UTERUS; Z90.721 - ACQUIRED ABSENCE OF OVARIES, UNILATERAL; Z90.79 - ACQUIRED ABSENCE OF OTHER GENITAL ORGAN(S) Status: Acute Current Visit: Yes Annotation/Comment:: Supracervical hysterectomy - Problem List Review Problem List Initiated/Reviewed/Updated: Yes - My Orders Last 24 Hours: Active Orders 24 hr Category Date Time Status Bray Catheter Insertion [Insert Urinary Catheter] [OM. Care 01/08/17 18:45 Ordered PC] Q24H Urinary Catheter Assessment [RC] QSHIFT Care 01/08/17 18:38 Active BMP [BASIC METABOLIC PANEL,BMP] [CHEM] DAILY Lab 01/10/17 05:00 Ordered BMP [BASIC METABOLIC PANEL,BMP] [CHEM] DAILY Lab 01/11/17 05:00 Ordered CBC W/O DIFF,HEMOGRAM [HEME] DAILY Lab 01/10/17 13:57 Ordered CBC W/O DIFF,HEMOGRAM [HEME] DAILY Lab 01/11/17 13:57 Ordered CBC W/O DIFF,HEMOGRAM [HEME] DAILY Lab 01/12/17 13:57 Ordered CULTURE BLOOD [BC] Stat Lab 01/09/17 02:33 Received CULTURE BLOOD [BC] Stat Lab 01/09/17 02:50 Received CULTURE URINE [RM] Routine Lab 01/09/17 02:40 Received RED BLOOD CELLS LP [BBK] Routine Lab 01/09/17 02:33 Results TYPE AND SCREEN [BBK] Routine Lab 01/09/17 02:33 Results Ibuprofen [Motrin] Med 01/08/17 12:00 Active 600 mg PO Q6H PRN Simethicone Med 01/08/17 08:01 Active 80 mg PO Q4H PRN Blood Culture x2 Reflex Set [OM.PC] Stat Oth 01/09/17 02:16 Ordered Heat Therapy [OM.PC] Routine Oth 01/08/17 18:38 Ordered Transfuse PRBC [Transfuse Red Blood Cells] [COMM] Stat Ot 01/09/17 03:27 Ordered Medication Orders Docusate Sodium (Colace) 100 mg PO BID [facility] Last Admin: 01/08/17 20:31 Dose: 100 mg Admin: 01/08/17 08:23 Dose: 100 mg Admin: 01/07/17 20:57 Dose: 100 mg Ampicillin Sodium/Sulbactam (Sodium 3 gm/ Sodium Chloride) 100 mls @ 200 mls/ hr IV Q6H [facility] Last Admin: 01/08/17 23:56 Dose: 200 mls/hr Infusion: 01/08/17 18:50 Dose: 200 mls/hr Admin: 01/08/17 18:20 Dose: 200 mls/hr Infusion: 01/08/17 13:51 Dose: 200 mls/hr Admin: 01/08/17 13:21 Dose: 200 mls/hr Infusion: 01/08/17 05:56 Dose: 200 mls/hr Admin: 01/08/17 05:26 Dose: 200 mls/hr Infusion: 01/08/17 01:27 Dose: 200 mls/hr Admin: 01/08/17 00:57 Dose: 200 mls/hr Infusion: 01/07/17 20:03 Dose: 200 mls/hr Admin: 01/07/17 19:33 Dose: 200 mls/hr Doxycycline Hyclate 100 mg/ (Sodium Chloride) 100 mls @ 100 mls/hr IV Q12HR [facility] Last Admin: 01/08/17 20:31 Dose: 100 mls/hr Infusion: 01/08/17 09:23 Dose: 100 mls/hr Admin: 01/08/17 08:23 Dose: 100 mls/hr Infusion: 01/07/17 21:56 Dose: 100 mls/hr Admin: 01/07/17 20:56 Dose: 100 mls/hr Lactated Ringer's (Ringers, Lactated) 1,000 mls @ 125 mls/hr IV ASDIRECTED [facility] Last Admin: 01/09/17 03:03 Dose: 125 mls/hr Infusion: 01/09/17 02:23 Dose: 125 mls/hr Admin: 01/08/17 18:23 Dose: 125 mls/hr Infusion: 01/08/17 17:51 Dose: 125 mls/hr Admin: 01/08/17 09:51 Dose: 125 mls/hr Infusion: 01/08/17 09:50 Dose: 125 mls/hr Admin: 01/08/17 01:50 Dose: 125 mls/hr Infusion: 01/08/17 01:50 Dose: 125 mls/hr Admin: 01/07/17 18:04 Dose: 125 mls/hr Metronidazole 500 mg/ Premix 100 mls @ 100 mls/hr IV Q8H [facility] Stop: 01/11/17 06:59 Last Admin: 01/08/17 21:36 Dose: 100 mls/hr Infusion: 01/08/17 15:21 Dose: 100 mls/hr Admin: 01/08/17 14:21 Dose: 100 mls/hr Infusion: 01/08/17 06:21 Dose: 100 mls/hr Admin: 01/08/17 05:21 Dose: 100 mls/hr Infusion: 01/07/17 22:50 Dose: 100 mls/hr Admin: 01/07/17 21:50 Dose: 100 mls/hr Infusion: 01/07/17 17:07 Dose: 100 mls/hr Admin: 01/07/17 16:07 Dose: 100 mls/hr Ibuprofen (Motrin) 600 mg PO Q6H PRN PRN Reason: Pain (mild 1-3) Insulin Aspart (Novolog) 0 unit SUBCUT QIDACANDBED [facility] PRN Reason: Protocol Last Admin: 01/08/17 22:04 Dose: Not Given Admin: 01/08/17 18:20 Dose: Not Given Admin: 01/08/17 12:37 Dose: Not Given Admin: 01/08/17 07:36 Dose: Not Given Admin: 01/07/17 22:02 Dose: Ondansetron HCl (Zofran) 4 mg IVPUSH Q4H PRN PRN Reason: Nausea/Vomiting Last Admin: 01/07/17 16:05 Dose: 4 mg Oxycodone/Acetaminophen (Percocet 325-5 Mg) 2 tab PO Q4H PRN PRN Reason: Pain (moderate 4-6) Last Admin: 01/09/17 03:03 Dose: 1 tab Admin: 01/08/17 22:45 Dose: 2 tab Admin: 01/08/17 18:20 Dose: 2 tab Admin: 01/08/17 13:58 Dose: 2 tab Admin: 01/08/17 09:46 Dose: 2 tab Admin: 01/08/17 05:16 Dose: 2 tab Admin: 01/07/17 23:07 Dose: 2 tab Admin: 01/07/17 17:41 Dose: 2 tab Simethicone (Simethicone) 80 mg PO Q4H PRN PRN Reason: Abdominal Pain Last Admin: 01/08/17 09:49 Dose: 80 mg Sodium Chloride (Saline Flush) 10 ml FLUSH ASDIRECTED PRN PRN Reason: Keep Vein Open - Assessment Assessment (Free Text/Narrative):: 31-year-old woman who is currently HD#8/POD#2 after admission for tubo- ovarian abscess with eventual need for exploratory laparotomy, LSO, and supracervical hysterectomy. - Plan Plan (Free Text/Narrative):: TOA s/p surgery exploration * Currently on a regimen of Unasyn, doxycycline, and Flagyl. Patient with fever on one method of temperature assessment overnight (temporal), but rectal and oral temperatures normal concurrently. Will not switch antibiotic regimen at this time. Blood cultures and urine culture repeated at time of fever. * Repeat CBC at time of fever displayed patient to be anemic with a Hb of 6.5. Two units of blood to be transfused * Bray catheter removal attempt again this AM * Subcutaneous drain removed this AM. Will likely remove intra-abdominal drain later today vs tomorrow. * Abdominal exam improved. Will potentially advance diet by lunch. SLIV otherwise after blood transfusion. * Continue percocet, ibuprofen for pain * Incentive spirometry encouraged along with ambulation * Diabetes care currently being managed by internal medicine team. Patient with sliding scale insulin currently. Holding home medications
[2017-01-09] MEDS ORDERED: Sodium Chloride 0.9% 10 ML Syringe FLUSH PRN (06:43)
[2017-01-09] MEDS: Insulin Aspart 100 Units/ML 3 ML Pen SUBCUT SCH ×4 (07:20→22:50)
--- NOTE | 2017-01-09 08:50 | PCM.CONSN ---
- General Info Date of Service: 01/09/17 Subjective Update: Subcutaneous drain pulled; intra-abdominal to be pulled 24-48 hours. Functional Status: Reports: pain controlled, tolerating diet (clear), other (DM meds held, ss insulin for glucose coverage) - Review of Systems General: Reports: No Symptoms HEENT: Reports: no symptoms Pulmonary: Reports: no symptoms Cardiovascular: Reports: No Symptoms Gastrointestinal: Reports: Abdominal pain Genitourinary: Reports: no symptoms Musculoskeletal: Reports: no symptoms Skin: Reports: no symptoms Neurological: Reports: No Symptoms Psychiatric: Reports: no symptoms - Patient Data Vitals - most recent: Last Vital Signs Temp 36.9 C 01/09/17 07:12 Pulse 93 01/09/17 07:12 Resp 18 01/09/17 07:12 BP 121/85 01/09/17 07:12 Pulse Ox 92 L 01/09/17 07:12 Weight - most recent: 103.827 kg I&O - last 24 hours: Intake & Output 01/08/17 01/09/17 01/09/17 22:59 06:59 14:59 Intake Total 380 2419 Output Total 1960 Balance 380 459 Lab Results last 24 hrs: Laboratory Results - last 24 hr 01/07/17 01/08/17 01/08/17 Range/Units 08:50 12:22 18:00 WBC (3.98-10.04) K/mm3 RBC (3.98-5.22) M/mm3 Hgb (11.2-15.7) gm/L Hct (34.1-44.9) % MCV (79.4-94.8) fl MCH (25.6-32.2) pg MCHC (32.2-35.5) g/dl RDW Std Deviation (36.4-46.3) fL Plt Count (182-369) K/mm3 MPV (9.4-12.3) fl Sodium (136-145) mEq/L Potassium (3.5-5.1) mEq/L Chloride (98-107) mEq/L Carbon Dioxide (21-32) mEq/L Anion Gap (5-15) BUN (7-18) mg/dL Creatinine (0.55-1.02) mg/dL Est Cr Clr Drug Dosing mL/min Estimated GFR (MDRD) (>60) mL/min BUN/Creatinine Ratio (14-18) Glucose (74-106) mg/dL POC Glucose 106 H 79 (70-105) mg/dL Calcium (8.5-10.1) mg/dL Blood Type A POSITIVE Gel Antibody Screen Negative Crossmatch 01/08/17 01/09/17 01/09/17 Range/Units 21:46 02:33 02:33 WBC 16.26 H (3.98-10.04) K/mm3 RBC 2.45 L (3.98-5.22) M/mm3 Hgb 6.5 L* (11.2-15.7) gm/L Hct 20.5 L (34.1-44.9) % MCV 83.7 (79.4-94.8) fl MCH 26.5 (25.6-32.2) pg MCHC 31.7 L (32.2-35.5) g/dl RDW Std Deviation 39.7 (36.4-46.3) fL Plt Count 527 H (182-369) K/mm3 MPV 8.8 L (9.4-12.3) fl Sodium 140 (136-145) mEq/L Potassium 3.5 (3.5-5.1) mEq/L Chloride 103 (98-107) mEq/L Carbon Dioxide 29 (21-32) mEq/L Anion Gap 11.5 (5-15) BUN 5 L (7-18) mg/dL Creatinine 0.6 (0.55-1.02) mg/dL Est Cr Clr Drug Dosing 108.43 mL/min Estimated GFR (MDRD) > 60 (>60) mL/min BUN/Creatinine Ratio 8.3 L (14-18) Glucose 88 (74-106) mg/dL POC Glucose 67 L (70-105) mg/dL Calcium 8.0 L (8.5-10.1) mg/dL Blood Type Gel Antibody Screen Crossmatch 01/09/17 01/09/17 Range/Units 02:33 06:34 WBC (3.98-10.04) K/mm3 RBC (3.98-5.22) M/mm3 Hgb (11.2-15.7) gm/L Hct (34.1-44.9) % MCV (79.4-94.8) fl MCH (25.6-32.2) pg MCHC (32.2-35.5) g/dl RDW Std Deviation (36.4-46.3) fL Plt Count (182-369) K/mm3 MPV (9.4-12.3) fl Sodium (136-145) mEq/L Potassium (3.5-5.1) mEq/L Chloride (98-107) mEq/L Carbon Dioxide (21-32) mEq/L Anion Gap (5-15) BUN (7-18) mg/dL Creatinine (0.55-1.02) mg/dL Est Cr Clr Drug Dosing mL/min Estimated GFR (MDRD) (>60) mL/min BUN/Creatinine Ratio (14-18) Glucose (74-106) mg/dL POC Glucose 80 (70-105) mg/dL Calcium (8.5-10.1) mg/dL Blood Type A POSITIVE Gel Antibody Screen Negative Crossmatch See Detail Sukh Results last 24 hrs: Microbiology 01/09/17 02:50 Anaerobic Blood Culture - Final Blood - Venous - Lab Draw 01/07/17 11:18 Gram Stain - Final Abdomen - Abscess Anaerobic Culture - Preliminary NO GROWTH AFTER 1 DAY Med Orders - Current: Current Medications Docusate Sodium (Colace) 100 mg PO BID [facility] Last Admin: 01/08/17 20:31 Dose: 100 mg Ampicillin Sodium/Sulbactam (Sodium 3 gm/ Sodium Chloride) 100 mls @ 200 mls/ hr IV Q6H [facility] Last Admin: 01/09/17 06:22 Dose: 200 mls/hr Doxycycline Hyclate 100 mg/ (Sodium Chloride) 100 mls @ 100 mls/hr IV Q12HR [facility] Last Admin: 01/08/17 20:31 Dose: 100 mls/hr Metronidazole 500 mg/ Premix 100 mls @ 100 mls/hr IV Q8H [facility] Stop: 01/11/17 06:59 Last Admin: 01/09/17 06:23 Dose: 100 mls/hr Ibuprofen (Motrin) 600 mg PO Q6H PRN PRN Reason: Pain (mild 1-3) Insulin Aspart (Novolog) 0 unit SUBCUT QIDACANDBED JAMES PRN Reason: Protocol Last Admin: 01/09/17 07:20 Dose: Not Given Ondansetron HCl (Zofran) 4 mg IVPUSH Q4H PRN PRN Reason: Nausea/Vomiting Last Admin: 01/07/17 16:05 Dose: 4 mg Oxycodone/Acetaminophen (Percocet 325-5 Mg) 2 tab PO Q4H PRN PRN Reason: Pain (moderate 4-6) Last Admin: 01/09/17 07:07 Dose: 2 tab Simethicone (Simethicone) 80 mg PO Q4H PRN PRN Reason: Abdominal Pain Last Admin: 01/08/17 09:49 Dose: 80 mg Sodium Chloride (Saline Flush) 10 ml FLUSH ASDIRECTED PRN PRN Reason: Keep Vein Open Sodium Chloride (Saline Flush) 10 ml FLUSH ASDIRECTED PRN PRN Reason: Keep Vein Open Discontinued Medications Acetaminophen (Tylenol) 650 mg PO Q4H PRN PRN Reason: Pain (mild 1-3) Last Admin: 01/07/17 19:34 Dose: 650 mg Bupivacaine HCl (Marcaine 0.5%) Confirm Administered Dose 30 ml .ROUTE .STK-MED ONE Stop: 01/07/17 09:11 Last Admin: 01/07/17 10:57 Dose: 20 ml Cefazolin Sodium (Ancef) Confirm Administered Dose 2 gm .ROUTE .STK-MED ONE Stop: 01/07/17 10:05 Cephalexin (Keflex) 500 mg PO Q6H JAMES Last Admin: 01/07/17 09:55 Dose: Not Given Dexamethasone (Dexamethasone) Confirm Administered Dose 4 mg .ROUTE .STK-MED ONE Stop: 01/07/17 10:05 Diatrizoate Meglum/Diatrizoate Sod (Gastrografin 37%) 90 ml PO ONETIME ONE Stop: 01/02/17 19:12 Last Admin: 01/02/17 20:09 Dose: 90 ml Diatrizoate Meglum/Diatrizoate Sod (Gastrografin 37%) 90 ml PO ONETIME ONE Stop: 01/04/17 08:46 Last Admin: 01/04/17 09:41 Dose: 90 ml Diatrizoate Meglum/Diatrizoate Sod (Gastrografin 37%) 90 ml PO ONETIME ONE Stop: 01/06/17 12:13 Last Admin: 01/06/17 12:23 Dose: 90 ml Diphenhydramine HCl (Benadryl) 25 mg IVPUSH ONETIME ONE Stop: 01/02/17 17:51 Last Admin: 01/02/17 18:18 Dose: 25 mg Doxycycline Hyclate (Vibramycin) Confirm Administered Dose 100 mg .ROUTE .STK- MED ONE Stop: 01/04/17 15:28 Last Admin: 01/04/17 15:57 Dose: Not Given Doxycycline Hyclate (Vibramycin) 100 mg PO BID JAMES Last Admin: 01/07/17 09:55 Dose: Not Given Fentanyl (Sublimaze) Confirm Administered Dose 250 mcg .ROUTE .STK-MED ONE Stop: 01/07/17 10:06 Fentanyl (Sublimaze) 50 mcg IVPUSH Q5M PRN PRN Reason: pain Stop: 01/07/17 15:00 Last Admin: 01/07/17 14:35 Dose: 50 mcg Fentanyl (Sublimaze) Confirm Administered Dose 100 mcg .ROUTE .STK-MED ONE Stop: 01/07/17 12:57 Fentanyl (Sublimaze) Confirm Administered Dose 100 mcg .ROUTE .STK-MED ONE Stop: 01/07/17 14:10 Last Admin: 01/07/17 14:28 Dose: 50 mcg Fentanyl (Sublimaze) Confirm Administered Dose 100 mcg .ROUTE .STK-MED ONE Stop: 01/07/17 14:11 Last Admin: 01/07/17 14:14 Dose: 100 mcg Fentanyl (Sublimaze) Confirm Administered Dose 100 mcg .ROUTE .STK-MED ONE Stop: 01/07/17 14:21 Last Admin: 01/07/17 14:17 Dose: 50 mcg Fentanyl (Sublimaze) 100 mcg IVPUSH ONETIME ONE Stop: 01/07/17 15:59 Last Admin: 01/07/17 14:18 Dose: 50 mcg Glycopyrrolate () Confirm Administered Dose 1 mg .ROUTE .STK-MED ONE Stop: 01/07/17 11:21 Hydromorphone HCl (Dilaudid) 1 mg IVPUSH ONETIME ONE Stop: 01/02/17 17:48 Last Admin: 01/02/17 18:18 Dose: 1 mg Hydromorphone HCl (Dilaudid) 0.5 mg IVPUSH ONETIME ONE Stop: 01/02/17 18:42 Last Admin: 06/18/17 18:55 Dose: 0.5 mg Hydromorphone HCl (Dilaudid) 0.5 mg IVPUSH ONETIME ONE Stop: 01/02/17 20:28 Last Admin: 01/02/17 20:36 Dose: 0.5 mg Hydromorphone HCl (Dilaudid) 0.5 mg IVPUSH ONETIME ONE Stop: 01/02/17 21:42 Last Admin: 01/02/17 21:48 Dose: 0.5 mg Hydromorphone HCl (Dilaudid) 0.5 mg IVPUSH Q2H PRN PRN Reason: Pain Last Admin: 01/04/17 10:28 Dose: 0.5 mg Hydromorphone HCl (Dilaudid) Confirm Administered Dose 1 mg .ROUTE .STK-MED ONE Stop: 01/07/17 10:05 Hydromorphone HCl (Dilaudid) Confirm Administered Dose 1 mg .ROUTE .STK-MED ONE Stop: 01/07/17 11:11 Hydromorphone HCl (Dilaudid) 0.5 mg IVPUSH Q15M PRN PRN Reason: Pain (severe 7-10) Stop: 01/07/17 12:46 Last Admin: 01/07/17 13:19 Dose: 0.5 mg Sodium Chloride (Normal Saline) 1,000 mls @ 999 mls/hr IV ONETIME ONE Stop: 01/02/17 18:46 Last Admin: 01/02/17 18:21 Dose: 999 mls/hr Levofloxacin/Dextrose 750 mg/ (Premix) 150 mls @ 100 mls/hr IV ONETIME ONE Stop: 01/02/17 19:36 Last Admin: 01/02/17 18:23 Dose: 100 mls/hr Lactated Ringer's (Ringers, Lactated) 1,000 mls @ 150 mls/hr IV ASDIRECTED [facility] Last Admin: 01/02/17 23:35 Dose: 150 mls/hr Dextrose/Sodium Chloride (Dextrose 5%-1/2 Ns) 1,000 mls @ 125 mls/hr IV ASDIRECTED [facility] Last Admin: 01/03/17 06:12 Dose: 125 mls/hr Cefoxitin Sodium 2 gm/ Premix 50 mls @ 100 mls/hr IV Q12H [facility] Last Admin: 01/05/17 00:39 Dose: 100 mls/hr Doxycycline Hyclate 100 mg/ (Sodium Chloride) 100 mls @ 100 mls/hr IV Q12H [facility] Stop: 01/07/17 09:00 Last Admin: 01/07/17 02:31 Dose: 100 mls/hr Levofloxacin/Dextrose 750 mg/ (Premix) 150 mls @ 100 mls/hr IV Q24H [facility] Stop: 01/07/17 09:00 Last Admin: 01/06/17 17:13 Dose: 100 mls/hr Lactated Ringer's (Ringers, Lactated) 1,000 mls @ 75 mls/hr IV ASDIRECTED [facility] Last Admin: 01/05/17 13:55 Dose: 75 mls/hr Metronidazole 500 mg/ Premix 100 mls @ 100 mls/hr IV Q8H [facility] Stop: 01/07/17 09:00 Last Admin: 01/07/17 00:55 Dose: 100 mls/hr Sodium Chloride (Normal Saline) 500 mls @ 999 mls/hr IV .BOLUS ONE Stop: 01/06/17 10:30 Last Admin: 01/06/17 13:22 Dose: 999 mls/hr Cefoxitin Sodium 2 gm/ Premix 50 mls @ 100 mls/hr IV ONETIME ONE Stop: 01/07/17 09:10 Last Admin: 01/07/17 09:47 Dose: 100 mls/hr Lidocaine HCl (Xylocaine-Mpf 1%) Confirm Administered Dose 6 mls @ as directed .ROUTE .STK-MED ONE Stop: 01/07/17 10:38 Hetastarch/Sodium Chloride (Hetastarch 6% In Normal Saline) Confirm Administered Dose 500 mls @ as directed .ROUTE .STK-MED ONE Stop: 01/07/17 12:23 Lactated Ringer's (Ringers, Lactated) Confirm Administered Dose 1,000 mls @ as directed .ROUTE .STK-MED ONE Stop: 01/07/17 12:23 Lactated Ringer's (Ringers, Lactated) 1,000 mls @ 75 mls/hr IV ASDIRECTED [facility] Last Admin: 01/09/17 03:03 Dose: 125 mls/hr Sodium Chloride (Normal Saline) Confirm Administered Dose 250 mls @ as directed .ROUTE .STK-MED ONE Stop: 01/09/17 03:31 Last Admin: 01/09/17 04:30 Dose: 250 ml Ibuprofen (Motrin) 600 mg PO Q6H PRN PRN Reason: Fever Last Admin: 01/04/17 12:27 Dose: 600 mg Insulin Aspart (Novolog) 0 unit SUBCUT Q6H JAMES PRN Reason: Protocol Last Admin: 01/03/17 06:20 Dose: Not Given Insulin Aspart (Novolog) 0 unit SUBCUT QIDACANDBED [facility] PRN Reason: Protocol Last Admin: 01/05/17 06:47 Dose: Not Given Iopamidol (Isovue-300 (61%)) 125 ml IVPUSH ONETIME ONE Stop: 01/02/17 19:12 Last Admin: 01/02/17 20:09 Dose: 125 ml Iopamidol (Isovue-300 (61%)) 125 ml IVPUSH ONETIME ONE Stop: 01/04/17 08:46 Last Admin: 01/04/17 09:41 Dose: 125 ml Iopamidol (Isovue-300 (61%)) 125 ml IVPUSH ONETIME ONE Stop: 01/06/17 12:13 Last Admin: 01/06/17 12:23 Dose: 125 ml Iopamidol (Isovue-300 (61%)) 120 ml IVPUSH ONETIME ONE Stop: 01/07/17 14:47 Last Admin: 01/07/17 14:53 Dose: 120 ml Ketorolac Tromethamine (Toradol) 60 mg IVPUSH Q6H [facility] Stop: 01/05/17 12:31 Last Admin: 01/05/17 06:32 Dose: Not Given Ketorolac Tromethamine (Toradol) 60 mg IVPUSH Q6H [facility] Stop: 01/06/17 03:01 Last Admin: 01/06/17 02:32 Dose: 60 mg Ketorolac Tromethamine (Toradol) 30 mg IVPUSH Q6H PRN PRN Reason: Pain (moderate 4-6) Stop: 01/08/17 06:01 Last Admin: 01/07/17 16:06 Dose: 30 mg Ketorolac Tromethamine (Toradol) Confirm Administered Dose 30 mg .ROUTE .STK- MED ONE Stop: 01/07/17 16:00 Last Admin: 01/07/17 16:27 Dose: Not Given Lidocaine/Epinephrine (Xylocaine 1% With Epinephrine 1:100,000) Confirm Administered Dose 20 ml .ROUTE .STK-MED ONE Stop: 01/07/17 09:10 Lisinopril (Prinivil) 5 mg PO DAILY [facility] Last Admin: 01/05/17 08:25 Dose: Not Given Lorazepam (Ativan) 0.5 mg PO Q4H PRN PRN Reason: Anxiety Last Admin: 01/07/17 04:52 Dose: 0.5 mg Methylene Blue (Methylene Blue 1%) Confirm Administered Dose 1 ml .ROUTE .STK- MED ONE Stop: 01/07/17 11:55 Metoclopramide HCl (Reglan) 10 mg IVPUSH ONETIME ONE Stop: 01/02/17 17:48 Last Admin: 01/02/17 18:18 Dose: 10 mg Metronidazole (Flagyl) 500 mg PO TID JAMES Metronidazole (Flagyl) 500 mg PO TID [facility] Midazolam HCl (Versed 1 Mg/Ml) Confirm Administered Dose 2 mg .ROUTE .STK-MED ONE Stop: 01/07/17 10:05 Morphine Sulfate (Morphine) 5 mg IM ONETIME ONE Stop: 01/03/17 23:14 Last Admin: 01/03/17 23:41 Dose: 5 mg Morphine Sulfate (Morphine) 5 mg IM ONETIME ONE Stop: 01/04/17 21:01 Last Admin: 01/04/17 21:13 Dose: 5 mg Morphine Sulfate (Morphine) 5 mg IM BEDTIME JAMES Stop: 01/09/17 21:01 Last Admin: 01/07/17 21:49 Dose: 5 mg Neostigmine Methylsulfate (Neostigmine) Confirm Administered Dose 5 mg .ROUTE .STK-MED ONE Stop: 01/07/17 11:21 Ondansetron HCl (Zofran) 4 mg IVPUSH ONETIME ONE Stop: 01/02/17 21:42 Last Admin: 01/02/17 21:46 Dose: 4 mg Ondansetron HCl (Zofran) 4 mg IVPUSH Q4H PRN PRN Reason: Nausea/Vomiting Last Admin: 01/04/17 08:15 Dose: 4 mg Ondansetron HCl (Zofran) Confirm Administered Dose 4 mg .ROUTE .STK-MED ONE Stop: 01/07/17 10:05 Ondansetron HCl (Zofran) 4 mg IVPUSH ONETIME PRN PRN Reason: Nausea/Vomiting Stop: 01/07/17 15:00 Last Admin: 01/07/17 13:13 Dose: 4 mg Oxycodone/Acetaminophen (Percocet 325-5 Mg) 1 tab PO Q4H PRN PRN Reason: Pain Last Admin: 01/04/17 07:02 Dose: 1 tab Oxycodone/Acetaminophen (Percocet 325-5 Mg) 2 tab PO Q4HR PRN PRN Reason: Pain (moderate 4-6) Oxycodone/Acetaminophen (Percocet 325-5 Mg) 2 tab PO Q4H PRN PRN Reason: Pain (moderate 4-6) Last Admin: 01/07/17 04:48 Dose: 2 tab Pneumococcal Polyvalent Vaccine (Pneumovax 23) 0.5 ml IM .ONCE ONE Stop: 01/06/17 18:47 Potassium Chloride (Klor-Con M20) 40 meq PO ONETIME ONE Stop: 01/05/17 11:16 Last Admin: 01/05/17 11:35 Dose: 40 meq Potassium Chloride (Klor-Con M20) 20 meq PO BEDTIME [facility] Last Admin: 01/06/17 20:20 Dose: 20 meq Promethazine HCl (Phenergan) 25 mg IM ONETIME ONE Stop: 01/03/17 23:22 Last Admin: 01/03/17 23:40 Dose: 25 mg Promethazine HCl (Phenergan) 25 mg IM ONETIME ONE Stop: 01/04/17 21:01 Last Admin: 01/04/17 21:13 Dose: 25 mg Promethazine HCl (Phenergan) 25 mg IM BEDTIME JAMES Stop: 01/09/17 21:01 Last Admin: 01/07/17 21:50 Dose: 25 mg Propofol (Diprivan 20 Ml) Confirm Administered Dose 200 mg .ROUTE .STK-MED ONE Stop: 01/07/17 10:05 Rocuronium [place] (Zemuron) Confirm Administered Dose 50 mg .ROUTE .STK-MED ONE Stop: 01/07/17 10:05 Saccharomyces Boulardii (Florastor) 250 mg PO BID [facility] Last Admin: 01/07/17 09:55 Dose: Not Given Sertraline HCl (Zoloft) 25 mg PO DAILY JAMES Last Admin: 01/05/17 11:40 Dose: Not Given Sodium Chloride (Saline Flush) 10 ml FLUSH ONETIME PRN PRN Reason: IV FLUSH Last Admin: 01/02/17 20:09 Dose: 10 ml Sodium Chloride (Saline Flush) 10 ml FLUSH ONETIME ONE Stop: 01/04/17 08:46 Last Admin: 01/04/17 09:41 Dose: 10 ml Sodium Chloride (Saline Flush) 10 ml FLUSH ONETIME PRN PRN Reason: IV FLUSH Last Admin: 01/06/17 12:23 Dose: 10 ml Sodium Chloride (Normal Saline) Confirm Administered Dose 50 ml .ROUTE .STK-MED ONE Stop: 01/07/17 09:11 Sodium Chloride (Saline Flush) 20 ml FLUSH ONETIME ONE Stop: 01/07/17 14:47 Last Admin: 01/07/17 14:55 Dose: 20 ml Zolpidem Tartrate (Ambien) 5 mg PO BEDTIME PRN PRN Reason: Insomnia Last Admin: 01/06/17 20:20 Dose: 5 mg - Exam Quality Assessment: supplemental oxygen, central line/PICC, DVT prophylaxis General: alert, oriented, no acute distress HEENT: Pupils equal, Pupils reactive, EOMI Neck: supple, trachea midline Lungs: Decreased breath sounds Cardiovascular: Regular Rate Abdomen: bowel sounds present, soft, no distension, tenderness (Female) Exam: Deferred Back Exam: Normal Inspection Extremities: normal pulses Skin: warm Wound/Incisions: drainage (VIC pulled subcutaneous only) Neurological: no new focal deficit Psy/Mental Status: alert, labile mood Consult PN Assessment/Plan POD#: 2 Procedures: Procedures ASSAY OF IRON (02/23/16) ASSAY OF TRANSFERRIN (02/23/16) ASSAY THYROID STIM HORMONE (12/20/16) CHORIONIC GONADOTROPIN ASSAY (02/28/14) COMPLETE CBC AUTOMATED (02/17/16) COMPLETE CBC W/AUTO DIFF WBC (01/01/17) COMPREHEN METABOLIC PANEL (01/01/17) CULTR BACTERIA EXCEPT BLOOD (02/28/14) DRAINAGE OF PILONIDAL CYST (02/28/14) EMERGENCY DEPT VISIT (01/01/17) GLYCOSYLATED HEMOGLOBIN TEST (12/20/16) HEP B CORE ANTIBODY IGM (02/17/16) HEPATITIS A IGM ANTIBODY (02/17/16) HEPATITIS B SURFACE AG IA (02/17/16) HEPATITIS C AB TEST (02/17/16) HYDRATE IV INFUSION ADD-ON (01/01/17) LIPID PANEL (02/23/16) ROUTINE VENIPUNCTURE (01/01/17) SMEAR GRAM STAIN (02/28/14) THER/PROPH/DIAG INJ SC/IM (02/13/16) THER/PROPH/DIAG IV INF INIT (01/01/17) TX/PRO/DX INJ NEW DRUG ADDON (01/01/17) URINALYSIS AUTO W/SCOPE (01/01/17) URINE CULTURE/COLONY COUNT (01/01/17) URINE TEST (01/01/17) Problem List Initiated/Reviewed/Updated: Yes Plan: Impression.Plan: POD2, Exp Lap/LSO and supra-cervical hysterectomy Tubo-ovarian Abscess on triple ATBs per primary service, HEALTHCARE ANALYST Febrile, temporal only; ATBs were not changed Regular diet with SS insulin Increase activity, tolerated. Resp stable, IS as directed.
[2017-01-09] MEDS: Doxycycline 100 MG in Sodium Chloride 0.9% 100 ML IV SCH ×2 (10:13→21:44)
[2017-01-09] MEDS: Docusate Sodium 100 MG Cap PO SCH ×2 (10:14→21:24)
--- NOTE | 2017-01-09 13:57 | PCM.SN ---
- Free Text/Narrative Note: 1300 S: Patient doing well. Feeling improved after blood transfusion. Was able to walk around unit. Pain controlled. Had a BM. Passed more flatus. O: GEN: A&O x3 AB: Soft, moderate distension, incision C/D/I. Last VIC drain in place with serosanguinous fluid A/P: As per earlier assessment. Last VIC drain removed. [place] out. Patient not yet voided. Advanced diet to General, precautions given to go slowly. Transfusion complete. Repeat CBC in AM Suzanne Santos MD
[2017-01-10] MEDS: Ampicillin/Sulbactam Na 3 GM in Sodium Chloride 0.9% 100 ML IV SCH ×2 (00:57→06:37)
[2017-01-10] MEDS: Acetaminophen/oxyCODONE 325-5 MG Tab PO PRN ×3 (01:37→16:32)
[2017-01-10] MEDS: Insulin Aspart 100 Units/ML 3 ML Pen SUBCUT SCH (07:45)
[2017-01-10] MEDS: metroNIDAZOLE/Normal Saline 500 MG in Premix Bag 1 BAG IV SCH (08:06)
--- NOTE | 2017-01-10 08:55 | PCM.PN ---
- General Info Date of Service: 01/10/17 Admission Dx/Problem (Free Text): Admission Diagnosis/Problem Admission Diagnosis/Problem Tubo-ovarian abscess Subjective Update: Subcutaneous drain pulled; intra-abdominal to be pulled 24-48 hours. 3-0 monocryl cut at skin line bilaterally Patient looks and states she feels much better today. Table. Will switch to oral antibiotics and Saline lock PICC line. Amublating. Incisions normal, all drains out. Functional Status: Reports: pain controlled - Review of Systems General: Reports: No Symptoms HEENT: Reports: no symptoms Pulmonary: Reports: no symptoms Cardiovascular: Reports: No Symptoms Gastrointestinal: Reports: No symptoms Genitourinary: Reports: no symptoms Musculoskeletal: Reports: no symptoms Skin: Reports: no symptoms Neurological: Reports: No Symptoms Psychiatric: Reports: no symptoms - Patient Data Vitals - most recent: Last Vital Signs Temp 98.1 F 01/10/17 08:24 Pulse 76 01/10/17 08:24 Resp 14 01/10/17 08:24 BP 119/90 01/10/17 08:24 Pulse Ox 95 01/10/17 08:24 Weight - most recent: 231 lb 11.2 oz I&O - last 24 hours: Intake & Output 01/09/17 01/10/17 01/10/17 22:59 06:59 14:59 Intake Total 825 1500 Output Total 725 Balance 100 1500 Lab Results last 24 hrs: Laboratory Results - last 24 hr 01/09/17 01/09/17 01/09/17 Range/Units 02:33 12:11 17:31 WBC (3.98-10.04) K/mm3 RBC (3.98-5.22) M/mm3 Hgb (11.2-15.7) gm/L Hct (34.1-44.9) % MCV (79.4-94.8) fl MCH (25.6-32.2) pg MCHC (32.2-35.5) g/dl RDW Std Deviation (36.4-46.3) fL Plt Count (182-369) K/mm3 MPV (9.4-12.3) fl Neut % (Auto) (34.0-71.1) % Lymph % (Auto) (19.3-51.7) % [place] % (Auto) (4.7-12.5) % Eos % (Auto) (0.7-5.8) Baso % (Auto) (0.1-1.2) % Neut # (Auto) (1.56-6.13) K/mm3 Lymph # (Auto) (1.18-3.74) K/mm3 [place] # (Auto) (0.24-0.36) K/mm3 Eos # (Auto) (0.04-0.36) K/mm3 Baso # (Auto) (0.01-0.08) K/mm3 Manual Slide Review Sodium (136-145) mEq/L Potassium (3.5-5.1) mEq/L Chloride (98-107) mEq/L Carbon Dioxide (21-32) mEq/L Anion Gap (5-15) BUN (7-18) mg/dL Creatinine (0.55-1.02) mg/dL Est Cr Clr Drug Dosing mL/min Estimated GFR (MDRD) (>60) mL/min BUN/Creatinine Ratio (14-18) Glucose (74-106) mg/dL POC Glucose 78 84 (70-105) mg/dL Calcium (8.5-10.1) mg/dL Blood Type A POSITIVE Gel Antibody Screen Negative Crossmatch See Detail 01/09/17 01/10/17 01/10/17 Range/Units 22:03 06:10 06:10 WBC 11.30 H (3.98-10.04) K/mm3 RBC 4.12 (3.98-5.22) M/mm3 Hgb 10.8 L (11.2-15.7) gm/L Hct 33.8 L (34.1-44.9) % MCV 82.0 (79.4-94.8) fl MCH 26.2 (25.6-32.2) pg MCHC 32.0 L (32.2-35.5) g/dl RDW Std Deviation 41.5 (36.4-46.3) fL Plt Count 497 H (182-369) K/mm3 MPV 8.9 L (9.4-12.3) fl Neut % (Auto) 60.0 (34.0-71.1) % Lymph % (Auto) 25.9 (19.3-51.7) % [place] % (Auto) 9.1 (4.7-12.5) % Eos % (Auto) 2.8 (0.7-5.8) Baso % (Auto) 0.4 (0.1-1.2) % Neut # (Auto) 6.78 H (1.56-6.13) K/mm3 Lymph # (Auto) 2.93 (1.18-3.74) K/mm3 [place] # (Auto) 1.03 H (0.24-0.36) K/mm3 Eos # (Auto) 0.32 (0.04-0.36) K/mm3 Baso # (Auto) 0.04 (0.01-0.08) K/mm3 Manual Slide Review Normal smear Sodium 141 (136-145) mEq/L Potassium 3.2 L (3.5-5.1) mEq/L Chloride 104 (98-107) mEq/L Carbon Dioxide 28 (21-32) mEq/L Anion Gap 12.2 (5-15) BUN 7 (7-18) mg/dL Creatinine 0.5 L (0.55-1.02) mg/dL Est Cr Clr Drug Dosing 130.12 mL/min Estimated GFR (MDRD) > 60 (>60) mL/min BUN/Creatinine Ratio 14.0 (14-18) Glucose 90 (74-106) mg/dL POC Glucose 69 L (70-105) mg/dL Calcium 7.8 L (8.5-10.1) mg/dL Blood Type Gel Antibody Screen Crossmatch 01/10/17 Range/Units 06:40 WBC (3.98-10.04) K/mm3 RBC (3.98-5.22) M/mm3 Hgb (11.2-15.7) gm/L Hct (34.1-44.9) % MCV (79.4-94.8) fl MCH (25.6-32.2) pg MCHC (32.2-35.5) g/dl RDW Std Deviation (36.4-46.3) fL Plt Count (182-369) K/mm3 MPV (9.4-12.3) fl Neut % (Auto) (34.0-71.1) % Lymph % (Auto) (19.3-51.7) % [place] % (Auto) (4.7-12.5) % Eos % (Auto) (0.7-5.8) Baso % (Auto) (0.1-1.2) % Neut # (Auto) (1.56-6.13) K/mm3 Lymph # (Auto) (1.18-3.74) K/mm3 [place] # (Auto) (0.24-0.36) K/mm3 Eos # (Auto) (0.04-0.36) K/mm3 Baso # (Auto) (0.01-0.08) K/mm3 Manual Slide Review Sodium (136-145) mEq/L Potassium (3.5-5.1) mEq/L Chloride (98-107) mEq/L Carbon Dioxide (21-32) mEq/L Anion Gap (5-15) BUN (7-18) mg/dL Creatinine (0.55-1.02) mg/dL Est Cr Clr Drug Dosing mL/min Estimated GFR (MDRD) (>60) mL/min BUN/Creatinine Ratio (14-18) Glucose (74-106) mg/dL POC Glucose 75 (70-105) mg/dL Calcium (8.5-10.1) mg/dL Blood Type Gel Antibody Screen Crossmatch Sukh Results last 24 hrs: Microbiology 01/09/17 02:40 Urine Culture - Preliminary Urine, [place] Cath (Indwelling) No Growth 01/09/17 02:33 Aerobic Blood Culture - Preliminary Blood - Picc Line NO GROWTH AFTER 1 DAY Anaerobic Blood Culture - Preliminary NO GROWTH AFTER 1 DAY 01/09/17 02:50 Aerobic Blood Culture - Preliminary Blood - Venous - Lab Draw NO GROWTH AFTER 1 DAY Anaerobic Blood Culture - Final 01/07/17 11:18 Gram Stain - Final Abdomen - Abscess Anaerobic Culture - Preliminary NO GROWTH AFTER 2 DAYS Med Orders - Current: Current Medications Docusate Sodium (Colace) 100 mg PO BID [facility] Last Admin: 01/09/17 21:24 Dose: 100 mg Ampicillin Sodium/Sulbactam (Sodium 3 gm/ Sodium Chloride) 100 mls @ 200 mls/ hr IV Q6H [facility] Last Admin: 01/10/17 06:37 Dose: 200 mls/hr Doxycycline Hyclate 100 mg/ (Sodium Chloride) 100 mls @ 100 mls/hr IV Q12HR [facility] Last Admin: 01/09/17 21:44 Dose: 100 mls/hr Metronidazole 500 mg/ Premix 100 mls @ 100 mls/hr IV Q8H [facility] Stop: 01/11/17 06:59 Last Admin: 01/10/17 08:06 Dose: 100 mls/hr Ibuprofen (Motrin) 600 mg PO Q6H PRN PRN Reason: Pain (mild 1-3) Ondansetron HCl (Zofran) 4 mg IVPUSH Q4H PRN PRN Reason: Nausea/Vomiting Last Admin: 01/07/17 16:05 Dose: 4 mg Oxycodone/Acetaminophen (Percocet 325-5 Mg) 2 tab PO Q4H PRN PRN Reason: Pain (moderate 4-6) Last Admin: 01/10/17 06:46 Dose: 2 tab Potassium Chloride (Klor-Con M20) 40 meq PO DAILY [facility] Saccharomyces Boulardii (Florastor) 250 mg PO BID [facility] Simethicone (Simethicone) 80 mg PO Q4H PRN PRN Reason: Abdominal Pain Last Admin: 01/08/17 09:49 Dose: 80 mg Sodium Chloride (Saline Flush) 10 ml FLUSH ASDIRECTED PRN PRN Reason: Keep Vein Open Sodium Chloride (Saline Flush) 10 ml FLUSH ASDIRECTED PRN PRN Reason: Keep Vein Open Discontinued Medications Acetaminophen (Tylenol) 650 mg PO Q4H PRN PRN Reason: Pain (mild 1-3) Last Admin: 01/07/17 19:34 Dose: 650 mg Bupivacaine HCl (Marcaine 0.5%) Confirm Administered Dose 30 ml .ROUTE .STK-MED ONE Stop: 01/07/17 09:11 Last Admin: 01/07/17 10:57 Dose: 20 ml Cefazolin Sodium (Ancef) Confirm Administered Dose 2 gm .ROUTE .STK-MED ONE Stop: 01/07/17 10:05 Cephalexin (Keflex) 500 mg PO Q6H [facility] Last Admin: 01/07/17 09:55 Dose: Not Given Dexamethasone (Dexamethasone) Confirm Administered Dose 4 mg .ROUTE .STK-MED ONE Stop: 01/07/17 10:05 Diatrizoate Meglum/Diatrizoate Sod (Gastrografin 37%) 90 ml PO ONETIME ONE Stop: 01/02/17 19:12 Last Admin: 01/02/17 20:09 Dose: 90 ml Diatrizoate Meglum/Diatrizoate Sod (Gastrografin 37%) 90 ml PO ONETIME ONE Stop: 01/04/17 08:46 Last Admin: 01/04/17 09:41 Dose: 90 ml Diatrizoate Meglum/Diatrizoate Sod (Gastrografin 37%) 90 ml PO ONETIME ONE Stop: 01/06/17 12:13 Last Admin: 01/06/17 12:23 Dose: 90 ml Diphenhydramine HCl (Benadryl) 25 mg IVPUSH ONETIME ONE Stop: 01/02/17 17:51 Last Admin: 01/02/17 18:18 Dose: 25 mg Doxycycline Hyclate (Vibramycin) Confirm Administered Dose 100 mg .ROUTE .STK- MED ONE Stop: 01/04/17 15:28 Last Admin: 01/04/17 15:57 Dose: Not Given Doxycycline Hyclate (Vibramycin) 100 mg PO BID [facility] Last Admin: 01/07/17 09:55 Dose: Not Given Fentanyl (Sublimaze) Confirm Administered Dose 250 mcg .ROUTE .STK-MED ONE Stop: 01/07/17 10:06 Fentanyl (Sublimaze) 50 mcg IVPUSH Q5M PRN PRN Reason: pain Stop: 01/07/17 15:00 Last Admin: 01/07/17 14:35 Dose: 50 mcg Fentanyl (Sublimaze) Confirm Administered Dose 100 mcg .ROUTE .STK-MED ONE Stop: 01/07/17 12:57 Fentanyl (Sublimaze) Confirm Administered Dose 100 mcg .ROUTE .STK-MED ONE Stop: 01/07/17 14:10 Last Admin: 01/07/17 14:28 Dose: 50 mcg Fentanyl (Sublimaze) Confirm Administered Dose 100 mcg .ROUTE .STK-MED ONE Stop: 01/07/17 14:11 Last Admin: 01/07/17 14:14 Dose: 100 mcg Fentanyl (Sublimaze) Confirm Administered Dose 100 mcg .ROUTE .STK-MED ONE Stop: 01/07/17 14:21 Last Admin: 01/07/17 14:17 Dose: 50 mcg Fentanyl (Sublimaze) 100 mcg IVPUSH ONETIME ONE Stop: 01/07/17 15:59 Last Admin: 01/07/17 14:18 Dose: 50 mcg Glycopyrrolate () Confirm Administered Dose 1 mg .ROUTE .STK-MED ONE Stop: 01/07/17 11:21 Hydromorphone HCl (Dilaudid) 1 mg IVPUSH ONETIME ONE Stop: 01/02/17 17:48 Last Admin: 01/02/17 18:18 Dose: 1 mg Hydromorphone HCl (Dilaudid) 0.5 mg IVPUSH ONETIME ONE Stop: 01/02/17 18:42 Last Admin: 01/02/17 18:55 Dose: 0.5 mg Hydromorphone HCl (Dilaudid) 0.5 mg IVPUSH ONETIME ONE Stop: 01/02/17 20:28 Last Admin: 01/02/17 20:36 Dose: 0.5 mg Hydromorphone HCl (Dilaudid) 0.5 mg IVPUSH ONETIME ONE Stop: 01/02/17 21:42 Last Admin: 01/02/17 21:48 Dose: 0.5 mg Hydromorphone HCl (Dilaudid) 0.5 mg IVPUSH Q2H PRN PRN Reason: Pain Last Admin: 01/04/17 10:28 Dose: 0.5 mg Hydromorphone HCl (Dilaudid) Confirm Administered Dose 1 mg .ROUTE .STK-MED ONE Stop: 01/07/17 10:05 Hydromorphone HCl (Dilaudid) Confirm Administered Dose 1 mg .ROUTE .STK-MED ONE Stop: 01/07/17 11:11 Hydromorphone HCl (Dilaudid) 0.5 mg IVPUSH Q15M PRN PRN Reason: Pain (severe 7-10) Stop: 01/07/17 12:46 Last Admin: 01/07/17 13:19 Dose: 0.5 mg Sodium Chloride (Normal Saline) 1,000 mls @ 999 mls/hr IV ONETIME ONE Stop: 01/02/17 18:46 Last Admin: 01/02/17 18:21 Dose: 999 mls/hr Levofloxacin/Dextrose 750 mg/ (Premix) 150 mls @ 100 mls/hr IV ONETIME ONE Stop: 01/02/17 19:36 Last Admin: 01/02/17 18:23 Dose: 100 mls/hr Lactated Ringer's (Ringers, Lactated) 1,000 mls @ 150 mls/hr IV ASDIRECTED [facility] Last Admin: 01/02/17 23:35 Dose: 150 mls/hr Dextrose/Sodium Chloride (Dextrose 5%-1/2 Ns) 1,000 mls @ 125 mls/hr IV ASDIRECTED [facility] Last Admin: 01/03/17 06:12 Dose: 125 mls/hr Cefoxitin Sodium 2 gm/ Premix 50 mls @ 100 mls/hr IV Q12H [facility] Last Admin: 01/05/17 00:39 Dose: 100 mls/hr Doxycycline Hyclate 100 mg/ (Sodium Chloride) 100 mls @ 100 mls/hr IV Q12H [facility] Stop: 01/07/17 09:00 Last Admin: 01/07/17 02:31 Dose: 100 mls/hr Levofloxacin/Dextrose 750 mg/ (Premix) 150 mls @ 100 mls/hr IV Q24H [facility] Stop: 01/07/17 09:00 Last Admin: 01/06/17 17:13 Dose: 100 mls/hr Lactated Ringer's (Ringers, Lactated) 1,000 mls @ 75 mls/hr IV ASDIRECTED [facility] Last Admin: 01/05/17 13:55 Dose: 75 mls/hr Metronidazole 500 mg/ Premix 100 mls @ 100 mls/hr IV Q8H [facility] Stop: 01/07/17 09:00 Last Admin: 01/07/17 00:55 Dose: 100 mls/hr Sodium Chloride (Normal Saline) 500 mls @ 999 mls/hr IV .BOLUS ONE Stop: 01/06/17 10:30 Last Admin: 01/06/17 13:22 Dose: 999 mls/hr Cefoxitin Sodium 2 gm/ Premix 50 mls @ 100 mls/hr IV ONETIME ONE Stop: 01/07/17 09:10 Last Admin: 01/07/17 09:47 Dose: 100 mls/hr Lidocaine HCl (Xylocaine-Mpf 1%) Confirm Administered Dose 6 mls @ as directed .ROUTE .STK-MED ONE Stop: 01/07/17 10:38 Hetastarch/Sodium Chloride (Hetastarch 6% In Normal Saline) Confirm Administered Dose 500 mls @ as directed .ROUTE .STK-MED ONE Stop: 01/07/17 12:23 Lactated Ringer's (Ringers, Lactated) Confirm Administered Dose 1,000 mls @ as directed .ROUTE .STK-MED ONE Stop: 01/07/17 12:23 Lactated Ringer's (Ringers, Lactated) 1,000 mls @ 75 mls/hr IV ASDIRECTED [facility] Last Admin: 01/09/17 03:03 Dose: 125 mls/hr Sodium Chloride (Normal Saline) Confirm Administered Dose 250 mls @ as directed .ROUTE .STK-MED ONE Stop: 01/09/17 03:31 Last Admin: 01/09/17 04:30 Dose: 250 ml Ibuprofen (Motrin) 600 mg PO Q6H PRN PRN Reason: Fever Last Admin: 01/04/17 12:27 Dose: 600 mg Insulin Aspart (Novolog) 0 unit SUBCUT Q6H [facility]AMES PRN Reason: Protocol Last Admin: 01/03/17 06:20 Dose: Not Given Insulin Aspart (Novolog) 0 unit SUBCUT QIDACANDBED JAMES PRN Reason: Protocol Last Admin: 01/05/17 06:47 Dose: Not Given Insulin Aspart (Novolog) 0 unit SUBCUT QIDACANDBED [facility] PRN Reason: Protocol Last Admin: 01/10/17 07:45 Dose: Not Given Iopamidol (Isovue-300 (61%)) 125 ml IVPUSH ONETIME ONE Stop: 01/02/17 19:12 Last Admin: 01/02/17 20:09 Dose: 125 ml Iopamidol (Isovue-300 (61%)) 125 ml IVPUSH ONETIME ONE Stop: 01/04/17 08:46 Last Admin: 01/04/17 09:41 Dose: 125 ml Iopamidol (Isovue-300 (61%)) 125 ml IVPUSH ONETIME ONE Stop: 01/06/17 12:13 Last Admin: 01/06/17 12:23 Dose: 125 ml Iopamidol (Isovue-300 (61%)) 120 ml IVPUSH ONETIME ONE Stop: 01/07/17 14:47 Last Admin: 01/07/17 14:53 Dose: 120 ml Ketorolac Tromethamine (Toradol) 60 mg IVPUSH Q6H [facility] Stop: 01/05/17 12:31 Last Admin: 01/05/17 06:32 Dose: Not Given Ketorolac Tromethamine (Toradol) 60 mg IVPUSH Q6H [facility] Stop: 01/06/17 03:01 Last Admin: 01/06/17 02:32 Dose: 60 mg Ketorolac Tromethamine (Toradol) 30 mg IVPUSH Q6H PRN PRN Reason: Pain (moderate 4-6) Stop: 01/08/17 06:01 Last Admin: 01/07/17 16:06 Dose: 30 mg Ketorolac Tromethamine (Toradol) Confirm Administered Dose 30 mg .ROUTE .STK- MED ONE Stop: 01/07/17 16:00 Last Admin: 01/07/17 16:27 Dose: Not Given Lidocaine/Epinephrine (Xylocaine 1% With Epinephrine 1:100,000) Confirm Administered Dose 20 ml .ROUTE .STK-MED ONE Stop: 01/07/17 09:10 Lisinopril (Prinivil) 5 mg PO DAILY [facility] Last Admin: 01/05/17 08:25 Dose: Not Given Lorazepam (Ativan) 0.5 mg PO Q4H PRN PRN Reason: Anxiety Last Admin: 01/07/17 04:52 Dose: 0.5 mg Methylene Blue (Methylene Blue 1%) Confirm Administered Dose 1 ml .ROUTE .STK- MED ONE Stop: 01/07/17 11:55 Metoclopramide HCl (Reglan) 10 mg IVPUSH ONETIME ONE Stop: 01/02/17 17:48 Last Admin: 01/02/17 18:18 Dose: 10 mg Metronidazole (Flagyl) 500 mg PO TID [facility] Metronidazole (Flagyl) 500 mg PO TID [facility] Midazolam HCl (Versed 1 Mg/Ml) Confirm Administered Dose 2 mg .ROUTE .STK-MED ONE Stop: 01/07/17 10:05 Morphine Sulfate (Morphine) 5 mg IM ONETIME ONE Stop: 01/03/17 23:14 Last Admin: 01/03/17 23:41 Dose: 5 mg Morphine Sulfate (Morphine) 5 mg IM ONETIME ONE Stop: 01/04/17 21:01 Last Admin: 01/04/17 21:13 Dose: 5 mg Morphine Sulfate (Morphine) 5 mg IM BEDTIME [facility] Stop: 01/09/17 21:01 Last Admin: 01/07/17 21:49 Dose: 5 mg Neostigmine Methylsulfate (Neostigmine) Confirm Administered Dose 5 mg .ROUTE .STK-MED ONE Stop: 01/07/17 11:21 Ondansetron HCl (Zofran) 4 mg IVPUSH ONETIME ONE Stop: 01/02/17 21:42 Last Admin: 01/02/17 21:46 Dose: 4 mg Ondansetron HCl (Zofran) 4 mg IVPUSH Q4H PRN PRN Reason: Nausea/Vomiting Last Admin: 01/04/17 08:15 Dose: 4 mg Ondansetron HCl (Zofran) Confirm Administered Dose 4 mg .ROUTE .STK-MED ONE Stop: 01/07/17 10:05 Ondansetron HCl (Zofran) 4 mg IVPUSH ONETIME PRN PRN Reason: Nausea/Vomiting Stop: 01/07/17 15:00 Last Admin: 01/07/17 13:13 Dose: 4 mg Oxycodone/Acetaminophen (Percocet 325-5 Mg) 1 tab PO Q4H PRN PRN Reason: Pain Last Admin: 01/04/17 07:02 Dose: 1 tab Oxycodone/Acetaminophen (Percocet 325-5 Mg) 2 tab PO Q4HR PRN PRN Reason: Pain (moderate 4-6) Oxycodone/Acetaminophen (Percocet 325-5 Mg) 2 tab PO Q4H PRN PRN Reason: Pain (moderate 4-6) Last Admin: 01/07/17 04:48 Dose: 2 tab Pneumococcal Polyvalent Vaccine (Pneumovax 23) 0.5 ml IM .ONCE ONE Stop: 01/06/17 18:47 Potassium Chloride (Klor-Con M20) 40 meq PO ONETIME ONE Stop: 01/05/17 11:16 Last Admin: 01/05/17 11:35 Dose: 40 meq Potassium Chloride (Klor-Con M20) 20 meq PO BEDTIME JAMES Last Admin: 01/06/17 20:20 Dose: 20 meq Promethazine HCl (Phenergan) 25 mg IM ONETIME ONE Stop: 01/03/17 23:22 Last Admin: 01/03/17 23:40 Dose: 25 mg Promethazine HCl (Phenergan) 25 mg IM ONETIME ONE Stop: 01/04/17 21:01 Last Admin: 01/04/17 21:13 Dose: 25 mg Promethazine HCl (Phenergan) 25 mg IM BEDTIME JAMES Stop: 01/09/17 21:01 Last Admin: 01/07/17 21:50 Dose: 25 mg Propofol (Diprivan 20 Ml) Confirm Administered Dose 200 mg .ROUTE .STK-MED ONE Stop: 01/07/17 10:05 Rocuronium [place] (Zemuron) Confirm Administered Dose 50 mg .ROUTE .STK-MED ONE Stop: 01/07/17 10:05 Saccharomyces Boulardii (Florastor) 250 mg PO BID [facility] Last Admin: 01/07/17 09:55 Dose: Not Given Sertraline HCl (Zoloft) 25 mg PO DAILY [facility] Last Admin: 01/05/17 11:40 Dose: Not Given Sodium Chloride (Saline Flush) 10 ml FLUSH ONETIME PRN PRN Reason: IV FLUSH Last Admin: 01/02/17 20:09 Dose: 10 ml Sodium Chloride (Saline Flush) 10 ml FLUSH ONETIME ONE Stop: 01/04/17 08:46 Last Admin: 01/04/17 09:41 Dose: 10 ml Sodium Chloride (Saline Flush) 10 ml FLUSH ONETIME PRN PRN Reason: IV FLUSH Last Admin: 01/06/17 12:23 Dose: 10 ml Sodium Chloride (Normal Saline) Confirm Administered Dose 50 ml .ROUTE .STK-MED ONE Stop: 01/07/17 09:11 Sodium Chloride (Saline Flush) 20 ml FLUSH ONETIME ONE Stop: 01/07/17 14:47 Last Admin: 01/07/17 14:55 Dose: 20 ml Zolpidem Tartrate (Ambien) 5 mg PO BEDTIME PRN PRN Reason: Insomnia Last Admin: 01/06/17 20:20 Dose: 5 mg - Exam General: alert, oriented HEENT: Mucous membr. moist/pink Neck: supple Lungs: Clear to auscultation, Normal respiratory effort Cardiovascular: Regular Rate, Regular Rhythm Abdomen: bowel sounds present, soft, no tenderness, no distension Extremities: no edema Skin: warm, dry, intact Wound/Incisions: healing well Neurological: no new focal deficit Psy/Mental Status: alert, normal affect, normal mood - Problem List & Annotations (1) Diabetes SNOMED Code(s): 84788380 Code(s): E11.9 - TYPE 2 DIABETES MELLITUS WITHOUT COMPLICATIONS Status: Acute Priority: Medium Current Visit: Yes Qualifiers: Diabetes mellitus type: type 2 Diabetes mellitus complication status: without complication Diabetes mellitus tank terminal gauger insulin use: without mcc use Qualified Code(s): E11.9 - Type 2 diabetes mellitus without complications (2) Tubo-ovarian abscess SNOMED Code(s): 24464245 Code(s): N70.93 - SALPINGITIS AND OOPHORITIS, UNSPECIFIED Status: Acute Priority: High Current Visit: Yes - Problem List Review Problem List Initiated/Reviewed/Updated: No - My Orders Last 24 Hours: My Active Orders 01/10/17 06:10 CMP [COMPREHENSIVE METABOLIC PN,CMP] [CHEM] Routine CRP [C-REACTIVE PROTEIN] [CHEM] Routine 01/10/17 09:00 Potassium Chloride [Klor-Con M20] 40 meq PO DAILY Saccharomyces Boulardii [Florastor] 250 mg PO BID 01/11/17 08:17 CMP [COMPREHENSIVE METABOLIC PN,CMP] [CHEM] Routine CRP [C-REACTIVE PROTEIN] [CHEM] Routine 01/11/17 08:18 CBC WITH AUTO DIFF [HEME] Routine 01/11/17 13:57 CBC W/O DIFF,HEMOGRAM [HEME] DAILY 01/12/17 13:57 CBC W/O DIFF,HEMOGRAM [HEME] DAILY - Assessment Assessment:: Will reevaluate again after clinic Long discussion with patient and about prognosis and possible surgery and no guarantee she will not have potential complication co-morbidity and co- mortality Repeat labs in AM. Will discuss with Dr Gambino Diabetes under treatment and meds stable at present NPO after midnight in case operation needed Morphine tonight with phenergan Toradol at 1830 Percocet 2 q4-6h. - Plan Plan:: I/P: Tubo-ovarian abscess--pain worsening; reviewed labs with Dr. Porter early this morning -WBC/CRP worsening today -Plans for surgery this morning -NPO -Discussed possibility of depression with patient and starting medication, sertraline. She is adamant that she is not depressed, just situational at this time. DM -Stable -Will obtain A1C--7.6; following with CDE -CDE consult- wishes to cont as outpatient. Obesity -[employer] consult -Recommend exercise; she is working with personal driver prior to getting ill. Other: DVT and GI prophylax CM/SW for assist with DC planning. Patient is full code status Switch to oral antibiotics, keep PICC line saline lock in case needed. Hopefully home tomorrow. Dr Godwin and I discussed patient and I will re-consult if needed. Will try to utilize non-narcotic pain meds as much as possible.
[2017-01-10] MEDS: Doxycycline 100 MG in Sodium Chloride 0.9% 100 ML IV SCH (10:40)
[2017-01-10] MEDS: Potassium Chloride 20 MEQ Tab.ER PO SCH (10:57)
[2017-01-10] MEDS: Saccharomyces Boulardii (Probiotic) 250 MG Cap PO SCH ×2 (10:57→21:43)
[2017-01-10] MEDS: Doxycycline 100 MG Cap PO SCH ×2 (10:58→21:43)
[2017-01-10] MEDS: Ibuprofen 600 MG Tab PO PRN ×2 (10:58→21:43)
[2017-01-10] MEDS: Docusate Sodium 100 MG Cap PO SCH ×2 (10:58→21:43)
[2017-01-10] MEDS: metroNIDAZOLE 500 MG Tab PO SCH ×2 (14:32→21:43)
[2017-01-10] MEDS: Amoxicillin 500 MG Cap PO SCH ×2 (14:32→21:43)
[2017-01-11] MEDS ORDERED: Benzocaine/Cetylpyridinium/Menthol Lozenge MUCMEM PRN (00:41)
[2017-01-11] MEDS: Ibuprofen 600 MG Tab PO PRN (02:48)
[2017-01-11] MEDS: Acetaminophen/oxyCODONE 325-5 MG Tab PO PRN (03:59)
[2017-01-11 08:18] VITALS: BP 135/75
--- NOTE | 2017-01-11 08:44 | PCM.DCSUM1 ---
Discharge Summary - Hospital Course Free Text/Narrative:: Patient admitted with tubo-ovarian abscess on Tuesday01/02/17 and treated with multiple antibiotics. Condition initially improved but then regressed. [facility] Breann Godwin and Azalia KO as well. Patient seen as well by Dr Gambino. On Tuesday01/07/2017 because of deterioration in her condition decision made to operate, Immanuel Carvajal and Tom operating and performing initially laparoscopy with lysis of adhesions and then converting to open laparotomy with TAHLSO and right Salpingectomy. [facility] Post-Op/Procedure Note Patient Name: BRIA MARSH Date of : 87 Patient Status: Inpatient Attending Provider: Sacha Porter Date: 01/07/17 13:13 Initialization Date: 01/07/17 13:13 - General Post-Op/Procedure Note Date of Surgery/Procedure: 01/07/17 Operative Procedure(s): Diagnostic laparoscopy with lysis of adhesions 25430. Supracervical hysterectomy bilateral salpingectomy and left oophorectomy 94072 Pre Op Diagnosis: Tubo-ovarian abscess left Post-Op Diagnosis: Same Anesthesia Technique: General ET tube Primary Surgeon: Sacha Porter Secondary Surgeon: Farhad Gambino Anesthesia Provider: Joy Mendiola Air Export Agent: Suzanne Santos Fluid Replacement, Intraop: 2,500 Output, Urine Amount: 1,100 EBL in mLs: 450 Surgical Drain/Tube Type: Eugenio Lei Flat Drain (Through separate incision below the incision on the right side draining the subcutaneous tissue), Eugenio Lei Round Drain (Through separate left lower quadrant inferior incision draining the peritoneal cavity) Complications: A large abscess of the left side involving the ovary and tube as well as the large intestines (colon) Condition: Good Free Text/Narrative:: Intake & Output 01/06/17 01/07/17 01/07/17 22:59 06:59 14:59 Intake Total 1050 1400 Balance 1050 1400 Patient was transported to the operating room and placed under general anesthesia in low dorsal lithotomy position and prepared and draped in a sterile fashion SCDs in place and functioning prior surgery patient had antibiotics infusing prior surgery. Timeout performed patient had uterine manipulator placed Carson catheter placed and laparoscopy was performed making an injection of 2 mL of 0.5% Marcaine at the umbilicus and midline and a small incision vertical made in pneumoperitoneum needle introduced and pneumoperitoneum was obtained 5 mm trocar introduced laparoscopy revealed intra- abdominal contents a small horizontal transverse incision made at the suprapubic area and additional 5 mm port introduced and lysis of adhesions and evaluation of the pelvic organs revealed dense adhesions of the tubo-ovarian abscess to the colon and uterus. It was determined that it was not safe to continue with attempted laparoscopic lysis of adhesions and laparotomy was indicated. Injecting 10 mL of 0.5% Marcaine area of intended transverse lower abdominal incision incision was made. Sharp section to into the anterior fascia peritoneal cavity was entered and was pus encountered and culture taken for aerobic and anaerobic bacteria the abscess cavity on the left side was approximately 8 x 8 x 8 cm the major portion of the abscess cavity was able to be removed however a portion of the "rind" was so adjacent to the large intestines that it was concerned that we might develop a fenestration into the colon this portion was left to resolve. Grasping the uterus elevating and cross clamping and removing the right fallopian tube utilizing LigaSure the right ovary appeared normal the left ovary and tube were involved in tubo-ovarian complex cross clamping and proceeding cephalad suture ligating with 0 Monocryl the right side was developed the left side crossclamping the area of the abscess cavity and removing the uterus leaving the cervix (supracervical hysterectomy) which was felt to be indicated because of the clinical situation. Irrigation was carried out and additional wall of the abscess was removed for possible because of the location of the abscess and inability to definitely identify the left ureter and because the possibility of damage of same IVP will be obtained after recovery. We did inject methylene blue solution intravenously to attempt to obtain blue urine indicating at least good flow from both ureters patient has significant urinary output but no methylene blue solution appeared in the urine irrigation was carried out 1 L of saline and 100 mL of distilled water hemostasis was obtained with hemoclips and electrocautery sponge needle pack asthma sharp count correct 2 a round Oneal drain was placed in the posterior cul-de-sac and sent through a separate stab incision below the main incision on the left side and suture ligated to the skin with silk suture same procedure carried out in the right side for subcutaneous drain the anterior fascia was closed running locking suture of #1 PDS irrigation was obtained tissue followed by placement of the subcutaneous drain via the separate stab incision on the right side and suture ligated to the skin and the flat Eugenio- Lei drain is in the subcutaneous tissues around 1 in the intra-abdominal cavity Dermabond was applied after closure of the skin with 3-0 Monocryl on Francisco needle and Tegaderm applied to the areas of these separate stab incisions for the drain passage. Patient was transferred postanesthesia care unit in satisfactory condition no blood transfusions and required patient was placed in intensive care unit for close observation and management of her diabetes. One set of pictures taken picture 001 shows the uterine fundus with the colon in the foreground left lower quadrant abscess behind the colon images 002 shows the fundus of the uterus on the left side running across the left 1-1/2 cm of the picture of the abscess cavity which is closely adjacent to the fundus of the uterus image 003 as area of the appendix the appendix appeared grossly normal no evidence of abscess around the appendix image 004 shows the area of the gallbladder and liver with no suprahepatic adhesions images 005 shows the liver and diaphragm were no adhesions image 006 shows right ovary and tube and right tube was subsequently removed Patient will be placed on antibiotic therapy indicated by telephone conversation with the lab at 4 is being plated out at the present time appears to be an anaerobic cocci will place patient on Unasyn 3 g IV every 6 hours vaginal 500 mg 3 times a day IV and doxycycline 100 mg IV twice a day Surgery time 109 minutes PICC line placed for IV therapy and antibiotic therapy Post operatively drains removed over the weekend by Dr Santos, redundant sub-Q suture cut at skin line Tuesday. Patient placed on oral antibiotics Tuesday and dismissed on Tuesday01/11/2016.She will remain off work until 2016 unless condition changes. See de and Keya Vigil 02/09/2017 HPI Initial Comments: Patient admitted with tubo-ovarian abscess on Tuesday01/02/17 and treated with multiple antibiotics. Condition initially improved but then regressed. [facility] had been [facility] Breann Godwin and Azalia KO as well. Patient seen as well by Dr Gambino. On Tuesday01/07/2017 because of deterioration in her condition decision made to operate, Imamnuel Carvajal and Tom operating and performing initially laparoscopy with lysis of adhesions and then converting to open laparotomy with TAHLSO and right Salpingectomy. [facility] Post-Op/Procedure Note Patient Name: BRIA MARSH Date of : 87 Patient Status: Inpatient Attending Provider: Sacha Porter Date: 01/07/17 13:13 Initialization Date: 01/07/17 13:13 - General Post-Op/Procedure Note Date of Surgery/Procedure: 01/07/17 Operative Procedure(s): Diagnostic laparoscopy with lysis of adhesions 47318. Supracervical hysterectomy bilateral salpingectomy and left oophorectomy 99475 Pre Op Diagnosis: Tubo-ovarian abscess left Post-Op Diagnosis: Same Anesthesia Technique: General ET tube Primary Surgeon: Sacha Porter Secondary Surgeon: Farhad Gambino Anesthesia Provider: Joy Mendiola Air Export Agent: Suzanne Santos Fluid Replacement, Intraop: 2,500 Output, Urine Amount: 1,100 EBL in mLs: 450 Surgical Drain/Tube Type: Eugenio Lei Flat Drain (Through separate incision below the incision on the right side draining the subcutaneous tissue), Eugenio Lei Round Drain (Through separate left lower quadrant inferior incision draining the peritoneal cavity) Complications: A large abscess of the left side involving the ovary and tube as well as the large intestines (colon) Condition: Good Free Text/Narrative:: Intake & Output 01/06/17 01/07/17 01/07/17 22:59 06:59 14:59 Intake Total 1050 1400 Balance 1050 1400 Patient was transported to the operating room and placed under general anesthesia in low dorsal lithotomy position and prepared and draped in a sterile fashion SCDs in place and functioning prior surgery patient had antibiotics infusing prior surgery. Timeout performed patient had uterine manipulator placed Carson catheter placed and laparoscopy was performed making an injection of 2 mL of 0.5% Marcaine at the umbilicus and midline and a small incision vertical made in pneumoperitoneum needle introduced and pneumoperitoneum was obtained 5 mm trocar introduced laparoscopy revealed intra- abdominal contents a small horizontal transverse incision made at the suprapubic area and additional 5 mm port introduced and lysis of adhesions and evaluation of the pelvic organs revealed dense adhesions of the tubo-ovarian abscess to the colon and uterus. It was determined that it was not safe to continue with attempted laparoscopic lysis of adhesions and laparotomy was indicated. Injecting 10 mL of 0.5% Marcaine area of intended transverse lower abdominal incision incision was made. Sharp section to into the anterior fascia peritoneal cavity was entered and was pus encountered and culture taken for aerobic and anaerobic bacteria the abscess cavity on the left side was approximately 8 x 8 x 8 cm the major portion of the abscess cavity was able to be removed however a portion of the "rind" was so adjacent to the large intestines that it was concerned that we might develop a fenestration into the colon this portion was left to resolve. Grasping the uterus elevating and cross clamping and removing the right fallopian tube utilizing LigaSure the right ovary appeared normal the left ovary and tube were involved in tubo-ovarian complex cross clamping and proceeding cephalad suture ligating with 0 Monocryl the right side was developed the left side crossclamping the area of the abscess cavity and removing the uterus leaving the cervix (supracervical hysterectomy) which was felt to be indicated because of the clinical situation. Irrigation was carried out and additional wall of the abscess was removed for possible because of the location of the abscess and inability to definitely identify the left ureter and because the possibility of damage of same IVP will be obtained after recovery. We did inject methylene blue solution intravenously to attempt to obtain blue urine indicating at least good flow from both ureters patient has significant urinary output but no methylene blue solution appeared in the urine irrigation was carried out 1 L of saline and 100 mL of distilled water hemostasis was obtained with hemoclips and electrocautery sponge needle pack asthma sharp count correct 2 a round [place] drain was placed in the posterior cul-de-sac and sent through a separate stab incision below the main incision on the left side and suture ligated to the skin with silk suture same procedure carried out in the right side for subcutaneous drain the anterior fascia was closed running locking suture of #1 PDS irrigation was obtained tissue followed by placement of the subcutaneous drain via the separate stab incision on the right side and suture ligated to the skin and the flat Eugenio- Lei drain is in the subcutaneous tissues around 1 in the intra-abdominal cavity Dermabond was applied after closure of the skin with 3-0 Monocryl on Francisco needle and Tegaderm applied to the areas of these separate stab incisions for the drain passage. Patient was transferred postanesthesia care unit in satisfactory condition no blood transfusions and required patient was placed in intensive care unit for close observation and management of her diabetes. One set of pictures taken picture 001 shows the uterine fundus with the colon in the foreground left lower quadrant abscess behind the colon images 002 shows the fundus of the uterus on the left side running across the left 1-1/2 cm of the picture of the abscess cavity which is closely adjacent to the fundus of the uterus image 003 as area of the appendix the appendix appeared grossly normal no evidence of abscess around the appendix image 004 shows the area of the gallbladder and liver with no suprahepatic adhesions images 005 shows the liver and diaphragm were no adhesions image 006 shows right ovary and tube and right tube was subsequently removed Patient will be placed on antibiotic therapy indicated by telephone conversation with the lab at 4 is being plated out at the present time appears to be an anaerobic cocci will place patient on Unasyn 3 g IV every 6 hours vaginal 500 mg 3 times a day IV and doxycycline 100 mg IV twice a day Surgery time 109 minutes PICC line placed for IV therapy and antibiotic therapy Post operatively drains removed over the weekend by Dr Santos, redundant sub-Q suture cut at skin line Tuesday AM. Patient placed on oral antibiotics Tuesday and dismissed on Tuesday01/11/2016.She will remain off work until 2016 unless condition changes. See me and Keya Vigil 02/09/2017 Brief History: Patient admitted with tubo-ovarian abscess on Tuesday01/02/17 and treated with multiple antibiotics. Condition initially improved but then regressed. [facility] had been [facility] Breann Godwin and Azalia KO as well. Patient seen as well by Dr Gambino. On Tuesday01/07/2017 because of deterioration in her condition decision made to operate, Immanuel Carvajal and Tom operating and performing initially laparoscopy with lysis of adhesions and then converting to open laparotomy with TAHLSO and right Salpingectomy. [facility] . Post-Op/Procedure Note. [facility]: [id number]. Date of : 87Patient Status: Inpatient. Attending Provider: Sacha Porterount Number: [id number]. Date: 01/07/17 13:13Initialization Date: 13:13. - General Post-Op/Procedure Note. Date of Surgery/Procedure: . Operative Procedure(s): Diagnostic laparoscopy with lysis of adhesions 85758. Supracervical hysterectomy bilateral salpingectomy and left oophorectomy 29344. Pre Op Diagnosis: Tubo-ovarian abscess left. Post-Op Diagnosis: Same. Anesthesia Technique: General ET tube. Primary Surgeon: Sacha Porter. Secondary Surgeon: Farhad Gambino. Anesthesia Provider: Joy Mendiola. Air Export Agent: Suzanne Santos Fluid Replacement, Intraop: 2, 500. Output, Urine Amount: 1,100. EBL in mLs: 450. Surgical Drain/Tube Type: Eugenio Lei Flat Drain (Through separate incision below the incision on the right side draining the subcutaneous tissue), Eugenio Lei Round Drain ( Through separate left lower quadrant inferior incision draining the peritoneal cavity). Complications: A large abscess of the left side involving the ovary and tube as well as the large intestines (colon). Condition: Good. Free Text/ Narrative:: Intake & Output. 01/06/1706. 22:5906:5914:59. Intake [id number]. [id number]. Patient was transported to the operating room and placed under general anesthesia in low dorsal lithotomy position and prepared and draped in a sterile fashion SCDs in place and functioning prior surgery patient had antibiotics infusing prior surgery. Timeout performed patient had uterine manipulator placed Carson catheter placed and laparoscopy was performed making an injection of 2 mL of 0.5% Marcaine at the umbilicus and midline and a small incision vertical made in pneumoperitoneum needle introduced and pneumoperitoneum was obtained 5 mm trocar introduced laparoscopy revealed intra-abdominal contents a small horizontal transverse incision made at the suprapubic area and additional 5 mm port introduced and lysis of adhesions and evaluation of the pelvic organs revealed dense adhesions of the tubo-ovarian abscess to the colon and uterus. It was determined that it was not safe to continue with attempted laparoscopic lysis of adhesions and laparotomy was indicated. Injecting 10 mL of 0.5% Marcaine area of intended transverse lower abdominal incision incision was made. Sharp section to into the anterior fascia peritoneal cavity was entered and was pus encountered and culture taken for aerobic and anaerobic bacteria the abscess cavity on the left side was approximately 8 x 8 x 8 cm the major portion of the abscess cavity was able to be removed however a portion of the "rind" was so adjacent to the large intestines that it was concerned that we might develop a fenestration into the colon this portion was left to resolve. Grasping the uterus elevating and cross clamping and removing the right fallopian tube utilizing LigaSure the right ovary appeared normal the left ovary and tube were involved in tubo-ovarian complex cross clamping and proceeding cephalad suture ligating with 0 Monocryl the right side was developed the left side crossclamping the area of the abscess cavity and removing the uterus leaving the cervix (supracervical hysterectomy) which was felt to be indicated because of the clinical situation. Irrigation was carried out and additional wall of the abscess was removed for possible because of the location of the abscess and inability to definitely identify the left ureter and because the possibility of damage of same IVP will be obtained after recovery. We did inject methylene blue solution intravenously to attempt to obtain blue urine indicating at least good flow from both ureters patient has significant urinary output but no methylene blue solution appeared in the urine irrigation was carried out 1 L of saline and 100 mL of distilled water hemostasis was obtained with hemoclips and electrocautery sponge needle pack asthma sharp count correct 2 a round Oneal drain was placed in the posterior cul-de-sac and sent through a separate stab incision below the main incision on the left side and suture ligated to the skin with silk suture same procedure carried out in the right side for subcutaneous drain the anterior fascia was closed running locking suture of #1 PDS irrigation was obtained tissue followed by placement of the subcutaneous drain via the separate stab incision on the right side and suture ligated to the skin and the flat Eugenio-Lei drain is in the subcutaneous tissues around 1 in the intra-abdominal cavity Dermabond was applied after closure of the skin with 3-0 Monocryl on Francisco needle and Tegaderm applied to the areas of these separate stab incisions for the drain passage. Patient was transferred postanesthesia care unit in satisfactory condition no blood transfusions and required patient was placed in intensive care unit for close observation and management of her diabetes. One set of pictures taken picture 001 shows the uterine fundus with the colon in the foreground left lower quadrant abscess behind the colon images 002 shows the fundus of the uterus on the left side running across the left 1-1/2 cm of the picture of the abscess cavity which is closely adjacent to the fundus of the uterus image 003 as area of the appendix the appendix appeared grossly normal no evidence of abscess around the appendix image 004 shows the area of the gallbladder and liver with no suprahepatic adhesions images 005 shows the liver and diaphragm were no adhesions image 006 shows right ovary and tube and right tube was subsequently removed. Patient will be placed on antibiotic therapy indicated by telephone conversation with the lab at 4 is being plated out at the present time appears to be an anaerobic cocci will place patient on Unasyn 3 g IV every 6 hours vaginal 500 mg 3 times a day IV and doxycycline 100 mg IV twice a day. Surgery time 109 minutes. PICC line placed for IV therapy and antibiotic therapy. Post operatively drains removed over the weekend by Dr Santos, redundant sub-Q suture cut at skin line Tuesday AM. Patient placed on oral antibiotics Tuesday01/10/17 and dismissed on Tuesday01/11/2016.She will remain off work until 02/10/2017 unless condition changes. See and Keya Vigil 02/09/2017 - Discharge Data Discharge Date: 01/11/17 Discharge Disposition: Home, Self-Care 01 Condition: Good - Discharge Diagnosis/Problem(s) (1) Diabetes SNOMED Code(s): 38953680 ICD Code: E11.9 - TYPE 2 DIABETES MELLITUS WITHOUT COMPLICATIONS Status: Acute Priority: Medium Current Visit: Yes Qualifiers: Diabetes mellitus type: type 2 Diabetes mellitus complication status: without complication Diabetes mellitus termination clerk insulin use: without termination clerk use Qualified Code(s): E11.9 - Type 2 diabetes mellitus without complications (2) Tubo-ovarian abscess SNOMED Code(s): 30402458 ICD Code: N70.93 - SALPINGITIS AND OOPHORITIS, UNSPECIFIED Status: Acute Priority: High Current Visit: Yes - Patient Summary/Data Operative Procedure(s) Performed: Diagnostic laparoscopy with lysis of adhesions 15296. Supracervical hysterectomy bilateral salpingectomy and left oophorectomy 50263 - Patient Instructions Diet: Diabetic Diet Activity: No Lifting Over 25 Pounds (x4 weeks) Driving: Do Not Drive (x48 hr or for 48 hr after last dose Percocet) Showering/Bathing: May Shower, No Tub Bathing/Swimming (x6) Wound/Incision Care: Keep Operative Site/Wound Site Clean and Dry Notify Provider of: Fever, Increased Pain, Swelling and Redness, Drainage, Nausea and/or Vomiting - Discharge Plan Prescriptions/Med Rec: Acetaminophen/oxyCODONE [Percocet 325-5 MG] 1 tab PO Q8H PRN #21 tablet PRN Reason: Pain Amoxicillin [Amoxil] 875 mg PO BID #14 cap Doxycycline Calcium [IMW: Doxycycline] 100 mg PO BID #14 capsule Ibuprofen [IJD: Ibuprofen] 600 mg PO Q6H PRN #50 tablet PRN Reason: Pain metroNIDAZOLE [Flagyl] 750 mg PO BID #14 tablet Home Medications: Home Meds sitaGLIPtin Phos/Metformin HCl [Janumet Xr 50-1,000 mg Tablet] 1 tab PO DAILY [History] Acetaminophen/oxyCODONE [Percocet 325-5 MG] 1 tab PO Q8H PRN #21 tablet [Rx] Amoxicillin [Amoxil] 875 mg PO BID #14 cap 01/11/17 [Rx] Docusate Sodium [Colace] 100 mg PO BID cap 01/11/17 [Rx] Doxycycline Calcium [IMW: Doxycycline] 100 mg PO BID #14 capsule 01/11/17 [Rx] Ibuprofen [IJD: Ibuprofen] 600 mg PO Q6H PRN #50 tablet 01/11/17 [Rx] metroNIDAZOLE [Flagyl] 750 mg PO BID #14 tablet 01/11/17 [Rx] Patient Handouts: Vaginitis, [id number], Urinary Tract Infection, Adult, Easy -to-Read, Cervicitis, Bjet-re-Tdoc Forms: ED Department Discharge Referrals: Sacha Porter MD [Physician] - (02/09/2017) Keya Vigil PA-C [Primary Care Provider] - (02/09/2017) - Discharge Summary/Plan Comment DC Time >30 min.: No - Patient Data Vitals - Most Recent: Last Vital Signs Temp 98.2 F 01/11/17 08:16 Pulse 93 01/11/17 08:16 Resp 14 01/11/17 08:16 BP 135/75 01/11/17 08:17 Pulse Ox 97 01/11/17 08:16 Weight - Most Recent: 227 lb 9.6 oz I&O - Last 24 hours: Intake & Output 01/10/17 01/11/17 01/11/17 22:59 06:59 14:59 Intake Total 630 900 Balance 630 900 Lab Results - Last 24 hrs: Laboratory Results - last 24 hr 01/10/17 01/10/17 01/11/17 Range/Units 06:10 06:10 05:50 WBC 11.30 H (3.98-10.04) K/mm3 RBC 4.12 (3.98-5.22) M/mm3 Hgb 10.8 L (11.2-15.7) gm/L Hct 33.8 L (34.1-44.9) % MCV 82.0 (79.4-94.8) fl MCH 26.2 (25.6-32.2) pg MCHC 32.0 L (32.2-35.5) g/dl RDW Std Deviation 41.5 (36.4-46.3) fL Plt Count 497 H (182-369) K/mm3 MPV 8.9 L (9.4-12.3) fl Neut % (Auto) 60.0 (34.0-71.1) % Lymph % (Auto) 25.9 (19.3-51.7) % Emanuel % (Auto) 9.1 (4.7-12.5) % Eos % (Auto) 2.8 (0.7-5.8) Baso % (Auto) 0.4 (0.1-1.2) % Neut # (Auto) 6.78 H (1.56-6.13) K/mm3 Lymph # (Auto) 2.93 (1.18-3.74) K/mm3 Emanuel # (Auto) 1.03 H (0.24-0.36) K/mm3 Eos # (Auto) 0.32 (0.04-0.36) K/mm3 Baso # (Auto) 0.04 (0.01-0.08) K/mm3 Manual Slide Review Normal smear Sodium 139 142 (136-145) mEq/L Potassium 3.2 L 3.7 (3.5-5.1) mEq/L Chloride 103 104 (98-107) mEq/L Carbon Dioxide 27 27 (21-32) mEq/L Anion Gap 12.2 14.7 (5-15) BUN 6 L 6 L (7-18) mg/dL Creatinine 0.5 L 0.5 L (0.55-1.02) mg/dL Est Cr Clr Drug Dosing 130.12 130.12 mL/min Estimated GFR (MDRD) > 60 > 60 (>60) mL/min BUN/Creatinine Ratio 12.0 L 12.0 L (14-18) Glucose 93 116 H (74-106) mg/dL POC Glucose (70-105) mg/dL Calcium 7.8 L 8.6 (8.5-10.1) mg/dL Total Bilirubin 0.3 0.3 (0.2-1.0) mg/dL AST 16 21 (15-37) U/L ALT 17 17 (14-59) U/L Alkaline Phosphatase 68 60 (46-116) U/L C-Reactive Protein 16.4 H* 11.6 H* (<1.0) mg/dL Total Protein 5.6 L 6.0 L (6.4-8.2) g/dl Albumin 1.8 L 2.1 L (3.4-5.0) g/dl Globulin 3.8 3.9 gm/dL Albumin/Globulin Ratio 0.5 L 0.5 L (1-2) 01/11/17 01/11/17 Range/Units 05:50 05:53 WBC 10.41 H (3.98-10.04) K/mm3 RBC 4.22 (3.98-5.22) M/mm3 Hgb 11.2 (11.2-15.7) gm/L Hct 34.5 (34.1-44.9) % MCV 81.8 (79.4-94.8) fl MCH 26.5 (25.6-32.2) pg MCHC 32.5 (32.2-35.5) g/dl RDW Std Deviation 41.0 (36.4-46.3) fL Plt Count 507 H (182-369) K/mm3 MPV 8.7 L (9.4-12.3) fl Neut % (Auto) 58.5 (34.0-71.1) % Lymph % (Auto) 29.2 (19.3-51.7) % Emanuel % (Auto) 8.2 (4.7-12.5) % Eos % (Auto) 2.4 (0.7-5.8) Baso % (Auto) 0.4 (0.1-1.2) % Neut # (Auto) 6.09 (1.56-6.13) K/mm3 Lymph # (Auto) 3.04 (1.18-3.74) K/mm3 Emanuel # (Auto) 0.85 H (0.24-0.36) K/mm3 Eos # (Auto) 0.25 (0.04-0.36) K/mm3 Baso # (Auto) 0.04 (0.01-0.08) K/mm3 Manual Slide Review Abnormal smear Sodium (136-145) mEq/L Potassium (3.5-5.1) mEq/L Chloride (98-107) mEq/L Carbon Dioxide (21-32) mEq/L Anion Gap (5-15) BUN (7-18) mg/dL Creatinine (0.55-1.02) mg/dL Est Cr Clr Drug Dosing mL/min Estimated GFR (MDRD) (>60) mL/min BUN/Creatinine Ratio (14-18) Glucose (74-106) mg/dL POC Glucose 91 (70-105) mg/dL Calcium (8.5-10.1) mg/dL Total Bilirubin (0.2-1.0) mg/dL AST (15-37) U/L ALT (14-59) U/L Alkaline Phosphatase (46-116) U/L C-Reactive Protein (<1.0) mg/dL Total Protein (6.4-8.2) g/dl Albumin (3.4-5.0) g/dl Globulin gm/dL Albumin/Globulin Ratio (1-2) BERTA Results - Last 24 hrs: Microbiology 01/09/17 02:33 Aerobic Blood Culture - Preliminary Blood - Picc Line NO GROWTH AFTER 2 DAYS Anaerobic Blood Culture - Preliminary NO GROWTH AFTER 2 DAYS 01/09/17 02:50 Aerobic Blood Culture - Preliminary Blood - Venous - Lab Draw NO GROWTH AFTER 2 DAYS Anaerobic Blood Culture - Final 01/07/17 11:18 Gram Stain - Final Abdomen - Abscess 01/09/17 02:40 Urine Culture - Preliminary Urine, Carson Cath (Indwelling) No Growth Med Orders - Current: Current Medications Amoxicillin (Amoxil) 500 mg PO TID [facility] Last Admin: 01/10/17 21:43 Dose: 500 mg Benzocaine/Menthol (Cepacol Sore Throat) 1 lozenge MUCMEM Q2HR PRN PRN Reason: Sore Throat Last Admin: 01/11/17 00:49 Dose: 1 lozenge Docusate Sodium (Colace) 100 mg PO BID [facility] Last Admin: 01/10/17 21:43 Dose: 100 mg Doxycycline Hyclate (Vibramycin) 100 mg PO BID [facility] Last Admin: 01/10/17 21:43 Dose: 100 mg Ibuprofen (Motrin) 600 mg PO Q6H PRN PRN Reason: Pain (mild 1-3) Last Admin: 01/11/17 02:48 Dose: 600 mg Metronidazole (Flagyl) 500 mg PO TID [facility] Last Admin: 01/10/17 21:43 Dose: 500 mg Ondansetron HCl (Zofran) 4 mg IVPUSH Q4H PRN PRN Reason: Nausea/Vomiting Last Admin: 01/07/17 16:05 Dose: 4 mg Oxycodone/Acetaminophen (Percocet 325-5 Mg) 2 tab PO Q4H PRN PRN Reason: Pain (moderate 4-6) Last Admin: 01/11/17 03:59 Dose: 1 tab Potassium Chloride (Klor-Con M20) 40 meq PO DAILY [facility] Last Admin: 01/10/17 10:57 Dose: 40 meq Saccharomyces Boulardii (Florastor) 250 mg PO BID [facility] Last Admin: 01/10/17 21:43 Dose: 250 mg Simethicone (Simethicone) 80 mg PO Q4H PRN PRN Reason: Abdominal Pain Last Admin: 01/08/17 09:49 Dose: 80 mg Sodium Chloride (Saline Flush) 10 ml FLUSH ASDIRECTED PRN PRN Reason: Keep Vein Open Discontinued Medications Acetaminophen (Tylenol) 650 mg PO Q4H PRN PRN Reason: Pain (mild 1-3) Last Admin: 01/07/17 19:34 Dose: 650 mg Bupivacaine HCl (Marcaine 0.5%) Confirm Administered Dose 30 ml .ROUTE .STK-MED ONE Stop: 01/07/17 09:11 Last Admin: 01/07/17 10:57 Dose: 20 ml Cefazolin Sodium (Ancef) Confirm Administered Dose 2 gm .ROUTE .STK-MED ONE Stop: 01/07/17 10:05 Cephalexin (Keflex) 500 mg PO Q6H [facility] Last Admin: 01/07/17 09:55 Dose: Not Given Dexamethasone (Dexamethasone) Confirm Administered Dose 4 mg .ROUTE .STK-MED ONE Stop: 01/07/17 10:05 Diatrizoate Meglum/Diatrizoate Sod (Gastrografin 37%) 90 ml PO ONETIME ONE Stop: 01/02/17 19:12 Last Admin: 01/02/17 20:09 Dose: 90 ml Diatrizoate Meglum/Diatrizoate Sod (Gastrografin 37%) 90 ml PO ONETIME ONE Stop: 01/04/17 08:46 Last Admin: 01/04/17 09:41 Dose: 90 ml Diatrizoate Meglum/Diatrizoate Sod (Gastrografin 37%) 90 ml PO ONETIME ONE Stop: 01/06/17 12:13 Last Admin: 01/06/17 12:23 Dose: 90 ml Diphenhydramine HCl (Benadryl) 25 mg IVPUSH ONETIME ONE Stop: 01/02/17 17:51 Last Admin: 01/02/17 18:18 Dose: 25 mg Doxycycline Hyclate (Vibramycin) Confirm Administered Dose 100 mg .ROUTE .STK- MED ONE Stop: 01/04/17 15:28 Last Admin: 01/04/17 15:57 Dose: Not Given Doxycycline Hyclate (Vibramycin) 100 mg PO BID [facility] Last Admin: 01/07/17 09:55 Dose: Not Given Fentanyl (Sublimaze) Confirm Administered Dose 250 mcg .ROUTE .STK-MED ONE Stop: 01/07/17 10:06 Fentanyl (Sublimaze) 50 mcg IVPUSH Q5M PRN PRN Reason: pain Stop: 01/07/17 15:00 Last Admin: 01/07/17 14:35 Dose: 50 mcg Fentanyl (Sublimaze) Confirm Administered Dose 100 mcg .ROUTE .STK-MED ONE Stop: 01/07/17 12:57 Fentanyl (Sublimaze) Confirm Administered Dose 100 mcg .ROUTE .STK-MED ONE Stop: 01/07/17 14:10 Last Admin: 01/07/17 14:28 Dose: 50 mcg Fentanyl (Sublimaze) Confirm Administered Dose 100 mcg .ROUTE .STK-MED ONE Stop: 01/07/17 14:11 Last Admin: 01/07/17 14:14 Dose: 100 mcg Fentanyl (Sublimaze) Confirm Administered Dose 100 mcg .ROUTE .STK-MED ONE Stop: 01/07/17 14:21 Last Admin: 01/07/17 14:17 Dose: 50 mcg Fentanyl (Sublimaze) 100 mcg IVPUSH ONETIME ONE Stop: 01/07/17 15:59 Last Admin: 01/07/17 14:18 Dose: 50 mcg Glycopyrrolate () Confirm Administered Dose 1 mg .ROUTE .STK-MED ONE Stop: 01/07/17 11:21 Hydromorphone HCl (Dilaudid) 1 mg IVPUSH ONETIME ONE Stop: 01/02/17 17:48 Last Admin: 01/02/17 18:18 Dose: 1 mg Hydromorphone HCl (Dilaudid) 0.5 mg IVPUSH ONETIME ONE Stop: 01/02/17 18:42 Last Admin: 01/02/17 18:55 Dose: 0.5 mg Hydromorphone HCl (Dilaudid) 0.5 mg IVPUSH ONETIME ONE Stop: 01/02/17 20:28 Last Admin: 01/02/17 20:36 Dose: 0.5 mg Hydromorphone HCl (Dilaudid) 0.5 mg IVPUSH ONETIME ONE Stop: 01/02/17 21:42 Last Admin: 01/02/17 21:48 Dose: 0.5 mg Hydromorphone HCl (Dilaudid) 0.5 mg IVPUSH Q2H PRN PRN Reason: Pain Last Admin: 01/04/17 10:28 Dose: 0.5 mg Hydromorphone HCl (Dilaudid) Confirm Administered Dose 1 mg .ROUTE .STK-MED ONE Stop: 01/07/17 10:05 Hydromorphone HCl (Dilaudid) Confirm Administered Dose 1 mg .ROUTE .STK-MED ONE Stop: 01/07/17 11:11 Hydromorphone HCl (Dilaudid) 0.5 mg IVPUSH Q15M PRN PRN Reason: Pain (severe 7-10) Stop: 01/07/17 12:46 Last Admin: 01/07/17 13:19 Dose: 0.5 mg Sodium Chloride (Normal Saline) 1,000 mls @ 999 mls/hr IV ONETIME ONE Stop: 01/02/17 18:46 Last Admin: 01/02/17 18:21 Dose: 999 mls/hr Levofloxacin/Dextrose 750 mg/ (Premix) 150 mls @ 100 mls/hr IV ONETIME ONE Stop: 01/02/17 19:36 Last Admin: 01/02/17 18:23 Dose: 100 mls/hr Lactated Ringer's (Ringers, Lactated) 1,000 mls @ 150 mls/hr IV ASDIRECTED [facility] Last Admin: 01/02/17 23:35 Dose: 150 mls/hr Dextrose/Sodium Chloride (Dextrose 5%-1/2 Ns) 1,000 mls @ 125 mls/hr IV ASDIRECTED [facility] Last Admin: 01/03/17 06:12 Dose: 125 mls/hr Cefoxitin Sodium 2 gm/ Premix 50 mls @ 100 mls/hr IV Q12H [facility] Last Admin: 01/05/17 00:39 Dose: 100 mls/hr Doxycycline Hyclate 100 mg/ (Sodium Chloride) 100 mls @ 100 mls/hr IV Q12H [facility] Stop: 01/07/17 09:00 Last Admin: 01/07/17 02:31 Dose: 100 mls/hr Levofloxacin/Dextrose 750 mg/ (Premix) 150 mls @ 100 mls/hr IV Q24H [facility] Stop: 01/07/17 09:00 Last Admin: 01/06/17 17:13 Dose: 100 mls/hr Lactated Ringer's (Ringers, Lactated) 1,000 mls @ 75 mls/hr IV ASDIRECTED [facility] Last Admin: 01/05/17 13:55 Dose: 75 mls/hr Metronidazole 500 mg/ Premix 100 mls @ 100 mls/hr IV Q8H [facility] Stop: 01/07/17 09:00 Last Admin: 01/07/17 00:55 Dose: 100 mls/hr Sodium Chloride (Normal Saline) 500 mls @ 999 mls/hr IV .BOLUS ONE Stop: 01/06/17 10:30 Last Admin: 01/06/17 13:22 Dose: 999 mls/hr Cefoxitin Sodium 2 gm/ Premix 50 mls @ 100 mls/hr IV ONETIME ONE Stop: 01/07/17 09:10 Last Admin: 01/07/17 09:47 Dose: 100 mls/hr Lidocaine HCl (Xylocaine-Mpf 1%) Confirm Administered Dose 6 mls @ as directed .ROUTE .[email or web address] ONE Stop: 01/07/17 10:38 Hetastarch/Sodium Chloride (Hetastarch 6% In Normal Saline) Confirm Administered Dose 500 mls @ as directed .ROUTE .[email or web address] ONE Stop: 01/07/17 12:23 Lactated Ringer's (Ringers, Lactated) Confirm Administered Dose 1,000 mls @ as directed .ROUTE .[facility] [[email or web address] ONE Stop: 01/07/17 12:23 Ampicillin Sodium/Sulbactam (Sodium 3 gm/ Sodium Chloride) 100 mls @ 200 mls/ hr IV Q6H [facility] Last Admin: 01/10/17 06:37 Dose: 200 mls/hr Doxycycline Hyclate 100 mg/ (Sodium Chloride) 100 mls @ 100 mls/hr IV Q12HR [facility] Last Admin: 01/10/17 10:40 Dose: Not Given Lactated Ringer's (Ringers, Lactated) 1,000 mls @ 75 mls/hr IV ASDIRECTED [facility] Last Admin: 01/09/17 03:03 Dose: 125 mls/hr Metronidazole 500 mg/ Premix 100 mls @ 100 mls/hr IV Q8H [facility] Stop: 01/11/17 06:59 Last Admin: 01/10/17 08:06 Dose: 100 mls/hr Sodium Chloride (Normal Saline) Confirm Administered Dose 250 mls @ as directed .ROUTE .STK-MED ONE Stop: 01/09/17 03:31 Last Admin: 01/09/17 04:30 Dose: 250 ml Ibuprofen (Motrin) 600 mg PO Q6H PRN PRN Reason: Fever Last Admin: 01/04/17 12:27 Dose: 600 mg Insulin Aspart (Novolog) 0 unit SUBCUT Q6H [facility] PRN Reason: Protocol Last Admin: 01/03/17 06:20 Dose: Not Given Insulin Aspart (Novolog) 0 unit SUBCUT QIDACANDBED [facility] PRN Reason: Protocol Last Admin: 01/05/17 06:47 Dose: Not Given Insulin Aspart (Novolog) 0 unit SUBCUT QIDACANDBED [facility] PRN Reason: Protocol Last Admin: 01/10/17 07:45 Dose: Not Given Iopamidol (Isovue-300 (61%)) 125 ml IVPUSH ONETIME ONE Stop: 01/02/17 19:12 Last Admin: 01/02/17 20:09 Dose: 125 ml Iopamidol (Isovue-300 (61%)) 125 ml IVPUSH ONETIME ONE Stop: 01/04/17 08:46 Last Admin: 01/04/17 09:41 Dose: 125 ml Iopamidol (Isovue-300 (61%)) 125 ml IVPUSH ONETIME ONE Stop: 01/06/17 12:13 Last Admin: 01/06/17 12:23 Dose: 125 ml Iopamidol (Isovue-300 (61%)) 120 ml IVPUSH ONETIME ONE Stop: 01/07/17 14:47 Last Admin: 01/07/17 14:53 Dose: 120 ml Ketorolac Tromethamine (Toradol) 60 mg IVPUSH Q6H [facility] Stop: 01/05/17 12:31 Last Admin: 01/05/17 06:32 Dose: Not Given Ketorolac Tromethamine (Toradol) 60 mg IVPUSH Q6H [facility] Stop: 01/06/17 03:01 Last Admin: 01/06/17 02:32 Dose: 60 mg Ketorolac Tromethamine (Toradol) 30 mg IVPUSH Q6H PRN PRN Reason: Pain (moderate 4-6) Stop: 01/08/17 06:01 Last Admin: 01/07/17 16:06 Dose: 30 mg Ketorolac Tromethamine (Toradol) Confirm Administered Dose 30 mg .ROUTE .STK- MED ONE Stop: 01/07/17 16:00 Last Admin: 01/07/17 16:27 Dose: Not Given Lidocaine/Epinephrine (Xylocaine 1% With Epinephrine 1:100,000) Confirm Administered Dose 20 ml .ROUTE .STK-MED ONE Stop: 01/07/17 09:10 Lisinopril (Prinivil) 5 mg PO DAILY [facility] Last Admin: 01/05/17 08:25 Dose: Not Given Lorazepam (Ativan) 0.5 mg PO Q4H PRN PRN Reason: Anxiety Last Admin: 01/07/17 04:52 Dose: 0.5 mg Methylene Blue (Methylene Blue 1%) Confirm Administered Dose 1 ml .ROUTE .STK- MED ONE Stop: 01/07/17 11:55 Metoclopramide HCl (Reglan) 10 mg IVPUSH ONETIME ONE Stop: 01/02/17 17:48 Last Admin: 01/02/17 18:18 Dose: 10 mg Metronidazole (Flagyl) 500 mg PO TID [facility] Metronidazole (Flagyl) 500 mg PO TID [facility] Midazolam HCl (Versed 1 Mg/Ml) Confirm Administered Dose 2 mg .ROUTE .STK-MED ONE Stop: 01/07/17 10:05 Morphine Sulfate (Morphine) 5 mg IM ONETIME ONE Stop: 01/03/17 23:14 Last Admin: 01/03/17 23:41 Dose: 5 mg Morphine Sulfate (Morphine) 5 mg IM ONETIME ONE Stop: 01/04/17 21:01 Last Admin: 01/04/17 21:13 Dose: 5 mg Morphine Sulfate (Morphine) 5 mg IM BEDTIME [facility] Stop: 01/09/17 21:01 Last Admin: 01/07/17 21:49 Dose: 5 mg Neostigmine Methylsulfate (Neostigmine) Confirm Administered Dose 5 mg .ROUTE .STK-MED ONE Stop: 01/07/17 11:21 Ondansetron HCl (Zofran) 4 mg IVPUSH ONETIME ONE Stop: 01/02/17 21:42 Last Admin: 01/02/17 21:46 Dose: 4 mg Ondansetron HCl (Zofran) 4 mg IVPUSH Q4H PRN PRN Reason: Nausea/Vomiting Last Admin: 01/04/17 08:15 Dose: 4 mg Ondansetron HCl (Zofran) Confirm Administered Dose 4 mg .ROUTE .STK-MED ONE Stop: 01/07/17 10:05 Ondansetron HCl (Zofran) 4 mg IVPUSH ONETIME PRN PRN Reason: Nausea/Vomiting Stop: 01/07/17 15:00 Last Admin: 01/07/17 13:13 Dose: 4 mg Oxycodone/Acetaminophen (Percocet 325-5 Mg) 1 tab PO Q4H PRN PRN Reason: Pain Last Admin: 01/04/17 07:02 Dose: 1 tab Oxycodone/Acetaminophen (Percocet 325-5 Mg) 2 tab PO Q4HR PRN PRN Reason: Pain (moderate 4-6) Oxycodone/Acetaminophen (Percocet 325-5 Mg) 2 tab PO Q4H PRN PRN Reason: Pain (moderate 4-6) Last Admin: 01/07/17 04:48 Dose: 2 tab Pneumococcal Polyvalent Vaccine (Pneumovax 23) 0.5 ml IM .ONCE ONE Stop: 01/06/17 18:47 Potassium Chloride (Klor-Con M20) 40 meq PO ONETIME ONE Stop: 01/05/17 11:16 Last Admin: 01/05/17 11:35 Dose: 40 meq Potassium Chloride (Klor-Con M20) 20 meq PO BEDTIME [facility] Last Admin: 01/06/17 20:20 Dose: 20 meq Promethazine HCl (Phenergan) 25 mg IM ONETIME ONE Stop: 01/03/17 23:22 Last Admin: 01/03/17 23:40 Dose: 25 mg Promethazine HCl (Phenergan) 25 mg IM ONETIME ONE Stop: 01/04/17 21:01 Last Admin: 01/04/17 21:13 Dose: 25 mg Promethazine HCl (Phenergan) 25 mg IM BEDTIME [facility]AMES Stop: 01/09/17 21:01 Last Admin: 01/07/17 21:50 Dose: 25 mg Propofol (Diprivan 20 Ml) Confirm Administered Dose 200 mg .ROUTE .STK-MED ONE Stop: 01/07/17 10:05 Rocuronium [place] (Zemuron) Confirm Administered Dose 50 mg .ROUTE .STK-MED ONE Stop: 01/07/17 10:05 Saccharomyces Boulardii (Florastor) 250 mg PO BID [facility] Last Admin: 01/07/17 09:55 Dose: Not Given Sertraline HCl (Zoloft) 25 mg PO DAILY [facility] Last Admin: 01/05/17 11:40 Dose: Not Given Sodium Chloride (Saline Flush) 10 ml FLUSH ONETIME PRN PRN Reason: IV FLUSH Last Admin: 01/02/17 20:09 Dose: 10 ml Sodium Chloride (Saline Flush) 10 ml FLUSH ONETIME ONE Stop: 01/04/17 08:46 Last Admin: 01/04/17 09:41 Dose: 10 ml Sodium Chloride (Saline Flush) 10 ml FLUSH ONETIME PRN PRN Reason: IV FLUSH Last Admin: 01/06/17 12:23 Dose: 10 ml Sodium Chloride (Normal Saline) Confirm Administered Dose 50 ml .ROUTE .STK-MED ONE Stop: 01/07/17 09:11 Sodium Chloride (Saline Flush) 10 ml FLUSH ASDIRECTED PRN PRN Reason: Keep Vein Open Sodium Chloride (Saline Flush) 20 ml FLUSH ONETIME ONE Stop: 01/07/17 14:47 Last Admin: 01/07/17 14:55 Dose: 20 ml Zolpidem Tartrate (Ambien) 5 mg PO BEDTIME PRN PRN Reason: Insomnia Last Admin: 01/06/17 20:20 Dose: 5 mg *Q Meaningful Use (DIS) - VTE *Q VTE Criteria *Q: - Stroke *Q Stroke Criteria *Q: - AMI *Q AMI Criteria *Q:
[2017-01-11] MEDS: Amoxicillin 500 MG Cap PO SCH (08:46)
[2017-01-11] MEDS: Doxycycline 100 MG Cap PO SCH (08:46)
[2017-01-11] MEDS: Potassium Chloride 20 MEQ Tab.ER PO SCH (08:46)
[2017-01-11] MEDS: Saccharomyces Boulardii (Probiotic) 250 MG Cap PO SCH (08:46)
[2017-01-11] MEDS: metroNIDAZOLE 500 MG Tab PO SCH (08:46)
[2017-01-11] MEDS: Docusate Sodium 100 MG Cap PO SCH (08:46)
== END 2017-01-11 10:25 | disposition home or self-care (01) | DRG 513 ==
LOC: JD.ED 17:13 → JD.MS 22:37 → JD.ICU 01-07 13:26 → JD.MS 01-08 11:02
PROVIDERS: ADMIT Obstetrics & Gynecology; ATTEND Obstetrics & Gynecology
PROC: 0UT14ZZ Resection of Left Ovary, Percutaneous Endoscopic Approach (ICD-10-PCS; principal; 2017-01-07)
PROC: 0UT74ZZ Resection of Bilateral Fallopian Tubes, Percutaneous Endoscopic Approach (ICD-10-PCS; principal; 2017-01-07)
PROC: 0UT94ZZ Resection of Uterus, Percutaneous Endoscopic Approach (ICD-10-PCS; principal; 2017-01-07)
PROC: 30253N1 (ICD-10-PCS; 2017-01-09)
DX: N70.93 Salpingitis and oophoritis, unspecified (principal); E11.9 Type 2 diabetes mellitus without complications; Z79.84 Long term (current) use of oral hypoglycemic drugs; E66.9 Obesity, unspecified; R10.2 Pelvic and perineal pain; D64.9 Anemia, unspecified
CPT/HCPCS: 00790; 36415; 36430; 36569; 58301; 72193; 72193-26; 74177; 74177-26; 74415; 74415-26; 76830; 76830-26; 80048; 80053; 81001; 82962; 83036; 83690; 83735; 84702; 84703; 85014; 85018; 85025; 85027; 86140; 86850; 86900; 86901; 86922; 87040; 87070; 87075; 87076; 87086; 87181; 87205; 87491; 87591; 96361; 96365; 96366; 96375; 96376; 99231; 99232; 99233; 99253; 99285; 99285-25; A9270; A9270-GY; C1751; J0295; J0690; J0694; J1100; J1170; J1200; J1885; J1956; J2250; J2270; J2405; J2550; J2704; J2710; J2765; J3010; J7030; J7040; J7042; J7050; J7120; P9016; Q9963; Q9967; Q9968

== ENCOUNTER 2017-07-07 07:56 | Day surgery (SDC) | payer BC ==
[~2017-07-07 07:56] MED LIST: Ampicillin/Sulbactam Na 3 GM in Sodium Chloride 0.9% 100 ML IV ONE
[2017-07-07] MEDS ORDERED: fentaNYL 250 MCG/5 ML SDV ONE (08:11)
[2017-07-07] MEDS ORDERED: Ondansetron 4 MG/2 ML SDV ONE (08:11)
[2017-07-07] MEDS ORDERED: Midazolam 1 MG/ML 2 ML SDV ONE (08:11)
[2017-07-07] MEDS ORDERED: Rocuronium 50 MG/5 ML Vial ONE (08:11)
[2017-07-07] MEDS ORDERED: Lidocaine 1% 4 ML ONE (08:11)
[2017-07-07] MEDS ORDERED: Propofol 200 MG/20 ML SDV ONE (08:11)
[2017-07-07] MEDS: Lactated Ringers 1,000 ML IV SCH ×2 (08:25→11:01)
[2017-07-07] MEDS ORDERED: Sodium Chloride 0.9% 10 ML Syringe FLUSH PRN ×2 (08:36)
--- NOTE | 2017-07-07 08:51 | PCM.PREANE ---
Preanesthetic Assessment - Procedure Proposed Procedure: Laparoscopic Cholecystectomy - Anesthesia/Transfusion/Family Hx Anesthesia History: Prior Anesthesia Without Reaction Transfusion History: Prior Transfusion Without Reaction Intubation History: Unknown - Review of Systems General: No Symptoms Pulmonary: No Symptoms Cardiovascular: No Symptoms Gastrointestinal: Abdominal Pain (Right Side ) Neurological: No Symptoms Other: Reports: Diabetes (Type II diabetes, oral medication for control. ) - Physical Assessment NPO Status Date: 07/06/17 NPO Status Time: 00:00 Pulse: 74 O2 Sat by Pulse Oximetry: 96 Respiratory Rate: 18 Blood Pressure: 127/86 Temperature: 36.6 C Weight: 101 kg ASA Class: 2 Mental Status: Alert & Oriented x3 Airway Class: Mallampati = 2 Dentition: Reports: Normal Dentition Thyro-Mental Finger Breadths: 3 Mouth Opening Finger Breadths: 3 ROM/Head Extension: Full Lungs: Clear to Auscultation, Normal Respiratory Effort Cardiovascular: Regular Rhythm, Bradycardia - Lab Values: Laboratory Last Values POC Glucose 133 mg/dL (70-105) H 07/07/17 08:19 - Allergies Allergies/Adverse Reactions: Allergies Allergy/AdvReac Type Severity Reaction Status Date / Time No Known Allergies Allergy Verified 07/06/17 15:10 - Acknowledgements Anesthesia Type Planned: General Anesthesia Pt an Appropriate Candidate for the Planned Anesthesia: Yes Alternatives and Risks of Anesthesia Discussed w Pt/Guardian: Yes Pt/Guardian Understands and Agrees with Anesthesia Plan: Yes PreAnesthesia Questionnaire - Past Health History Medical/Surgical History: Denies Medical/Surgical History HEENT History: Reports: Impaired Vision, Other (See Below) Other HEENT History: wears glasses Cardiovascular History: Reports: None Respiratory History: Reports: None Gastrointestinal History: Reports: None Genitourinary History: Reports: Other (See Below) Other Genitourinary History: 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 OB/BYN History: 3 vaginal births Musculoskeletal History: Reports: None Neurological History: Reports: None Psychiatric History: Reports: None Endocrine/Metabolic History: Reports: Diabetes, Type II, Obesity/BMI 30+ Hematologic History: Reports: None Immunologic History: Reports: None Oncologic (Cancer) History: Reports: None Dermatologic History: Reports: Other (See Below) Other Dermatologic History: sacral cyst removal - Past Surgical History Head Surgeries/Procedures: Reports: None HEENT Surgical History: Reports: Oral Surgery Cardiovascular Surgical History: Reports: None Respiratory Surgical History: Reports: None GI Surgical History: Reports: Cholecystectomy Female Surgical History: Reports: Hysterectomy, Oophorectomy, Other (See Below) Other Female Surgeries/Procedures: 3 vaginal births Endocrine Surgical History: Reports: None Neurological Surgical History: Reports: None Musculoskeletal Surgical History: Reports: None - SUBSTANCE USE Smoking Status *Q: Never Smoker Tobacco Use Within Last Twelve Months: No Second Hand Smoke Exposure: No Days Per Week of Alcohol Use: 0 Recreational Drug Use History: No - HOME MEDS Home Medications: Home Meds Lisinopril [Lisinopril] 5 mg PO DAILY 07/06/17 [History] metFORMIN HCl [Metformin HCl] 1,000 mg PO DAILY 07/06/17 [History] - CURRENT (IN HOUSE) MEDS Current Meds: Current Medications Lactated Ringer's (Ringers, Lactated) 1,000 mls @ 125 mls/hr IV ASDIRECTED [facility] Stop: 07/07/17 18:00 Sodium Chloride (Saline Flush) 10 ml FLUSH ASDIRECTED PRN PRN Reason: Keep Vein Open Stop: 07/07/17 18:00 Sodium Chloride (Saline Flush) 10 ml FLUSH ASDIRECTED PRN PRN Reason: Keep Vein Open Stop: 07/07/17 18:00 Discontinued Medications Bupivacaine HCl (Marcaine 0.5%) Confirm Administered Dose 30 ml .ROUTE .STK-MED ONE Stop: 07/07/17 08:42 Fentanyl (Sublimaze) Confirm Administered Dose 250 mcg .ROUTE .STK-MED ONE Stop: 07/07/17 08:12 Ampicillin Sodium/Sulbactam (Sodium 3 gm/ Sodium Chloride) 100 mls @ 200 mls/ hr IV ONETIME ONE Stop: 07/07/17 07:34 Lidocaine HCl (Xylocaine-Mpf 1%) Confirm Administered Dose 4 mls @ as directed .ROUTE .STK-MED ONE Stop: 07/07/17 08:12 Iopamidol (Isovue-300 (61%)) Confirm Administered Dose 50 ml .ROUTE .STK-MED ONE Stop: 07/07/17 08:42 Midazolam HCl (Versed 1 Mg/Ml) Confirm Administered Dose 2 mg .ROUTE .STK-MED ONE Stop: 07/07/17 08:12 Ondansetron HCl (Zofran) Confirm Administered Dose 4 mg .ROUTE .STK-MED ONE Stop: 07/07/17 08:12 Propofol (Diprivan 20 Ml) Confirm Administered Dose 200 mg .ROUTE .STK-MED ONE Stop: 07/07/17 08:12 Rocuronium [place] (Zemuron) Confirm Administered Dose 50 mg .ROUTE .STK-MED ONE Stop: 07/07/17 08:12 Sodium Chloride (Normal Saline) Confirm Administered Dose 50 ml .ROUTE .STK-MED ONE Stop: 07/07/17 08:42
[2017-07-07] MEDS: Bupivacaine 0.5% 30 ML SDV ONE ×2 (09:11→09:26)
[2017-07-07] MEDS: Sodium Chloride 0.9% 50 ML SDV ONE ×2 (09:27→10:05)
[2017-07-07] MEDS: Iopamidol 612 MG/ML 50 ML SDV ONE ×2 (09:27→10:05)
[2017-07-07] MEDS ORDERED: HYDROmorphone 1 MG/ML Syringe ONE (09:30)
[2017-07-07] MEDS ORDERED: Lactated Ringers 1,000 ML ONE (09:45)
[2017-07-07] MEDS ORDERED: fentaNYL 100 MCG/2 ML SDV ONE (10:08)
--- NOTE | 2017-07-07 10:31 | PCM.OPNOTE ---
- General Post-Op/Procedure Note Date of Surgery/Procedure: 07/07/17 Operative Procedure(s): lap niesha with IOC Findings: cholelithiasis Pre Op Diagnosis: cholelithiasis Post-Op Diagnosis: Same Anesthesia Technique: MAC Primary Surgeon: Ken Salas EBL in mLs: 0 Complications: None Condition: Good
--- NOTE | 2017-07-07 10:59 | PCM.POSTAN ---
POST ANESTHESIA ASSESSMENT - MENTAL STATUS Mental Status: Alert, Oriented - VITAL SIGNS Pulse Rate: 103 SaO2: 93 Resp Rate: 10 Blood Pressure: 134/70 Temperature: 36.8 C - RESPIRATORY Respiratory Status: Respiratory Rate WNL, Airway Patent, O2 Saturation Stable, Supplemental Oxygen - CARDIOVASCULAR CV Status: Pulse Rate WNL, Blood Pressure Stable - GASTROINTESTINAL GI Status: No Symptoms - PAIN Pain Score: 0 - POST OP HYDRATION Hydration Status: Adequate & Stable - OBSERVATIONS Free Text/Narrative:: no anesthesia complications noted
[2017-07-07] MEDS: fentaNYL 100 MCG/2 ML SDV IVPUSH PRN ×2 (11:11→11:21)
[2017-07-07] MEDS ORDERED: Acetaminophen/HYDROcodone 325-5 MG Tab PO ONE (12:21)
--- NOTE | 2017-07-07 13:19 | CR ---
Operative cholangiogram Multiple fluoroscopic spot views were obtained utilizing C-arm device in the operating room during operative cholangiogram exam. Findings: Opacification of the CHD and CBD as well as small portion of the intrahepatic ducts is noted. Contrast is seen within the duodenum. No filling defects are identified to indicate retained stone. Impression: 1. No abnormality is identified on operative cholangiogram exam. Diagnostic code #1 [id number]
[2017-07-07 13:42] VITALS: BP 129/64
--- NOTE | 2017-07-08 09:31 | OR ---
DATE OF OPERATION: 07/07/2017 SURGEON: Ken Salas MD PREOPERATIVE DIAGNOSIS: Symptomatic cholelithiasis. POSTOPERATIVE DIAGNOSIS: Symptomatic cholelithiasis. OPERATION PERFORMED: Laparoscopic cholecystectomy and intraoperative cholangiogram. FINDINGS: Intraoperative cholangiogram showed right and left hepatic ducts with common duct and free flow into the duodenum without any obstruction. There were stones in the gallbladder and adhesions on the fundus of the gallbladder. ESTIMATED BLOOD LOSS: 0 mL. ANESTHESIA: Procedure done under general anesthetic. DESCRIPTION OF PROCEDURE: The patient was taken to the operating room, placed in the supine position, connected to monitoring equipment, given general anesthetic and intubated. IV antibiotics were given. SCDs were placed. The abdomen was prepped with ChloraPrep and draped off in a sterile fashion. An incision was made just above the umbilicus and using a 5-mm trocar, abdominal cavity was entered. Pneumoperitoneum was established, and this was followed by a 5-mm 0-degree camera. Abdominal cavity was scanned showing gallbladder with adhesions in the fundus in the right upper quadrant. A 10-mm trocar was placed in the epigastric position, one in the right upper quadrant and one in right lateral quadrant. The patient was placed in left lateral tilt with reverse Trendelenburg, and the fundus of the gallbladder was retracted in a cephalad position. The adhesions were taken off the gallbladder fundus and Hilda pouch was identified and retracted in a caudal fashion. Calot's triangle was then dissected out showing lymph node and cystic duct-Hilda pouch junction and cystic artery. Clips were placed proximal and distal on the cystic artery, and the cystic-Hilda pouch junction was secured with clips. The cystic duct was opened and a cholangiocatheter inserted and secured with a clip. Cholangiogram, using contrast material diluted with equal parts of saline, was then obtained using the C-arm, and this showed the above findings. Cholangiocatheter was then removed, and the cystic duct was secured with 2 clips and cut, and the cystic artery was cut. The gallbladder was then dissected from its attachments, the liver placed in an Endobag and removed. The camera was reinserted showing excellent hemostasis. This completed the intraabdominal portion of the procedure. The pneumoperitoneum ports were removed, and the skin of each port were closed with subdermal 4-0 Dexon suture. Steri-Strips and sterile dressing were placed. The patient tolerated the procedure and sent to recovery room in a stable condition. ALEXANDER /[id number]
--- NOTE | 2017-08-02 14:48 | OR ---
DATE OF OPERATION: 07/07/2017 SURGEON: Ken Salas MD ADDENDUM: The sentence should be amended that states, the gallbladder was dissected from its attachments and the gallbladder was placed in an Endobag and removed. The current sentence has the liver being placed in an Endobag, it is really the gallbladder was placed in Endobag. MMODAL /[id number]
== END 2017-07-07 13:50 | disposition home or self-care (01) ==
LOC: JD.SDS 07:56
PROVIDERS: ATTEND Surgery
DX: K80.10 Calculus of gallbladder with chronic cholecystitis without obstruction (principal); E11.9 Type 2 diabetes mellitus without complications; E66.9 Obesity, unspecified; Z79.84 Long term (current) use of oral hypoglycemic drugs; Z79.899 Other long term (current) drug therapy; Z90.710 Acquired absence of both cervix and uterus; Z90.722 Acquired absence of ovaries, bilateral; Z90.49 Acquired absence of other specified parts of digestive tract; Z68.30 Body mass index [BMI] 30.0-30.9, adult
CPT/HCPCS: 47563; 74300; 82962; A9270; J0295; J1170; J2250; J2405; J3010; J7030; J7120; Q9967; 00790; J2704

== ENCOUNTER 2019-10-01 14:13 | Emergency (ER) | payer BC, OTHER ==
[2019-10-01 14:41] VITALS: BP 163/117; PULSE 120
[2019-10-01] MEDS ORDERED: Sodium Chloride 0.9% 10 ML Syringe FLUSH PRN ×2 (14:45→16:04)
--- NOTE | 2019-10-01 14:50 | EDM.PDOC ---
ED HPI GENERAL MEDICAL PROBLEM - General Chief Complaint: Chest Pain Stated Complaint: SENT CLINIC SOB AND CHEST PAIN Time Seen by Provider: 10/01/19 14:43 Source of Information: Reports: Patient, RN Notes Reviewed History Limitations: Reports: No Limitations - History of Present Illness INITIAL COMMENTS - FREE TEXT/NARRATIVE: Patient is a 34-year-old female who presents to the ED for the evaluation of some ongoing shortness of breath and chest pain. Patient notes that she went to the clinic for evaluation as she is a diabetic, type II, and her blood sugars at home have been in the high 200s to 340 for a while now. She states she takes 1000 mg metformin 2 times a day. She notes that she does have quite a bit of increased stress going on at home, she has a son with epilepsy, and has been with men's 2 with tumors. She states that she has been focusing more on their health and her own. She does note that her heart rate is mildly increased, does feel as if she can feel some palpitations. States that her left chest has been tender for about 3 days now with associated shortness of breath. Blood pressure at the clinic was elevated, and her blood pressure is still 163/117 upon triage. Patient does note a history of anxiety, but does not take any medications at home for this. She is having quite a few generalized symptoms, double vision/blurred vision, increased fatigue, mild dizziness, and just generally not feeling well, she also states she is having some hot and cold flashes but no fever necessarily. She states that she is having some nausea, and has had a few episodes of "projectile vomiting". Patient states that her primary care provider is Dr. Ponce, and her last visit to her was around 1 year ago. Chest Pain Score (Numeric/FACES): 6 - Related Data Allergies Allergy/AdvReac Type Severity Reaction Status Date / Time No Known Allergies Allergy Verified 01/27/19 23:42 Home Meds: Home Meds Ibuprofen [Motrin] 800 mg PO TID PRN #21 tab 01/28/19 [Rx] LORazepam [Ativan] 1 mg PO TID PRN #12 tab 10/01/19 [Rx] metFORMIN [Glucophage XR] 1,000 mg PO BID 10/01/19 [History] Past Medical History HEENT History: Reports: Impaired Vision (wears glasses) [employer] DIRECTOR History: Reports: Other [employer] DIRECTOR History: 3 vaginal births Psychiatric History: Reports: Anxiety Endocrine/Metabolic History: Reports: Diabetes, Type II, Obesity/BMI 30+ Dermatologic History: Reports: Other (See Below) Other Dermatologic History: sacral cyst removal - Past Surgical History HEENT Surgical History: Reports: Oral Surgery GI Surgical History: Reports: Cholecystectomy Female Surgical History: Reports: Hysterectomy, Oophorectomy, Other (See Below) Other Female Surgeries/Procedures: 3 vaginal births Social & Family History - Family History Family Medical History: Noncontributory - Tobacco Use Smoking Status *Q: Never Smoker - Caffeine Use Caffeine Use: Reports: Tea Other Caffeine Use: doesn't have coffee very often but does have every once in awhile. - Living Situation & Occupation Living situation: Reports: Occupation: Employed ED ROS GENERAL - Review of Systems Review Of Systems: See Below Constitutional: Reports: Malaise (generalized), Other (hot/cold flashes). Denies: Fever, Chills Respiratory: Reports: Shortness of Breath. Denies: Cough Cardiovascular: Reports: Chest Pain (L side/mid sternal chest pain), Blood Pressure Problem (elevated BP reading at clinic), Palpitations GI/Abdominal: Reports: Nausea, Vomiting. Denies: Abdominal Pain, Constipation, Diarrhea Psychiatric: Reports: Anxiety ED EXAM, GENERAL - Physical Exam Exam: See Below Exam Limited By: No Limitations General Appearance: Alert, WD/WN, No Apparent Distress, Anxious (pt is tearful at time of exam, appears very anxious) Eye Exam: Bilateral Eye: EOMI, Normal Inspection, PERRL Ears: Normal External Exam Nose: Normal Inspection Throat/Mouth: Normal Inspection, Normal Lips, Normal Teeth, Normal Gums, Normal Oropharynx, Normal Voice, No Airway Compromise Head: Atraumatic, Normocephalic Neck: Normal Inspection Respiratory/Chest: No Respiratory Distress, Lungs Clear, Normal Breath Sounds, No Accessory Muscle Use, Chest Non-Tender Cardiovascular: Normal Peripheral Pulses, Regular Rate, Rhythm, No Murmur Peripheral Pulses: 3+: Radial (L), Radial (R) GI/Abdominal: Normal Bowel Sounds, Soft, Non-Tender, No Distention, No Mass Extremities: Normal Inspection, Normal Capillary Refill Neurological: Alert, Oriented, Normal Cognition, No Motor/Sensory Deficits Psychiatric: Normal Mood, Anxious (pt is tearful, and moderately anxious) Skin Exam: Warm, Dry, Intact, Normal Color, No Rash EKG INTERPRETATION EKG Date: 10/01/19 Time: 15:01 Rhythm: NSR (sinsu tachy) Rate (Beats/Min): 107 Tucker: Normal P-Wave: Present QRS: Normal ST-T: Normal QT: Normal Comparison: NA - No Prior EKG EKG Interpretation Comments: No acute ischemia noted. Reviewed by myself and Dr. Adan. Course - Vital Signs Last Recorded V/S: Last Vital Signs Temp 98.5 F 10/01/19 14:39 Pulse 120 H 10/01/19 14:39 Resp 20 10/01/19 14:39 BP 163/117 H 10/01/19 14:39 Pulse Ox 97 10/01/19 14:39 - Orders/Labs/Meds Orders: Active Orders 24 hr Category Date Time Status EKG Documentation Completion [RC] ASDIRECTED Care 10/01/19 14:44 Ordered Peripheral IV Care [RC] . DIRECTED Care 10/01/19 14:45 Ordered Sodium Chloride 0.9% [Normal Saline] 100 ml Med 10/01/19 16:15 Active IV ASDIRECTED Sodium Chloride 0.9% [Saline Flush] Med 10/01/19 14:45 Ordered 10 ml FLUSH ASDIRECTED PRN Sodium Chloride 0.9% [Saline Flush] Med 10/01/19 16:04 Active 10 ml FLUSH ONETIME PRN Peripheral IV Insertion Adult [OM.PC] Stat Oth 10/01/19 14:45 Ordered EKG 12 Lead [EK] Stat Ther 10/01/19 14:44 Ordered Medication Orders Sodium Chloride (Normal Saline) 100 mls @ 60 mls/hr IV ASDIRECTED JAMES Last Admin: 10/01/19 16:08 Dose: 60 mls/hr Sodium Chloride (Saline Flush) 10 ml FLUSH ASDIRECTED PRN PRN Reason: Keep Vein Open Last Admin: 10/01/19 15:50 Dose: 10 ml Sodium Chloride (Saline Flush) 10 ml FLUSH ONETIME PRN PRN Reason: Keep Vein Open Last Admin: 10/01/19 16:08 Dose: 10 ml Labs: Laboratory Tests 10/01/19 10/01/19 10/01/19 Range/Units 14:45 14:45 14:45 WBC 12.10 H (3.98-10.04) K/mm3 RBC 5.07 (3.98-5.22) M/mm3 Hgb 14.2 D (11.2-15.7) gm/dl Hct 41.9 (34.1-44.9) % MCV 82.6 (79.4-94.8) fl MCH 28.0 (25.6-32.2) pg MCHC 33.9 (32.2-35.5) g/dl RDW Std Deviation 39.2 (36.4-46.3) fL Plt Count 313 (182-369) K/mm3 MPV 10.1 (9.4-12.3) fl Neutrophils % (Manual) 56 (40-60) % Band Neutrophils % 0 (0-10) % Lymphocytes % (Manual) 35 (20-40) % Atypical Lymphs % 5 % Monocytes % (Manual) 2 (2-10) % Eosinophils % (Manual) 2 (0.7-5.8) % Basophils % (Manual) 0 L (0.1-1.2) Platelet Estimate Adequate RBC Morph Comment Normal PT 10.1 (9.7-12.0) SECONDS INR 0.93 APTT 24 (22-31) SECONDS D-Dimer, Quantitative 0.62 H (0.19-0.50) mg/L Sodium 138 (136-145) mEq/L Potassium 3.7 (3.5-5.1) mEq/L Chloride 101 (98-107) mEq/L Carbon Dioxide 25 (21-32) mEq/L Anion Gap 15.7 H (5-15) BUN 9 (7-18) mg/dL Creatinine 0.7 (0.55-1.02) mg/dL Est Cr Clr Drug Dosing 90.41 mL/min Estimated GFR (MDRD) > 60 (>60) mL/min BUN/Creatinine Ratio 12.9 L (14-18) Glucose 207 H (74-106) mg/dL Calcium 9.6 (8.5-10.1) mg/dL Magnesium 1.4 L (1.8-2.4) mg/dl Total Bilirubin 0.5 (0.2-1.0) mg/dL AST 44 H (15-37) U/L ALT 54 (14-59) U/L Alkaline Phosphatase 73 (46-116) U/L Troponin I < 0.017 (0.00-0.056) ng/mL NT-Pro-B Natriuret Pep (0-125) pg/mL Total Protein 7.3 (6.4-8.2) g/dl Albumin 3.7 (3.4-5.0) g/dl Globulin 3.6 gm/dL Albumin/Globulin Ratio 1.0 (1-2) Free T4 (0.76-1.46) ng/dL TSH 3rd Generation 3.917 H (0.358-3.74) uIU/mL 10/01/19 10/01/19 Range/Units 14:45 14:45 WBC (3.98-10.04) K/mm3 RBC (3.98-5.22) M/mm3 Hgb (11.2-15.7) gm/dl Hct (34.1-44.9) % MCV (79.4-94.8) fl MCH (25.6-32.2) pg MCHC (32.2-35.5) g/dl RDW Std Deviation (36.4-46.3) fL Plt Count (182-369) K/mm3 MPV (9.4-12.3) fl Neutrophils % (Manual) (40-60) % Band Neutrophils % (0-10) % Lymphocytes % (Manual) (20-40) % Atypical Lymphs % % Monocytes % (Manual) (2-10) % Eosinophils % (Manual) (0.7-5.8) % Basophils % (Manual) (0.1-1.2) Platelet Estimate RBC Morph Comment PT (9.7-12.0) SECONDS INR APTT (22-31) SECONDS D-Dimer, Quantitative (0.19-0.50) mg/L Sodium (136-145) mEq/L Potassium (3.5-5.1) mEq/L Chloride (98-107) mEq/L Carbon Dioxide (21-32) mEq/L Anion Gap (5-15) BUN (7-18) mg/dL Creatinine (0.55-1.02) mg/dL Est Cr Clr Drug Dosing mL/min Estimated GFR (MDRD) (>60) mL/min BUN/Creatinine Ratio (14-18) Glucose (74-106) mg/dL Calcium (8.5-10.1) mg/dL Magnesium (1.8-2.4) mg/dl Total Bilirubin (0.2-1.0) mg/dL AST (15-37) U/L ALT (14-59) U/L Alkaline Phosphatase (46-116) U/L Troponin I (0.00-0.056) ng/mL NT-Pro-B Natriuret Pep 38 (0-125) pg/mL Total Protein (6.4-8.2) g/dl Albumin (3.4-5.0) g/dl Globulin gm/dL Albumin/Globulin Ratio (1-2) Free T4 1.12 (0.76-1.46) ng/dL TSH 3rd Generation (0.358-3.74) uIU/mL Meds: Medications Generic Name Dose Route Start Last Admin Trade Name Freq PRN Reason Stop Dose Admin Sodium Chloride 100 mls @ 60 mls/hr 10/01/19 16:15 10/01/19 16:08 Normal Saline IV 60 mls/hr ASDIRECTED JAMES Administration Sodium Chloride 10 ml 10/01/19 14:45 10/01/19 15:50 Saline Flush FLUSH 10 ml ASDIRECTED PRN Administration Keep Vein Open Sodium Chloride 10 ml 10/01/19 16:04 10/01/19 16:08 Saline Flush FLUSH 10 ml ONETIME PRN Administration Keep Vein Open Discontinued Medications Generic Name Dose Route Start Last Admin Trade Name Freq PRN Reason Stop Dose Admin Sodium Chloride 1,000 mls @ 999 mls/hr 10/01/19 15:47 10/01/19 15:59 Normal Saline IV 10/01/19 16:47 999 mls/hr ONETIME ONE Administration Iopamidol 100 ml 10/01/19 16:04 10/01/19 16:08 Isovue-370 (76%) IVPUSH 10/01/19 16:05 100 ml ONETIME ONE Administration Lorazepam 1 mg 10/01/19 15:02 10/01/19 15:50 Ativan IVPUSH 10/01/19 15:03 1 mg ONETIME ONE Administration Ondansetron HCl 4 mg 10/01/19 15:02 10/01/19 15:49 Zofran IVPUSH 10/01/19 15:03 4 mg ONETIME ONE Administration - Re-Assessments/Exams Free Text/Narrative Re-Assessment/Exam: 10/01/19 15:14 Patient presents to the ED for evaluation of some chest pain or shortness of breath. IV will be placed, CBC, CMP, magnesium, d-dimer, troponin, coagulation studies, BNP, TSH, EKG and a chest x-ray will be obtained for further evaluation , I have ordered a little bit of Ativan and some Zofran to be given for anxiety and nausea. 10/01/19 16:54 His laboratory evaluation demonstrates a mildly elevated white blood cell count which is attributed mostly to stress. Patient's d-dimer is elevated at 0.62, she did have a CTA of the chest, and this was negative for pulmonary embolism. Glucose is elevated at 207, and the patient's TSH is also elevated at 3.917. Upon talking with the patient, she states that she does have some female family members that have tested positive for protein C&S deficiencies, I will discuss further testing with the patient, if she wishes to have it done today, or on a more outpatient basis, as it will be nonfocal for today's visit. I do believe a lot of the patient's issues are due to stress in nature. She no doubt needs another medication to control her diabetes, but I am not overly familiar with newer adjunct type medications and will direct her to follow-up with her primary care provider, in a more urgent fashion. Will recommend she have her TSH week or 2 for re-evaluation. Departure - Departure Time of Disposition: 17:01 Disposition: Home, Self-Care 01 Condition: Fair Clinical Impression: Anxiety as acute reaction to exceptional stress, Elevated blood sugar level, Elevated blood pressure reading Prescriptions: LORazepam [Ativan] 1 mg PO TID PRN #12 tab PRN Reason: Anxiety Instructions: How to Take Your Blood Pressure, [id number], DASH Eating Plan, Nonspecific Chest Pain, Adult, [id number] Referrals: Joann Ponce MD [Primary Care Provider] - Forms: ED Department Discharge Additional Instructions: You were evaluated in the ER today regarding your shortness of breath and chest pain. Your work-up at today's visit is fairly unremarkable, your blood sugar is elevated at 207, you were given some IV fluids to help with this. Recommend you follow-up with your primary care provider and ask her about starting a medication like Victoza, Ozempic, or Trulicity for further blood sugar management. It is likely that the chest pain/shortness of breath you are having is highly due to anxiety, due to increased stress in your home. Your laboratory evaluation demonstrated no sort of bacterial infections or other metabolic abnormalities that would account for this. Your d-dimer was mildly elevated, this is a nonspecific test, but can be elevated sometimes in the case of a blood clot. You did have a CT angio of your chest done at this time, there is no sign of any pulmonary embolus, or blood clot in your lung. Your EKG was within normal limits, chest x-ray is also within normal limits. 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 Recommend you have a factor V Leiden, protein C, protein S, anticardiolipin antibody, and anti-thrombin activity levels be drawn. This can be done on an outpatient basis. Keep a record of your blood sugars, and blood pressures over the next few days, and take this to your next visit with your primary care provider. You were given a few tablets of Ativan for anxiety purposes, please take 1 tab 3 times a day as needed for further anxiety. Please return to the ER at any time if symptoms change or worsen. Sepsis Event Note - Evaluation Sepsis Screening Result: No Definite Risk - Focused Exam Vital Signs: Vital Signs Temp Pulse Resp BP Pulse Ox 10/01/19 14:39 98.5 F 120 H 20 163/117 H 97 Date Exam was Performed: 10/01/19 Time Exam was Performed: 17:25 - My Orders Last 24 Hours: My Active Orders 10/01/19 14:44 EKG Documentation Completion [RC] ASDIRECTED EKG 12 Lead [EK] Stat 10/01/19 14:45 Peripheral IV Care [RC] . DIRECTED Sodium Chloride 0.9% [Saline Flush] 10 ml FLUSH ASDIRECTED PRN Peripheral IV Insertion Adult [OM.PC] Stat 10/01/19 16:04 Sodium Chloride 0.9% [Saline Flush] 10 ml FLUSH ONETIME PRN 10/01/19 16:15 Sodium Chloride 0.9% [Normal Saline] 100 ml IV ASDIRECTED - Assessment/Plan Last 24 Hours: My Active Orders 10/01/19 14:44 EKG Documentation Completion [RC] ASDIRECTED EKG 12 Lead [EK] Stat 10/01/19 14:45 Peripheral IV Care [RC] . DIRECTED Sodium Chloride 0.9% [Saline Flush] 10 ml FLUSH ASDIRECTED PRN Peripheral IV Insertion Adult [OM.PC] Stat 10/01/19 16:04 Sodium Chloride 0.9% [Saline Flush] 10 ml FLUSH ONETIME PRN 10/01/19 16:15 Sodium Chloride 0.9% [Normal Saline] 100 ml IV ASDIRECTED
[2019-10-01] MEDS ORDERED: Ondansetron 4 MG/2 ML SDV IVPUSH ONE (15:02)
[2019-10-01] MEDS ORDERED: LORazepam 2 MG/ML SDV IVPUSH ONE (15:02)
[2019-10-01] MEDS ORDERED: Sodium Chloride 0.9% 1,000 ML IV ONE (15:47)
--- NOTE | 2019-10-01 15:55 | CR ---
Chest: Chest: 2 views of the chest were obtained. Comparison: Prior chest x-ray of 01/07/17. Heart is slightly enlarged. Upper mediastinum is normal. Lungs are clear with no acute parenchymal change. Bony structures are unremarkable. Impression: 1. Heart is slightly enlarged. 2. Nothing acute is appreciated on 2 view chest x-ray. Diagnostic code #2 Study was dictated in MDT
[2019-10-01] MEDS ORDERED: Iopamidol 755 Mg/ML 100 ML Bottle IVPUSH ONE (16:04)
[2019-10-01] MEDS ORDERED: Sodium Chloride 0.9% 100 ML IV SCH (16:15)
--- NOTE | 2019-10-01 16:37 | CT ---
CT chest Technique: Multiple axial sections through the chest were obtained. Intravenous contrast was utilized. Study performed as a pulmonary angiogram protocol. Findings: Pulmonary arteries are moderately well-opacified. No filling defects are seen to indicate pulmonary embolism. Visualized upper abdominal structures appear within normal limits. No pericardial thickening is seen. Mediastinum and hilar regions show no adenopathy or mass. No axillary adenopathy is seen. Lungs are clear with no acute parenchymal change. Bone window settings were reviewed. No acute osseous finding is appreciated. Impression: 1. No findings of pulmonary embolism. 2. Nothing acute is appreciated on CT study of the chest. Diagnostic code #1 Study was dictated in MDT
== END 2019-10-01 17:35 | disposition home or self-care (01) ==
LOC: JD.ED 14:13
DX: E11.9 Type 2 diabetes mellitus without complications (principal); F43.0 Acute stress reaction; R03.0 Elevated blood-pressure reading, without diagnosis of hypertension; E66.9 Obesity, unspecified; Z68.41 Body mass index [BMI] 40.0-44.9, adult; R00.0 Tachycardia, unspecified; Z79.899 Other long term (current) drug therapy; Z79.84 Long term (current) use of oral hypoglycemic drugs; E11.65 Type 2 diabetes mellitus with hyperglycemia
CPT/HCPCS: 36415; 71046; 71275; 80053; 83735; 83880; 84439; 84443; 84484; 85007; 85027; 85379; 85610; 85730; 93005; 96361; 96374; 96375; 99285; J2060; J2405; J7030; J7050; Q9967; 93010; 99284

== ENCOUNTER → 2020-07-01 | Day surgery (SDC) | payer MEDICAID ==
[~2020-07-01] MED LIST changes: -Ampicillin/Sulbactam Na 3 GM in Sodium Chloride 0.9% 100 ML IV ONE; +Ketamine 500 mg/10 ML MDV ONE; +Lactated Ringers 1,000 ML IV SCH; +Lidocaine 1% with EPINEPHrine 1:100,000 20 ML MDV ONE; +Lidocaine 1%/Sod Bicarbonate in NS 8.4% 1 ML Syringe IDERM PRN; +Midazolam 1 MG/ML 2 ML SDV ONE; +Ondansetron 4 MG/2 ML SDV ONE; +Propofol 200 MG/20 ML SDV ONE; +Sodium Chloride 0.9% 10 ML Syringe FLUSH PRN; +fentaNYL 100 MCG/2 ML SDV ONE
--- NOTE | 2020-07-01 13:35 | PCM.PRNOTE ---
- Free Text/Narrative Note: Date: 07/01/2020 Operation: excision of pilonidal disease Surgeon: Asael Farley MD Findings: Scar from prior pilonidal excision overlying the midline sacrum several centimeters superior to the anus. This measured 10 mm longitudinally, 5 mm transversely. Inferior to the scar, was a single open pit. This tract was opened up over a lacrimal probe towards the central area of disease, which laid deep to the after mentioned scar. There was no significant underlying hair, or pus. The final wound measured approximately 2 x 2 x 2 cm, involving skin and subcutaneous fat. Detailed Report: The patient was taken to the operating room and placed in left lateral decubitus position. There was some difficulty establishing peripheral IV access, but once this was obtained monitored anesthesia care was initiated. The sacral area and perineum were prepped with iodine solution. Drapes were placed, and with adequ ate sedation on board, a total of 20 cc 1% lidocaine with epinephrine was injected intradermally around the site of disease. A small caliber lacrimal probe was inserted into the midline pilonidal pit that was identified just inferior to the scar tissue from prior pilonidal excision. The skin was opened up over top of the lacrimal probe along the midline, extending through the scar tissue. Scar tissue was then excised in an ellipse, and the underlying subcutaneous tissue was explored digitally. No pus or significant hair was identified deep to the area of scar tissue. There was no tracking off of midline otherwise, and no other pits were identified. A curette was used to roughly debride the subcutaneous fat involving the base of the wound. The wound was then digitally explored, and again no tracking was identified. Dilute phenol solution was injected over the wound base, taking care to protect the perianal tissue. Hemostasis was achieved with electrocautery. The wound was packed with an unfolded moistened 4 x 4 gauze pad. An ABD pad and mesh underwear were applied for dressing. The patient tolerated the procedure well.
--- NOTE | 2020-07-01 13:38 | PCM48HPAN ---
Post Anesthesia Note - EVALUATION WITHIN 48HRS OF ANESTHETIC Vital Signs in Normal Range: Yes Patient Participated in Evaluation: Yes Respiratory Function Stable: Yes Airway Patent: Yes Cardiovascular Function Stable: Yes Hydration Status Stable: Yes Pain Control Satisfactory: Yes Nausea and Vomiting Control Satisfactory: Yes Mental Status Recovered: Yes Vital Signs: Last Vital Signs Temp 36.4 C 07/01/20 10:40 Pulse 109 H 07/01/20 10:40 Resp 16 07/01/20 10:40 BP 123/89 07/01/20 10:40 Pulse Ox 96 07/01/20 10:40
[2020-07-01 15:46] VITALS: BP 122/65; PULSE 104
== END | disposition home or self-care (01) ==
LOC: JD.SDS 10:30
PROVIDERS: ATTEND Surgery
DX: L05.91 Pilonidal cyst without abscess (principal); F41.9 Anxiety disorder, unspecified; F32.1 Major depressive disorder, single episode, moderate; I10 Essential (primary) hypertension; K21.9 Gastro-esophageal reflux disease without esophagitis; E61.1 Iron deficiency; E11.9 Type 2 diabetes mellitus without complications; E55.9 Vitamin D deficiency, unspecified; Z79.82 Long term (current) use of aspirin; Z79.899 Other long term (current) drug therapy; Z98.890 Other specified postprocedural states
CPT/HCPCS: 11771; 82962; J2250; J2405; J2704; J3010; J7120; 00300

== ENCOUNTER 2021-07-11 19:33 | Emergency (ER) | payer MEDICAID ==
[2021-07-11 19:54] VITALS: BP 150/112; PULSE 103
[2021-07-11] MEDS ORDERED: Lidocaine 1% 10 ML MDV INJECT ONE (20:07)
--- NOTE | 2021-07-11 20:24 | EDM.PDOC ---
ED HPI GENERAL MEDICAL PROBLEM - General Chief Complaint: ENT Problem Stated Complaint: NOSE INJURY Time Seen by Provider: 07/11/21 19:50 Source of Information: Reports: Patient, RN Notes Reviewed History Limitations: Reports: No Limitations - History of Present Illness INITIAL COMMENTS - FREE TEXT/NARRATIVE: Patient is a 36-year-old female who presents to the ER for a nasal injury. States she was in her garage, and her house slippers, and she turned a corner when she slipped on the floor, while she was carrying a coffee mug, and the coffee mug struck her in the bridge of the nose. States that she saw black but does not think that she actually blacked out. Having some mild tenderness/discomfort to her nasal bridge, and she did have quite a bit of bleeding at the initial time of injury. There is about a 1 cm curvilinear laceration between her eyes over the bridge of her nose, and she is somewhat tender in this area. No bloody nose was noted, patient is not having any blurred vision or double vision at this time. Patient denies any other sick- like symptoms, fever/chills, cough/shortness of breath, nausea/vomiting/diarrhea. Patient states she is up-to-date on her tetanus. Nose Pain Score (Numeric/FACES): 6 - Related Data Allergies Allergy/AdvReac Type Severity Reaction Status Date / Time No Known Allergies Allergy Verified 07/11/21 19:50 Home Meds: Home Meds metFORMIN [Glucophage XR] 1,000 mg PO BID 10/01/19 [History] Ascorbic Acid [Vitamin C] 1,000 mg PO DAILY 06/30/20 [History] Aspirin 81 mg PO DAILY 06/30/20 [History] Cholecalciferol (Vitamin D3) [Vitamin D3] 5,000 unit PO DAILY 06/30/20 [History] Ferrous Sulfate [Iron] 325 mg PO DAILY 06/30/20 [History] Fish Oil/[place]-3 Fatty Acids [Fish Oil 1,000 MG] 1 gm PO DAILY 06/30/20 [History] Glimepiride 8 mg PO DAILY 06/30/20 [History] LORazepam [Ativan] 0.5 - 1 mg PO BID PRN 06/30/20 [History] Lisinopril/Hydrochlorothiazide [Lisinopril-Hctz 20-25 mg Tab] 1 tab PO DAILY 06/30/20 [History] Magnesium 250 mg PO BID 06/30/20 [History] oxyCODONE 5 mg PO Q4H PRN #20 tab 07/01/20 [Rx] Past Medical History - Past Health History Medical/Surgical History: Denies Medical/Surgical History HEENT History: Reports: Impaired Vision Other HEENT History: wears glasses Cardiovascular History: Reports: Other (See Below) Other Cardiovascular History: chest pain, palpitations Respiratory History: Reports: None Gastrointestinal History: Reports: GERD, Other (See Below) Other Gastrointestinal History: elevated LFTs Genitourinary History: Reports: Other (See Below) Other Genitourinary History: decreased libido RANGE EXAMINER History: Reports: Ectopic , Other RANGE EXAMINER History: 3 vaginal births Musculoskeletal History: Reports: None Neurological History: Reports: None Psychiatric History: Reports: Anxiety, Depression Endocrine/Metabolic History: Reports: Diabetes, Type II, Obesity/BMI 30+ Hematologic History: Reports: Anemia, Blood Transfusion(s), Iron Deficiency Immunologic History: Reports: None Oncologic (Cancer) History: Reports: None Dermatologic History: Reports: Other (See Below) Other Dermatologic History: sacral cyst removal, excessive sweating, fatigue, pilonidal cyst, acute facial, incision and drainage - Infectious Disease History Infectious Disease History: Reports: None - Past Surgical History HEENT Surgical History: Reports: Oral Surgery Cardiovascular Surgical History: Reports: None Respiratory Surgical History: Reports: None GI Surgical History: Reports: Cholecystectomy Female Surgical History: Reports: Hysterectomy, Oophorectomy, Other (See Below) Other Female Surgeries/Procedures: 3 vaginal births Neurological Surgical History: Reports: None Oncologic Surgical History: Reports: None Social & Family History - Family History Family Medical History: No Pertinent Family History - Tobacco Use Tobacco Use Status *Q: Never Tobacco User - Caffeine Use Caffeine Use: Reports: Coffee, Tea Other Caffeine Use: doesn't have coffee very often but does have every once in awhile. - Alcohol Use Days Per Week of Alcohol Use: 1 Number of Drinks Per Day: 1 Total Drinks Per Week: 1 - Recreational Drug Use Recreational Drug Use: No - Living Situation & Occupation Living situation: Reports: Occupation: Employed ED ROS ENT - Review of Systems Review Of Systems: Comprehensive ROS is negative, except as noted in HPI. ED EXAM, ENT - Physical Exam Exam: See Below Exam Limited By: No Limitations General Appearance: Alert, WD/WN, No Apparent Distress Eye Exam: Bilateral Eye: EOMI, Normal Inspection, PERRL Nose: Normal Mucousa, No Blood, Nasal Tenderness (over the bridge of her nose between her eyes- see skin for laceration detail) Mouth/Throat: Normal Inspection, Normal Gums, Normal Lips, Normal Oropharynx, Normal Teeth Head: Normocephalic, Facial Lacerations (1cm curvilinear laceration over bridge of nose between eyes) Respiratory/Chest: No Respiratory Distress, Lungs Clear, Normal Breath Sounds, No Accessory Muscle Use, Chest Non-Tender Cardiovascular: Normal Peripheral Pulses, Regular Rate, Rhythm, No Edema GI/Abdominal: Soft Neurological: Alert, Oriented, Normal Cognition, No Motor/Sensory Deficits Psychiatric: Normal Affect, Normal Mood Skin: Warm, Dry, Normal Color, No Rash, Wound/Incision (1cm curvilinear laceration over bridge of nose between eyes) ED ENT PROCEDURES - Laceration/Wound Repair Midline Nose Lac/wound length in cm: 1 Appearance: Subcutaneous, Linear (curvilinear), Clean Distal NVT: Neuro & Vascular Intact, No Tendon Injury Anesthetic Type: Local Local Anesthesia - Lidocaine (Xylocaine): 1% Plain Local Anesthetic Volume: 4cc Skin Prep: Chlorhexidine (Hibiciens), Saline Exploration/Debridement/Repair: Wound Explored, In a Bloodless Field, Explored to Base, No Foreign Material Found Suture Size: 5-0 # of Sutures: 5 Suture Type: Prolene, Interrupted, Simple Sterile Dressing Applied: Nurse Tetanus Status Addressed: Yes Complications: Mild Course - Vital Signs Last Recorded V/S: Last Vital Signs Temp 97.8 F 07/11/21 19:50 Pulse 103 H 07/11/21 19:50 Resp 18 07/11/21 19:50 BP 150/112 H 07/11/21 19:50 Pulse Ox 99 07/11/21 19:50 - Orders/Labs/Meds Orders: Active Orders 24 hr Category Date Time Status Nasal Bone Min 3V [CR] Stat Exams 07/11/21 20:07 Ordered Meds: Medications Discontinued Medications Generic Name Dose Route Start Last Admin Trade Name Freq PRN Reason Stop Dose Admin Hydrocodone Bitart/Acetaminophen 2 tab 07/11/21 21:47 Acetaminophen/Hydrocodone 325-5 Mg Tab PO 07/11/21 21:48 ONETIME ONE Lidocaine HCl 10 ml 07/11/21 20:07 07/11/21 21:06 Lidocaine 1% 10 Ml Mdv INJECT 07/11/21 20:08 10 ml ONETIME ONE Administration Ondansetron HCl 4 mg 07/11/21 21:47 Ondansetron 4 Mg Tab.Dis PO 07/11/21 21:48 ONETIME ONE - Re-Assessments/Exams Free Text/Narrative Re-Assessment/Exam: 07/11/21 20:23 Patient presents to the ER for facial/nasal injury. We will go ahead and get x- rays of the nasal bone; the laceration will require sutures. 07/11/21 21:53 Facial x-rays demonstrate no acute osseous abnormality. Patient was complaining of some more facial pain/nausea after suturing was completed. I have ordered oral Zofran and oral [place] for ongoing management. Departure - Departure Time of Disposition: 20:22 Disposition: Home, Self-Care 01 Condition: Good Clinical Impression: Facial laceration Qualifiers: Encounter type: initial encounter Qualified Code(s): S01.81XA - Laceration without foreign body of other part of head, initial encounter - Discharge Information *PRESCRIPTION DRUG MONITORING PROGRAM REVIEWED*: No *COPY OF PRESCRIPTION DRUG MONITORING REPORT IN PATIENT [place]: No Instructions: Facial Laceration, [id number] Referrals: Joann Ponce MD [Primary Care Provider] - Forms: ED Department Discharge Additional Instructions: You have been evaluated in the ED for your laceration. Sutures will need to stay in for 5-7 days. You may return to the ED or any clinic for removal. Please keep this area clean and dry, you may cleanse with regular soap and water. No vigorous scrubbing. Please try to avoid submerging the affected area in water for prolonged periods of time until the sutures are removed. Watch out for signs of infection like increased redness, swelling, pain at the laceration site, or if you should develop any fevers or chills. You may take some Tylenol/ibuprofen every 6 hours as needed for ongoing pain management. You have been provided with 2 different prescriptions, 1 for nausea medication and one for pain. Please use the medication for pain very sparingly as these can be addictive. These medications were provided to you through our [employer] machine in the ER waiting lobby. Please return to ED if your symptoms change or worsen. Sepsis Event Note (ED) - Evaluation Sepsis Screening Result: No Definite Risk - Focused Exam Vital Signs: Vital Signs Temp Pulse Resp BP Pulse Ox 07/11/21 19:50 97.8 F 103 H 18 150/112 H 99 - My Orders Last 24 Hours: My Active Orders 07/11/21 20:07 Nasal Bone Min 3V [CR] Stat - Assessment/Plan Last 24 Hours: My Active Orders 07/11/21 20:07 Nasal Bone Min 3V [CR] Stat
[2021-07-11] MEDS ORDERED: Acetaminophen/HYDROcodone 325-5 MG Tab PO ONE (21:47)
[2021-07-11] MEDS ORDERED: Ondansetron 4 MG Tab.DIS PO ONE (21:47)
--- NOTE | 2021-07-12 08:07 | CR ---
Nasal bone: 3 views of the nasal bones were obtained. Comparison: No prior nasal bone study is available. Visualized paranasal sinuses are clear. Soft tissue injury is noted. No nasal bone fracture is seen. Impression: 1. Soft tissue injury. 2. No acute nasal bone fracture is seen. Diagnostic code #2
== END 2021-07-11 22:15 | disposition home or self-care (01) ==
LOC: JD.ED 19:33
DX: S01.21XA Laceration without foreign body of nose, initial encounter (principal); E11.9 Type 2 diabetes mellitus without complications; D64.9 Anemia, unspecified; E66.9 Obesity, unspecified; Z68.32 Body mass index [BMI] 32.0-32.9, adult; Z79.84 Long term (current) use of oral hypoglycemic drugs; Z79.82 Long term (current) use of aspirin; Z79.899 Other long term (current) drug therapy; W01.198A Fall on same level from slipping, tripping and stumbling with subsequent striking against other object, initial encounter; Y92.59 Other trade areas as the place of occurrence of the external cause
CPT/HCPCS: 12011; 70160; 99283; A9270

== ENCOUNTER 2021-07-19 09:35 | Emergency (ER) | payer MEDICAID ==
[2021-07-19 10:40] VITALS: BP 140/82; PULSE 85
== END 2021-07-19 10:35 | disposition home or self-care (01) ==
LOC: JD.ED 09:35
DX: S01.21XD Laceration without foreign body of nose, subsequent encounter (principal); X58.XXXD Exposure to other specified factors, subsequent encounter
CPT/HCPCS: 99281

== ENCOUNTER 2021-11-30 18:33 | Emergency (ER) | payer MEDICAID ==
[2021-11-30 18:50] VITALS: BP 148/102; PULSE 98
[2021-11-30] MEDS ORDERED: Ketorolac 60 MG/2 ML SDV IM ONE (18:55)
== END 2021-11-30 19:45 | disposition home or self-care (01) ==
LOC: JD.ED 18:33
DX: S93.504A Unspecified sprain of right lesser toe(s), initial encounter (principal); K21.9 Gastro-esophageal reflux disease without esophagitis; E11.9 Type 2 diabetes mellitus without complications; E66.9 Obesity, unspecified; Z68.33 Body mass index [BMI] 33.0-33.9, adult; Z79.82 Long term (current) use of aspirin; Z79.899 Other long term (current) drug therapy; W22.09XA Striking against other stationary object, initial encounter; Y93.02 Activity, running
CPT/HCPCS: 73610; 73630; 96372; 99283; J1885

== ENCOUNTER 2023-02-19 15:08 | Emergency (ER) | payer MEDICAID ==
[2023-02-19] MEDS ORDERED: Ondansetron 4 MG/2 ML SDV IVPUSH ONE (15:43)
[2023-02-19] MEDS ORDERED: Sodium Chloride 0.9% 1,000 ML IV STA (15:43)
[2023-02-19] MEDS ORDERED: HYDROmorphone 0.5 MG/0.5 ML Syringe IVPUSH ONE (15:43)
[2023-02-19] MEDS ORDERED: Sodium Chloride 0.9% 10 ML Syringe FLUSH PRN (15:43)
[2023-02-19 16:18] LABS: BASOPHILS ABSOLUTE AUTO 0.03 K/mm3 (0.01-0.08); BASOPHILS PERCENT AUTO 0.2 % (0.1-1.2); EOSINOPHILS ABSOLUTE AUTO 0.23 K/mm3 (0.04-0.36); EOSINOPHILS PERCENT AUTO 1.4 (0.7-5.8); HEMATOCRIT 42.5 % (34.1-44.9); HEMOGLOBIN 14.1 gm/dl (11.2-15.7); IMMATURE GRAN ABSOLUTE AUTO 0.05 K/mm3 (0.00-0.10); IMMATURE GRAN PERCENT AUTO 0.3 % (<=1.0); LYMPHOCYTES ABSOLUTE AUTO 3.47 K/mm3 (1.18-3.74); LYMPHOCYTES PERCENT AUTO 20.6 % (19.3-51.7); MEAN CORPUSCULAR HEMOGLOBIN 28.5 pg (25.6-32.2); MEAN CORPUSCULAR HGB CONC 33.2 g/dl (32.2-35.5); MEAN CORPUSCULAR VOLUME 85.9 fl (79.4-94.8); MEAN PLATELET VOLUME 9.6 fl (9.4-12.3); MONOCYTES ABSOLUTE AUTO 1.04 K/mm3 (0.24-0.36); MONOCYTES PERCENT AUTO 6.2 % (4.7-12.5); NEUTROPHILS ABSOLUTE AUTO 12.04 K/mm3 (1.56-6.13); NEUTROPHILS PERCENT AUTO 71.3 % (34.0-71.1); PLATELET COUNT,PLT 398 K/mm3 (182-369); RED BLOOD CELL COUNT 4.95 M/mm3 (3.98-5.22); WHITE BLOOD CELL COUNT,WBC 16.86 K/mm3 (3.98-10.04)
[2023-02-19 16:27] LABS: APPEARANCE,URINE CLOUDY (Clear); BILIRUBIN,URINE 2+ (Negative); COLOR,URINE RED (Yellow); GLUCOSE,URINE NEGATIVE (Negative); KETONES,URINE 1+ (Negative); LEUKOCYTE ESTERASE,URINE TRACE (Negative); NITRITE,URINE POSITIVE (Negative); OCCULT BLOOD,URINE 3+ (Negative); PROTEIN,URINE 3+ (Negative)
[2023-02-19 16:36] LABS: BACTERIA,URINE FEW /hpf (FEW); MUCUS,URINE FEW /hpf (FEW); RBC,URINE TOO NUMEROUS TO CNT /hpf (0-5); SQUAMOUS EPITHELIAL CELLS,UR 0-5 /hpf (0-5)
[2023-02-19 16:45] LABS: ALBUMIN 3.8 g/dl (3.4-5.0); ANION GAP 13.6 (5-15); BILIRUBIN TOTAL 0.3 mg/dL (0.2-1.0); BUN/CREATININE RATIO 13.3 (14-18); C-REACTIVE PROTEIN 1.6 mg/dL (<1.0); CREATININE 0.9 mg/dL (0.55-1.02); EST CRCL DRUG DOSING (CG) 68.35 mL/min; POTASSIUM,K 3.6 mEq/L (3.5-5.1); PROTEIN TOTAL,TP 7.6 g/dl (6.4-8.2)
[2023-02-19] MEDS ORDERED: cefTRIAXone 2 GM in Sodium Chloride 0.9% 100 ML IV ONE (16:55)
[2023-02-19 18:12] VITALS: BP 126/89; PULSE 101
== END 2023-02-19 18:05 | disposition home or self-care (01) ==
LOC: JD.ED 15:08
DX: N39.0 Urinary tract infection, site not specified (principal); E11.9 Type 2 diabetes mellitus without complications; E66.9 Obesity, unspecified; Z68.36 Body mass index [BMI] 36.0-36.9, adult; Z79.84 Long term (current) use of oral hypoglycemic drugs; Z79.82 Long term (current) use of aspirin; Z79.899 Other long term (current) drug therapy
CPT/HCPCS: 36415; 74176; 80053; 81001; 85025; 86140; 87086; 96365; 96375; 99284; J0696; J1170; J2405; J3490; J7030

== ENCOUNTER 2023-09-06 17:19 | Emergency (ER) | payer MEDICAID ==
[2023-09-06 17:31] VITALS: BP 139/105; PULSE 98
== END 2023-09-06 18:27 | disposition home or self-care (01) ==
LOC: JD.ED 17:19
DX: G56.11 Other lesions of median nerve, right upper limb (principal); K21.9 Gastro-esophageal reflux disease without esophagitis; E11.9 Type 2 diabetes mellitus without complications; Z90.49 Acquired absence of other specified parts of digestive tract; Z90.710 Acquired absence of both cervix and uterus; Z79.82 Long term (current) use of aspirin; Z79.899 Other long term (current) drug therapy
CPT/HCPCS: 99283